=== PATIENT | female | born 1940 | race Caucasian/White ===

== ENCOUNTER → 2017-10-17 | Outpatient (REF) | payer MEDICARE ==
[2017-10-17 12:24] LABS: TROPONIN I < 0.02 NG/ML (< 0.10)
== END ==
LOC: M LAB REF 11:54
DX: R06.02 Shortness of breath (principal); I49.8 Other specified cardiac arrhythmias
CPT/HCPCS: 84484

== ENCOUNTER 2018-02-18 11:32 | Emergency (ER) | payer MEDICARE ==
[2018-02-18] MEDS: NORCO, ANEXSIA 5/325MG TABLET (HYDROcodone/ACETAMINOPHEN) PO (12:44)
[2018-02-18] MEDS: valACYclovir HCL 500 MG TAB PO (12:45)
== END 2018-02-18 13:01 | disposition home or self-care (01) ==
LOC: M ED 11:32
DX: B02.9 Zoster without complications (principal); E78.9 Disorder of lipoprotein metabolism, unspecified; N28.89 Other specified disorders of kidney and ureter; K58.9 Irritable bowel syndrome, unspecified; R25.1 Tremor, unspecified; Z88.0 Allergy status to penicillin; Z88.1 Allergy status to other antibiotic agents; Z79.899 Other long term (current) drug therapy; Z79.82 Long term (current) use of aspirin
CPT/HCPCS: 99282

== ENCOUNTER 2018-10-20 12:13 | Emergency (ER) | payer MEDICARE ==
[~2018-10-20] VITALS: Ht 152.4 cm; Wt 85.9 kg
[~2018-10-20 12:13] MED LIST: ASPI325T PO; CALCTAB89 PO; GLUC1CAP9 PO; META28PO PO; MULTTAB4 PO; NORCOTAB PO; PRAV20TA2; PRIM50TA6; PROP20TA5 PO; SERT-141 PO; TYLE325T5 PO; VALT1TAB PO; VITAMIN D PO
--- NOTE | 2018-10-20 13:23 | REP ---
Left knee series: Six views. History: Pain. Findings: There is patellofemoral spurring consistent with osteoarthritis. There is diffuse osteopenia. Mild tibiofemoral spurring is noted. Impression: Moderate patellofemoral osteoarthritic spurring. Mild tibial femoral spurring. Diffuse osteopenia. No acute bony abnormality. Electronically Signed by Rafal Blackmon MD 10/20/2018 01:13 P
[2018-10-20 13:28] VITALS: BP 153/68
[2018-10-20] MEDS ORDERED: ACET1TAB16 PO (13:28)
[2018-10-20] MEDS ORDERED: ACETAMINOPH W/CODEINE #3 TAB UD PO ONE (13:30)
== END 2018-10-20 13:46 | disposition home or self-care (01) ==
LOC: M ED 12:13
DX: S89.92XA Unspecified injury of left lower leg, initial encounter (principal); M25.761 Osteophyte, right knee; X58.XXXA Exposure to other specified factors, initial encounter; Y92.099 Unspecified place in other non-institutional residence as the place of occurrence of the external cause; Y93.9 Activity, unspecified; Y99.9 Unspecified external cause status; E78.00 Pure hypercholesterolemia, unspecified; K58.9 Irritable bowel syndrome, unspecified; M85.862 Other specified disorders of bone density and structure, left lower leg; Z87.442 Personal history of urinary calculi; Z79.82 Long term (current) use of aspirin; Z79.899 Other long term (current) drug therapy; Z88.0 Allergy status to penicillin; Z88.8 Allergy status to other drugs, medicaments and biological substances

== ENCOUNTER → 2019-05-04 | Outpatient (CLI) | payer MEDICARE ==
[~2019-05-04] MED LIST changes: +ACET1TAB16 PO; +ARTIDRO2 OU; +ASPI-261 PO; +AZOP0.2S OU; +GLUCTAB6 PO; +HYDR-3715 PO; +LATA0.0015 OU; -NORCOTAB PO; +OYST500T25 PO; -PRAV20TA2; +PRAV20TA2 PO; +SENO8.6T5 PO; +SERT50TA29 PO; +TYLE650T35 PO; +VITMTA PO
--- NOTE | 2019-05-04 18:35 | REPMRS ---
Patient History The patient states she has not had a clinical breast exam in over a year. Family history of breast cancer at age 50 or over in paternal grandmother. Took hormonal contraceptives for 10 years. Took estrogen for 15 years. 3D TOMOSYNTHESIS WAS PERFORMED. [facility] lifetime risk for breast cancer is 2.2%. Digital Mammo Screening Bilat: May 04, 2019 - Exam #: [id number] Bilateral CC and MLO view(s) were taken. Technologist: Margaret Morrison, Technologist Prior study comparison: April 23, 2016, bilateral digital mammo screening bilat performed at [facility]. April 03, 2015, bilateral digital mammo screening bilat performed at [facility]. FINDINGS: There are scattered fibroglandular densities. There has been no change in the appearance of the mammogram from the prior studies. There is a mild amount of residual fibroglandular tissue which is fairly symmetric. There is no interval development of dominant mass, architectural distortion, or clustered microcalcification suggestive of malignancy. Assessment: BI-RADS/ACR category 1 mammogram. Negative Mammogram. Recommendation Routine screening mammogram in 1 year (for women over age 40). This mammogram was interpreted with the aid of an FDA-approved computer-aided dectection system. Electronically Signed By: Miquel Gold MD 05/04/19 [id number]
== END ==
LOC: M RAD 17:28
PROVIDERS: ATTEND Internal Medicine
DX: Z12.31 Encounter for screening mammogram for malignant neoplasm of breast (principal)

== ENCOUNTER 2019-10-14 10:49 | Inpatient (IN) | payer MEDICARE ==
[~2019-10-14] VITALS: Ht 152.4 cm; Wt 96.3 kg
[~2019-10-14 10:49] MED LIST changes: -ARTIDRO2 OU; +POLYOPD OU
[2019-10-14] MEDS ORDERED: STOO2CAP PO (11:04)
[2019-10-14] MEDS ORDERED: MIRA3350 PO (11:04)
[2019-10-14 12:11] LABS: HEMATOCRIT 38.6 % (36.0-47.0); HEMOGLOBIN 12.8 g/dl (12.0-15.5); MEAN CORPUSCULAR HEMOGLOBIN 31.8 pg (27.0-33.0); MEAN CORPUSCULAR HGB CONC 33.2 g/dl (32.0-36.5); PLATELET COUNT, AUTOMATED 286 10^3/uL (150-450); RED BLOOD COUNT 4.02 10^6/uL (4.00-5.40); WHITE BLOOD COUNT 7.9 10^3/uL (4.0-10.0)
[2019-10-14 12:42] LABS: ACETAMINOPHEN LEVEL < 2.0 UG/ML (10.0-30.0); ALBUMIN 3.6 GM/DL (3.2-5.2); ALT/SGPT 25 U/L (12-78); AMPHETAMINES LEVEL URINE NEGATIVE (NEGATIVE); BARBITURATES URINE POSITIVE (NEGATIVE); BENZODIAZEPINES URINE NEGATIVE (NEGATIVE); BILIRUBIN,DIRECT 0.1 MG/DL (0.0-0.2); BILIRUBIN,TOTAL 0.3 MG/DL (0.2-1.0); BLOOD UREA NITROGEN 17 MG/DL (7-18); CALCIUM LEVEL 9.1 MG/DL (8.8-10.2); CANNABINOIDS URINE NEGATIVE (NEGATIVE); CARBON DIOXIDE LEVEL 28 MEQ/L (21-32); CHLORIDE LEVEL 102 MEQ/L (98-107); COCAINE METABOLITE URINE NEGATIVE (NEGATIVE); ETHYL ALCOHOL (ETHANOL) < 0.003 % (0.000-0.010); GLOMERULAR FILTRATION RATE > 60.0 (>39); GLUCOSE, FASTING 135 MG/DL (70-100); METHADONE URINE NEGATIVE (NEGATIVE); OPIATES URINE NEGATIVE (NEGATIVE); PHENCYCLIDINE URINE NEGATIVE (NEGATIVE); POTASSIUM SERUM 4.2 MEQ/L (3.5-5.1); SALICYLATE LEVEL < 1.7 MG/DL (5.0-30.0); SODIUM LEVEL 135 MEQ/L (136-145); TOTAL PROTEIN 6.4 GM/DL (6.4-8.2)
[2019-10-14] MEDS ORDERED: ARIP1TAB6 (13:02)
[2019-10-14] MEDS ORDERED: CLON0.5T2 PO (13:02)
[2019-10-14] MEDS ORDERED: CYMB60CA3 PO (13:02)
[2019-10-14] MEDS ORDERED: DULO1CAP6 (13:02)
[2019-10-14] MEDS ORDERED: MYSO50TA5 (13:02)
[2019-10-14] MEDS ORDERED: ARIP1TAB4 (13:02)
[2019-10-14] MEDS ORDERED: clonazePAM 0.5 MG TAB PO ONE (22:15)
--- NOTE | 2019-10-14 23:18 | ECGEPIP ---
[facility] - ED Test Date: 2019-10-14 Pat Name: RENETTA NAIK Department: Room: - Gender: Female Director Of Women'S Services: victor hugo : 1940 Requested By: Robe Vora Order Number: [id number] Reading MD: Mani Martin Measurements Intervals [place] Rate: 86 P: 47 MI: 137 QRS: 21 QRSD: 109 T: 52 QT: 351 QTc: 422 Interpretive Statements SINUS RHYTHM Nonspecific T wave abnormality Similar to tracing done 08-29-19 Electronically Signed on 10-14-2019 23:18:04 EST by Mani Martin
[2019-10-15] MEDS ORDERED: ASPIRIN 325 MG TAB PO ONE (12:45)
[2019-10-15] MEDS ORDERED: DOCUSATE SODIUM 100 MG CAP PO ONE (12:45)
[2019-10-15] MEDS ORDERED: CALCIUM/VITAMIN D 500 MG TAB PO ONE (12:45)
[2019-10-15] MEDS ORDERED: MULTIVITAMINS/MINERALS THERAP 1 TAB PO ONE (12:45)
[2019-10-15] MEDS ORDERED: MAALOX 30 ML SUSP *UDC PO PRN (13:15)
[2019-10-15] MEDS ORDERED: IBUPROFEN 400 MG TAB PO PRN (13:15)
[2019-10-15 14:32] VITALS: BP 148/80
[2019-10-15] MEDS: ACETAMINOPHEN TAB 650MG DOSE (2X325MG) PO PRN (20:13)
[2019-10-15] MEDS: SENNA 8.6 MG TAB (SENOKOT) PO PRN (20:14)
[2019-10-15] MEDS ORDERED: POLYVINYL ALCOHOL OPHTH SOLN 15 ML(LIQUITEARS) OU PRN (21:15)
[2019-10-15] MEDS: LATANOPROST 0.005% OPHTH SOLN 2.5 ML OU SCH (21:50)
[2019-10-15] MEDS: PRIMIDONE 50 MG TAB PO SCH (21:50)
[2019-10-15] MEDS: PRAVASTATIN 20 MG TAB PO SCH (21:50)
[2019-10-15] MEDS: BRINZOLAMIDE 1 % OPHTH SUSP (AZOPT) 10ML OU SCH (21:50)
[2019-10-15] MEDS: CALCIUM/VITAMIN D 500 MG TAB PO SCH (21:50)
[2019-10-15] MEDS: LORazepam 0.5 MG TAB PO PRN (22:32)
[2019-10-16 06:34] VITALS: BP 162/81
[2019-10-16] MEDS ORDERED: clonazePAM 0.5 MG TAB PO ONE ×2 (09:00→21:00)
[2019-10-16] MEDS: BRINZOLAMIDE 1 % OPHTH SUSP (AZOPT) 10ML OU SCH ×2 (10:02→20:13)
[2019-10-16] MEDS: CALCIUM/VITAMIN D 500 MG TAB PO SCH ×2 (10:02→20:14)
[2019-10-16] MEDS: ACETAMINOPHEN TAB 650MG DOSE (2X325MG) PO PRN (10:09)
--- NOTE | 2019-10-16 12:39 | HPE ---
DATE OF ADMISSION: 10/15/2019 DATE OF SERVICE: 10/16/2019 This is a hospitalist-generated history and physical on Anna Best who is an [facility] patient. The patient has a history of hyperlipidemia, tremor, depression, history of psychosis, and some orthopedic problems. She has a history of nonsustained ventricular tachycardia (v-tach). She underwent cardiac catheterization 09/29 in [place]. No significant coronary artery disease was seen. Ejection fraction was 65%. Has a history of obstructive sleep apnea (SHEEBA) and osteoporosis. She got a colonoscopy on 05/31 for screening purposes; it was negative. She had a sleep study 07/27 that showed SHEEBA. HOME MEDICATIONS: - Tylenol as needed - aspirin 325 mg daily - various eye drops - Klonopin 0.25 mg daily - duloxetine 60 mg daily - glucosamine - multivitamin - pravastatin 20 mg nightly - primidone 100 mg nightly - Senokot as needed ALLERGIES: CEPHALOSPORIN, PENICILLIN, MEPERIDINE. SOCIAL HISTORY: Nonsmoker. PHYSICAL EXAM: Vital signs per flow sheet. She is alert, conversant, anxious. Has a tremor. Lungs: Clear. Heart: Regular rhythm. Abdomen: Soft, nontender. No peripheral edema. Good distal pulses. Neurologic Exam: Nonfocal. IMPRESSION: 1. Depression. Per psychiatry. 2. Hyperlipidemia. Continue pravastatin 20 mg daily. 3. Essential tremor. Continue primidone 100 mg nightly. Hospitalists are available if you need further medical care during her hospitalization.
[2019-10-16] MEDS: MOM 30ML SUSPENSION UDC PO PRN (13:15)
[2019-10-16 16:09] VITALS: BP 148/85
[2019-10-16] MEDS: LORazepam 0.5 MG TAB PO PRN (18:25)
[2019-10-16] MEDS: MIRTAZAPINE 7.5MG PER 1/2 TABLET PO SCH (20:13)
[2019-10-16] MEDS: LATANOPROST 0.005% OPHTH SOLN 2.5 ML OU SCH (20:13)
[2019-10-16] MEDS: PRAVASTATIN 20 MG TAB PO SCH (20:14)
[2019-10-16] MEDS: PRIMIDONE 50 MG TAB PO SCH (20:14)
--- NOTE | 2019-10-16 21:11 | MHHPE ---
DATE OF ADMISSION: 10/15/2019 VITAL SIGNS: Blood pressure 162/81, pulse 74, temperature 98.2. CHIEF COMPLAINT: Feels anxious. SUBJECTIVE: She is 79 years old, lives on her own, and has had a recent hospitalization, psychiatry, at [facility], was there for about 2 weeks, was anxious at the time, but I am not aware of the details. She is quite anxious, and depressed, and has a hard time narrating a coherent history, though she attempts to do so. She apparently had called her primary care provider, Dr. Arroyo, and she indicated that she was quite depressed, had not slept well. She says that she has been feeling anxious and stressed, and that things have not been going well for her, though is somewhat vague about this, suggests [id number] does not like her, unclear if she has been staying with them temporarily, but says generally lives on her own. Says has lost quite a few friends lately, vague on this as well, but suggests that it is because another friend had posted matters regarding her on [employer], including the patient being taken of financially by people that she had met apparently online. She also talks of helping others with their medications, particularly one person who apparently lives near her, says that the lady was due to take a medication at 5:00 o'clock in the evening, had done so, asked the patient for help. The patient was not aware that in fact she had taken the 5:00 o'clock dose and she gave her another dose at 10:00 p.m. She says that she called the lady's daughter and informed her of it and the ambulance was called. Says the lady was brought to the hospital and then apparently discharged with no ill effects. The patient has tended to ruminate on this, and on other matters, which she is quite vague about, including Bill and Fern losing their jobs. Says that there are times when she has thought of killing herself, often thinks of lately, no plans, but she mentioned that women tend to take pills and men shoot themselves. She also suggests that she had lost a brother to suicide, and again the details are unknown. Says finds it hard to cope generally, particularly when she is having difficulties in the hospital, does not think that she can manage at her own place. Says also notices that she has been more forgetful, says that this has been more recent. She says that she felt that she was doing relatively well around [place] but has not done well since then. No history consistent with hypomania nor mariusz nor psychosis as such. PAST PSYCHIATRIC HISTORY: She was hospitalized recently at [facility], was there for a couple of weeks, apparently treated for depression, but I am not aware of the details. MEDICAL HISTORY: She is treated for essential tremors and is on primidone, has a history of gastrointestinal difficulties and apparently has been diagnosed with irritable bowel syndrome. She has a history of kidney stones, difficulties with pain as well, including back pain. SUBSTANCE ABUSE HISTORY: I am not aware of any of significance. MEDICATIONS: Just prior to coming to the hospital she has been on: - pravastatin - primidone - eye drops - aspirin - multivitamin - Cymbalta 60 mg daily - clonazepam 0.25 mg daily SURGICAL HISTORY: She has had an appendectomy, cholecystectomy, surgery on her right knee. She has had a hysterectomy, apparently. ALLERGIES: PENICILLIN, CEPHALOSPORIN, MEPERIDINE. SOCIAL HISTORY: Lives on her own, has a son who is in the area, some suggestion that she lost a son a few years ago, per the emergency room record. Says a brother of hers killed himself as well, unclear when. MENTAL STATUS EXAMINATION: She is neat. She is cooperative. She is fidgety. No psychomotor retardation. Appears anxious. Speech is spontaneous and coherent for a significant portion, but tends to not complete sentences and then will start talking about other matters, which appear somewhat related but which contain a different cast of characters, which is difficult to follow. Affect is congruent with her anxiety. She became quite tearful when mentioning her brother who had killed himself but then she was able to reconstitute relatively quickly. Denies active thoughts of harming herself. No evidence of any thoughts of harming anyone else. No overt delusional elicited. Does not appear to be internally preoccupied. No fluctuation of consciousness. She is alert, oriented to time, place and person. Can spell the word house forwards and backwards. Can recall two out of three objects after 5 minutes with prompting. Intellect is average. Judgment and insight are fair, possibly questionable. ASSESSMENT: 1. Other specified depressive disorder. 2. Other specified anxiety disorder. 3. Rule out major depressive disorder. The differential diagnosis may need to include the possibility of neurocognitive disorder, possibly early dementia, which then presents with anxiety. This has to be taken into consideration, but further history, particularly longitudinal history, may help clarify that. PLAN: The various options are discussed. She is admitted to the inpatient psychiatry unit and placed on relevant precautions, we will look at obtaining collateral information. She will receive a medicine consultation if indicated. She will be encouraged to participate in activities in the unit as tolerated. I would suggest continuing with duloxetine for now, we will switch over the clonazepam to nighttime dosage of 0.25 mg, we will prescribe Ativan at a low dose of 0.25 mg twice a day as needed, which is generally quicker acting than the clonazepam. The use of the lorazepam ought to be limited. We will start her on mirtazapine at 15 mg at night to see if that helps with her anxieties and sleep. She will be discharged with followup once she is stable. I would anticipate a 5 to 7 day stay. The assessment took 45 minutes.
[2019-10-16] MEDS ORDERED: ACETAMINOPHEN 650MG ER TAB (TYLENOL ARTHRITIS) PO PRN (21:15)
[2019-10-17 06:30] VITALS: BP 152/63
[2019-10-17] MEDS: LORazepam 0.5 MG TAB PO PRN ×2 (07:21→15:50)
[2019-10-17] MEDS: BRINZOLAMIDE 1 % OPHTH SUSP (AZOPT) 10ML OU SCH ×2 (08:20→20:51)
[2019-10-17] MEDS: CALCIUM/VITAMIN D 500 MG TAB PO SCH ×2 (08:20→20:52)
[2019-10-17] MEDS: DOCUSATE SODIUM 100 MG CAP PO SCH ×2 (11:32→20:52)
[2019-10-17] MEDS: ASPIRIN 325 MG TAB PO SCH (11:32)
[2019-10-17] MEDS: SENNA 8.6 MG TAB (SENOKOT) PO PRN (15:50)
[2019-10-17 16:04] VITALS: BP 161/70
[2019-10-17] MEDS: MOM 30ML SUSPENSION UDC PO PRN (18:19)
[2019-10-17] MEDS: LATANOPROST 0.005% OPHTH SOLN 2.5 ML OU SCH (20:51)
[2019-10-17] MEDS: MIRTAZAPINE 7.5MG PER 1/2 TABLET PO SCH (20:52)
[2019-10-17] MEDS: PRAVASTATIN 20 MG TAB PO SCH (20:52)
[2019-10-17] MEDS: PILL CUTTER 1 EACH XX PRN (20:52)
[2019-10-17] MEDS: PRIMIDONE 50 MG TAB PO SCH (20:52)
[2019-10-17] MEDS: clonazePAM 0.5 MG TAB PO SCH (20:53)
[2019-10-18 06:28] VITALS: BP 112/66
[2019-10-18] MEDS: ASPIRIN 325 MG TAB PO SCH (08:52)
[2019-10-18] MEDS: DOCUSATE SODIUM 100 MG CAP PO SCH ×2 (08:52→21:01)
[2019-10-18] MEDS: BRINZOLAMIDE 1 % OPHTH SUSP (AZOPT) 10ML OU SCH ×2 (08:52→21:01)
[2019-10-18] MEDS: CALCIUM/VITAMIN D 500 MG TAB PO SCH ×2 (08:52→21:01)
--- NOTE | 2019-10-18 10:26 | MHIPNPDOC ---
[facility] Progress Note Progress Note Inpatient Progress Note Anna Best MRN: N/A Date of : N/A Date of Service: 10/18/2019 History of Present Illness The patient, a 79-year-old woman, presented to [facility] with increasing depression and significant memory problems. Interval History Narrative: The patient is met with today in her room. She reports having significant depression. Affective: The patient reports significant low mood, loss of interest and difficulties with concentration. Psychotic: Denies any symptoms. Anxiety: Worries about her current situation. Eating and sleeping behaviors: Generally normal. Group Attendance: Frequent. Medication Side effects: See ROS below Behavioral problems/significant events overnight: None reported. Staff Report: The patient is generally friendly, but has significant anxiety symptoms and difficulties remembering. Review Of Systems General: Denies fever or appetite changes Cardiovascular: Denies Chest pain or palpations GI: Denies Nausea, vomiting, or bowel changes Respiratory: Denies shortness of breath or cough Neuro: Denies dizziness, tremors Derm: Denies any rashes or pruritus : Denies any dysuria or urinary problems MSK: Denies any muscle tightness or stiffness HEENT: Denies any vision changes or headaches Psychotherapy None on this visit. Vital Signs Reviewed. Mental Status Examination General: Well dressed with good hygiene Speech: Spontaneous and fluid Thought processes: Linear and logical MSK: Smooth and coordinated gait, no signs of tremors or involuntary orofacial movements Thought content: Hopeless Abstract reasoning, and computation: Intact Description of associations: Intact Description of abnormal or psychotic thoughts: Denies any suicidal or homicidal ideation. Denies any auditory or visual hallucinations. Does not appear to be responding to internal stimuli. Does not appear to be endorsing any bizarre or paranoid ideation. Judgment: Limited Insight: Limited Orientation: Alert and orientated 3 Cognition: Slowed Recent and remote memory: Impaired Attention span and concentration: Impaired Fund of knowledge: Adequate Mood: "Fine" Affect: Dysthymic with a constricted range. Diagnoses Unspecified depressive disorder. Unspecified neurocognitive disorder. Assessment and Plan Unspecified depressive disorder: We'll cross titrate on to Effexor. Unspecified neurocognitive disorder: Recommend outpatient neuropsych testing. Disposition The patient will be continued on inpatient for titration of her medications and better understanding of her disability. Time Spent 15 minutes Friday Vital Signs Vital Signs Date Time Temp Pulse Resp B/P (MAP) Pulse Ox O2 Delivery O2 Flow Rate FiO2 10/18/19 06:28 98.7 87 16 112/66 (81) Room Air 10/15/19 14:32 98 Current Medications Current Medications Medications (Trade) Dose Ordered Sig/Joceline Route PRN Reason Start Time Stop Time Status Last Admin Dose Admin Acetaminophen (Tylenol Arthritis Er) 1,300 mg QHS PRN PO PAIN 10/16/19 21:15 Acetaminophen (Tylenol Tab) 650 mg Q6HP PRN PO HEADACHE or DISCOMFORT 10/15/19 13:15 10/16/19 10:09 Al Hydrox/Mg Hydrox/Simethicone (Mylanta) 30 ml Q4HP PRN PO HEARTBURN/INDIGESTION 10/15/19 13:15 Artificial Tears (Akwa Tears) 2 drop QIDP PRN OU DRY EYES 10/15/19 21:15 Aspirin (Aspirin) 325 mg DAILY PO 10/17/19 10:45 10/18/19 08:52 Brinzolamide (Azopt) 1 drop BID OU 10/15/19 21:00 10/18/19 08:52 Calcium/Vitamin D (Oscal D) 500 mg BID PO 10/15/19 21:00 10/18/19 08:52 Clonazepam (KlonoPIN) 0.25 mg QHS PO 10/17/19 21:00 10/17/19 20:53 Diphenhydramine HCl (Benadryl) 25 mg Q6HP PRN PO ANXIETY/AGITATION 10/15/19 13:15 Docusate Sodium (Colace) 100 mg BID PO 10/17/19 10:45 10/18/19 08:52 Home Med (Med Rec Complete!) ASDIRECTED XX 10/15/19 13:45 10/15/19 13:57 DC Ibuprofen (Advil) 400 mg Q6HP PRN PO PAIN 10/15/19 13:15 Latanoprost (Xalatan 0.005% Op Soln) 1 drop QHS OU 10/15/19 21:00 10/17/19 20:51 Lorazepam (Ativan) 0.25 mg BIDP PRN PO ANXIETY 10/15/19 21:15 10/17/19 21:15 DC 10/17/19 15:50 Magnesium Hydroxide (Milk Of Magnesia) 30 ml DAILYPRN PRN PO CONSTIPATION 10/15/19 13:15 10/17/19 18:19 Mirtazapine (Remeron) 7.5 mg QHS PO 10/16/19 21:00 10/17/19 20:52 Pravastatin Sodium (Pravachol) 20 mg QHS PO 10/15/19 21:00 10/17/19 20:52 Primidone (Mysoline) 100 mg QHS PO 10/15/19 21:00 10/17/19 20:52 Senna (Senokot) 1 tab NOW PRN PO constipation 10/14/19 21:45 10/17/19 15:50 Allergies Coded Allergies: Cephalosporins (Verified Allergy, Unknown, 08/29/19) Penicillins (Verified Allergy, Unknown, UNKNOWN REACTION, 08/30/19) ceftriaxone (Verified Adverse Reaction, Unknown, INCREASED HR, 08/30/19) meperidine (Verified Adverse Reaction, Unknown, AMS, 08/30/19) NANCY MARROQUIN DO Oct 18, 2019 10:26
--- NOTE | 2019-10-18 13:28 | MHIPN ---
DATE: 10/17/2019 VITAL SIGNS: Blood pressure 152/63, pulse 73, temperature 99.3. CHIEF COMPLAINT: Feels anxious. SUBJECTIVE: She is seen for followup in the presence of staff. Says feels anxious, but suggests that she got a few hours of sleep at night. Appetite has been a bit diminished. Says spoke with her son, she feels she disappointed him in some way. She is spending time in her room on most occasions. MENTAL STATUS EXAMINATION She is neat. She is cooperative, she is a bit more rested and less anxious with an affect which is a bit more relaxed than yesterday. She is coherent. Denies any thoughts of harming herself or anyone else. Currently there is no evidence of any psychosis and she is more ruminative than yesterday regarding negative thoughts. No overt psychosis. She is alert and oriented. Judgment and insight fair. ASSESSMENT: 1. Other specified depressive disorder. 2. Other specified anxiety disorder. 3. Rule out major depressive disorder. The possibility of neurocognitive disorder also remains. She appears less anxious than yesterday. PLAN: The clonazepam has been discontinued and may need to consider resuming it as a night time dose at 0.25 mg, this is in addition to Ativan at a lower dose of 0.25 mg twice a day as needed. She has been started on mirtazapine at a lower dose than previously planned at 7.5 mg at night, and this may need to be titrated upward as tolerated. She is to be encouraged to participate in activities in the unit. She will be seeing the treatment team, as well as the assigned psychiatrist tomorrow when further recommendations will be made.
[2019-10-18] MEDS ORDERED: VENLAFAXINE **XR** 37.5 MG CAPSULE PO ONE (13:45)
[2019-10-18 16:16] VITALS: BP 142/87
[2019-10-18] MEDS: MIRTAZAPINE 7.5MG PER 1/2 TABLET PO SCH (21:00)
[2019-10-18] MEDS: LATANOPROST 0.005% OPHTH SOLN 2.5 ML OU SCH (21:01)
[2019-10-18] MEDS: PRAVASTATIN 20 MG TAB PO SCH (21:01)
[2019-10-18] MEDS: PRIMIDONE 50 MG TAB PO SCH (21:01)
[2019-10-18] MEDS: clonazePAM 0.5 MG TAB PO SCH (21:02)
[2019-10-19 06:25] VITALS: BP 133/70
[2019-10-19] MEDS: BRINZOLAMIDE 1 % OPHTH SUSP (AZOPT) 10ML OU SCH ×2 (08:28→21:02)
[2019-10-19] MEDS: CALCIUM/VITAMIN D 500 MG TAB PO SCH ×2 (08:28→21:05)
[2019-10-19] MEDS: VENLAFAXINE **XR** 37.5 MG CAPSULE PO SCH (08:28)
[2019-10-19] MEDS: DOCUSATE SODIUM 100 MG CAP PO SCH ×2 (08:28→21:06)
[2019-10-19] MEDS: ASPIRIN 325 MG TAB PO SCH (08:28)
--- NOTE | 2019-10-19 12:26 | MHIPNPDOC ---
[facility] Progress Note Progress Note DATE OF SERVICE: 10/19/19 HISTORY: As per previous notes: " She is 79 years old, lives on her own, and has had a recent hospitalization, psychiatry, at [facility], was there for about 2 weeks, was anxious at the time, but I am not aware of the details. She is quite anxious, and depressed, and has a hard time narrating a coherent history, though she attempts to do so." VITAL SIGNS: See below. NEW TEST RESULTS: See below CURRENT MEDICATIONS: See below. MENTAL STATUS EXAMINATION: Patient is a 79-year old female, who is alert, cooperative, dressed in hospital clothes, pleasant and cooperative Speech: Is normal in tone, rate, rhythm and volume. Language skills are intact. Thought processes including: a little disorganized, not tangential, not circumstantial, some delayed responses. Thought content: Depressive/anxious thoughts Description of associations: not loose. Description of abnormal or psychotic thoughts: she denies TAV hallucinations, denies paranoid delusions, denies other bizarre/grandiose delusions.. Judgment: limited at this time. Insight: limited. Orientation: to place and person but not to date and time. Recent and remote memory: Remote memory is good according to her, immediate memory is not that good Attention span and concentration: fair but tends to get distracted. Mood: "confused". Affect: sad, anxious DIAGNOSES: 1. Other specified depressive disorder. 2. Other specified anxiety disorder. 3. Rule out major depressive disorder. ASSESSMENT: The patient says she has memory problems, her remote memory is better than recent memory. She is sad, depressed, she says she feels confused. She is also grieving, she says she has a brother who lives in [place] who has Alzheimer's and cancer and she doubts she will see him again. MANAGEMENT PLAN: Continue with current treatment plan TIME SPENT: 15 minutes. Vital Signs Vital Signs Date Time Temp Pulse Resp B/P (MAP) Pulse Ox O2 Delivery O2 Flow Rate FiO2 10/19/19 06:25 97.4 76 16 133/70 (91) Room Air 10/15/19 14:32 98 Current Medications Current Medications Medications (Trade) Dose Ordered Sig/Joceline Route PRN Reason Start Time Stop Time Status Last Admin Dose Admin Acetaminophen (Tylenol Arthritis Er) 1,300 mg QHS PRN PO PAIN 10/16/19 21:15 Acetaminophen (Tylenol Tab) 650 mg Q6HP PRN PO HEADACHE or DISCOMFORT 10/15/19 13:15 10/16/19 10:09 Al Hydrox/Mg Hydrox/Simethicone (Mylanta) 30 ml Q4HP PRN PO HEARTBURN/INDIGESTION 10/15/19 13:15 Artificial Tears (Akwa Tears) 2 drop QIDP PRN OU DRY EYES 10/15/19 21:15 Aspirin (Aspirin) 325 mg DAILY PO 10/17/19 10:45 10/19/19 08:28 Brinzolamide (Azopt) 1 drop BID OU 10/15/19 21:00 10/19/19 08:28 Calcium/Vitamin D (Oscal D) 500 mg BID PO 10/15/19 21:00 10/19/19 08:28 Clonazepam (KlonoPIN) 0.25 mg QHS PO 10/17/19 21:00 10/18/19 21:02 Diphenhydramine HCl (Benadryl) 25 mg Q6HP PRN PO ANXIETY/AGITATION 10/15/19 13:15 Docusate Sodium (Colace) 100 mg BID PO 10/17/19 10:45 10/19/19 08:28 Home Med (Med Rec Complete!) ASDIRECTED XX 10/15/19 13:45 10/15/19 13:57 DC Ibuprofen (Advil) 400 mg Q6HP PRN PO PAIN 10/15/19 13:15 Latanoprost (Xalatan 0.005% Op Soln) 1 drop QHS OU 10/15/19 21:00 10/18/19 21:01 Lorazepam (Ativan) 0.25 mg BIDP PRN PO ANXIETY 10/15/19 21:15 10/17/19 21:15 DC 10/17/19 15:50 Magnesium Hydroxide (Milk Of Magnesia) 30 ml DAILYPRN PRN PO CONSTIPATION 10/15/19 13:15 10/17/19 18:19 Mirtazapine (Remeron) 7.5 mg QHS PO 10/16/19 21:00 10/17/19 20:52 Pravastatin Sodium (Pravachol) 20 mg QHS PO 10/15/19 21:00 10/18/19 21:01 Primidone (Mysoline) 100 mg QHS PO 10/15/19 21:00 10/18/19 21:01 Senna (Senokot) 1 tab NOW PRN PO constipation 10/14/19 21:45 10/17/19 15:50 Venlafaxine HCl (Effexor Xr) 37.5 mg DAILY PO 10/19/19 09:00 10/19/19 08:28 Allergies Coded Allergies: Cephalosporins (Verified Allergy, Unknown, 08/29/19) Penicillins (Verified Allergy, Unknown, UNKNOWN REACTION, 08/30/19) ceftriaxone (Verified Adverse Reaction, Unknown, INCREASED HR, 08/30/19) meperidine (Verified Adverse Reaction, Unknown, AMS, 08/30/19) CAROLINA GARCIA MD Oct 19, 2019 12:20
[2019-10-19] MEDS: diphenhydrAMINE 25 MG CAP PO PRN (15:42)
[2019-10-19 16:01] VITALS: BP 136/80
[2019-10-19] MEDS: MIRTAZAPINE 7.5MG PER 1/2 TABLET PO SCH (21:05)
[2019-10-19] MEDS: PRAVASTATIN 20 MG TAB PO SCH (21:05)
[2019-10-19] MEDS: PRIMIDONE 50 MG TAB PO SCH (21:06)
[2019-10-19] MEDS: clonazePAM 0.5 MG TAB PO SCH (21:10)
[2019-10-19] MEDS: LATANOPROST 0.005% OPHTH SOLN 2.5 ML OU SCH (21:12)
[2019-10-20 06:26] VITALS: BP 141/99
[2019-10-20] MEDS: BRINZOLAMIDE 1 % OPHTH SUSP (AZOPT) 10ML OU SCH ×2 (08:28→20:39)
[2019-10-20] MEDS: ASPIRIN 325 MG TAB PO SCH (08:28)
[2019-10-20] MEDS: VENLAFAXINE **XR** 37.5 MG CAPSULE PO SCH (08:28)
[2019-10-20] MEDS: DOCUSATE SODIUM 100 MG CAP PO SCH ×2 (08:28→20:47)
[2019-10-20] MEDS: CALCIUM/VITAMIN D 500 MG TAB PO SCH ×2 (08:28→20:48)
[2019-10-20 16:21] VITALS: BP 132/80
[2019-10-20] MEDS: MOM 30ML SUSPENSION UDC PO PRN (18:09)
--- NOTE | 2019-10-20 19:15 | MHIPN ---
DATE: 10/20/2019 VITAL SIGNS: Blood pressure 141/99, pulse 86, temperature 98.6. CHIEF COMPLAINT: She feels anxious. SUBJECTIVE: She is seen for followup, in the company of staff. She says she feels anxious, suggests is not afraid of dying, but is afraid of living, says was also concerned that if she dies in her sleep, the nurses will be blamed, and she would not want that to happen. She also indicates she does not wish to . She says it is as if she is learning how to live again. She remains worried about the immediate future, her ability to live at her own apartment, without assistance. She says she has been in touch with her son. MENTAL STATUS EXAMINATION: She is neat. She is cooperative. No agitation. No psychomotor retardation. Affect restricted but reactive. She appears somewhat anxious at times. Denies any thoughts of harming herself or anyone else and currently there is no firm evidence of any psychosis. Cognition is grossly intact. Judgment and insight are compromised. ASSESSMENT: 1. Other specified depressive disorder. 2. Other specified anxiety disorder. The possibility of a neurocognitive disorder remains. PLAN: She has recently been started on the Effexor, at 37.5 mg daily. I suggest continuing with that for now, that may need titrating up. Meanwhile, we will increase the mirtazapine to 15 mg at night. Would encourage participation in activities on the unit as best as is tolerated. She will be seeing the assigned psychiatrist tomorrow.
[2019-10-20] MEDS: PILL CUTTER 1 EACH XX PRN (20:46)
[2019-10-20] MEDS: clonazePAM 0.5 MG TAB PO SCH (20:46)
[2019-10-20] MEDS: PRIMIDONE 50 MG TAB PO SCH (20:48)
[2019-10-20] MEDS: MIRTAZAPINE 15 MG TAB PO SCH (20:48)
[2019-10-20] MEDS: PRAVASTATIN 20 MG TAB PO SCH (20:48)
[2019-10-20] MEDS: LATANOPROST 0.005% OPHTH SOLN 2.5 ML OU SCH (20:48)
[2019-10-21 07:10] VITALS: BP 180/78
--- NOTE | 2019-10-21 08:42 | MHIPNPDOC ---
[facility] Progress Note Progress Note DATE OF SERVICE: 10/21/19 HISTORY: Pt is a 79y/o CF admitted for depression and SI. Per Dr. Varela: Says that there are times when she has thought of killing herself, often thinks of lately, no plans, but she mentioned that women tend to take pills and men shoot themselves. She also suggests that she had lost a brother to suicide, and again the details are unknown. Says finds it hard to cope generally, particularly when she is having difficulties in the hospital, does not think that she can manage at her own place. Says also notices that she has been more forgetful, says that this has been more recent. She says that she felt that she was doing relatively well around [place] but has not done well since then. No history consistent with hypomania nor mariusz nor psychosis as such. VITAL SIGNS: See below. NEW TEST RESULTS:See below. CURRENT MEDICATIONS: See below. MENTAL STATUS EXAMINATION: She is neat. She is cooperative. She is anxious. No psychomotor retardation. Speech is spontaneous and coherent for a significant portion, but tends to not complete sentences and then will start talking about other matters, which appear somewhat related to her symptom of anxiety. Affect is co ngruent with her anxiety. Denies active thoughts of harming herself. No evidence of any thoughts of harming anyone else. DIAGNOSES: 1. Other specified depressive disorder. 2. Other specified anxiety disorder. 3. Rule out major depressive disorder. ASSESSMENT:Pt seen and states she feels "nervous" b/c she doesn't know what's going to happen. Pt is hard to understand regarding how she feels. States she knows she want to live. States she slept well last night with increase in remeron. Continues to endorse confusion and states she feels she becoming demented. Feels she is tolerating her medications and they're beneficial. She is attending groups and finding them helpful. She denies SI/HI, hallucinations, delusions. Will increase pt's effexor xr for depression and anxious. Pt feels safe here. MANAGEMENT PLAN:Continue plan. increase effexor xr medications: effexor xr 75mg daily remeron 15mg qhs klonopin 0.25mg qhs TIME SPENT: 30 minutes. Vital Signs Vital Signs Date Time Temp Pulse Resp B/P (MAP) Pulse Ox O2 Delivery O2 Flow Rate FiO2 10/21/19 07:10 97.6 97 16 180/78 (112) 10/20/19 09:01 Room Air 10/15/19 14:32 98 Current Medications Current Medications Medications (Trade) Dose Ordered Sig/Joceline Route PRN Reason Start Time Stop Time Status Last Admin Dose Admin Acetaminophen (Tylenol Arthritis Er) 1,300 mg QHS PRN PO PAIN 10/16/19 21:15 Acetaminophen (Tylenol Tab) 650 mg Q6HP PRN PO HEADACHE or DISCOMFORT 10/15/19 13:15 10/16/19 10:09 Al Hydrox/Mg Hydrox/Simethicone (Mylanta) 30 ml Q4HP PRN PO HEARTBURN/INDIGESTION 10/15/19 13:15 10/19/19 16:48 Artificial Tears (Akwa Tears) 2 drop QIDP PRN OU DRY EYES 10/15/19 21:15 Aspirin (Aspirin) 325 mg DAILY PO 10/17/19 10:45 10/20/19 08:28 Brinzolamide (Azopt) 1 drop BID OU 10/15/19 21:00 10/20/19 20:39 Calcium/Vitamin D (Oscal D) 500 mg BID PO 10/15/19 21:00 10/20/19 20:48 Clonazepam (KlonoPIN) 0.25 mg QHS PO 10/17/19 21:00 10/20/19 20:46 Diphenhydramine HCl (Benadryl) 25 mg Q6HP PRN PO ANXIETY/AGITATION 10/15/19 13:15 10/19/19 15:42 Docusate Sodium (Colace) 100 mg BID PO 10/17/19 10:45 10/20/19 20:47 Home Med (Med Rec Complete!) ASDIRECTED XX 10/15/19 13:45 10/15/19 13:57 DC Ibuprofen (Advil) 400 mg Q6HP PRN PO PAIN 10/15/19 13:15 Latanoprost (Xalatan 0.005% Op Soln) 1 drop QHS OU 10/15/19 21:00 10/20/19 20:48 Lorazepam (Ativan) 0.25 mg BIDP PRN PO ANXIETY 10/15/19 21:15 10/17/19 21:15 DC 10/17/19 15:50 Magnesium Hydroxide (Milk Of Magnesia) 30 ml DAILYPRN PRN PO CONSTIPATION 10/15/19 13:15 10/20/19 18:09 Mirtazapine (Remeron) 7.5 mg QHS PO 10/16/19 21:00 10/20/19 11:48 DC 10/19/19 21:05 Mirtazapine (Remeron) 15 mg QHS PO 10/20/19 21:00 10/20/19 20:48 Pravastatin Sodium (Pravachol) 20 mg QHS PO 10/15/19 21:00 10/20/19 20:48 Primidone (Mysoline) 100 mg QHS PO 10/15/19 21:00 10/20/19 20:48 Senna (Senokot) 1 tab NOW PRN PO constipation 10/14/19 21:45 10/17/19 15:50 Venlafaxine HCl (Effexor Xr) 37.5 mg DAILY PO 10/19/19 09:00 10/20/19 08:28 Allergies Coded Allergies: Cephalosporins (Verified Allergy, Unknown, 08/29/19) Penicillins (Verified Allergy, Unknown, UNKNOWN REACTION, 08/30/19) ceftriaxone (Verified Adverse Reaction, Unknown, INCREASED HR, 08/30/19) meperidine (Verified Adverse Reaction, Unknown, AMS, 08/30/19) TANISHA WEN DO Oct 21, 2019 8:42 am
[2019-10-21] MEDS ORDERED: VENLAFAXINE **XR** 37.5 MG CAPSULE PO ONE (08:45)
[2019-10-21] MEDS: BRINZOLAMIDE 1 % OPHTH SUSP (AZOPT) 10ML OU SCH ×2 (08:49→21:06)
[2019-10-21] MEDS: DOCUSATE SODIUM 100 MG CAP PO SCH ×2 (08:49→21:06)
[2019-10-21] MEDS: CALCIUM/VITAMIN D 500 MG TAB PO SCH ×2 (08:49→21:06)
[2019-10-21] MEDS: ASPIRIN 325 MG TAB PO SCH (08:49)
[2019-10-21] MEDS: MULTIVITAMINS/MINERALS THERAP 1 TAB PO SCH (10:31)
[2019-10-21] MEDS: VENLAFAXINE **XR** 75MG CAPSULE PO SCH (10:31)
[2019-10-21 16:18] VITALS: BP 140/80
[2019-10-21] MEDS: clonazePAM 0.5 MG TAB PO SCH (21:00)
[2019-10-21] MEDS: LATANOPROST 0.005% OPHTH SOLN 2.5 ML OU SCH (21:06)
[2019-10-21] MEDS: PRIMIDONE 50 MG TAB PO SCH (21:06)
[2019-10-21] MEDS: PRAVASTATIN 20 MG TAB PO SCH (21:06)
[2019-10-21] MEDS: MIRTAZAPINE 15 MG TAB PO SCH (21:06)
[2019-10-22] MEDS: diphenhydrAMINE 25 MG CAP PO PRN ×2 (06:34→15:12)
[2019-10-22 06:37] VITALS: BP 142/94
--- NOTE | 2019-10-22 08:57 | MHIPNPDOC ---
[facility] Progress Note Progress Note DATE OF SERVICE: 10/22/19 HISTORY: Pt is a 79y/o CF admitted for depression and SI. Per Dr. Varela: Says that there are times when she has thought of killing herself, often thinks of lately, no plans, but she mentioned that women tend to take pills and men shoot themselves. She also suggests that she had lost a brother to suicide, and again the details are unknown. Says finds it hard to cope generally, particularly when she is having difficulties in the hospital, does not think that she can manage at her own place. Says also notices that she has been more forgetful, says that this has been more recent. She says that she felt that she was doing relatively well around [place] but has not done well since then. No history consistent with hypomania nor mariusz nor psychosis as such. VITAL SIGNS: See below. NEW TEST RESULTS:See below. CURRENT MEDICATIONS: See below. MENTAL STATUS EXAMINATION: She is neat. She is cooperative. She is anxious. No psychomotor retardation. Speech is spontaneous and coherent for a significant portion, but tends to not complete sentences and then will start talking about other matters, which appear somewhat related to her symptom of anxiety. Affect is co ngruent with her anxiety. Denies active thoughts of harming herself. No evidence of any thoughts of harming anyone else. DIAGNOSES: 1. Other specified depressive disorder. 2. Other specified anxiety disorder. 3. Rule out major depressive disorder. ASSESSMENT:Pt seen and states she continues to feel "anxious" over a multitude of things. States she doesn't believe she has a home at [facility] any longer b/c she doesn't have friends there anymore. She appears less anxious overall with increase in effexor xr yesterday that she's tolerating well. Pt is hard to understand still regarding how she feels as she starts talking about something then stops abruptly and starts talking about something else. States she knows she want to live. States she slept well last night with remeron. Continues to endorse confusion and states she feels she becoming demented. Feels she is tolerating her medications and they're beneficial. She is attending groups and finding them helpful. She denies SI/HI, hallucinations, delusions. Pt feels safe here. MANAGEMENT PLAN:Continue plan. increase effexor xr medications: effexor xr 75mg daily remeron 15mg qhs klonopin 0.25mg qhs TIME SPENT: 30 minutes. Vital Signs Vital Signs Date Time Temp Pulse Resp B/P (MAP) Pulse Ox O2 Delivery O2 Flow Rate FiO2 10/22/19 06:37 98.2 77 16 142/94 (110) Room Air Current Medications Current Medications Medications (Trade) Dose Ordered Sig/Joceline Route PRN Reason Start Time Stop Time Status Last Admin Dose Admin Acetaminophen (Tylenol Arthritis Er) 1,300 mg QHS PRN PO PAIN 10/16/19 21:15 Acetaminophen (Tylenol Tab) 650 mg Q6HP PRN PO HEADACHE or DISCOMFORT 10/15/19 13:15 10/16/19 10:09 Al Hydrox/Mg Hydrox/Simethicone (Mylanta) 30 ml Q4HP PRN PO HEARTBURN/INDIGESTION 10/15/19 13:15 10/19/19 16:48 Artificial Tears (Akwa Tears) 2 drop QIDP PRN OU DRY EYES 10/15/19 21:15 Aspirin (Aspirin) 325 mg DAILY PO 10/17/19 10:45 10/21/19 08:49 Brinzolamide (Azopt) 1 drop BID OU 10/15/19 21:00 10/21/19 21:06 Calcium/Vitamin D (Oscal D) 500 mg BID PO 10/15/19 21:00 10/21/19 21:06 Clonazepam (KlonoPIN) 0.25 mg QHS PO 10/17/19 21:00 10/20/19 20:46 Diphenhydramine HCl (Benadryl) 25 mg Q6HP PRN PO ANXIETY/AGITATION 10/15/19 13:15 10/22/19 06:34 Docusate Sodium (Colace) 100 mg BID PO 10/17/19 10:45 10/21/19 21:06 Home Med (Med Rec Complete!) ASDIRECTED XX 10/15/19 13:45 10/15/19 13:57 DC Ibuprofen (Advil) 400 mg Q6HP PRN PO PAIN 10/15/19 13:15 Latanoprost (Xalatan 0.005% Op Soln) 1 drop QHS OU 10/15/19 21:00 10/21/19 21:06 Lorazepam (Ativan) 0.25 mg BIDP PRN PO ANXIETY 10/15/19 21:15 10/17/19 21:15 DC 10/17/19 15:50 Magnesium Hydroxide (Milk Of Magnesia) 30 ml DAILYPRN PRN PO CONSTIPATION 10/15/19 13:15 10/20/19 18:09 Mirtazapine (Remeron) 7.5 mg QHS PO 10/16/19 21:00 10/20/19 11:48 DC 10/19/19 21:05 Mirtazapine (Remeron) 15 mg QHS PO 10/20/19 21:00 10/21/19 21:06 Multivitamins (Theragram-M) 1 tab DAILY PO 10/21/19 09:00 10/21/19 10:31 Pravastatin Sodium (Pravachol) 20 mg QHS PO 10/15/19 21:00 10/21/19 21:06 Primidone (Mysoline) 100 mg QHS PO 10/15/19 21:00 10/21/19 21:06 Senna (Senokot) 1 tab DAILY PRN PO constipation 10/21/19 10:30 Senna (Senokot) 1 tab NOW PRN PO constipation 10/14/19 21:45 10/21/19 10:25 DC 10/17/19 15:50 Venlafaxine HCl (Effexor Xr) 37.5 mg DAILY PO 10/19/19 09:00 10/21/19 08:43 DC 10/20/19 08:28 Venlafaxine HCl (Effexor Xr) 75 mg DAILY PO 10/21/19 09:00 10/21/19 10:31 Allergies Coded Allergies: Cephalosporins (Verified Allergy, Unknown, 08/29/19) Penicillins (Verified Allergy, Unknown, UNKNOWN REACTION, 08/30/19) ceftriaxone (Verified Adverse Reaction, Unknown, INCREASED HR, 08/30/19) meperidine (Verified Adverse Reaction, Unknown, AMS, 08/30/19) TANISHA WEN DO Oct 22, 2019 8:57 am
[2019-10-22] MEDS: ASPIRIN 325 MG TAB PO SCH (09:23)
[2019-10-22] MEDS: MULTIVITAMINS/MINERALS THERAP 1 TAB PO SCH (09:23)
[2019-10-22] MEDS: VENLAFAXINE **XR** 75MG CAPSULE PO SCH (09:23)
[2019-10-22] MEDS: DOCUSATE SODIUM 100 MG CAP PO SCH ×2 (09:23→21:09)
[2019-10-22] MEDS: CALCIUM/VITAMIN D 500 MG TAB PO SCH ×2 (09:23→21:09)
[2019-10-22] MEDS: BRINZOLAMIDE 1 % OPHTH SUSP (AZOPT) 10ML OU SCH ×2 (09:23→21:10)
[2019-10-22 16:07] VITALS: BP 140/78
[2019-10-22] MEDS: MIRTAZAPINE 15 MG TAB PO SCH (21:00)
[2019-10-22] MEDS: PRAVASTATIN 20 MG TAB PO SCH (21:09)
[2019-10-22] MEDS: clonazePAM 0.5 MG TAB PO SCH (21:09)
[2019-10-22] MEDS: PRIMIDONE 50 MG TAB PO SCH (21:10)
[2019-10-22] MEDS: LATANOPROST 0.005% OPHTH SOLN 2.5 ML OU SCH (21:10)
[2019-10-23] MEDS: diphenhydrAMINE 25 MG CAP PO PRN ×2 (03:22→16:10)
[2019-10-23 05:46] VITALS: BP 144/74
[2019-10-23] MEDS: DOCUSATE SODIUM 100 MG CAP PO SCH ×2 (08:57→20:37)
[2019-10-23] MEDS: MULTIVITAMINS/MINERALS THERAP 1 TAB PO SCH (08:57)
[2019-10-23] MEDS: BRINZOLAMIDE 1 % OPHTH SUSP (AZOPT) 10ML OU SCH ×2 (08:57→20:36)
[2019-10-23] MEDS: VENLAFAXINE **XR** 75MG CAPSULE PO SCH (08:57)
[2019-10-23] MEDS: ASPIRIN 325 MG TAB PO SCH (08:57)
[2019-10-23] MEDS: CALCIUM/VITAMIN D 500 MG TAB PO SCH ×2 (09:00→20:37)
[2019-10-23 16:04] VITALS: BP 142/80
[2019-10-23] MEDS: LATANOPROST 0.005% OPHTH SOLN 2.5 ML OU SCH (20:36)
[2019-10-23] MEDS: MIRTAZAPINE 15 MG TAB PO SCH (20:37)
[2019-10-23] MEDS: PRAVASTATIN 20 MG TAB PO SCH (20:37)
[2019-10-23] MEDS: PRIMIDONE 50 MG TAB PO SCH (20:37)
[2019-10-23] MEDS: clonazePAM 0.5 MG TAB PO SCH (20:37)
[2019-10-24] MEDS: diphenhydrAMINE 25 MG CAP PO PRN ×3 (03:35→20:31)
[2019-10-24 06:18] VITALS: BP 144/70
[2019-10-24] MEDS: ASPIRIN 325 MG TAB PO SCH (08:17)
[2019-10-24] MEDS: MULTIVITAMINS/MINERALS THERAP 1 TAB PO SCH (08:17)
[2019-10-24] MEDS: VENLAFAXINE **XR** 75MG CAPSULE PO SCH (08:17)
[2019-10-24] MEDS: BRINZOLAMIDE 1 % OPHTH SUSP (AZOPT) 10ML OU SCH ×2 (08:17→20:31)
[2019-10-24] MEDS: CALCIUM/VITAMIN D 500 MG TAB PO SCH ×2 (08:17→20:31)
[2019-10-24] MEDS: DOCUSATE SODIUM 100 MG CAP PO SCH ×2 (08:17→20:31)
[2019-10-24] MEDS: ACETAMINOPHEN TAB 650MG DOSE (2X325MG) PO PRN ×2 (08:55→15:39)
[2019-10-24 16:14] VITALS: BP 148/73
[2019-10-24] MEDS: LATANOPROST 0.005% OPHTH SOLN 2.5 ML OU SCH (20:31)
[2019-10-24] MEDS: PRAVASTATIN 20 MG TAB PO SCH (20:31)
[2019-10-24] MEDS: PRIMIDONE 50 MG TAB PO SCH (20:32)
[2019-10-24] MEDS: MIRTAZAPINE 15 MG TAB PO SCH (20:33)
[2019-10-24] MEDS: clonazePAM 0.5 MG TAB PO SCH (20:33)
[2019-10-25 06:10] VITALS: BP 130/58
[2019-10-25] MEDS: VENLAFAXINE **XR** 75MG CAPSULE PO SCH (09:16)
[2019-10-25] MEDS: CALCIUM/VITAMIN D 500 MG TAB PO SCH ×2 (09:16→20:14)
[2019-10-25] MEDS: ASPIRIN 325 MG TAB PO SCH (09:16)
[2019-10-25] MEDS: DOCUSATE SODIUM 100 MG CAP PO SCH ×2 (09:16→20:14)
[2019-10-25] MEDS: BRINZOLAMIDE 1 % OPHTH SUSP (AZOPT) 10ML OU SCH ×2 (09:16→20:14)
[2019-10-25] MEDS: MULTIVITAMINS/MINERALS THERAP 1 TAB PO SCH (09:26)
--- NOTE | 2019-10-25 09:40 | MHIPNPDOC ---
[facility] Progress Note Progress Note DATE OF SERVICE: 10/25/19 HISTORY: Pt is a 79y/o CF admitted for depression and SI. Per Dr. Varela: Says that there are times when she has thought of killing herself, often thinks of lately, no plans, but she mentioned that women tend to take pills and men shoot themselves. She also suggests that she had lost a brother to suicide, and again the details are unknown. Says finds it hard to cope generally, particularly when she is having difficulties in the hospital, does not think that she can manage at her own place. Says also notices that she has been more forgetful, says that this has been more recent. She says that she felt that she was doing relatively well around [place] but has not done well since then. No history consistent with hypomania nor mariusz nor psychosis as such. VITAL SIGNS: See below. NEW TEST RESULTS:See below. CURRENT MEDICATIONS: See below. MENTAL STATUS EXAMINATION: She is neat. She is cooperative. She is anxious. No psychomotor retardation. Speech is spontaneous and coherent for a significant portion, but tends to not complete sentences and then will start talking about other matters, which appear somewhat related to her symptom of anxiety. Affect is co ngruent with her anxiety. Denies active thoughts of harming herself. No evidence of any thoughts of harming anyone else. DIAGNOSES: 1. Other specified depressive disorder. 2. Other specified anxiety disorder. 3. Rule out major depressive disorder. ASSESSMENT:Pt seen and states she continues to feel "anxious" over a multitude of things. Pt seen in the day room watching the [employer] and states she used to like to watch the [employer] and [employer] but not anymore b/c they remind her of being old and cause her to feel depressed and anxious. She appears less anxious overall when she is not being spoken to by myself but as soon as I start talking to her to becomes anxious with her hand trembling and has difficulty completing sentences regarding how she feels. She appears mildly improved with increase in effexor xr last week that she's tolerating well. Pt is hard to understand still regarding how she feels as she starts talking about something then stops abruptly and starts talking about something else. States she knows she want to live. States she slept well last night with remeron. Continues to endorse confusion and states she feels she becoming demented. Feels she is tolerating her medications and they're beneficial. She is attending groups and finding them helpful. She denies SI/HI, hallucinations, delusions. Pt feels safe here. MANAGEMENT PLAN:Continue plan. increase effexor xr tomorrow depending on pt's symptoms medications: effexor xr 75mg daily remeron 15mg qhs klonopin 0.25mg qhs TIME SPENT: 30 minutes. Vital Signs Vital Signs Date Time Temp Pulse Resp B/P (MAP) Pulse Ox O2 Delivery O2 Flow Rate FiO2 10/25/19 06:10 98.2 84 18 130/58 (82) 10/22/19 06:37 Room Air Current Medications Current Medications Medications (Trade) Dose Ordered Sig/Joceline Route PRN Reason Start Time Stop Time Status Last Admin Dose Admin Acetaminophen (Tylenol Arthritis Er) 1,300 mg QHS PRN PO PAIN 10/16/19 21:15 Acetaminophen (Tylenol Tab) 650 mg Q6HP PRN PO HEADACHE or DISCOMFORT 10/15/19 13:15 10/24/19 15:39 Al Hydrox/Mg Hydrox/Simethicone (Mylanta) 30 ml Q4HP PRN PO HEARTBURN/INDIGESTION 10/15/19 13:15 10/19/19 16:48 Artificial Tears (Akwa Tears) 2 drop QIDP PRN OU DRY EYES 10/15/19 21:15 Aspirin (Aspirin) 325 mg DAILY PO 10/17/19 10:45 10/25/19 09:16 Brinzolamide (Azopt) 1 drop BID OU 10/15/19 21:00 10/25/19 09:16 Calcium/Vitamin D (Oscal D) 500 mg BID PO 10/15/19 21:00 10/25/19 09:16 Clonazepam (KlonoPIN) 0.25 mg QHS PO 10/17/19 21:00 10/23/19 20:37 Diphenhydramine HCl (Benadryl) 25 mg Q6HP PRN PO ANXIETY/AGITATION 10/15/19 13:15 10/24/19 20:31 Docusate Sodium (Colace) 100 mg BID PO 10/17/19 10:45 10/25/19 09:16 Home Med (Med Rec Complete!) ASDIRECTED XX 10/15/19 13:45 10/15/19 13:57 DC Ibuprofen (Advil) 400 mg Q6HP PRN PO PAIN 10/15/19 13:15 Latanoprost (Xalatan 0.005% Op Soln) 1 drop QHS OU 10/15/19 21:00 10/24/19 20:31 Lorazepam (Ativan) 0.25 mg BIDP PRN PO ANXIETY 10/15/19 21:15 10/17/19 21:15 DC 10/17/19 15:50 Magnesium Hydroxide (Milk Of Magnesia) 30 ml DAILYPRN PRN PO CONSTIPATION 10/15/19 13:15 10/20/19 18:09 Mirtazapine (Remeron) 7.5 mg QHS PO 10/16/19 21:00 10/20/19 11:48 DC 10/19/19 21:05 Mirtazapine (Remeron) 15 mg QHS PO 10/20/19 21:00 10/21/19 21:06 Miscellaneous (Unresolved Clarification Entry) SEE LABEL COMMENTS DAILY XX 10/24/19 09:00 10/24/19 16:15 DC Multivitamins (Theragram-M) 1 tab DAILY PO 10/21/19 09:00 10/25/19 09:26 Pravastatin Sodium (Pravachol) 20 mg QHS PO 10/15/19 21:00 10/24/19 20:31 Primidone (Mysoline) 100 mg QHS PO 10/15/19 21:00 10/24/19 20:32 Senna (Senokot) 1 tab DAILY PRN PO constipation 10/21/19 10:30 Senna (Senokot) 1 tab NOW PRN PO constipation 10/14/19 21:45 10/21/19 10:25 DC 10/17/19 15:50 Venlafaxine HCl (Effexor Xr) 37.5 mg DAILY PO 10/19/19 09:00 10/21/19 08:43 DC 10/20/19 08:28 Venlafaxine HCl (Effexor Xr) 75 mg DAILY PO 10/21/19 09:00 10/25/19 09:16 Allergies Coded Allergies: Cephalosporins (Verified Allergy, Unknown, 08/29/19) Penicillins (Verified Allergy, Unknown, UNKNOWN REACTION, 08/30/19) ceftriaxone (Verified Adverse Reaction, Unknown, INCREASED HR, 08/30/19) meperidine (Verified Adverse Reaction, Unknown, AMS, 08/30/19) TANISHA WEN DO Oct 25, 2019 9:40 am
[2019-10-25 15:36] VITALS: BP 160/75
[2019-10-25] MEDS: PRAVASTATIN 20 MG TAB PO SCH (20:14)
[2019-10-25] MEDS: PRIMIDONE 50 MG TAB PO SCH (20:14)
[2019-10-25] MEDS: LATANOPROST 0.005% OPHTH SOLN 2.5 ML OU SCH (20:14)
[2019-10-25] MEDS: clonazePAM 0.5 MG TAB PO SCH (20:14)
[2019-10-25] MEDS: MIRTAZAPINE 15 MG TAB PO SCH (20:17)
[2019-10-26] MEDS: diphenhydrAMINE 25 MG CAP PO PRN (05:36)
[2019-10-26] MEDS ORDERED: OLANZapine 2.5MG TABLET PO ONE (09:00)
--- NOTE | 2019-10-26 09:05 | MHIPNPDOC ---
[facility] Progress Note Progress Note DATE OF SERVICE: 10/26/19 HISTORY: Pt is a 79y/o CF admitted for depression and SI. Per Dr. Varela: Says that there are times when she has thought of killing herself, often thinks of lately, no plans, but she mentioned that women tend to take pills and men shoot themselves. She also suggests that she had lost a brother to suicide, and again the details are unknown. Says finds it hard to cope generally, particularly when she is having difficulties in the hospital, does not think that she can manage at her own place. Says also notices that she has been more forgetful, says that this has been more recent. She says that she felt that she was doing relatively well around [place] but has not done well since then. No history consistent with hypomania nor mariusz nor psychosis as such. VITAL SIGNS: See below. NEW TEST RESULTS:See below. CURRENT MEDICATIONS: See below. MENTAL STATUS EXAMINATION: Roughly no change She is neat. She is cooperative. She is anxious. No psychomotor retardation. Speech is spontaneous and coherent for a significant portion, but tends to not complete sentences and then will start talking about other matters, which appear somewhat related to her symptom of anxiety. Affect is congruent with her anxiety. Denies active thoughts of harming herself. No evidence of any thoughts of harming anyone else. DIAGNOSES: 1. Other specified depressive disorder. 2. Other specified anxiety disorder. 3. Rule out major depressive disorder. ASSESSMENT:Pt seen and and continues to be extremely anxious when I see her and start talking to her with her hand trembling. States she feel "anxious" and that she "has no friends." She's asking for something to help her with her anx iety. Will start her on zyprexa 2.5mg tid for anxiety and her level of anxiety borders on psychotic due to various thoughts that are not true but more illogical fears she has. She is tolerating her effexor xr but continues to struggle with tremedous anxiety that isn't improving and effexor xr will probably need to be increased in the future depending on how well she does with start of zyprexa tid. Pt is hard to understand still regarding how she feels as she starts talking about something then stops abruptly and starts talking about something else. States she knows she want to live. States she slept well last night with remeron. Continues to endorse confusion and states she feels she becoming demented. Feels she is tolerating her medications and they're beneficial. She is attending groups and finding them helpful. She denies SI/HI, hallucinations, delusions. Pt feels safe here. MANAGEMENT PLAN:Continue plan. start zyprexa 2.5mg tid for anxiety medications: effexor xr 75mg daily remeron 15mg qhs klonopin 0.25mg qhs zyprexa 2.5mg tid TIME SPENT: 30 minutes. Vital Signs Vital Signs Date Time Temp Pulse Resp B/P (MAP) Pulse Ox O2 Delivery O2 Flow Rate FiO2 10/25/19 15:36 97.5 82 16 160/75 (103) 10/22/19 06:37 Room Air Current Medications Current Medications Medications (Trade) Dose Ordered Sig/Joceline Route PRN Reason Start Time Stop Time Status Last Admin Dose Admin Acetaminophen (Tylenol Arthritis Er) 1,300 mg QHS PRN PO PAIN 10/16/19 21:15 Acetaminophen (Tylenol Tab) 650 mg Q6HP PRN PO HEADACHE or DISCOMFORT 10/15/19 13:15 10/24/19 15:39 Al Hydrox/Mg Hydrox/Simethicone (Mylanta) 30 ml Q4HP PRN PO HEARTBURN/INDIGESTION 10/15/19 13:15 10/19/19 16:48 Artificial Tears (Akwa Tears) 2 drop QIDP PRN OU DRY EYES 10/15/19 21:15 Aspirin (Aspirin) 325 mg DAILY PO 10/17/19 10:45 10/25/19 09:16 Brinzolamide (Azopt) 1 drop BID OU 10/15/19 21:00 10/25/19 20:14 Calcium/Vitamin D (Oscal D) 500 mg BID PO 10/15/19 21:00 10/25/19 20:14 Clonazepam (KlonoPIN) 0.25 mg QHS PO 10/17/19 21:00 10/25/19 20:14 Diphenhydramine HCl (Benadryl) 25 mg Q6HP PRN PO ANXIETY/AGITATION 10/15/19 13:15 10/26/19 05:36 Docusate Sodium (Colace) 100 mg BID PO 10/17/19 10:45 10/25/19 20:14 Home Med (Med Rec Complete!) ASDIRECTED XX 10/15/19 13:45 10/15/19 13:57 DC Ibuprofen (Advil) 400 mg Q6HP PRN PO PAIN 10/15/19 13:15 Latanoprost (Xalatan 0.005% Op Soln) 1 drop QHS OU 10/15/19 21:00 10/25/19 20:14 Lorazepam (Ativan) 0.25 mg BIDP PRN PO ANXIETY 10/15/19 21:15 10/17/19 21:15 DC 10/17/19 15:50 Magnesium Hydroxide (Milk Of Magnesia) 30 ml DAILYPRN PRN PO CONSTIPATION 10/15/19 13:15 10/20/19 18:09 Mirtazapine (Remeron) 7.5 mg QHS PO 10/16/19 21:00 10/20/19 11:48 DC 10/19/19 21:05 Mirtazapine (Remeron) 15 mg QHS PO 10/20/19 21:00 10/21/19 21:06 Miscellaneous (Unresolved Clarification Entry) SEE LABEL COMMENTS DAILY XX 10/24/19 09:00 10/24/19 16:15 DC Multivitamins (Theragram-M) 1 tab DAILY PO 10/21/19 09:00 10/25/19 09:26 Pravastatin Sodium (Pravachol) 20 mg QHS PO 10/15/19 21:00 10/25/19 20:14 Primidone (Mysoline) 100 mg QHS PO 10/15/19 21:00 10/25/19 20:14 Senna (Senokot) 1 tab DAILY PRN PO constipation 10/21/19 10:30 Senna (Senokot) 1 tab NOW PRN PO constipation 10/14/19 21:45 10/21/19 10:25 DC 10/17/19 15:50 Venlafaxine HCl (Effexor Xr) 37.5 mg DAILY PO 10/19/19 09:00 10/21/19 08:43 DC 10/20/19 08:28 Venlafaxine HCl (Effexor Xr) 75 mg DAILY PO 10/21/19 09:00 10/25/19 09:16 Allergies Coded Allergies: Cephalosporins (Verified Allergy, Unknown, 08/29/19) Penicillins (Verified Allergy, Unknown, UNKNOWN REACTION, 08/30/19) ceftriaxone (Verified Adverse Reaction, Unknown, INCREASED HR, 08/30/19) meperidine (Verified Adverse Reaction, Unknown, AMS, 08/30/19) TANISHA WEN DO Oct 26, 2019 9:05 am
[2019-10-26] MEDS: MULTIVITAMINS/MINERALS THERAP 1 TAB PO SCH (09:16)
[2019-10-26] MEDS: DOCUSATE SODIUM 100 MG CAP PO SCH ×2 (09:16→21:10)
[2019-10-26] MEDS: VENLAFAXINE **XR** 75MG CAPSULE PO SCH (09:16)
[2019-10-26] MEDS: CALCIUM/VITAMIN D 500 MG TAB PO SCH ×2 (09:17→21:10)
[2019-10-26] MEDS: BRINZOLAMIDE 1 % OPHTH SUSP (AZOPT) 10ML OU SCH ×2 (09:17→21:11)
[2019-10-26] MEDS: ASPIRIN 325 MG TAB PO SCH (09:17)
[2019-10-26] MEDS: ACETAMINOPHEN TAB 650MG DOSE (2X325MG) PO PRN (10:44)
[2019-10-26] MEDS: OLANZapine 2.5MG TABLET PO SCH ×2 (15:47→21:10)
[2019-10-26 17:49] VITALS: BP 131/72
[2019-10-26] MEDS: MIRTAZAPINE 15 MG TAB PO SCH (21:10)
[2019-10-26] MEDS: PRIMIDONE 50 MG TAB PO SCH (21:11)
[2019-10-26] MEDS: PRAVASTATIN 20 MG TAB PO SCH (21:11)
[2019-10-26] MEDS: PILL CUTTER 1 EACH XX PRN (21:13)
[2019-10-26] MEDS: LATANOPROST 0.005% OPHTH SOLN 2.5 ML OU SCH (21:18)
[2019-10-26] MEDS: clonazePAM 0.5 MG TAB PO SCH (21:18)
[2019-10-27 07:11] VITALS: BP 121/58
[2019-10-27] MEDS: BRINZOLAMIDE 1 % OPHTH SUSP (AZOPT) 10ML OU SCH ×2 (08:26→20:21)
[2019-10-27] MEDS: diphenhydrAMINE 25 MG CAP PO PRN ×2 (08:27→14:25)
[2019-10-27] MEDS: MOM 30ML SUSPENSION UDC PO PRN (08:27)
[2019-10-27] MEDS: OLANZapine 2.5MG TABLET PO SCH ×3 (08:27→20:23)
[2019-10-27] MEDS: ASPIRIN 325 MG TAB PO SCH (08:27)
[2019-10-27] MEDS: CALCIUM/VITAMIN D 500 MG TAB PO SCH ×2 (08:27→20:21)
[2019-10-27] MEDS: MULTIVITAMINS/MINERALS THERAP 1 TAB PO SCH (08:27)
[2019-10-27] MEDS: DOCUSATE SODIUM 100 MG CAP PO SCH ×2 (08:27→20:24)
[2019-10-27] MEDS: VENLAFAXINE **XR** 75MG CAPSULE PO SCH (08:27)
[2019-10-27] MEDS ORDERED: **PENDING PPD ENTRY XX SCH (09:00)
--- NOTE | 2019-10-27 09:11 | MHIPNPDOC ---
[facility] Progress Note Progress Note DATE OF SERVICE: 10/27/19 HISTORY: Pt is a 79y/o CF admitted for depression and SI. Per Dr. Varela: Says that there are times when she has thought of killing herself, often thinks of lately, no plans, but she mentioned that women tend to take pills and men shoot themselves. She also suggests that she had lost a brother to suicide, and again the details are unknown. Says finds it hard to cope generally, particularly when she is having difficulties in the hospital, does not think that she can manage at her own place. Says also notices that she has been more forgetful, says that this has been more recent. She says that she felt that she was doing relatively well around [place] but has not done well since then. No history consistent with hypomania nor mariusz nor psychosis as such. VITAL SIGNS: See below. NEW TEST RESULTS:See below. CURRENT MEDICATIONS: See below. MENTAL STATUS EXAMINATION: She is neat. She is cooperative. She is much less anxious. No psychomotor retardation. Speech is spontaneous and coherent for a significant portion, and is more able to stay on topic due to improved anxiety. Affect is congruent with her anxiety. Denies active thoughts of harming herself. No evidence of any thoughts of harming anyone else. DIAGNOSES: 1. Other specified depressive disorder. 2. Other specified anxiety disorder. 3. Rule out major depressive disorder. ASSESSMENT:Pt seen and and much less anxious after starting zyprexa tid yesterday. States she feel "better" and less anxious after taking zyprexa ysterday. Contiunes to state that she "has no friends." She is tolerating her effexor xr that she feels is beneficial in combination with zyprexa. Her thoughts are more linear and logical due to improved anxiety today. States she knows she want to live. States she slept well last night with remeron. Continues to endorse confusion and states she feels she becoming demented. Feels she is tolerating her medications and they're beneficial. She is attending groups and finding them helpful. She denies SI/HI, hallucinations, delusions. Pt feels safe here. MANAGEMENT PLAN:Continue plan. medications: effexor xr 75mg daily remeron 15mg qhs klonopin 0.25mg qhs zyprexa 2.5mg tid TIME SPENT: 30 minutes. Vital Signs Vital Signs Date Time Temp Pulse Resp B/P (MAP) Pulse Ox O2 Delivery O2 Flow Rate FiO2 10/27/19 07:11 99.9 82 14 121/58 (79) 10/22/19 06:37 Room Air Current Medications Current Medications Medications (Trade) Dose Ordered Sig/Joceline Route PRN Reason Start Time Stop Time Status Last Admin Dose Admin Acetaminophen (Tylenol Arthritis Er) 1,300 mg QHS PRN PO PAIN 10/16/19 21:15 Acetaminophen (Tylenol Tab) 650 mg Q6HP PRN PO HEADACHE or DISCOMFORT 10/15/19 13:15 10/26/19 10:44 Al Hydrox/Mg Hydrox/Simethicone (Mylanta) 30 ml Q4HP PRN PO HEARTBURN/INDIGESTION 10/15/19 13:15 10/19/19 16:48 Artificial Tears (Akwa Tears) 2 drop QIDP PRN OU DRY EYES 10/15/19 21:15 Aspirin (Aspirin) 325 mg DAILY PO 10/17/19 10:45 10/27/19 08:27 Brinzolamide (Azopt) 1 drop BID OU 10/15/19 21:00 10/27/19 08:26 Calcium/Vitamin D (Oscal D) 500 mg BID PO 10/15/19 21:00 10/27/19 08:27 Clonazepam (KlonoPIN) 0.25 mg QHS PO 10/17/19 21:00 10/26/19 21:18 Diphenhydramine HCl (Benadryl) 25 mg Q6HP PRN PO ANXIETY/AGITATION 10/15/19 13:15 10/27/19 08:27 Docusate Sodium (Colace) 100 mg BID PO 10/17/19 10:45 10/27/19 08:27 Home Med (Med Rec Complete!) ASDIRECTED XX 10/15/19 13:45 10/15/19 13:57 DC Ibuprofen (Advil) 400 mg Q6HP PRN PO PAIN 10/15/19 13:15 Latanoprost (Xalatan 0.005% Op Soln) 1 drop QHS OU 10/15/19 21:00 10/26/19 21:18 Lorazepam (Ativan) 0.25 mg BIDP PRN PO ANXIETY 10/15/19 21:15 10/17/19 21:15 DC 10/17/19 15:50 Magnesium Hydroxide (Milk Of Magnesia) 30 ml DAILYPRN PRN PO CONSTIPATION 10/15/19 13:15 10/27/19 08:27 Mirtazapine (Remeron) 7.5 mg QHS PO 10/16/19 21:00 10/20/19 11:48 DC 10/19/19 21:05 Mirtazapine (Remeron) 15 mg QHS PO 10/20/19 21:00 10/26/19 21:10 Miscellaneous (Unresolved Clarification Entry) SEE LABEL COMMENTS DAILY XX 10/24/19 09:00 10/24/19 16:15 DC Multivitamins (Theragram-M) 1 tab DAILY PO 10/21/19 09:00 10/27/19 08:27 Olanzapine (ZyPREXA) 2.5 mg TID PO 10/26/19 16:00 10/27/19 08:27 Pravastatin Sodium (Pravachol) 20 mg QHS PO 10/15/19 21:00 10/26/19 21:11 Primidone (Mysoline) 100 mg QHS PO 10/15/19 21:00 10/26/19 21:11 Senna (Senokot) 1 tab DAILY PRN PO constipation 10/21/19 10:30 Senna (Senokot) 1 tab NOW PRN PO constipation 10/14/19 21:45 10/21/19 10:25 DC 10/17/19 15:50 Venlafaxine HCl (Effexor Xr) 37.5 mg DAILY PO 10/19/19 09:00 10/21/19 08:43 DC 10/20/19 08:28 Venlafaxine HCl (Effexor Xr) 75 mg DAILY PO 10/21/19 09:00 10/27/19 08:27 Allergies Coded Allergies: Cephalosporins (Verified Allergy, Unknown, 08/29/19) Penicillins (Verified Allergy, Unknown, UNKNOWN REACTION, 08/30/19) ceftriaxone (Verified Adverse Reaction, Unknown, INCREASED HR, 08/30/19) meperidine (Verified Adverse Reaction, Unknown, AMS, 08/30/19) TANISHA WEN DO Oct 27, 2019 9:11 am
[2019-10-27] MEDS ORDERED: TUBERCULIN PPD 5 UNITS/0.1 ML ID ONE ×2 (10:30→14:00)
[2019-10-27 17:45] VITALS: BP 140/88
[2019-10-27] MEDS: PRAVASTATIN 20 MG TAB PO SCH (20:22)
[2019-10-27] MEDS: MIRTAZAPINE 15 MG TAB PO SCH (20:22)
[2019-10-27] MEDS: PRIMIDONE 50 MG TAB PO SCH (20:22)
[2019-10-27] MEDS: clonazePAM 0.5 MG TAB PO SCH (20:24)
[2019-10-27] MEDS: LATANOPROST 0.005% OPHTH SOLN 2.5 ML OU SCH (20:27)
[2019-10-27] MEDS: PILL CUTTER 1 EACH XX PRN (20:29)
[2019-10-28 06:10] VITALS: BP 133/58
[2019-10-28] MEDS: diphenhydrAMINE 25 MG CAP PO PRN ×2 (06:55→13:32)
[2019-10-28] MEDS: ASPIRIN 325 MG TAB PO SCH (08:40)
[2019-10-28] MEDS: MULTIVITAMINS/MINERALS THERAP 1 TAB PO SCH (08:40)
[2019-10-28] MEDS: OLANZapine 2.5MG TABLET PO SCH ×3 (08:40→20:32)
[2019-10-28] MEDS: DOCUSATE SODIUM 100 MG CAP PO SCH ×2 (08:40→20:32)
[2019-10-28] MEDS: VENLAFAXINE **XR** 75MG CAPSULE PO SCH (08:40)
[2019-10-28] MEDS: CALCIUM/VITAMIN D 500 MG TAB PO SCH ×2 (08:40→20:32)
[2019-10-28] MEDS: BRINZOLAMIDE 1 % OPHTH SUSP (AZOPT) 10ML OU SCH ×2 (08:41→20:30)
--- NOTE | 2019-10-28 09:58 | MHIPNPDOC ---
[facility] Progress Note Progress Note DATE OF SERVICE: 10/28/19 HISTORY: Pt is a 79y/o CF admitted for depression and SI. Per Dr. Varela: Says that there are times when she has thought of killing herself, often thinks of lately, no plans, but she mentioned that women tend to take pills and men shoot themselves. She also suggests that she had lost a brother to suicide, and again the details are unknown. Says finds it hard to cope generally, particularly when she is having difficulties in the hospital, does not think that she can manage at her own place. Says also notices that she has been more forgetful, says that this has been more recent. She says that she felt that she was doing relatively well around [place] but has not done well since then. No history consistent with hypomania nor mariusz nor psychosis as such. VITAL SIGNS: See below. NEW TEST RESULTS:See below. CURRENT MEDICATIONS: See below. MENTAL STATUS EXAMINATION: Pt asleep and left sleeping due to severe anxiety when awake. MSE per yesterday's note She is neat. She is cooperative. She is much less anxious. No psychomotor ret ardation. Speech is spontaneous and coherent for a significant portion, and is more able to stay on topic due to improved anxiety. Affect is congruent with her anxiety. Denies active thoughts of harming herself. No evidence of any thoughts of harming anyone else. DIAGNOSES: 1. Other specified depressive disorder. 2. Other specified anxiety disorder. 3. Rule out major depressive disorder. ASSESSMENT:Pt currently asleep and left sleeping due to severe anxiety when awake. Per yesterday's note "Pt seen and and much less anxious after starting zyprexa tid yesterday. States she feel "better" and less anxious after taking zyprexa yesterday. Continues to state that she "has no friends." She is tolerating her effexor xr that she feels is beneficial in combination with zyprexa. Her thoughts are more linear and logical due to improved anxiety today. States she knows she want to live. States she slept well last night with remeron. Continues to endorse confusion and states she feels she becoming demented. Feels she is tolerating her medications and they're beneficial. She is attending groups and finding them helpful. She denies SI/HI, hallucinations, delusions. Pt feels safe here." MANAGEMENT PLAN:Continue plan. medications: effexor xr 75mg daily remeron 15mg qhs klonopin 0.25mg qhs zyprexa 2.5mg tid TIME SPENT: 30 minutes. Vital Signs Vital Signs Date Time Temp Pulse Resp B/P (MAP) Pulse Ox O2 Delivery O2 Flow Rate FiO2 10/28/19 06:10 99.3 75 20 133/58 (83) 10/22/19 06:37 Room Air Current Medications Current Medications Medications (Trade) Dose Ordered Sig/Joceline Route PRN Reason Start Time Stop Time Status Last Admin Dose Admin Acetaminophen (Tylenol Arthritis Er) 1,300 mg QHS PRN PO PAIN 10/16/19 21:15 Acetaminophen (Tylenol Tab) 650 mg Q6HP PRN PO HEADACHE or DISCOMFORT 10/15/19 13:15 10/26/19 10:44 Al Hydrox/Mg Hydrox/Simethicone (Mylanta) 30 ml Q4HP PRN PO HEARTBURN/INDIGESTION 10/15/19 13:15 10/19/19 16:48 Artificial Tears (Akwa Tears) 2 drop QIDP PRN OU DRY EYES 10/15/19 21:15 Aspirin (Aspirin) 325 mg DAILY PO 10/17/19 10:45 10/28/19 08:40 Brinzolamide (Azopt) 1 drop BID OU 10/15/19 21:00 10/28/19 08:41 Calcium/Vitamin D (Oscal D) 500 mg BID PO 10/15/19 21:00 10/28/19 08:40 Clonazepam (KlonoPIN) 0.25 mg QHS PO 10/17/19 21:00 10/27/19 20:24 Diphenhydramine HCl (Benadryl) 25 mg Q6HP PRN PO ANXIETY/AGITATION 10/15/19 13:15 10/28/19 06:55 Docusate Sodium (Colace) 100 mg BID PO 10/17/19 10:45 10/28/19 08:40 Home Med (Med Rec Complete!) ASDIRECTED XX 10/15/19 13:45 10/15/19 13:57 DC Ibuprofen (Advil) 400 mg Q6HP PRN PO PAIN 10/15/19 13:15 Latanoprost (Xalatan 0.005% Op Soln) 1 drop QHS OU 10/15/19 21:00 10/27/19 20:27 Lorazepam (Ativan) 0.25 mg BIDP PRN PO ANXIETY 10/15/19 21:15 10/17/19 21:15 DC 10/17/19 15:50 Magnesium Hydroxide (Milk Of Magnesia) 30 ml DAILYPRN PRN PO CONSTIPATION 10/15/19 13:15 10/27/19 08:27 Mirtazapine (Remeron) 7.5 mg QHS PO 10/16/19 21:00 10/20/19 11:48 DC 10/19/19 21:05 Mirtazapine (Remeron) 15 mg QHS PO 10/20/19 21:00 10/27/19 20:22 Miscellaneous (Unresolved Clarification Entry) SEE LABEL COMMENTS DAILY XX 10/24/19 09:00 10/24/19 16:15 DC Multivitamins (Theragram-M) 1 tab DAILY PO 10/21/19 09:00 10/28/19 08:40 Non-Formulary Medication ( See Comment Field Below ) SEE COMMENTS SECTION 1T@10 ID 10/29/19 10:00 10/27/19 10:35 DC Non-Formulary Medication ( See Comment Field Below ) SEE LABEL COMMENTS DAILY XX 10/27/19 09:00 10/27/19 13:22 DC Olanzapine (ZyPREXA) 2.5 mg TID PO 10/26/19 16:00 10/28/19 08:40 Pravastatin Sodium (Pravachol) 20 mg QHS PO 10/15/19 21:00 10/27/19 20:22 Primidone (Mysoline) 100 mg QHS PO 10/15/19 21:00 10/27/19 20:22 Senna (Senokot) 1 tab DAILY PRN PO constipation 10/21/19 10:30 Senna (Senokot) 1 tab NOW PRN PO constipation 10/14/19 21:45 10/21/19 10:25 DC 10/17/19 15:50 Venlafaxine HCl (Effexor Xr) 37.5 mg DAILY PO 10/19/19 09:00 10/21/19 08:43 DC 10/20/19 08:28 Venlafaxine HCl (Effexor Xr) 75 mg DAILY PO 10/21/19 09:00 10/28/19 08:40 Allergies Coded Allergies: Cephalosporins (Verified Allergy, Unknown, 08/29/19) Penicillins (Verified Allergy, Unknown, UNKNOWN REACTION, 08/30/19) ceftriaxone (Verified Adverse Reaction, Unknown, INCREASED HR, 08/30/19) meperidine (Verified Adverse Reaction, Unknown, AMS, 08/30/19) TANISHA WEN DO Oct 28, 2019 9:58 am
[2019-10-28 15:50] VITALS: BP 166/79
[2019-10-28] MEDS: PRAVASTATIN 20 MG TAB PO SCH (20:32)
[2019-10-28] MEDS: PRIMIDONE 50 MG TAB PO SCH (20:32)
[2019-10-28] MEDS: clonazePAM 0.5 MG TAB PO SCH (20:32)
[2019-10-28] MEDS: MIRTAZAPINE 15 MG TAB PO SCH (20:32)
[2019-10-28] MEDS: PILL CUTTER 1 EACH XX PRN (20:32)
[2019-10-28] MEDS: LATANOPROST 0.005% OPHTH SOLN 2.5 ML OU SCH (20:35)
[2019-10-29 06:23] VITALS: BP 143/63
[2019-10-29] MEDS: DOCUSATE SODIUM 100 MG CAP PO SCH ×2 (08:32→20:19)
[2019-10-29] MEDS: MULTIVITAMINS/MINERALS THERAP 1 TAB PO SCH (08:32)
[2019-10-29] MEDS: CALCIUM/VITAMIN D 500 MG TAB PO SCH ×2 (08:32→20:19)
[2019-10-29] MEDS: VENLAFAXINE **XR** 75MG CAPSULE PO SCH (08:32)
[2019-10-29] MEDS: BRINZOLAMIDE 1 % OPHTH SUSP (AZOPT) 10ML OU SCH ×2 (08:32→20:20)
[2019-10-29] MEDS: ASPIRIN 325 MG TAB PO SCH (08:33)
[2019-10-29] MEDS: OLANZapine 2.5MG TABLET PO SCH ×3 (08:33→20:20)
--- NOTE | 2019-10-29 09:05 | MHIPNPDOC ---
[facility] Progress Note Progress Note DATE OF SERVICE: 10/29/19 HISTORY: Pt is a 79y/o CF admitted for depression and SI. Per Dr. Varela: Says that there are times when she has thought of killing herself, often thinks of lately, no plans, but she mentioned that women tend to take pills and men shoot themselves. She also suggests that she had lost a brother to suicide, and again the details are unknown. Says finds it hard to cope generally, particularly when she is having difficulties in the hospital, does not think that she can manage at her own place. Says also notices that she has been more forgetful, says that this has been more recent. She says that she felt that she was doing relatively well around [place] but has not done well since then. No history consistent with hypomania nor mariusz nor psychosis as such. VITAL SIGNS: See below. NEW TEST RESULTS:See below. CURRENT MEDICATIONS: See below. MENTAL STATUS EXAMINATION: She is neat. She is cooperative. She is much less anxious. No psychomotor retardation. Speech is spontaneous and coherent for a significant portion, but says things that are off topic to interview questions. Seems to be focused on the past (see assessment). Affect is congruent with her anxiety. Denies active thoughts of harming herself. No evidence of any thoughts of harming anyone else. DIAGNOSES: 1. Other specified depressive disorder. 2. Other specified anxiety disorder. 3. Rule out major depressive disorder. ASSESSMENT:Pt seen in her room stating "it runs in the family... hearing things and seeing things" when I asked her how she was doing. Denies though that she is experiencing AH or VH. She then proceeded to state out of no where that her [id number] did not want her to divorce her as they are Confucianism in reference to endorsing several thoughts about her past that make her feel anxious and depressed. Pt encouraged to focus on the present rather than the past as thinking of the past will make her feel anxious and depressed and it is not something she can change now in the present. Did not seem to really understand what I was saying to her so therefore recommended to continue to go to groups and focus on what is being done in group. States she's tolerating zyprexa zydis and it helps her anxiety but makes her tired occasionally. She is tolerating her effexor xr that she feels is beneficial in combination with zyprexa. Her thoughts are more linear and logical due to improved anxiety today. States she knows she wants to live. States she slept well last night with remeron. Continues to endorse confusion and states she feels she becoming demented. Feels she is tolerating her medications and they're beneficial. She is attending groups and finding them helpful. She denies SI/HI, hallucinations, delusions. Pt feels safe here." MANAGEMENT PLAN:Continue plan. medications: effexor xr 75mg daily remeron 15mg qhs klonopin 0.25mg qhs zyprexa 2.5mg tid TIME SPENT: 30 minutes. Vital Signs Vital Signs Date Time Temp Pulse Resp B/P (MAP) Pulse Ox O2 Delivery O2 Flow Rate FiO2 10/29/19 06:23 98.2 71 14 143/63 (89) Room Air Current Medications Current Medications Medications (Trade) Dose Ordered Sig/Joceline Route PRN Reason Start Time Stop Time Status Last Admin Dose Admin Acetaminophen (Tylenol Arthritis Er) 1,300 mg QHS PRN PO PAIN 10/16/19 21:15 Acetaminophen (Tylenol Tab) 650 mg Q6HP PRN PO HEADACHE or DISCOMFORT 10/15/19 13:15 10/26/19 10:44 Al Hydrox/Mg Hydrox/Simethicone (Mylanta) 30 ml Q4HP PRN PO HEARTBURN/INDIGESTION 10/15/19 13:15 10/19/19 16:48 Artificial Tears (Akwa Tears) 2 drop QIDP PRN OU DRY EYES 10/15/19 21:15 Aspirin (Aspirin) 325 mg DAILY PO 10/17/19 10:45 10/29/19 08:33 Brinzolamide (Azopt) 1 drop BID OU 10/15/19 21:00 10/29/19 08:32 Calcium/Vitamin D (Oscal D) 500 mg BID PO 10/15/19 21:00 10/29/19 08:32 Clonazepam (KlonoPIN) 0.25 mg QHS PO 10/17/19 21:00 10/28/19 20:32 Diphenhydramine HCl (Benadryl) 25 mg Q6HP PRN PO ANXIETY/AGITATION 10/15/19 13:15 10/28/19 13:32 Docusate Sodium (Colace) 100 mg BID PO 10/17/19 10:45 10/29/19 08:32 Home Med (Med Rec Complete!) ASDIRECTED XX 10/15/19 13:45 10/15/19 13:57 DC Ibuprofen (Advil) 400 mg Q6HP PRN PO PAIN 10/15/19 13:15 Latanoprost (Xalatan 0.005% Op Soln) 1 drop QHS OU 10/15/19 21:00 10/28/19 20:35 Lorazepam (Ativan) 0.25 mg BIDP PRN PO ANXIETY 10/15/19 21:15 10/17/19 21:15 DC 10/17/19 15:50 Magnesium Hydroxide (Milk Of Magnesia) 30 ml DAILYPRN PRN PO CONSTIPATION 10/15/19 13:15 10/27/19 08:27 Mirtazapine (Remeron) 7.5 mg QHS PO 10/16/19 21:00 10/20/19 11:48 DC 10/19/19 21:05 Mirtazapine (Remeron) 15 mg QHS PO 10/20/19 21:00 10/28/19 20:32 Miscellaneous (Unresolved Clarification Entry) SEE LABEL COMMENTS DAILY XX 10/24/19 09:00 10/24/19 16:15 DC Multivitamins (Theragram-M) 1 tab DAILY PO 10/21/19 09:00 10/29/19 08:32 Non-Formulary Medication ( See Comment Field Below ) SEE COMMENTS SECTION 1T@10 ID 10/29/19 10:00 10/27/19 10:35 DC Non-Formulary Medication ( See Comment Field Below ) SEE LABEL COMMENTS DAILY XX 10/27/19 09:00 10/27/19 13:22 DC Olanzapine (ZyPREXA) 2.5 mg TID PO 10/26/19 16:00 10/29/19 08:33 Pravastatin Sodium (Pravachol) 20 mg QHS PO 10/15/19 21:00 10/28/19 20:32 Primidone (Mysoline) 100 mg QHS PO 10/15/19 21:00 10/28/19 20:32 Senna (Senokot) 1 tab DAILY PRN PO constipation 10/21/19 10:30 Senna (Senokot) 1 tab NOW PRN PO constipation 10/14/19 21:45 10/21/19 10:25 DC 10/17/19 15:50 Venlafaxine HCl (Effexor Xr) 37.5 mg DAILY PO 10/19/19 09:00 10/21/19 08:43 DC 10/20/19 08:28 Venlafaxine HCl (Effexor Xr) 75 mg DAILY PO 10/21/19 09:00 10/29/19 08:32 Allergies Coded Allergies: Cephalosporins (Verified Allergy, Unknown, 08/29/19) Penicillins (Verified Allergy, Unknown, UNKNOWN REACTION, 08/30/19) ceftriaxone (Verified Adverse Reaction, Unknown, INCREASED HR, 08/30/19) meperidine (Verified Adverse Reaction, Unknown, AMS, 08/30/19) TANISHA WEN DO Oct 29, 2019 9:04 am
[2019-10-29] MEDS ORDERED: PPD DOCUMENTATION ENTRY MISC ID SCH (10:00)
[2019-10-29] MEDS ORDERED: PPD DOCUMENTATION ENTRY MISC XX ONE (14:00)
[2019-10-29 16:00] VITALS: BP 150/75
[2019-10-29] MEDS: PRIMIDONE 50 MG TAB PO SCH (20:19)
[2019-10-29] MEDS: MIRTAZAPINE 15 MG TAB PO SCH (20:19)
[2019-10-29] MEDS: clonazePAM 0.5 MG TAB PO SCH (20:20)
[2019-10-29] MEDS: LATANOPROST 0.005% OPHTH SOLN 2.5 ML OU SCH (20:20)
[2019-10-29] MEDS: PRAVASTATIN 20 MG TAB PO SCH (20:20)
[2019-10-29] MEDS: MOM 30ML SUSPENSION UDC PO PRN (20:40)
[2019-10-30 06:36] VITALS: BP 147/65
[2019-10-30] MEDS: CALCIUM/VITAMIN D 500 MG TAB PO SCH ×2 (08:51→20:12)
[2019-10-30] MEDS: DOCUSATE SODIUM 100 MG CAP PO SCH ×2 (08:51→20:12)
[2019-10-30] MEDS: VENLAFAXINE **XR** 75MG CAPSULE PO SCH (08:51)
[2019-10-30] MEDS: MULTIVITAMINS/MINERALS THERAP 1 TAB PO SCH (08:51)
[2019-10-30] MEDS: OLANZapine 2.5MG TABLET PO SCH ×3 (08:51→20:12)
[2019-10-30] MEDS: BRINZOLAMIDE 1 % OPHTH SUSP (AZOPT) 10ML OU SCH ×2 (08:52→20:12)
[2019-10-30] MEDS: ASPIRIN 325 MG TAB PO SCH (08:52)
[2019-10-30 17:20] VITALS: BP 129/73
[2019-10-30] MEDS: LATANOPROST 0.005% OPHTH SOLN 2.5 ML OU SCH (20:12)
[2019-10-30] MEDS: PRIMIDONE 50 MG TAB PO SCH (20:12)
[2019-10-30] MEDS: PRAVASTATIN 20 MG TAB PO SCH (20:12)
[2019-10-30] MEDS: MIRTAZAPINE 15 MG TAB PO SCH (20:13)
[2019-10-30] MEDS: clonazePAM 0.5 MG TAB PO SCH (20:13)
[2019-10-31 06:22] VITALS: BP 120/62
[2019-10-31] MEDS: ASPIRIN 325 MG TAB PO SCH (08:56)
[2019-10-31] MEDS: MULTIVITAMINS/MINERALS THERAP 1 TAB PO SCH (08:56)
[2019-10-31] MEDS: CALCIUM/VITAMIN D 500 MG TAB PO SCH ×2 (08:56→20:22)
[2019-10-31] MEDS: DOCUSATE SODIUM 100 MG CAP PO SCH ×2 (08:56→20:21)
[2019-10-31] MEDS: OLANZapine 2.5MG TABLET PO SCH ×3 (08:56→20:22)
[2019-10-31] MEDS: BRINZOLAMIDE 1 % OPHTH SUSP (AZOPT) 10ML OU SCH ×2 (08:56→20:22)
[2019-10-31] MEDS: VENLAFAXINE **XR** 75MG CAPSULE PO SCH (08:56)
[2019-10-31] MEDS: MOM 30ML SUSPENSION UDC PO PRN (11:05)
[2019-10-31 15:00] VITALS: BP 144/88
[2019-10-31] MEDS: PRAVASTATIN 20 MG TAB PO SCH (20:22)
[2019-10-31] MEDS: clonazePAM 0.5 MG TAB PO SCH (20:22)
[2019-10-31] MEDS: LATANOPROST 0.005% OPHTH SOLN 2.5 ML OU SCH (20:22)
[2019-10-31] MEDS: PRIMIDONE 50 MG TAB PO SCH (20:22)
[2019-10-31] MEDS: MIRTAZAPINE 15 MG TAB PO SCH (20:23)
[2019-11-01 06:05] VITALS: BP 136/62
[2019-11-01] MEDS: CALCIUM/VITAMIN D 500 MG TAB PO SCH ×2 (09:25→20:25)
[2019-11-01] MEDS: BRINZOLAMIDE 1 % OPHTH SUSP (AZOPT) 10ML OU SCH ×2 (09:25→20:23)
[2019-11-01] MEDS: ASPIRIN 325 MG TAB PO SCH (09:26)
[2019-11-01] MEDS: DOCUSATE SODIUM 100 MG CAP PO SCH ×2 (09:26→20:23)
[2019-11-01] MEDS: VENLAFAXINE **XR** 75MG CAPSULE PO SCH (09:26)
[2019-11-01] MEDS: OLANZapine 2.5MG TABLET PO SCH ×3 (09:26→20:23)
[2019-11-01] MEDS: MULTIVITAMINS/MINERALS THERAP 1 TAB PO SCH (09:26)
[2019-11-01] MEDS: SENNA 8.6 MG TAB (SENOKOT) PO PRN (09:28)
--- NOTE | 2019-11-01 11:13 | MHIPNPDOC ---
[facility] Progress Note Progress Note DATE OF SERVICE: 11/01/19 HISTORY: Pt is a 79y/o CF admitted for depression and SI. Per Dr. Varela: Says that there are times when she has thought of killing herself, often thinks of lately, no plans, but she mentioned that women tend to take pills and men shoot themselves. She also suggests that she had lost a brother to suicide, and again the details are unknown. Says finds it hard to cope generally, particularly when she is having difficulties in the hospital, does not think that she can manage at her own place. Says also notices that she has been more forgetful, says that this has been more recent. She says that she felt that she was doing relatively well around [place] but has not done well since then. No history consistent with hypomania nor mariusz nor psychosis as such. VITAL SIGNS: See below. NEW TEST RESULTS:See below. CURRENT MEDICATIONS: See below. MENTAL STATUS EXAMINATION: She is neat. She is cooperative. She is much less anxious. No psychomotor retardation. Speech is spontaneous and coherent for a significant portion, but says things that are off topic to interview questions, speaks in run-on sentences in a tangential fashion. Seems to be focused on the past (see assessment). Affect is congruent with her anxiety. Denies active thoughts of harming herself but does state "It's harder to live than it is to ." No evidence of any thoughts of harming anyone else. DIAGNOSES: 1. Other specified depressive disorder. 2. Other specified anxiety disorder. 3. Rule out major depressive disorder. ASSESSMENT:Pt seen in office today. Per staff pt went to [employer] last night and when asked about it and if she sang pt stated "I'm more a follower than a leader... I keep forgetting things, I forget names... I keep having flashbacks... I knew this Laura Best... I keep thinking about the past... I feel so guilty... my son, I don't know if he wants me or alive b/c he's lied to me... It's harder to live than it is to ... I want to speak with my security systems engineer to help me with flashes I see. Pt very preoccupied and tangential about past and current stressors and memories mixing the 2 together. Hard to follow what she's actually trying to tell me. Keeps talking of "flashes I see" and it seems to be to is referring to her memories of the past. States "I want to live but I don't understand what's going on in my brain... I keep having these flashes." Denies though that she is experiencing AH or VH. Pt again encouraged to focus on the present rather than the past as thinking of the past will make her feel anxious and depressed and it is not something she can change now in the present. States she's tolerating zyprexa zydis and it helps her anxiety but makes her tired occasionally. She is tolerating her effexor xr that she feels is beneficial in combination with zyprexa. States she knows she wants to live. States she slept well last night with remeron. Continues to endorse confusion and states she feels she becoming demented. Feels she is tolerating her medications and they're beneficial. She is attending some groups and finding them helpful, encouraged to go to all groups to aid her with coping with her thoughts of the past and limited her perseveration on the past. She denies SI/HI, hallucinations, delusions. Pt feels safe here." MANAGEMENT PLAN:Continue plan. medications: effexor xr 75mg daily remeron 15mg qhs klonopin 0.25mg qhs zyprexa 2.5mg tid TIME SPENT: 30 minutes. Vital Signs Vital Signs Date Time Temp Pulse Resp B/P (MAP) Pulse Ox O2 Delivery O2 Flow Rate FiO2 11/01/19 06:05 98.8 71 16 136/62 (86) 10/31/19 15:00 100 Room Air Current Medications Current Medications Medications (Trade) Dose Ordered Sig/Joceline Route PRN Reason Start Time Stop Time Status Last Admin Dose Admin Acetaminophen (Tylenol Arthritis Er) 1,300 mg QHS PRN PO PAIN 10/16/19 21:15 Acetaminophen (Tylenol Tab) 650 mg Q6HP PRN PO HEADACHE or DISCOMFORT 10/15/19 13:15 10/26/19 10:44 Al Hydrox/Mg Hydrox/Simethicone (Mylanta) 30 ml Q4HP PRN PO HEARTBURN/INDIGESTION 10/15/19 13:15 10/19/19 16:48 Artificial Tears (Akwa Tears) 2 drop QIDP PRN OU DRY EYES 10/15/19 21:15 Aspirin (Aspirin) 325 mg DAILY PO 10/17/19 10:45 11/01/19 09:26 Brinzolamide (Azopt) 1 drop BID OU 10/15/19 21:00 11/01/19 09:25 Calcium/Vitamin D (Oscal D) 500 mg BID PO 10/15/19 21:00 11/01/19 09:25 Clonazepam (KlonoPIN) 0.25 mg QHS PO 10/17/19 21:00 10/31/19 20:22 Diphenhydramine HCl (Benadryl) 25 mg Q6HP PRN PO ANXIETY/AGITATION 10/15/19 13:15 10/28/19 13:32 Docusate Sodium (Colace) 100 mg BID PO 10/17/19 10:45 11/01/19 09:26 Home Med (Med Rec Complete!) ASDIRECTED XX 10/15/19 13:45 10/15/19 13:57 DC Ibuprofen (Advil) 400 mg Q6HP PRN PO PAIN 10/15/19 13:15 Latanoprost (Xalatan 0.005% Op Soln) 1 drop QHS OU 10/15/19 21:00 10/31/19 20:22 Lorazepam (Ativan) 0.25 mg BIDP PRN PO ANXIETY 10/15/19 21:15 10/17/19 21:15 DC 10/17/19 15:50 Magnesium Hydroxide (Milk Of Magnesia) 30 ml DAILYPRN PRN PO CONSTIPATION 10/15/19 13:15 10/31/19 11:05 Mirtazapine (Remeron) 7.5 mg QHS PO 10/16/19 21:00 10/20/19 11:48 DC 10/19/19 21:05 Mirtazapine (Remeron) 15 mg QHS PO 10/20/19 21:00 10/29/19 20:19 Miscellaneous (Unresolved Clarification Entry) SEE LABEL COMMENTS DAILY XX 10/30/19 09:00 10/31/19 09:52 DC Miscellaneous (Unresolved Clarification Entry) SEE LABEL COMMENTS DAILY XX 10/24/19 09:00 10/24/19 16:15 DC Multivitamins (Theragram-M) 1 tab DAILY PO 10/21/19 09:00 11/01/19 09:26 Non-Formulary Medication ( See Comment Field Below ) SEE COMMENTS SECTION 1T@10 ID 10/29/19 10:00 10/27/19 10:35 DC Non-Formulary Medication ( See Comment Field Below ) SEE LABEL COMMENTS DAILY XX 10/27/19 09:00 10/27/19 13:22 DC Olanzapine (ZyPREXA) 2.5 mg TID PO 10/26/19 16:00 11/01/19 09:26 Pravastatin Sodium (Pravachol) 20 mg QHS PO 10/15/19 21:00 10/31/19 20:22 Primidone (Mysoline) 100 mg QHS PO 10/15/19 21:00 10/31/19 20:22 Senna (Senokot) 1 tab DAILY PRN PO constipation 10/21/19 10:30 11/01/19 09:28 Senna (Senokot) 1 tab NOW PRN PO constipation 10/14/19 21:45 10/21/19 10:25 DC 10/17/19 15:50 Venlafaxine HCl (Effexor Xr) 37.5 mg DAILY PO 10/19/19 09:00 10/21/19 08:43 DC 10/20/19 08:28 Venlafaxine HCl (Effexor Xr) 75 mg DAILY PO 10/21/19 09:00 11/01/19 09:26 Allergies Coded Allergies: Cephalosporins (Verified Allergy, Unknown, 08/29/19) Penicillins (Verified Allergy, Unknown, UNKNOWN REACTION, 08/30/19) ceftriaxone (Verified Adverse Reaction, Unknown, INCREASED HR, 08/30/19) meperidine (Verified Adverse Reaction, Unknown, AMS, 08/30/19) TANISHA WEN DO Nov 01, 2019 11:13 am
[2019-11-01] MEDS: diphenhydrAMINE 25 MG CAP PO PRN (15:36)
[2019-11-01 16:00] VITALS: BP 145/67
[2019-11-01] MEDS: MIRTAZAPINE 15 MG TAB PO SCH (20:23)
[2019-11-01] MEDS: PRAVASTATIN 20 MG TAB PO SCH (20:24)
[2019-11-01] MEDS: PRIMIDONE 50 MG TAB PO SCH (20:24)
[2019-11-01] MEDS: clonazePAM 0.5 MG TAB PO SCH (20:26)
[2019-11-01] MEDS: PILL CUTTER 1 EACH XX PRN (20:26)
[2019-11-01] MEDS: LATANOPROST 0.005% OPHTH SOLN 2.5 ML OU SCH (20:28)
[2019-11-02 06:42] VITALS: BP 142/98
[2019-11-02] MEDS: CALCIUM/VITAMIN D 500 MG TAB PO SCH ×2 (08:28→20:01)
[2019-11-02] MEDS: DOCUSATE SODIUM 100 MG CAP PO SCH ×2 (08:29→20:02)
[2019-11-02] MEDS: VENLAFAXINE **XR** 75MG CAPSULE PO SCH (08:29)
[2019-11-02] MEDS: BRINZOLAMIDE 1 % OPHTH SUSP (AZOPT) 10ML OU SCH ×2 (08:29→20:00)
[2019-11-02] MEDS: ASPIRIN 325 MG TAB PO SCH (08:29)
[2019-11-02] MEDS: OLANZapine 2.5MG TABLET PO SCH ×3 (08:29→20:02)
[2019-11-02] MEDS: MULTIVITAMINS/MINERALS THERAP 1 TAB PO SCH (08:29)
--- NOTE | 2019-11-02 09:32 | MHIPNPDOC ---
[facility] Progress Note Progress Note DATE OF SERVICE: 11/02/19 HISTORY: Pt is a 79y/o CF admitted for depression and SI. Per Dr. Varela: Says that there are times when she has thought of killing herself, often thinks of lately, no plans, but she mentioned that women tend to take pills and men shoot themselves. She also suggests that she had lost a brother to suicide, and again the details are unknown. Says finds it hard to cope generally, particularly when she is having difficulties in the hospital, does not think that she can manage at her own place. Says also notices that she has been more forgetful, says that this has been more recent. She says that she felt that she was doing relatively well around [place] but has not done well since then. No history consistent with hypomania nor mariusz nor psychosis as such. VITAL SIGNS: See below. NEW TEST RESULTS:See below. CURRENT MEDICATIONS: See below. MENTAL STATUS EXAMINATION: She is neat. She is cooperative. She is less anxious. No psychomotor retardation. Speech is spontaneous and coherent for a significant portion, but says things that are off topic to interview questions, speaks in run-on sentences in a tangential fashion occasionally, less today. Seems to be focused on the past (see assessment). Affect is congruent with her anxiety. Denies active thoughts of harming herself states she's hopeful to be alive in the future. No evidence of any thoughts of harming anyone else. DIAGNOSES: 1. Other specified depressive disorder. 2. Other specified anxiety disorder. 3. Rule out major depressive disorder. ASSESSMENT:Pt seen in day room today stating she feels anxious due to watching TV but didn't state what exactly on TV is making her anxious, possible it is C OV19 out break. She states though that due to watching TV she is hopeful to be alive in the future. Continues to endorse confusion but would not specify on what. She appears less anxious today. States she's tolerating zyprexa zydis and it helps her anxiety but makes her tired occasionally. She is tolerating her effexor xr that she feels is beneficial in combination with zyprexa. States she knows she wants to live. States she slept well last night with remeron. Continues to endorse confusion and states she feels she becoming demented. Feels she is tolerating her medications and they're beneficial. She is attending some groups and finding them helpful, encouraged to go to all groups to aid her with coping with her thoughts of the past and limited her perseveration on the past yesterday. She denies SI/HI, hallucinations, delusions. Pt feels safe here." MANAGEMENT PLAN:Continue plan. medications: effexor xr 75mg daily remeron 15mg qhs klonopin 0.25mg qhs zyprexa 2.5mg tid TIME SPENT: 30 minutes. Vital Signs Vital Signs Date Time Temp Pulse Resp B/P (MAP) Pulse Ox O2 Delivery O2 Flow Rate FiO2 11/02/19 06:42 98.2 111 16 142/98 (113) 10/31/19 15:00 100 Room Air Current Medications Current Medications Medications (Trade) Dose Ordered Sig/Joceline Route PRN Reason Start Time Stop Time Status Last Admin Dose Admin Acetaminophen (Tylenol Arthritis Er) 1,300 mg QHS PRN PO PAIN 10/16/19 21:15 Acetaminophen (Tylenol Tab) 650 mg Q6HP PRN PO HEADACHE or DISCOMFORT 10/15/19 13:15 10/26/19 10:44 Al Hydrox/Mg Hydrox/Simethicone (Mylanta) 30 ml Q4HP PRN PO HEARTBURN/INDIGESTION 10/15/19 13:15 10/19/19 16:48 Artificial Tears (Akwa Tears) 2 drop QIDP PRN OU DRY EYES 10/15/19 21:15 Aspirin (Aspirin) 325 mg DAILY PO 10/17/19 10:45 11/02/19 08:29 Brinzolamide (Azopt) 1 drop BID OU 10/15/19 21:00 11/02/19 08:29 Calcium/Vitamin D (Oscal D) 500 mg BID PO 10/15/19 21:00 11/02/19 08:28 Clonazepam (KlonoPIN) 0.25 mg QHS PO 10/17/19 21:00 11/01/19 20:26 Diphenhydramine HCl (Benadryl) 25 mg Q6HP PRN PO ANXIETY/AGITATION 10/15/19 13:15 11/01/19 15:36 Docusate Sodium (Colace) 100 mg BID PO 10/17/19 10:45 11/02/19 08:29 Home Med (Med Rec Complete!) ASDIRECTED XX 10/15/19 13:45 10/15/19 13:57 DC Ibuprofen (Advil) 400 mg Q6HP PRN PO PAIN 10/15/19 13:15 Latanoprost (Xalatan 0.005% Op Soln) 1 drop QHS OU 10/15/19 21:00 11/01/19 20:28 Lorazepam (Ativan) 0.25 mg BIDP PRN PO ANXIETY 10/15/19 21:15 10/17/19 21:15 DC 10/17/19 15:50 Magnesium Hydroxide (Milk Of Magnesia) 30 ml DAILYPRN PRN PO CONSTIPATION 10/15/19 13:15 10/31/19 11:05 Mirtazapine (Remeron) 7.5 mg QHS PO 10/16/19 21:00 10/20/19 11:48 DC 10/19/19 21:05 Mirtazapine (Remeron) 15 mg QHS PO 10/20/19 21:00 11/01/19 20:23 Miscellaneous (Unresolved Clarification Entry) SEE LABEL COMMENTS DAILY XX 10/30/19 09:00 10/31/19 09:52 DC Miscellaneous (Unresolved Clarification Entry) SEE LABEL COMMENTS DAILY XX 10/24/19 09:00 10/24/19 16:15 DC Multivitamins (Theragram-M) 1 tab DAILY PO 10/21/19 09:00 11/02/19 08:29 Non-Formulary Medication ( See Comment Field Below ) SEE COMMENTS SECTION 1T@10 ID 10/29/19 10:00 10/27/19 10:35 DC Non-Formulary Medication ( See Comment Field Below ) SEE LABEL COMMENTS DAILY XX 10/27/19 09:00 10/27/19 13:22 DC Olanzapine (ZyPREXA) 2.5 mg TID PO 10/26/19 16:00 11/02/19 08:29 Pravastatin Sodium (Pravachol) 20 mg QHS PO 10/15/19 21:00 11/01/19 20:24 Primidone (Mysoline) 100 mg QHS PO 10/15/19 21:00 11/01/19 20:24 Senna (Senokot) 1 tab DAILY PRN PO constipation 10/21/19 10:30 11/01/19 09:28 Senna (Senokot) 1 tab NOW PRN PO constipation 10/14/19 21:45 10/21/19 10:25 DC 10/17/19 15:50 Venlafaxine HCl (Effexor Xr) 37.5 mg DAILY PO 10/19/19 09:00 10/21/19 08:43 DC 10/20/19 08:28 Venlafaxine HCl (Effexor Xr) 75 mg DAILY PO 10/21/19 09:00 11/02/19 08:29 Allergies Coded Allergies: Cephalosporins (Verified Allergy, Unknown, 08/29/19) Penicillins (Verified Allergy, Unknown, UNKNOWN REACTION, 08/30/19) ceftriaxone (Verified Adverse Reaction, Unknown, INCREASED HR, 08/30/19) meperidine (Verified Adverse Reaction, Unknown, AMS, 08/30/19) TANISHA WEN DO Nov 02, 2019 9:32 am
[2019-11-02] MEDS: SENNA 8.6 MG TAB (SENOKOT) PO PRN (09:56)
[2019-11-02] MEDS: diphenhydrAMINE 25 MG CAP PO PRN (11:45)
[2019-11-02 16:01] VITALS: BP 137/76
[2019-11-02] MEDS: PRAVASTATIN 20 MG TAB PO SCH (20:01)
[2019-11-02] MEDS: LATANOPROST 0.005% OPHTH SOLN 2.5 ML OU SCH (20:01)
[2019-11-02] MEDS: PRIMIDONE 50 MG TAB PO SCH (20:01)
[2019-11-02] MEDS: MIRTAZAPINE 15 MG TAB PO SCH (20:02)
[2019-11-02] MEDS: PILL CUTTER 1 EACH XX PRN (20:02)
[2019-11-02] MEDS: clonazePAM 0.5 MG TAB PO SCH (20:03)
[2019-11-03 06:22] VITALS: BP 112/80
[2019-11-03] MEDS: CALCIUM/VITAMIN D 500 MG TAB PO SCH ×2 (08:36→20:47)
[2019-11-03] MEDS: VENLAFAXINE **XR** 75MG CAPSULE PO SCH (08:36)
[2019-11-03] MEDS: DOCUSATE SODIUM 100 MG CAP PO SCH ×2 (08:36→20:47)
[2019-11-03] MEDS: ASPIRIN 325 MG TAB PO SCH (08:36)
[2019-11-03] MEDS: BRINZOLAMIDE 1 % OPHTH SUSP (AZOPT) 10ML OU SCH ×2 (08:36→20:47)
[2019-11-03] MEDS: OLANZapine 2.5MG TABLET PO SCH ×3 (08:36→20:47)
[2019-11-03] MEDS: MULTIVITAMINS/MINERALS THERAP 1 TAB PO SCH (08:36)
--- NOTE | 2019-11-03 08:43 | MHIPNPDOC ---
[facility] Progress Note Progress Note DATE OF SERVICE: 11/03/19 HISTORY: Pt is a 79y/o CF admitted for depression and SI. Per Dr. Varela: Says that there are times when she has thought of killing herself, often thinks of lately, no plans, but she mentioned that women tend to take pills and men shoot themselves. She also suggests that she had lost a brother to suicide, and again the details are unknown. Says finds it hard to cope generally, particularly when she is having difficulties in the hospital, does not think that she can manage at her own place. Says also notices that she has been more forgetful, says that this has been more recent. She says that she felt that she was doing relatively well around [place] but has not done well since then. No history consistent with hypomania nor mariusz nor psychosis as such. VITAL SIGNS: See below. NEW TEST RESULTS:See below. CURRENT MEDICATIONS: See below. MENTAL STATUS EXAMINATION: She is neat. She is cooperative. She is anxious. States "I'm still having anxiety." No psychomotor retardation. Speech is spontaneous and coherent for a significant portion, but says things that are off topic to interview questions, speaks in run-on sentences in a tangential fashion occasionally, less today. Seems to be focused on the past (see assessment). Affect is congruent with her anxiety. Denies active thoughts of harming herself states she's hopeful to be alive in the future. No evidence of any thoughts of harming anyone else. DIAGNOSES: 1. Other specified depressive disorder. 2. Other specified anxiety disorder. 3. Rule out major depressive disorder. ASSESSMENT:Pt seen and states "I'm still having anxiety". Pt unable to state much else due to her anxiety. Advised will increase her effexor xr that she appears to be tolerating well and benefitting from to 150mg daily today to help her further. Per yesterday's note "States she's tolerating zyprexa zydis and it helps her anxiety but makes her tired occasionally. She is tolerating her effexor xr that she feels is beneficial in combination with zyprexa. States she knows she wants to live. States she slept well last night with remeron. Continues to endorse confusion and states she feels she becoming demented. Feels she is tolerating her medications and they're beneficial. She is attending some groups and finding them helpful, encouraged to go to all groups to aid her with coping with her thoughts of the past and limited her perseveration on the past yesterday. She denies SI/HI, hallucinations, delusions. 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 MANAGEMENT PLAN:Continue plan. increase effexor xr to 150mg daily for mood and anxiety. [facility] referral made. medications: effexor xr 150mg daily remeron 15mg qhs klonopin 0.25mg qhs zyprexa 2.5mg tid TIME SPENT: 30 minutes. Vital Signs Vital Signs Date Time Temp Pulse Resp B/P (MAP) Pulse Ox O2 Delivery O2 Flow Rate FiO2 11/03/19 06:22 99.2 76 18 112/80 (91) 10/31/19 15:00 100 Room Air Current Medications Current Medications Medications (Trade) Dose Ordered Sig/Joceline Route PRN Reason Start Time Stop Time Status Last Admin Dose Admin Acetaminophen (Tylenol Arthritis Er) 1,300 mg QHS PRN PO PAIN 10/16/19 21:15 Acetaminophen (Tylenol Tab) 650 mg Q6HP PRN PO HEADACHE or DISCOMFORT 10/15/19 13:15 10/26/19 10:44 Al Hydrox/Mg Hydrox/Simethicone (Mylanta) 30 ml Q4HP PRN PO HEARTBURN/INDIGESTION 10/15/19 13:15 10/19/19 16:48 Artificial Tears (Akwa Tears) 2 drop QIDP PRN OU DRY EYES 10/15/19 21:15 Aspirin (Aspirin) 325 mg DAILY PO 10/17/19 10:45 11/02/19 08:29 Brinzolamide (Azopt) 1 drop BID OU 10/15/19 21:00 11/02/19 20:00 Calcium/Vitamin D (Oscal D) 500 mg BID PO 10/15/19 21:00 11/02/19 20:01 Clonazepam (KlonoPIN) 0.25 mg QHS PO 10/17/19 21:00 11/02/19 20:03 Diphenhydramine HCl (Benadryl) 25 mg Q6HP PRN PO ANXIETY/AGITATION 10/15/19 13:15 11/02/19 11:45 Docusate Sodium (Colace) 100 mg BID PO 10/17/19 10:45 11/02/19 20:02 Home Med (Med Rec Complete!) ASDIRECTED XX 10/15/19 13:45 10/15/19 13:57 DC Ibuprofen (Advil) 400 mg Q6HP PRN PO PAIN 10/15/19 13:15 Latanoprost (Xalatan 0.005% Op Soln) 1 drop QHS OU 10/15/19 21:00 11/02/19 20:01 Lorazepam (Ativan) 0.25 mg BIDP PRN PO ANXIETY 10/15/19 21:15 10/17/19 21:15 DC 10/17/19 15:50 Magnesium Hydroxide (Milk Of Magnesia) 30 ml DAILYPRN PRN PO CONSTIPATION 10/15/19 13:15 10/31/19 11:05 Mirtazapine (Remeron) 7.5 mg QHS PO 10/16/19 21:00 10/20/19 11:48 DC 10/19/19 21:05 Mirtazapine (Remeron) 15 mg QHS PO 10/20/19 21:00 11/02/19 20:02 Miscellaneous (Unresolved Clarification Entry) SEE LABEL COMMENTS DAILY XX 10/30/19 09:00 10/31/19 09:52 DC Miscellaneous (Unresolved Clarification Entry) SEE LABEL COMMENTS DAILY XX 10/24/19 09:00 10/24/19 16:15 DC Multivitamins (Theragram-M) 1 tab DAILY PO 10/21/19 09:00 11/02/19 08:29 Non-Formulary Medication ( See Comment Field Below ) SEE COMMENTS SECTION 1T@10 ID 10/29/19 10:00 10/27/19 10:35 DC Non-Formulary Medication ( See Comment Field Below ) SEE LABEL COMMENTS DAILY XX 10/27/19 09:00 10/27/19 13:22 DC Olanzapine (ZyPREXA) 2.5 mg TID PO 10/26/19 16:00 11/02/19 20:02 Pravastatin Sodium (Pravachol) 20 mg QHS PO 10/15/19 21:00 11/02/19 20:01 Primidone (Mysoline) 100 mg QHS PO 10/15/19 21:00 11/02/19 20:01 Senna (Senokot) 1 tab DAILY PRN PO constipation 10/21/19 10:30 11/02/19 09:56 Senna (Senokot) 1 tab NOW PRN PO constipation 10/14/19 21:45 10/21/19 10:25 DC 10/17/19 15:50 Venlafaxine HCl (Effexor Xr) 37.5 mg DAILY PO 10/19/19 09:00 10/21/19 08:43 DC 10/20/19 08:28 Venlafaxine HCl (Effexor Xr) 75 mg DAILY PO 10/21/19 09:00 11/02/19 08:29 Allergies Coded Allergies: Cephalosporins (Verified Allergy, Unknown, 08/29/19) Penicillins (Verified Allergy, Unknown, UNKNOWN REACTION, 08/30/19) ceftriaxone (Verified Adverse Reaction, Unknown, INCREASED HR, 08/30/19) meperidine (Verified Adverse Reaction, Unknown, AMS, 08/30/19) TANISHA WEN DO Nov 03, 2019 8:43 am
[2019-11-03] MEDS ORDERED: VENLAFAXINE **XR** 75MG CAPSULE PO ONE (08:45)
[2019-11-03 16:01] VITALS: BP 121/76
[2019-11-03] MEDS: MOM 30ML SUSPENSION UDC PO PRN (17:22)
[2019-11-03] MEDS: clonazePAM 0.5 MG TAB PO SCH (20:47)
[2019-11-03] MEDS: PRAVASTATIN 20 MG TAB PO SCH (20:47)
[2019-11-03] MEDS: LATANOPROST 0.005% OPHTH SOLN 2.5 ML OU SCH (20:47)
[2019-11-03] MEDS: PRIMIDONE 50 MG TAB PO SCH (20:47)
[2019-11-03] MEDS: SENNA 8.6 MG TAB (SENOKOT) PO PRN (20:48)
[2019-11-03] MEDS: MIRTAZAPINE 15 MG TAB PO SCH (20:50)
[2019-11-04 06:25] VITALS: BP 124/73
[2019-11-04] MEDS: ASPIRIN 325 MG TAB PO SCH (08:28)
[2019-11-04] MEDS: OLANZapine 2.5MG TABLET PO SCH ×3 (08:28→20:46)
[2019-11-04] MEDS: MULTIVITAMINS/MINERALS THERAP 1 TAB PO SCH (08:28)
[2019-11-04] MEDS: DOCUSATE SODIUM 100 MG CAP PO SCH ×2 (08:28→20:47)
[2019-11-04] MEDS: CALCIUM/VITAMIN D 500 MG TAB PO SCH ×2 (08:28→20:47)
[2019-11-04] MEDS: BRINZOLAMIDE 1 % OPHTH SUSP (AZOPT) 10ML OU SCH ×2 (08:29→20:46)
[2019-11-04] MEDS: VENLAFAXINE **XR** 75MG CAPSULE PO SCH (08:44)
--- NOTE | 2019-11-04 08:53 | MHIPNPDOC ---
[facility] Progress Note Progress Note DATE OF SERVICE: 11/04/19 HISTORY: Pt is a 79y/o CF admitted for depression and SI. Per Dr. Varela: Says that there are times when she has thought of killing herself, often thinks of lately, no plans, but she mentioned that women tend to take pills and men shoot themselves. She also suggests that she had lost a brother to suicide, and again the details are unknown. Says finds it hard to cope generally, particularly when she is having difficulties in the hospital, does not think that she can manage at her own place. Says also notices that she has been more forgetful, says that this has been more recent. She says that she felt that she was doing relatively well around [place] but has not done well since then. No history consistent with hypomania nor mariusz nor psychosis as such. VITAL SIGNS: See below. NEW TEST RESULTS:See below. CURRENT MEDICATIONS: See below. MENTAL STATUS EXAMINATION: She is neat. She is cooperative. She is anxious. States "anxious." No psychomotor retardation. Speech is spontaneous and coherent for a significant portion, but says things that are off topic to interview questions, speaks in run-on sentences in a tangential fashion occasionally, less today. Seems to be focused on the past (see assessment). Affect is congruent with her anxiety. Denies active thoughts of harming herself states she's hopeful to be alive in the future. No evidence of any thoughts of harming anyone else. DIAGNOSES: 1. Other specified depressive disorder. 2. Other specified anxiety disorder. 3. Rule out major depressive disorder. ASSESSMENT:Pt seen this morning stating she slept all day yesterday and thought it may be due to the increase in her effexor xr. Pt advised that effexor xr is not sedating but more invigorating and that most likely her fatigue was due to her zyprexa during the day that she wants to remain on as it helps her feel less anxious. She continues to endorse anxiety thru out the day but was more able to ask help with her needs in a logical and linear manor today. Pt is endorsing constipation (hasn't had a BM in a few days) and is agreeable to doculax to aid it today. She is already on colace. States she's tolerating zyprexa zydis She is tolerating her effexor xr that she feels is beneficial in combination with zyprexa. States she knows she wants to live. States she slept well last night with remeron. Continues to endorse confusion at times when she's very anxious mostly and fears she's becoming demented. Feels she is tolerating her medications and they're beneficial. She is attending some groups and finding them helpful, encouraged to go to all groups to aid her with coping with her thoughts of the past and limited her perseveration on the past yesterday. She denies SI/HI, hallucinations, delusions. 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 MANAGEMENT PLAN:Continue plan. increase effexor xr to 150mg daily for mood and anxiety. [facility] referral made. doculax x1 today for constipation medications: effexor xr 150mg daily remeron 15mg qhs klonopin 0.25mg qhs zyprexa 2.5mg tid TIME SPENT: 30 minutes. Vital Signs Vital Signs Date Time Temp Pulse Resp B/P (MAP) Pulse Ox O2 Delivery O2 Flow Rate FiO2 11/04/19 06:25 98.0 71 16 124/73 (90) 10/31/19 15:00 100 Room Air Current Medications Current Medications Medications (Trade) Dose Ordered Sig/Joceline Route PRN Reason Start Time Stop Time Status Last Admin Dose Admin Acetaminophen (Tylenol Arthritis Er) 1,300 mg QHS PRN PO PAIN 10/16/19 21:15 Acetaminophen (Tylenol Tab) 650 mg Q6HP PRN PO HEADACHE or DISCOMFORT 10/15/19 13:15 10/26/19 10:44 Al Hydrox/Mg Hydrox/Simethicone (Mylanta) 30 ml Q4HP PRN PO HEARTBURN/INDIGESTION 10/15/19 13:15 10/19/19 16:48 Artificial Tears (Akwa Tears) 2 drop QIDP PRN OU DRY EYES 10/15/19 21:15 Aspirin (Aspirin) 325 mg DAILY PO 10/17/19 10:45 11/04/19 08:28 Brinzolamide (Azopt) 1 drop BID OU 10/15/19 21:00 11/04/19 08:29 Calcium/Vitamin D (Oscal D) 500 mg BID PO 10/15/19 21:00 11/04/19 08:28 Clonazepam (KlonoPIN) 0.25 mg QHS PO 10/17/19 21:00 11/03/19 20:47 Diphenhydramine HCl (Benadryl) 25 mg Q6HP PRN PO ANXIETY/AGITATION 10/15/19 13:15 11/02/19 11:45 Docusate Sodium (Colace) 100 mg BID PO 10/17/19 10:45 11/04/19 08:28 Home Med (Med Rec Complete!) ASDIRECTED XX 10/15/19 13:45 10/15/19 13:57 DC Ibuprofen (Advil) 400 mg Q6HP PRN PO PAIN 10/15/19 13:15 Latanoprost (Xalatan 0.005% Op Soln) 1 drop QHS OU 10/15/19 21:00 11/03/19 20:47 Lorazepam (Ativan) 0.25 mg BIDP PRN PO ANXIETY 10/15/19 21:15 10/17/19 21:15 DC 10/17/19 15:50 Magnesium Hydroxide (Milk Of Magnesia) 30 ml DAILYPRN PRN PO CONSTIPATION 10/15/19 13:15 11/03/19 17:22 Mirtazapine (Remeron) 7.5 mg QHS PO 10/16/19 21:00 10/20/19 11:48 DC 10/19/19 21:05 Mirtazapine (Remeron) 15 mg QHS PO 10/20/19 21:00 11/02/19 20:02 Miscellaneous (Unresolved Clarification Entry) SEE LABEL COMMENTS DAILY XX 10/30/19 09:00 10/31/19 09:52 DC Miscellaneous (Unresolved Clarification Entry) SEE LABEL COMMENTS DAILY XX 10/24/19 09:00 10/24/19 16:15 DC Multivitamins (Theragram-M) 1 tab DAILY PO 10/21/19 09:00 11/04/19 08:28 Non-Formulary Medication ( See Comment Field Below ) SEE COMMENTS SECTION 1T@10 ID 10/29/19 10:00 10/27/19 10:35 DC Non-Formulary Medication ( See Comment Field Below ) SEE LABEL COMMENTS DAILY XX 10/27/19 09:00 10/27/19 13:22 DC Olanzapine (ZyPREXA) 2.5 mg TID PO 10/26/19 16:00 11/04/19 08:28 Pravastatin Sodium (Pravachol) 20 mg QHS PO 10/15/19 21:00 11/03/19 20:47 Primidone (Mysoline) 100 mg QHS PO 10/15/19 21:00 11/03/19 20:47 Senna (Senokot) 1 tab DAILY PRN PO constipation 10/21/19 10:30 11/03/19 20:48 Senna (Senokot) 1 tab NOW PRN PO constipation 10/14/19 21:45 10/21/19 10:25 DC 10/17/19 15:50 Venlafaxine HCl (Effexor Xr) 37.5 mg DAILY PO 10/19/19 09:00 10/21/19 08:43 DC 10/20/19 08:28 Venlafaxine HCl (Effexor Xr) 75 mg DAILY PO 10/21/19 09:00 11/03/19 08:43 DC 11/03/19 08:36 Venlafaxine HCl (Effexor Xr) 150 mg DAILY PO 11/04/19 09:00 Allergies Coded Allergies: Cephalosporins (Verified Allergy, Unknown, 08/29/19) Penicillins (Verified Allergy, Unknown, UNKNOWN REACTION, 08/30/19) ceftriaxone (Verified Adverse Reaction, Unknown, INCREASED HR, 08/30/19) meperidine (Verified Adverse Reaction, Unknown, AMS, 08/30/19) TANISHA WEN DO Nov 04, 2019 8:53 am
[2019-11-04] MEDS ORDERED: BISACODYL 5 MG TAB PO ONE (09:00)
[2019-11-04] MEDS: METAMUCIL (PSYLLIUM) PACKET PO SCH (09:16)
[2019-11-04 16:00] VITALS: BP 135/72
[2019-11-04] MEDS: PRIMIDONE 50 MG TAB PO SCH (20:47)
[2019-11-04] MEDS: clonazePAM 0.5 MG TAB PO SCH (20:47)
[2019-11-04] MEDS: PRAVASTATIN 20 MG TAB PO SCH (20:47)
[2019-11-04] MEDS: LATANOPROST 0.005% OPHTH SOLN 2.5 ML OU SCH (20:47)
[2019-11-04] MEDS: PILL CUTTER 1 EACH XX PRN (20:48)
[2019-11-04] MEDS: MIRTAZAPINE 15 MG TAB PO SCH (20:48)
[2019-11-05 06:27] VITALS: BP 142/77
--- NOTE | 2019-11-05 08:50 | MHIPNPDOC ---
[facility] Progress Note Progress Note DATE OF SERVICE: 11/05/19 HISTORY: Pt is a 79y/o CF admitted for depression and SI. Per Dr. Varela: Says that there are times when she has thought of killing herself, often thinks of lately, no plans, but she mentioned that women tend to take pills and men shoot themselves. She also suggests that she had lost a brother to suicide, and again the details are unknown. Says finds it hard to cope generally, particularly when she is having difficulties in the hospital, does not think that she can manage at her own place. Says also notices that she has been more forgetful, says that this has been more recent. She says that she felt that she was doing relatively well around [place] but has not done well since then. No history consistent with hypomania nor mariusz nor psychosis as such. VITAL SIGNS: See below. NEW TEST RESULTS:See below. CURRENT MEDICATIONS: See below. MENTAL STATUS EXAMINATION: She is neat. She is cooperative. She is anxious. States she feels a "bit better" today. No psychomotor retardation. Speech is spontaneous and coherent for a significant portion, says things less often that are off topic to interview questions, speaks in run- on sentences when very anxious, when calm she is linear and logical mostly. Seems to be focused on the past memories but it is improving. Affect is congruent with her anxiety. Denies active thoughts of harming herself states she's hopeful to be alive in the future. No evidence of any thoughts of harming anyone else. DIAGNOSES: 1. Other specified depressive disorder. 2. Other specified anxiety disorder. 3. Rule out major depressive disorder. ASSESSMENT:Pt seen in room this morning and states she feels a bit "better" today and that she wants to go home to her apt. Continues to fear that effexor xr will cause fatigue and again advised that effexor xr is not sedating but more invigorating. She endorses less anxiety today day but was more able to ask help with her needs in a logical and linear manor today. States she's tolerating zyprexa zydis. She is tolerating her effexor xr that she feels is beneficial in combination with zyprexa. States she knows she wants to live. States she slept well last night with remeron. Continues to endorse confusion at times when she's very anxious mostly and fears she's becoming demented occasionally when her anxiety is high. Feels she is tolerating her medications and they're beneficial. She is attending some groups and finding them helpful, encouraged to go to all groups to aid her with coping with her thoughts of the past and limited her perseveration on the past yesterday. She denies SI/HI, hallucinations, delusions. Pt feels safe here. Pt concerned about elevated BP this am which she was given her HTN medication for and asked if effexor xr could increase it and advised yes so will monitor it thru out today and the weekend with her on effexor xr recently increased to 150mg daily. Pt referred to [facility] for nursing home treatment due to severe anxiety and poor coping skills causing her problems with attention and cognition. MANAGEMENT PLAN:Continue plan. [facility] referral made. doculax x1 today for constipation medications: effexor xr 150mg daily remeron 15mg qhs klonopin 0.25mg qhs zyprexa 2.5mg tid TIME SPENT: 30 minutes. Vital Signs Vital Signs Date Time Temp Pulse Resp B/P (MAP) Pulse Ox O2 Delivery O2 Flow Rate FiO2 11/05/19 06:27 99.1 74 18 142/77 (98) 10/31/19 15:00 100 Room Air Current Medications Current Medications Medications (Trade) Dose Ordered Sig/Joceline Route PRN Reason Start Time Stop Time Status Last Admin Dose Admin Acetaminophen (Tylenol Arthritis Er) 1,300 mg QHS PRN PO PAIN 10/16/19 21:15 Acetaminophen (Tylenol Tab) 650 mg Q6HP PRN PO HEADACHE or DISCOMFORT 10/15/19 13:15 10/26/19 10:44 Al Hydrox/Mg Hydrox/Simethicone (Mylanta) 30 ml Q4HP PRN PO HEARTBURN/INDIGESTION 10/15/19 13:15 10/19/19 16:48 Artificial Tears (Akwa Tears) 2 drop QIDP PRN OU DRY EYES 10/15/19 21:15 Aspirin (Aspirin) 325 mg DAILY PO 10/17/19 10:45 11/04/19 08:28 Brinzolamide (Azopt) 1 drop BID OU 10/15/19 21:00 11/04/19 20:46 Calcium/Vitamin D (Oscal D) 500 mg BID PO 10/15/19 21:00 11/04/19 20:47 Clonazepam (KlonoPIN) 0.25 mg QHS PO 10/17/19 21:00 11/04/19 20:47 Diphenhydramine HCl (Benadryl) 25 mg Q6HP PRN PO ANXIETY/AGITATION 10/15/19 13:15 11/02/19 11:45 Docusate Sodium (Colace) 100 mg BID PO 10/17/19 10:45 11/04/19 20:47 Home Med (Med Rec Complete!) ASDIRECTED XX 10/15/19 13:45 10/15/19 13:57 DC Ibuprofen (Advil) 400 mg Q6HP PRN PO PAIN 10/15/19 13:15 Latanoprost (Xalatan 0.005% Op Soln) 1 drop QHS OU 10/15/19 21:00 11/04/19 20:47 Lorazepam (Ativan) 0.25 mg BIDP PRN PO ANXIETY 10/15/19 21:15 10/17/19 21:15 DC 10/17/19 15:50 Magnesium Hydroxide (Milk Of Magnesia) 30 ml DAILYPRN PRN PO CONSTIPATION 10/15/19 13:15 11/03/19 17:22 Mirtazapine (Remeron) 7.5 mg QHS PO 10/16/19 21:00 10/20/19 11:48 DC 10/19/19 21:05 Mirtazapine (Remeron) 15 mg QHS PO 10/20/19 21:00 11/02/19 20:02 Miscellaneous (Unresolved Clarification Entry) SEE LABEL COMMENTS DAILY XX 10/30/19 09:00 10/31/19 09:52 DC Miscellaneous (Unresolved Clarification Entry) SEE LABEL COMMENTS DAILY XX 10/24/19 09:00 10/24/19 16:15 DC Multivitamins (Theragram-M) 1 tab DAILY PO 10/21/19 09:00 11/04/19 08:28 Non-Formulary Medication ( See Comment Field Below ) SEE COMMENTS SECTION 1T@10 ID 10/29/19 10:00 10/27/19 10:35 DC Non-Formulary Medication ( See Comment Field Below ) SEE LABEL COMMENTS DAILY XX 10/27/19 09:00 10/27/19 13:22 DC Olanzapine (ZyPREXA) 2.5 mg TID PO 10/26/19 16:00 11/04/19 20:46 Pravastatin Sodium (Pravachol) 20 mg QHS PO 10/15/19 21:00 11/04/19 20:47 Primidone (Mysoline) 100 mg QHS PO 10/15/19 21:00 11/04/19 20:47 Psyllium Hydrophilic Mucilloid (Metamucil) 1 pkt DAILY PO 11/04/19 09:00 11/04/19 09:16 Senna (Senokot) 1 tab DAILY PRN PO constipation 10/21/19 10:30 11/03/19 20:48 Senna (Senokot) 1 tab NOW PRN PO constipation 10/14/19 21:45 10/21/19 10:25 DC 10/17/19 15:50 Venlafaxine HCl (Effexor Xr) 37.5 mg DAILY PO 10/19/19 09:00 10/21/19 08:43 DC 10/20/19 08:28 Venlafaxine HCl (Effexor Xr) 75 mg DAILY PO 10/21/19 09:00 11/03/19 08:43 DC 11/03/19 08:36 Venlafaxine HCl (Effexor Xr) 150 mg DAILY PO 11/04/19 09:00 11/04/19 08:44 Allergies Coded Allergies: Cephalosporins (Verified Allergy, Unknown, 08/29/19) Penicillins (Verified Allergy, Unknown, UNKNOWN REACTION, 08/30/19) ceftriaxone (Verified Adverse Reaction, Unknown, INCREASED HR, 08/30/19) meperidine (Verified Adverse Reaction, Unknown, AMS, 08/30/19) TANSIHA WNE DO Nov 05, 2019 8:50 am
[2019-11-05] MEDS: DOCUSATE SODIUM 100 MG CAP PO SCH ×2 (08:55→20:44)
[2019-11-05] MEDS: VENLAFAXINE **XR** 75MG CAPSULE PO SCH (08:55)
[2019-11-05] MEDS: BRINZOLAMIDE 1 % OPHTH SUSP (AZOPT) 10ML OU SCH ×2 (08:55→20:41)
[2019-11-05] MEDS: MULTIVITAMINS/MINERALS THERAP 1 TAB PO SCH (08:55)
[2019-11-05] MEDS: OLANZapine 2.5MG TABLET PO SCH ×3 (08:55→20:44)
[2019-11-05] MEDS: ASPIRIN 325 MG TAB PO SCH (08:55)
[2019-11-05] MEDS: CALCIUM/VITAMIN D 500 MG TAB PO SCH ×2 (08:55→20:43)
[2019-11-05] MEDS: METAMUCIL (PSYLLIUM) PACKET PO SCH (09:40)
[2019-11-05 16:23] VITALS: BP 138/68
[2019-11-05] MEDS: PRAVASTATIN 20 MG TAB PO SCH (20:43)
[2019-11-05] MEDS: MIRTAZAPINE 15 MG TAB PO SCH (20:44)
[2019-11-05] MEDS: PRIMIDONE 50 MG TAB PO SCH (20:44)
[2019-11-05] MEDS: PILL CUTTER 1 EACH XX PRN (20:45)
[2019-11-05] MEDS: clonazePAM 0.5 MG TAB PO SCH (20:46)
[2019-11-05] MEDS: LATANOPROST 0.005% OPHTH SOLN 2.5 ML OU SCH (20:47)
[2019-11-05] MEDS: SENNA 8.6 MG TAB (SENOKOT) PO PRN (20:49)
[2019-11-06 06:13] VITALS: BP 136/81
[2019-11-06] MEDS: DOCUSATE SODIUM 100 MG CAP PO SCH ×2 (08:07→20:37)
[2019-11-06] MEDS: OLANZapine 2.5MG TABLET PO SCH ×3 (08:07→20:37)
[2019-11-06] MEDS: CALCIUM/VITAMIN D 500 MG TAB PO SCH ×2 (08:07→20:37)
[2019-11-06] MEDS: ASPIRIN 325 MG TAB PO SCH (08:07)
[2019-11-06] MEDS: BRINZOLAMIDE 1 % OPHTH SUSP (AZOPT) 10ML OU SCH ×2 (08:07→20:37)
[2019-11-06] MEDS: MULTIVITAMINS/MINERALS THERAP 1 TAB PO SCH (08:07)
[2019-11-06] MEDS: METAMUCIL (PSYLLIUM) PACKET PO SCH (08:07)
[2019-11-06] MEDS: VENLAFAXINE **XR** 75MG CAPSULE PO SCH (08:08)
[2019-11-06 16:00] VITALS: BP 140/80
[2019-11-06] MEDS: MIRTAZAPINE 15 MG TAB PO SCH (20:37)
[2019-11-06] MEDS: PRIMIDONE 50 MG TAB PO SCH (20:37)
[2019-11-06] MEDS: PRAVASTATIN 20 MG TAB PO SCH (20:37)
[2019-11-06] MEDS: clonazePAM 0.5 MG TAB PO SCH (20:41)
[2019-11-06] MEDS: PILL CUTTER 1 EACH XX PRN (20:42)
[2019-11-06] MEDS: SENNA 8.6 MG TAB (SENOKOT) PO PRN (20:43)
[2019-11-06] MEDS: LATANOPROST 0.005% OPHTH SOLN 2.5 ML OU SCH (20:43)
[2019-11-07 06:11] VITALS: BP 150/75
[2019-11-07] MEDS: ASPIRIN 325 MG TAB PO SCH (08:19)
[2019-11-07] MEDS: DOCUSATE SODIUM 100 MG CAP PO SCH ×2 (08:20→20:32)
[2019-11-07] MEDS: CALCIUM/VITAMIN D 500 MG TAB PO SCH ×2 (08:20→20:32)
[2019-11-07] MEDS: METAMUCIL (PSYLLIUM) PACKET PO SCH (08:20)
[2019-11-07] MEDS: BRINZOLAMIDE 1 % OPHTH SUSP (AZOPT) 10ML OU SCH ×2 (08:20→20:22)
[2019-11-07] MEDS: OLANZapine 2.5MG TABLET PO SCH ×3 (08:20→20:32)
[2019-11-07] MEDS: MULTIVITAMINS/MINERALS THERAP 1 TAB PO SCH (08:20)
[2019-11-07] MEDS: VENLAFAXINE **XR** 75MG CAPSULE PO SCH (08:20)
[2019-11-07 16:03] VITALS: BP 140/92
[2019-11-07] MEDS: PRIMIDONE 50 MG TAB PO SCH (20:32)
[2019-11-07] MEDS: PRAVASTATIN 20 MG TAB PO SCH (20:32)
[2019-11-07] MEDS: LATANOPROST 0.005% OPHTH SOLN 2.5 ML OU SCH (20:32)
[2019-11-07] MEDS: MIRTAZAPINE 15 MG TAB PO SCH (20:32)
[2019-11-07] MEDS: clonazePAM 0.5 MG TAB PO SCH (20:34)
[2019-11-07] MEDS: PILL CUTTER 1 EACH XX PRN (20:34)
[2019-11-08] MEDS: diphenhydrAMINE 25 MG CAP PO PRN (01:58)
[2019-11-08 06:00] VITALS: BP 136/62
[2019-11-08] MEDS: ASPIRIN 325 MG TAB PO SCH (08:36)
[2019-11-08] MEDS: VENLAFAXINE **XR** 75MG CAPSULE PO SCH (08:36)
[2019-11-08] MEDS: DOCUSATE SODIUM 100 MG CAP PO SCH ×2 (08:36→20:53)
[2019-11-08] MEDS: OLANZapine 2.5MG TABLET PO SCH ×3 (08:36→20:53)
[2019-11-08] MEDS: CALCIUM/VITAMIN D 500 MG TAB PO SCH ×2 (08:36→20:51)
[2019-11-08] MEDS: MULTIVITAMINS/MINERALS THERAP 1 TAB PO SCH (08:36)
[2019-11-08] MEDS: BRINZOLAMIDE 1 % OPHTH SUSP (AZOPT) 10ML OU SCH ×2 (08:37→20:46)
[2019-11-08] MEDS: METAMUCIL (PSYLLIUM) PACKET PO SCH ×2 (08:37→09:57)
--- NOTE | 2019-11-08 09:10 | MHIPNPDOC ---
[facility] Progress Note Progress Note DATE OF SERVICE: 11/08/19 HISTORY: Pt is a 79y/o CF admitted for depression and SI. Per Dr. Varela: Says that there are times when she has thought of killing herself, often thinks of lately, no plans, but she mentioned that women tend to take pills and men shoot themselves. She also suggests that she had lost a brother to suicide, and again the details are unknown. Says finds it hard to cope generally, particularly when she is having difficulties in the hospital, does not think that she can manage at her own place. Says also notices that she has been more forgetful, says that this has been more recent. She says that she felt that she was doing relatively well around [place] but has not done well since then. No history consistent with hypomania nor mariusz nor psychosis as such. VITAL SIGNS: See below. NEW TEST RESULTS:See below. CURRENT MEDICATIONS: See below. MENTAL STATUS EXAMINATION: She is neat. She is cooperative. She is anxious. States she feels a "ok" today. No psychomotor retardation. Speech is more spontaneous and coherent for a significant portion, and only occasionally says things less often that are off topic to interview questions, speaks in run- on sentences when very anxious, when calm she is linear and logical mostly. Seems to be focused on the past memories but it is improving. Affect is congruent with her anxiety. Denies active thoughts of harming herself states she's hopeful to be alive in the future. No evidence of any thoughts of harming anyone else. DIAGNOSES: 1. Other specified depressive disorder. 2. Other specified anxiety disorder. 3. Rule out major depressive disorder. ASSESSMENT:Pt seen in room this morning and states she feels "ok" today and that she wants to go home to her apt. States that her effexor xr is beneficial for her mood and that she's tolerating it well. She endorses less anxiety today day has improving ability to ask help with her needs in a logical and linear manor today. States she's tolerating zyprexa zydis. She is tolerating her effexor xr that she feels is beneficial in combination with zyprexa. States she knows she wants to live. States she slept well last night with remeron. Endorses less confusion during the day. Feels she is tolerating her medications and they're beneficial. She is attending some groups and finding them helpful, encouraged to go to all groups to aid her with coping with her thoughts of the past and limited her perseveration on the past yesterday. She denies SI/HI, hallucinations, delusions. Pt feels safe here. Pt referred to [facility] for [facility] treatment due to severe anxiety and poor coping skills causing her problems with attention and cognition. MANAGEMENT PLAN:Continue plan. [facility] referral made. doculax x1 today for constipation medications: effexor xr 150mg daily remeron 15mg qhs klonopin 0.25mg qhs zyprexa 2.5mg tid TIME SPENT: 30 minutes. Vital Signs Vital Signs Date Time Temp Pulse Resp B/P (MAP) Pulse Ox O2 Delivery O2 Flow Rate FiO2 11/08/19 06:00 98.4 95 18 136/62 (86) Room Air Current Medications Current Medications Medications (Trade) Dose Ordered Sig/Joceline Route PRN Reason Start Time Stop Time Status Last Admin Dose Admin Acetaminophen (Tylenol Arthritis Er) 1,300 mg QHS PRN PO PAIN 10/16/19 21:15 Acetaminophen (Tylenol Tab) 650 mg Q6HP PRN PO HEADACHE or DISCOMFORT 10/15/19 13:15 10/26/19 10:44 Al Hydrox/Mg Hydrox/Simethicone (Mylanta) 30 ml Q4HP PRN PO HEARTBURN/INDIGESTION 10/15/19 13:15 10/19/19 16:48 Artificial Tears (Akwa Tears) 2 drop QIDP PRN OU DRY EYES 10/15/19 21:15 Aspirin (Aspirin) 325 mg DAILY PO 10/17/19 10:45 11/08/19 08:36 Brinzolamide (Azopt) 1 drop BID OU 10/15/19 21:00 11/08/19 08:37 Calcium/Vitamin D (Oscal D) 500 mg BID PO 10/15/19 21:00 11/08/19 08:36 Clonazepam (KlonoPIN) 0.25 mg QHS PO 10/17/19 21:00 11/07/19 20:34 Diphenhydramine HCl (Benadryl) 25 mg Q6HP PRN PO ANXIETY/AGITATION 10/15/19 13:15 11/08/19 01:58 Docusate Sodium (Colace) 100 mg BID PO 10/17/19 10:45 11/08/19 08:36 Home Med (Med Rec Complete!) ASDIRECTED XX 10/15/19 13:45 10/15/19 13:57 DC Ibuprofen (Advil) 400 mg Q6HP PRN PO PAIN 10/15/19 13:15 Latanoprost (Xalatan 0.005% Op Soln) 1 drop QHS OU 10/15/19 21:00 11/07/19 20:32 Lorazepam (Ativan) 0.25 mg BIDP PRN PO ANXIETY 10/15/19 21:15 10/17/19 21:15 DC 10/17/19 15:50 Magnesium Hydroxide (Milk Of Magnesia) 30 ml DAILYPRN PRN PO CONSTIPATION 10/15/19 13:15 11/03/19 17:22 Mirtazapine (Remeron) 7.5 mg QHS PO 10/16/19 21:00 10/20/19 11:48 DC 10/19/19 21:05 Mirtazapine (Remeron) 15 mg QHS PO 10/20/19 21:00 11/07/19 20:32 Miscellaneous (Unresolved Clarification Entry) SEE LABEL COMMENTS DAILY XX 10/30/19 09:00 10/31/19 09:52 DC Miscellaneous (Unresolved Clarification Entry) SEE LABEL COMMENTS DAILY XX 11/06/19 09:00 11/06/19 10:48 DC Miscellaneous (Unresolved Clarification Entry) SEE LABEL COMMENTS DAILY XX 10/24/19 09:00 10/24/19 16:15 DC Multivitamins (Theragram-M) 1 tab DAILY PO 10/21/19 09:00 11/08/19 08:36 Non-Formulary Medication ( See Comment Field Below ) SEE COMMENTS SECTION 1T@10 ID 10/29/19 10:00 10/27/19 10:35 DC Non-Formulary Medication ( See Comment Field Below ) SEE LABEL COMMENTS DAILY XX 10/27/19 09:00 10/27/19 13:22 DC Olanzapine (ZyPREXA) 2.5 mg TID PO 10/26/19 16:00 11/08/19 08:36 Pravastatin Sodium (Pravachol) 20 mg QHS PO 10/15/19 21:00 11/07/19 20:32 Primidone (Mysoline) 100 mg QHS PO 10/15/19 21:00 11/07/19 20:32 Psyllium Hydrophilic Mucilloid (Metamucil) 1 pkt DAILY PO 11/04/19 09:00 11/08/19 08:37 Senna (Senokot) 1 tab DAILY PRN PO constipation 10/21/19 10:30 11/06/19 20:43 Senna (Senokot) 1 tab NOW PRN PO constipation 10/14/19 21:45 10/21/19 10:25 DC 10/17/19 15:50 Venlafaxine HCl (Effexor Xr) 37.5 mg DAILY PO 10/19/19 09:00 10/21/19 08:43 DC 10/20/19 08:28 Venlafaxine HCl (Effexor Xr) 75 mg DAILY PO 10/21/19 09:00 11/03/19 08:43 DC 11/03/19 08:36 Venlafaxine HCl (Effexor Xr) 150 mg DAILY PO 11/04/19 09:00 11/08/19 08:36 Allergies Coded Allergies: Cephalosporins (Verified Allergy, Unknown, 08/29/19) Penicillins (Verified Allergy, Unknown, UNKNOWN REACTION, 08/30/19) ceftriaxone (Verified Adverse Reaction, Unknown, INCREASED HR, 08/30/19) meperidine (Verified Adverse Reaction, Unknown, AMS, 08/30/19) TANISHA WEN DO Nov 08, 2019 9:09 am
[2019-11-08 17:10] VITALS: BP 150/78
[2019-11-08 17:22] VITALS: BP 184/102
[2019-11-08 17:25] VITALS: BP 150/78
[2019-11-08 17:58] VITALS: BP 160/88
[2019-11-08] MEDS ORDERED: cloNIDine 0.1 MG TAB PO ONE (18:45)
[2019-11-08] MEDS ORDERED: amLODIPine 10 MG TAB PO ONE (18:45)
[2019-11-08] MEDS: PILL CUTTER 1 EACH XX PRN (20:47)
[2019-11-08] MEDS: clonazePAM 0.5 MG TAB PO SCH (20:48)
[2019-11-08] MEDS: PRIMIDONE 50 MG TAB PO SCH (20:50)
[2019-11-08] MEDS: MIRTAZAPINE 15 MG TAB PO SCH (20:50)
[2019-11-08] MEDS: LATANOPROST 0.005% OPHTH SOLN 2.5 ML OU SCH (20:50)
[2019-11-08] MEDS: PRAVASTATIN 20 MG TAB PO SCH (20:53)
[2019-11-09 06:14] VITALS: BP 147/67
--- NOTE | 2019-11-09 08:31 | MHIPNPDOC ---
[facility] Progress Note Progress Note DATE OF SERVICE: 11/09/19 HISTORY: Pt is a 79y/o CF admitted for depression and SI. Per Dr. Varela: Says that there are times when she has thought of killing herself, often thinks of lately, no plans, but she mentioned that women tend to take pills and men shoot themselves. She also suggests that she had lost a brother to suicide, and again the details are unknown. Says finds it hard to cope generally, particularly when she is having difficulties in the hospital, does not think that she can manage at her own place. Says also notices that she has been more forgetful, says that this has been more recent. She says that she felt that she was doing relatively well around [place] but has not done well since then. No history consistent with hypomania nor mariusz nor psychosis as such. VITAL SIGNS: See below. NEW TEST RESULTS:See below. CURRENT MEDICATIONS: See below. MENTAL STATUS EXAMINATION: She is neat. She is cooperative. She is anxious. States she feels a "ok" today. No psychomotor retardation. Speech is more spontaneous and coherent for a significant portion, and only occasionally says things less often that are off topic to interview questions, speaks in run- on sentences when very anxious, when calm she is linear and logical mostly. Seems to be focused on the past memories but it is improving. Affect is congruent with her anxiety. Denies active thoughts of harming herself states she's hopeful to be alive in the future. No evidence of any thoughts of harming anyone else. DIAGNOSES: 1. Other specified depressive disorder. 2. Other specified anxiety disorder. 3. Rule out major depressive disorder. ASSESSMENT:Pt seen in room this morning and states she feels "ok" and wants to go home soon but is "paranoid" that some of her friends at her apt bldg won't want to be her friend anymore due to "the things I said. States she feels safe to go home though and knows no one there will hurt her. Her thoughts are linear and logical and she appears much less anxious since her effexor xr was increased last week. States that her effexor xr is beneficial for her mood and that she's tolerating it well. She endorses less anxiety today day has improving ability to ask help with her needs in a logical and linear manor today. States she's tolerating zyprexa zydis. States she knows she wants to live. States she slept well last night with remeron. Endorses less confusion during the day. Feels she is tolerating her medications and they're beneficial. She is attending some groups and finding them helpful, encouraged to go to all groups to aid her with coping with her thoughts of the past and limited her perseveration on the past yesterday. She denies SI/HI, hallucinations, delusions. Pt feels safe here. Pt referred to [facility] for long term care social worker treatment due to severe anxiety and poor coping skills causing her problems with attention and cognition. MANAGEMENT PLAN:Continue plan. [facility] referral made. Possible d/c home if status continues to improve. medications: effexor xr 150mg daily remeron 15mg qhs klonopin 0.25mg qhs zyprexa 2.5mg tid TIME SPENT: 30 minutes. Vital Signs Vital Signs Date Time Temp Pulse Resp B/P (MAP) Pulse Ox O2 Delivery O2 Flow Rate FiO2 11/09/19 06:14 98.5 71 14 147/67 (93) 11/08/19 17:22 99 Room Air Current Medications Current Medications Medications (Trade) Dose Ordered Sig/Joceline Route PRN Reason Start Time Stop Time Status Last Admin Dose Admin Acetaminophen (Tylenol Arthritis Er) 1,300 mg QHS PRN PO PAIN 10/16/19 21:15 Acetaminophen (Tylenol Tab) 650 mg Q6HP PRN PO HEADACHE or DISCOMFORT 10/15/19 13:15 10/26/19 10:44 Al Hydrox/Mg Hydrox/Simethicone (Mylanta) 30 ml Q4HP PRN PO HEARTBURN/INDIGESTION 10/15/19 13:15 10/19/19 16:48 Amlodipine Besylate (Norvasc) 10 mg DAILY PO 11/09/19 09:00 Artificial Tears (Akwa Tears) 2 drop QIDP PRN OU DRY EYES 10/15/19 21:15 Aspirin (Aspirin) 325 mg DAILY PO 10/17/19 10:45 11/08/19 08:36 Brinzolamide (Azopt) 1 drop BID OU 10/15/19 21:00 11/08/19 20:46 Calcium/Vitamin D (Oscal D) 500 mg BID PO 10/15/19 21:00 11/08/19 20:51 Clonazepam (KlonoPIN) 0.25 mg QHS PO 10/17/19 21:00 11/08/19 20:48 Diphenhydramine HCl (Benadryl) 25 mg Q6HP PRN PO ANXIETY/AGITATION 10/15/19 13:15 11/08/19 01:58 Docusate Sodium (Colace) 100 mg BID PO 10/17/19 10:45 11/08/19 20:53 Home Med (Med Rec Complete!) ASDIRECTED XX 10/15/19 13:45 10/15/19 13:57 DC Ibuprofen (Advil) 400 mg Q6HP PRN PO PAIN 10/15/19 13:15 Latanoprost (Xalatan 0.005% Op Soln) 1 drop QHS OU 10/15/19 21:00 11/08/19 20:50 Lorazepam (Ativan) 0.25 mg BIDP PRN PO ANXIETY 10/15/19 21:15 10/17/19 21:15 DC 10/17/19 15:50 Magnesium Hydroxide (Milk Of Magnesia) 30 ml DAILYPRN PRN PO CONSTIPATION 10/15/19 13:15 11/03/19 17:22 Mirtazapine (Remeron) 7.5 mg QHS PO 10/16/19 21:00 10/20/19 11:48 DC 10/19/19 21:05 Mirtazapine (Remeron) 15 mg QHS PO 10/20/19 21:00 11/08/19 20:50 Miscellaneous (Unresolved Clarification Entry) SEE LABEL COMMENTS DAILY XX 10/30/19 09:00 10/31/19 09:52 DC Miscellaneous (Unresolved Clarification Entry) SEE LABEL COMMENTS DAILY XX 11/06/19 09:00 11/06/19 10:48 DC Miscellaneous (Unresolved Clarification Entry) SEE LABEL COMMENTS DAILY XX 10/24/19 09:00 10/24/19 16:15 DC Multivitamins (Theragram-M) 1 tab DAILY PO 10/21/19 09:00 11/08/19 08:36 Non-Formulary Medication ( See Comment Field Below ) SEE COMMENTS SECTION 1T@10 ID 10/29/19 10:00 10/27/19 10:35 DC Non-Formulary Medication ( See Comment Field Below ) SEE LABEL COMMENTS DAILY XX 10/27/19 09:00 10/27/19 13:22 DC Olanzapine (ZyPREXA) 2.5 mg TID PO 10/26/19 16:00 11/08/19 20:53 Pravastatin Sodium (Pravachol) 20 mg QHS PO 10/15/19 21:00 11/08/19 20:53 Primidone (Mysoline) 100 mg QHS PO 10/15/19 21:00 11/08/19 20:50 Psyllium Hydrophilic Mucilloid (Metamucil) 1 pkt DAILY PO 11/04/19 09:00 11/08/19 09:57 Senna (Senokot) 1 tab DAILY PRN PO constipation 10/21/19 10:30 11/06/19 20:43 Senna (Senokot) 1 tab NOW PRN PO constipation 10/14/19 21:45 10/21/19 10:25 DC 10/17/19 15:50 Venlafaxine HCl (Effexor Xr) 37.5 mg DAILY PO 10/19/19 09:00 10/21/19 08:43 DC 10/20/19 08:28 Venlafaxine HCl (Effexor Xr) 75 mg DAILY PO 10/21/19 09:00 11/03/19 08:43 DC 11/03/19 08:36 Venlafaxine HCl (Effexor Xr) 150 mg DAILY PO 11/04/19 09:00 11/08/19 08:36 Allergies Coded Allergies: Cephalosporins (Verified Allergy, Unknown, 08/29/19) Penicillins (Verified Allergy, Unknown, UNKNOWN REACTION, 08/30/19) ceftriaxone (Verified Adverse Reaction, Unknown, INCREASED HR, 08/30/19) meperidine (Verified Adverse Reaction, Unknown, AMS, 08/30/19) TANISHA WEN DO Nov 09, 2019 8:31 am
[2019-11-09] MEDS: MULTIVITAMINS/MINERALS THERAP 1 TAB PO SCH (08:32)
[2019-11-09] MEDS: VENLAFAXINE **XR** 75MG CAPSULE PO SCH (08:32)
[2019-11-09] MEDS: CALCIUM/VITAMIN D 500 MG TAB PO SCH ×2 (08:32→20:00)
[2019-11-09] MEDS: OLANZapine 2.5MG TABLET PO SCH ×3 (08:32→20:00)
[2019-11-09] MEDS: DOCUSATE SODIUM 100 MG CAP PO SCH ×2 (08:32→20:00)
[2019-11-09] MEDS: ASPIRIN 325 MG TAB PO SCH (08:32)
[2019-11-09] MEDS: BRINZOLAMIDE 1 % OPHTH SUSP (AZOPT) 10ML OU SCH ×2 (08:33→20:00)
[2019-11-09] MEDS: amLODIPine 10 MG TAB PO SCH (08:39)
[2019-11-09] MEDS: METAMUCIL (PSYLLIUM) PACKET PO SCH (11:23)
[2019-11-09 15:48] VITALS: BP 150/80
[2019-11-09] MEDS: PRIMIDONE 50 MG TAB PO SCH (20:00)
[2019-11-09] MEDS: LATANOPROST 0.005% OPHTH SOLN 2.5 ML OU SCH (20:00)
[2019-11-09] MEDS: MIRTAZAPINE 15 MG TAB PO SCH (20:00)
[2019-11-09] MEDS: PRAVASTATIN 20 MG TAB PO SCH (20:00)
[2019-11-09] MEDS: clonazePAM 0.5 MG TAB PO SCH (20:01)
[2019-11-10 06:23] VITALS: BP 142/88
[2019-11-10] MEDS: ASPIRIN 325 MG TAB PO SCH (08:48)
[2019-11-10] MEDS: amLODIPine 10 MG TAB PO SCH (08:48)
[2019-11-10] MEDS: OLANZapine 2.5MG TABLET PO SCH ×3 (08:48→20:00)
[2019-11-10] MEDS: VENLAFAXINE **XR** 75MG CAPSULE PO SCH (08:48)
[2019-11-10] MEDS: CALCIUM/VITAMIN D 500 MG TAB PO SCH ×2 (08:48→20:00)
[2019-11-10] MEDS: MULTIVITAMINS/MINERALS THERAP 1 TAB PO SCH (08:48)
[2019-11-10] MEDS: DOCUSATE SODIUM 100 MG CAP PO SCH ×2 (08:48→20:00)
[2019-11-10] MEDS: BRINZOLAMIDE 1 % OPHTH SUSP (AZOPT) 10ML OU SCH ×2 (08:49→19:58)
--- NOTE | 2019-11-10 09:02 | MHIPNPDOC ---
[facility] Progress Note Progress Note DATE OF SERVICE: 11/10/19 HISTORY: Pt is a 79y/o CF admitted for depression and SI. Per Dr. Varela: Says that there are times when she has thought of killing herself, often thinks of lately, no plans, but she mentioned that women tend to take pills and men shoot themselves. She also suggests that she had lost a brother to suicide, and again the details are unknown. Says finds it hard to cope generally, particularly when she is having difficulties in the hospital, does not think that she can manage at her own place. Says also notices that she has been more forgetful, says that this has been more recent. She says that she felt that she was doing relatively well around [place] but has not done well since then. No history consistent with hypomania nor mariusz nor psychosis as such. VITAL SIGNS: See below. NEW TEST RESULTS:See below. CURRENT MEDICATIONS: See below. MENTAL STATUS EXAMINATION: She is neat. She is cooperative. She is anxious. States she feels a "alright" today. No psychomotor retardation. Speech is more spontaneous and coherent for a significant portion, and only occasionally says things less often that are off topic to interview questions, speaks in run- on sentences when very anxious, when calm she is linear and logical mostly. Seems to be focused on the past memories but it is improving. Affect is congruent with her anxiety. Denies active thoughts of harming herself states she's hopeful to be alive in the future. No evidence of any thoughts of harming anyone else. DIAGNOSES: 1. Other specified depressive disorder. 2. Other specified anxiety disorder. 3. Rule out major depressive disorder. ASSESSMENT:Pt seen in her room this morning and states she feels "alright" but appears anxious with trembling hands. States she just took her medicine this am which she finds beneficial for her mood anxiety. States she has things she needs to do at home regarding why she feels anxious currently and in unsure if she'll be ready to go home tomorrow as she wants to see how she feels first tomorrow. Pt received news that her brother yesterday and asked her how she was doing regarding his and stated "I suppose it was nature," he was 87. Stated yesterday she feels safe to go home though and knows no one there will hurt her. Her thoughts are linear and logical. States that her effe xor xr is beneficial for her mood and that she's tolerating it well. States she's tolerating zyprexa zydis. States she knows she wants to live. States she slept well last night with remeron. Endorses less confusion during the day. Feels she is tolerating her medications and they're beneficial. She is attending some groups and finding them helpful, encouraged to go to all groups to aid her with coping with her thoughts of the past and limited her perseveration on the past yesterday. She denies SI/HI, hallucinations, delusions. Pt feels safe here. 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 MANAGEMENT PLAN:Continue plan. [facility] referral made. Possible d/c home if status continues to improve. medications: effexor xr 150mg daily remeron 15mg qhs klonopin 0.25mg qhs zyprexa 2.5mg tid TIME SPENT: 30 minutes. Vital Signs Vital Signs Date Time Temp Pulse Resp B/P (MAP) Pulse Ox O2 Delivery O2 Flow Rate FiO2 11/10/19 08:48 100 137/75 11/10/19 06:23 98.5 16 11/08/19 17:22 99 Room Air Current Medications Current Medications Medications (Trade) Dose Ordered Sig/Joceline Route PRN Reason Start Time Stop Time Status Last Admin Dose Admin Acetaminophen (Tylenol Arthritis Er) 1,300 mg QHS PRN PO PAIN 10/16/19 21:15 Acetaminophen (Tylenol Tab) 650 mg Q6HP PRN PO HEADACHE or DISCOMFORT 10/15/19 13:15 10/26/19 10:44 Al Hydrox/Mg Hydrox/Simethicone (Mylanta) 30 ml Q4HP PRN PO HEARTBURN/INDIGESTION 10/15/19 13:15 10/19/19 16:48 Amlodipine Besylate (Norvasc) 10 mg DAILY PO 11/09/19 09:00 11/10/19 08:48 Artificial Tears (Akwa Tears) 2 drop QIDP PRN OU DRY EYES 10/15/19 21:15 Aspirin (Aspirin) 325 mg DAILY PO 10/17/19 10:45 3/25/20 08:48 Brinzolamide (Azopt) 1 drop BID OU 10/15/19 21:00 11/10/19 08:49 Calcium/Vitamin D (Oscal D) 500 mg BID PO 10/15/19 21:00 11/10/19 08:48 Clonazepam (KlonoPIN) 0.25 mg QHS PO 10/17/19 21:00 11/09/19 20:01 Diphenhydramine HCl (Benadryl) 25 mg Q6HP PRN PO ANXIETY/AGITATION 10/15/19 13:15 11/08/19 01:58 Docusate Sodium (Colace) 100 mg BID PO 10/17/19 10:45 11/10/19 08:48 Home Med (Med Rec Complete!) ASDIRECTED XX 10/15/19 13:45 10/15/19 13:57 DC Ibuprofen (Advil) 400 mg Q6HP PRN PO PAIN 10/15/19 13:15 Latanoprost (Xalatan 0.005% Op Soln) 1 drop QHS OU 10/15/19 21:00 11/09/19 20:00 Lorazepam (Ativan) 0.25 mg BIDP PRN PO ANXIETY 10/15/19 21:15 10/17/19 21:15 DC 10/17/19 15:50 Magnesium Hydroxide (Milk Of Magnesia) 30 ml DAILYPRN PRN PO CONSTIPATION 10/15/19 13:15 11/03/19 17:22 Mirtazapine (Remeron) 7.5 mg QHS PO 10/16/19 21:00 10/20/19 11:48 DC 10/19/19 21:05 Mirtazapine (Remeron) 15 mg QHS PO 10/20/19 21:00 11/09/19 20:00 Miscellaneous (Unresolved Clarification Entry) SEE LABEL COMMENTS DAILY XX 10/30/19 09:00 10/31/19 09:52 DC Miscellaneous (Unresolved Clarification Entry) SEE LABEL COMMENTS DAILY XX 11/06/19 09:00 11/06/19 10:48 DC Miscellaneous (Unresolved Clarification Entry) SEE LABEL COMMENTS DAILY XX 10/24/19 09:00 10/24/19 16:15 DC Multivitamins (Theragram-M) 1 tab DAILY PO 10/21/19 09:00 11/10/19 08:48 Non-Formulary Medication ( See Comment Field Below ) SEE COMMENTS SECTION 1T@10 ID 10/29/19 10:00 10/27/19 10:35 DC Non-Formulary Medication ( See Comment Field Below ) SEE LABEL COMMENTS DAILY XX 10/27/19 09:00 10/27/19 13:22 DC Olanzapine (ZyPREXA) 2.5 mg TID PO 10/26/19 16:00 11/10/19 08:48 Pravastatin Sodium (Pravachol) 20 mg QHS PO 10/15/19 21:00 11/09/19 20:00 Primidone (Mysoline) 100 mg QHS PO 10/15/19 21:00 11/09/19 20:00 Psyllium Hydrophilic Mucilloid (Metamucil) 1 pkt DAILY PO 11/04/19 09:00 11/09/19 11:23 Senna (Senokot) 1 tab DAILY PRN PO constipation 10/21/19 10:30 11/06/19 20:43 Senna (Senokot) 1 tab NOW PRN PO constipation 10/14/19 21:45 10/21/19 10:25 DC 10/17/19 15:50 Venlafaxine HCl (Effexor Xr) 37.5 mg DAILY PO 10/19/19 09:00 10/21/19 08:43 DC 10/20/19 08:28 Venlafaxine HCl (Effexor Xr) 75 mg DAILY PO 10/21/19 09:00 11/03/19 08:43 DC 11/03/19 08:36 Venlafaxine HCl (Effexor Xr) 150 mg DAILY PO 11/04/19 09:00 11/10/19 08:48 Allergies Coded Allergies: Cephalosporins (Verified Allergy, Unknown, 08/29/19) Penicillins (Verified Allergy, Unknown, UNKNOWN REACTION, 08/30/19) ceftriaxone (Verified Adverse Reaction, Unknown, INCREASED HR, 08/30/19) meperidine (Verified Adverse Reaction, Unknown, AMS, 08/30/19) TANISHA WEN DO Nov 10, 2019 9:02 am
[2019-11-10] MEDS: METAMUCIL (PSYLLIUM) PACKET PO SCH (10:27)
[2019-11-10 16:00] VITALS: BP 114/67
[2019-11-10] MEDS: PRAVASTATIN 20 MG TAB PO SCH (20:00)
[2019-11-10] MEDS: PRIMIDONE 50 MG TAB PO SCH (20:00)
[2019-11-10] MEDS: MIRTAZAPINE 15 MG TAB PO SCH (20:01)
[2019-11-10] MEDS: LATANOPROST 0.005% OPHTH SOLN 2.5 ML OU SCH (20:01)
[2019-11-10] MEDS: clonazePAM 0.5 MG TAB PO SCH (20:04)
[2019-11-11 06:14] VITALS: BP 133/57
[2019-11-11] MEDS ORDERED: VENL75CA47 PO (08:33)
[2019-11-11] MEDS ORDERED: OLAN2.5T25 PO (08:33)
[2019-11-11] MEDS ORDERED: REME15TA PO (08:33)
--- NOTE | 2019-11-11 08:33 | MHDSPDOC ---
[facility] Discharge Summary Discharge Summary DATE OF ADMISSION: Oct 15, 2019 at 1:05 pm DATE OF DISCHARGE: Nov 11, 2019 DISCHARGE DIAGNOSES: 1. Other specified depressive disorder. 2. Other specified anxiety disorder. 3. Rule out major depressive disorder. REASON FOR ADMISSION: Pt is a 79y/o CF admitted for depression and SI. Per Dr. Varela: Says that there are times when she has thought of killing herself, often thinks of lately, no plans, but she mentioned that women tend to take pills and men shoot themselves. She also suggests that she had lost a brother to suicide, and again the details are unknown. Says finds it hard to cope generally, particularly when she is having difficulties in the hospital, does not think that she can manage at her own place. Says also notices that she has been more forgetful, says that this has been more recent. She says that she felt that she was doing relatively well around [place] but has not done well since then. No history consistent with hypomania nor mariusz nor psychosis as such. CONSULTANTS INVOLVED: none TREATMENT AND PROGRESS ON THE UNIT : Pt was admitted to [facility], seen for psychiatric assessment and started on effexor xr increased to 150mg daily for mood and anxiety, zyprexa 2.5mg tid for anxiety, remeron 15mg qhs for insomnia, and klonopin 0.25mg qhs for anxiety. She was provided Pt found her medications beneficial and tolerated them well. She attended groups daily during her stay. Her symptoms or depression, anxiety, and confusion improved with treatment to be more euthymic, less anxious with linear and logical thoughts. On day of discharge she denied depression, insomnia, SI/HI, hallucinations, delusions. She was discharged home with follow-up at [facility]. She felt safe for discharge. DISCHARGE ASSESSMENT: Pt seen in her room this morning and states she feels "ok" and that she feels ready to go home even though she is a bit anxious about it but believes it will improve once she takes her meds. Stated she feels safe to go home though and knows no one there will hurt her. Her thoughts are linear and logical. States that her effexor xr is beneficial for her mood and that she's tolerating it well. States she's tolerating zyprexa zydis and it's beneficial for her anxiety. States she knows she wants to live. States she slept well last night with remeron. Feels she is tolerating her medications and they're beneficial. She is attending some groups and finding them helpful. She denies depression, insomnia, SI/HI, hallucinations, delusions. Pt feels safe to go home today with her son. MENTAL STATUS EXAMINATION ON DISCHARGE: She is neat. She is cooperative. She appears calmer. States she feels a "ok" today. No psychomotor retardation. Speech is more spontaneous and coherent. She is linear and logical mostly. Seems to be focused on the past memories but it is improving. Affect is congruent with her mood and calmer. Denies active thoughts of harming herself states she's hopeful to be alive in the future. No evidence of any thoughts of harming anyone else. MEDICATIONS ON DISCHARGE: effexor xr 150mg daily remeron 15mg qhs klonopin 0.25mg qhs zyprexa 2.5mg tid PLAN/FOLLOWUP ARRANGEMENTS: D/c home with follow-up [facility]. The amount of time spent in the coordination of care for this patient was approximately 30 minutes. Vital Signs/I&Os Vital Signs Date Time Temp Pulse Resp B/P (MAP) Pulse Ox O2 Delivery O2 Flow Rate FiO2 11/11/19 06:14 99.2 68 16 133/57 (82) 11/08/19 17:22 99 Room Air Medications Scheduled Aspirin (Aspirin) 325 Mg Tablet, 325 MG PO DAILY, (Reported) Brinzolamide (Azopt) 1% 10ML Drops.susp, 1 DROP OU BID, (Reported) Calcium Carbonate/Vitamin D3 (Calcium 500-Vit D3 400 Tablet) 1 Each Tablet, 1 TAB PO BID, (Reported) Clonazepam (Clonazepam) 0.5 Mg Tablet, 0.25 MG PO DAILY, (Reported) Docusate Sodium (Stool Softener) 100 Mg Capsule, 100 NG PO BID, (Reported) Duloxetine Hcl (Cymbalta) 60 Mg Capsule.dr, 60 MG PO DAILY, (Reported) Gluc Mcfarlane/Chondro Mcfarlane A/Vit C/Mn (Glucosamine Chondroitin Tab) 1 Each Tablet, 1 TAB PO BID, (Reported) Latanoprost/Pf (Latanoprost 0.005% Eye Drop) 7.5 Ml Drops, 1 DROP OU QHS, (Reported) Multivitamins (Thera M Plus Tablet) 1 Each Tablet, 1 TAB PO DAILY, (Reported) Pravastatin Sodium (Pravastatin Sodium) 20 Mg Tab, 20 MG PO QHS, (Reported) Primidone (Primidone) 50 Mg Tab, 100 MG QHS, (Reported) Scheduled PRN Acetaminophen (Tylenol Arthritis) 650 Mg Tablet.er, 1,300 MG PO QHS PRN for PAIN, (Reported) Polyvinyl Alcohol (Artificial Tears) 15 Ml Drops, 1 DROP OU QID PRN for REDNESS/IRRITATION, (Reported) Sennosides (Senokot) 8.6 Mg Tablet, 1 TAB PO DAILY PRN for CONSTIPATION, (Reported) Allergies Coded Allergies: Cephalosporins (Verified Allergy, Unknown, 08/29/19) Penicillins (Verified Allergy, Unknown, UNKNOWN REACTION, 08/30/19) ceftriaxone (Verified Adverse Reaction, Unknown, INCREASED HR, 08/30/19) meperidine (Verified Adverse Reaction, Unknown, AMS, 08/30/19) TANISHA WEN DO Nov 11, 2019 8:33 am
[2019-11-11] MEDS: BRINZOLAMIDE 1 % OPHTH SUSP (AZOPT) 10ML OU SCH (08:57)
[2019-11-11] MEDS: CALCIUM/VITAMIN D 500 MG TAB PO SCH (08:58)
[2019-11-11] MEDS: ASPIRIN 325 MG TAB PO SCH (08:58)
[2019-11-11 08:59] VITALS: BP 145/74
[2019-11-11] MEDS: amLODIPine 10 MG TAB PO SCH (08:59)
[2019-11-11] MEDS: VENLAFAXINE **XR** 75MG CAPSULE PO SCH (08:59)
[2019-11-11] MEDS: MULTIVITAMINS/MINERALS THERAP 1 TAB PO SCH (08:59)
[2019-11-11] MEDS: DOCUSATE SODIUM 100 MG CAP PO SCH (08:59)
[2019-11-11] MEDS: OLANZapine 2.5MG TABLET PO SCH (09:00)
[2019-11-11] MEDS: METAMUCIL (PSYLLIUM) PACKET PO SCH (09:00)
== END 2019-11-11 10:30 | disposition home or self-care (01) | DRG 881 ==
LOC: M ED 10:49 → M ED INP 10-15 13:05 → M PSY 10-15 15:41
PROVIDERS: ADMIT Psychiatry & Neurology Psychiatry; ATTEND Psychiatry & Neurology Psychiatry
DX: F32.9 Major depressive disorder, single episode, unspecified (principal); R45.851 Suicidal ideations; F41.9 Anxiety disorder, unspecified; Z79.82 Long term (current) use of aspirin; Z79.899 Other long term (current) drug therapy; Z88.8 Allergy status to other drugs, medicaments and biological substances; E78.5 Hyperlipidemia, unspecified; Z95.2 Presence of prosthetic heart valve; G47.33 Obstructive sleep apnea (adult) (pediatric); M81.0 Age-related osteoporosis without current pathological fracture; Z88.0 Allergy status to penicillin

== ENCOUNTER 2019-11-12 11:58 | Emergency (ER) | payer MEDICARE ==
[~2019-11-12] VITALS: Ht 152.4 cm; Wt 76.6 kg
[~2019-11-12 11:58] MED LIST changes: +ARIP1TAB4; +ARIP1TAB6; +CLON0.5T2 PO; +CYMB60CA3 PO; +DULO1CAP6; +MIRA3350 PO; +MYSO50TA5; +OLAN2.5T25 PO; +REME15TA PO; +STOO2CAP PO; +VENL75CA47 PO
[2019-11-12 14:51] VITALS: BP 173/80
== END 2019-11-12 14:58 | disposition home or self-care (01) ==
LOC: M ED 11:58
DX: F33.9 Major depressive disorder, recurrent, unspecified (principal); Z87.891 Personal history of nicotine dependence; Z88.0 Allergy status to penicillin; Z88.1 Allergy status to other antibiotic agents; Z88.8 Allergy status to other drugs, medicaments and biological substances; Z79.82 Long term (current) use of aspirin; Z79.899 Other long term (current) drug therapy

== ENCOUNTER 2019-11-15 13:01 | Observation (INO) | payer MEDICARE ==
[~2019-11-15] VITALS: Ht 157.5 cm; Wt 75.8 kg
[2019-11-15 14:35] LABS: BASO # 0.1 10^3/uL (0.0-0.2); BASO % 1.2 % (0.0-1.0); EOS # 0.2 10^3/uL (0.0-0.5); HEMATOCRIT 40.8 % (36.0-47.0); HEMOGLOBIN 13.7 g/dl (12.0-15.5); LYMPH # 1.9 10^3/uL (1.5-5.0); MEAN CORPUSCULAR HEMOGLOBIN 32.3 pg (27.0-33.0); MEAN CORPUSCULAR HGB CONC 33.6 g/dl (32.0-36.5); MEAN CORPUSCULAR VOLUME 96.2 fl (80.0-96.0); MONO # 0.5 10^3/uL (0.0-0.8); MONO % 6.4 % (0.0-5.0); NEUTROPHILS # 4.8 10^3/uL (1.5-8.5); NEUTROPHILS % 65.3 % (36.0-66.0); PLATELET COUNT, AUTOMATED 257 10^3/uL (150-450); RED BLOOD COUNT 4.24 10^6/uL (4.00-5.40); WHITE BLOOD COUNT 7.4 10^3/uL (4.0-10.0)
[2019-11-15 14:43] LABS: AMPHETAMINES LEVEL URINE NEGATIVE (NEGATIVE); BARBITURATES URINE POSITIVE (NEGATIVE); BENZODIAZEPINES URINE NEGATIVE (NEGATIVE); CANNABINOIDS URINE NEGATIVE (NEGATIVE); COCAINE METABOLITE URINE NEGATIVE (NEGATIVE); METHADONE URINE NEGATIVE (NEGATIVE); OPIATES URINE NEGATIVE (NEGATIVE); PHENCYCLIDINE URINE NEGATIVE (NEGATIVE)
[2019-11-15] MEDS ORDERED: REME15TA PO (14:44)
[2019-11-15] MEDS ORDERED: VENL75CA47 PO (14:45)
[2019-11-15] MEDS ORDERED: ALPRAZolam 0.25 MG TAB PO ONE (14:45)
[2019-11-15] MEDS ORDERED: OLAN2.5T25 PO (14:45)
[2019-11-15] MEDS ORDERED: med rec comment (14:59)
[2019-11-15 15:05] LABS: ALT/SGPT 30 U/L (12-78); BLOOD UREA NITROGEN 18 MG/DL (7-18); CARBON DIOXIDE LEVEL 27 MEQ/L (21-32); CHLORIDE LEVEL 105 MEQ/L (98-107); CREATININE FOR GFR 0.78 MG/DL (0.55-1.30); GLOMERULAR FILTRATION RATE > 60.0 (>39); GLUCOSE, FASTING 90 MG/DL (70-100); POTASSIUM SERUM 3.9 MEQ/L (3.5-5.1); SODIUM LEVEL 139 MEQ/L (136-145)
[2019-11-15 15:06] LABS: ACETAMINOPHEN LEVEL < 2.0 UG/ML (10.0-30.0); ALBUMIN 3.7 GM/DL (3.2-5.2); BILIRUBIN,DIRECT 0.1 MG/DL (0.0-0.2); BILIRUBIN,TOTAL 0.3 MG/DL (0.2-1.0); CK-MB VALUE MASS 3.8 NG/ML (<3.6); CPK CREATINE PHOSPHOKINASE 116 U/L (26-192); ETHYL ALCOHOL (ETHANOL) < 0.003 % (0.000-0.010); MB/CK RELATIVE INDEX 3.28 (< OR =4); SALICYLATE LEVEL 1.9 MG/DL (5.0-30.0); THYROID STIMULATING HORMONE 0.736 uIU/ML (0.358-3.740); TOTAL PROTEIN 6.6 GM/DL (6.4-8.2); TROPONIN I < 0.02 NG/ML (< 0.10)
--- NOTE | 2019-11-15 16:23 | REP ---
Portable chest x-ray: Single view. History: Overdose. Comparison study: October 10, 2010. Findings: The patient is status post lower cervical discectomy and fusion plating. Monitoring electrodes are seen overlying the chest. A moderate levoconvex lower thoracic scoliotic curve is seen. Thoracic aortic tortuosity and calcification are noted. The heart is not enlarged. Lung silva are clear. Pleural angles are sharp. Pulmonary vasculature is not increased. Impression: No active cardiopulmonary disease. Scoliosis. Electronically Signed by Rafal Blackmon MD 11/15/2019 05:00 P
--- NOTE | 2019-11-15 16:44 | ECGEPIP ---
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
--- NOTE | 2019-11-15 17:27 | HPEPDOC ---
[facility] Medical History & Physical Date of Admission Nov 15, 2019 Date of Service: Nov 15, 2019 Attending Physician: JOSE LUIS BAUTISTA MD History and Physical CHIEF COMPLAINT: Medication overdose HISTORY OF PRESENT ILLNESS: 79 y.o female w/ PMH of Depression, tremor, HLD & Psychosis presents from Psychiatrist's office for medication overdose. Patient was recently admitted at [facility] for an entire month for depression & suicidal ideation, discharged 4 days ago. She reports persistent depressive symptoms and thought of suicide. She reports possibly taking an additional dose of her medications overnight because she wasn't sure if she had taken them earlier. So, she MAY have taken an addition dose of her night time medication; she was not attempting to kill herself, reports it was accidental. She does report that she if she goes how now, she will attempt to overdose that she does not wish to live . Medically, she is asymptomatic, without complaints but does reports significant depressive symptoms and though of suicide. She denies any SOB, CP, N/V/D or abdominal pain. 10 point review of system is negative except for above. PAST MEDICAL HISTORY: 1. Depression 2. HLD 3. Tremor 4. Psychosis PAST SURGICAL HISTORY: 1. Appendectomy 2. Cholecystectomy SOCIAL HISTORY: Ex-smoker denies alcohol use denies drug use FAMILY HISTORY: negative for heart disease/malignancy ALLERGIES: Please see below. HOME MEDICATIONS: Please see below. PHYSICAL EXAMINATION: VITAL SIGNS: See below GENERAL APPEARANCE: No distress HEENT: Moist mucus membranes CARDIOVASCULAR: S1, S2, no murmurs LUNGS: Clear to auscultation ABDOMEN: Soft, non-tender, non-distended, +BS EXTREMITIES: ROM intact NEUROLOGICAL: No focal deficits PSYCHIATRIC: Flat affect, withdrawn LABORATORY DATA: See below. IMAGING: CXR without acute pathology MICROBIOLOGY: Please see below. ASSESSMENT: 79 y.o female with multiple medical comorbidities who was recently admitted to [facility] for depression/suicidal ideation is being admitted for possible medication overdose and suicidal ideation. PLAN: 1. medication overdose/suicidal ideation - Possible medication overdose, accidental, may have take 1 additional dose of her night time medications (she doesn't recall which), clinically & hemodynamically stable, admit for observation, Tele monitoring, Sitter, seizure precautions, will monitor overnight and consult Psychiatry in the morning if remains stable/asymptomatic. 2. HLD - hold statin until tomorrow 3. Tremors - hold primonidone until tomorrow DVT Prophylaxis - SCDs GI Prophylaxis - not needed Vital Signs Vital Signs Date Time Temp Pulse Resp B/P (MAP) Pulse Ox O2 Delivery O2 Flow Rate FiO2 11/15/19 16:30 71 98 Room Air 11/15/19 16:15 127/66 (86) 11/15/19 13:51 99.6 17 Laboratory Data Labs 24H Laboratory Tests 2 11/15/19 13:19: Immature Granulocyte % (Auto) 0.1, Neutrophils (%) (Auto) 65.3, Lymphocytes (%) (Auto) 25.0, Monocytes (%) (Auto) 6.4H, Eosinophils (%) (Auto) 2.0, Basophils (%) (Auto) 1.2H, Neutrophils # (Auto) 4.8, Lymphocytes # (Auto) 1.9, Monocytes # (Auto) 0.5, Eosinophils # (Auto) 0.2, Basophils # (Auto) 0.1, Nucleated Red Blood Cells % (auto) 0.0, Anion Gap 7L, Glomerular Filtration Rate > 60.0, Calcium Level 9.0, Total Bilirubin 0.3, Direct Bilirubin 0.1, Aspartate Amino Transf (AST/SGOT) 22, Alanine Aminotransferase (ALT/SGPT) 30, Alkaline Phosphatase 75, Total Creatine Kinase 116, Creatine Kinase MB 3.8H, Creatine Kinase MB Relative Index 3.28, Troponin I < 0.02, Total Protein 6.6, Albumin 3.7, Albumin/Globulin Ratio 1.28, Thyroid Stimulating Hormone (TSH) 0.736, Salicylates Level 1.9L, Acetaminophen Level < 2.0L, Ethyl Alcohol Level < 0.003 11/15/19 14:03: Urine Opiates Screen NEGATIVE, Urine Methadone Screen NEGATIVE, Urine Ba rbiturates Screen POSITIVEH, Urine Phencyclidine Screen NEGATIVE, Urine Amphetamines Screen NEGATIVE, Urine Benzodiazepines Screen NEGATIVE, Urine Cocaine Metabolite Screen NEGATIVE, Urine Cannabinoids Screen NEGATIVE CBC/BMP Laboratory Tests 11/15/19 13:19 Home Medications Scheduled Aspirin (Aspirin) 325 Mg Tablet, 325 MG PO DAILY Brinzolamide (Azopt) 1% 10ML Drops.susp, 1 DROP OU BID Calcium Carbonate/Vitamin D3 (Calcium 500-Vit D3 400 Tablet) 1 Each Tablet, 1 TAB PO BID Clonazepam (Clonazepam) 0.5 Mg Tablet, 0.25 MG PO DAILY Docusate Sodium (Stool Softener) 100 Mg Capsule, 100 MG PO BID Gluc Mcfarlane/Chondro Mcfarlane A/Vit C/Mn (Glucosamine Chondroitin Tab) 1 Each Tablet, 1 TAB PO BID Latanoprost/Pf (Latanoprost 0.005% Eye Drop) 7.5 Ml Drops, 1 DROP OU QHS Mirtazapine (Remeron) 15 Mg Tablet, 15 MG PO QHS Multivitamins (Thera M Plus Tablet) 1 Each Tablet, 1 TAB PO DAILY Olanzapine (Olanzapine) 2.5 Mg Tablet, 2.5 MG PO TID Pravastatin Sodium (Pravastatin Sodium) 20 Mg Tab, 20 MG PO QHS Primidone (Primidone) 50 Mg Tab, 100 MG QHS Venlafaxine HCl (Venlafaxine HCl ER) 75 Mg Cap.er.24h, 150 MG PO DAILY Scheduled PRN Acetaminophen (Tylenol Arthritis) 650 Mg Tablet.er, 1,300 MG PO QHS PRN for PAIN Polyvinyl Alcohol (Artificial Tears) 15 Ml Drops, 1 DROP OU QID PRN for REDNESS/IRRITATION Sennosides (Senokot) 8.6 Mg Tablet, 8.6 MG PO DAILY PRN for CONSTIPATION Miscellaneous Medications [med rec comment] verified with ptSherry rosado Allergies Coded Allergies: Cephalosporins (Verified Allergy, Unknown, 08/29/19) Penicillins (Verified Allergy, Unknown, UNKNOWN REACTION, 08/30/19) ceftriaxone (Verified Adverse Reaction, Unknown, INCREASED HR, 08/30/19) meperidine (Verified Adverse Reaction, Unknown, AMS, 08/30/19) A-FIB/CHADSVASC A-FIB History Current/History of A-Fib/PAF?: No JOSE LUIS BAUTISTA MD Nov 15, 2019 17:27
[2019-11-15 18:39] VITALS: BP 145/60
[2019-11-15] MEDS: DOCUSATE SODIUM 100 MG CAP PO SCH (21:51)
[2019-11-15] MEDS: BRINZOLAMIDE 1 % OPHTH SUSP (AZOPT) 10ML OU SCH (21:51)
[2019-11-15] MEDS: CALCIUM/VITAMIN D 500 MG TAB PO SCH (21:51)
[2019-11-15 22:00] VITALS: BP 129/80
[2019-11-15] MEDS ORDERED: PILL CUTTER 1 EACH XX PRN (23:00)
[2019-11-16] MEDS ORDERED: clonazePAM 0.5 MG TAB PO ONE (02:45)
[2019-11-16 06:00] VITALS: BP 145/83
[2019-11-16 06:11] LABS: BLOOD UREA NITROGEN 13 MG/DL (7-18); CALCIUM LEVEL 9.4 MG/DL (8.8-10.2); CARBON DIOXIDE LEVEL 27 MEQ/L (21-32); CHLORIDE LEVEL 107 MEQ/L (98-107); CREATININE FOR GFR 0.64 MG/DL (0.55-1.30); GLOMERULAR FILTRATION RATE > 60.0 (>39); GLUCOSE, FASTING 82 MG/DL (70-100); POTASSIUM SERUM 3.9 MEQ/L (3.5-5.1); SODIUM LEVEL 139 MEQ/L (136-145)
[2019-11-16] MEDS: CALCIUM/VITAMIN D 500 MG TAB PO SCH (08:13)
[2019-11-16] MEDS: DOCUSATE SODIUM 100 MG CAP PO SCH (08:13)
[2019-11-16] MEDS: BRINZOLAMIDE 1 % OPHTH SUSP (AZOPT) 10ML OU SCH (08:13)
[2019-11-16] MEDS ORDERED: POLYVINYL ALCOHOL OPHTH SOLN 15 ML(LIQUITEARS) OU PRN (08:15)
[2019-11-16] MEDS ORDERED: SENOKOT S TAB PO PRN (08:15)
[2019-11-16] MEDS ORDERED: ACETAMINOPHEN 650MG ER TAB (TYLENOL ARTHRITIS) PO PRN (08:15)
--- NOTE | 2019-11-16 08:51 | IPNPDOC ---
Text Note Date of Service The patient was seen on 11/16/19. NOTE SUBJECTIVE: Pt was interviewed and examined in her room on 4Pav. Sitter was present throughout entirety of examination. Pt denies any pain or discomfort. No chest pain/pressure. No SOB or cough. No n/v/d/c or other abdominal pain. No difficulty urinating. In regards to the events surrounding her hospitalization, patient states that she is still unable to recall why she took an extra dose of her medication. When asked specifically, she says that she was not trying to harm herself, though "she would now if she could". She continues to endorse suicidal thoughts and expresses fear and anxiety about returning to the [facility]. Telemetry was reviewed without any significant findings. OBJECTIVE: VITALS: Please see below. PHYSICAL EXAM: GENERAL: AOAx3, No distress, slowed response to questions, though answers remain appropriate. HEENT: Moist mucus membranes CARDIOVASCULAR: S1, S2, no murmurs LUNGS: Clear to auscultation, no wheezes rales or rhonchi, good air movement. symmetric chest rise. ABDOMEN: Soft, nontender and nondistended without appreciable organomegaly. Lashaun l sounds throughout. EXTREMITIES: ROM intact NEUROLOGICAL: No focal deficits PSYCHIATRIC: Flat affect, withdrawn, continues to endorse SI ASSESSMENT: Pt is a 79 yo female patient, PMHx of depression with recent [facility] admission, tremor, HLD and psychosis, who was admitted on 11/15/19 who was admitted to the hospital for possible medication overdose and suicidal ideation. Medically stable this am without problems overnight. Psychiatry consult placed. Pending their recommendations for discharge. PLAN: #Medication Overdose with SI * Patient remains ambivalent regarding her overdose, though she does state it was not originally intended to harm herself. She continues to be unable to recall which of her medications she took. Telemetry was reviewed without any significant findings. D/C tele. * Home medications held last evening, we will restart medications this am. * Continue with sitter and seizure precautions. * Patient is medically stable for discharge. * Dr. Alvarado of psychiatry was consulted and will see the patient later today. We appreciated her assistance in the management of this patient. * D/C home or to [facility] pending psychiatric consultation. #HLD * c/w patient's home statin #Tremors * c/w primidone DVT: Teds/Seq CODE: FULL CODE Attending Addendum: I discussed the care and management of this patient with resident in detail and agree with the plan above. VS,Sally, I+O VS, Sally, I+O Laboratory Tests 11/15/19 13:19 11/16/19 05:27 Vital Signs Date Time Temp Pulse Resp B/P (MAP) Pulse Ox O2 Delivery O2 Flow Rate FiO2 11/16/19 06:00 98.3 75 18 145/83 (103) 99 Room Air I&O- Last 24 Hours up to 6 AM 11/16/19 06:00 Intake Total 500 ml Output Total 0 ml Balance 500 ml IZAIAH ARNOLD DO Nov 16, 2019 08:51 JOSE LUIS BAUTISTA MD Nov 20, 2019 20:24
[2019-11-16] MEDS ORDERED: MULTIVITAMINS/MINERALS THERAP 1 TAB PO SCH (09:00)
[2019-11-16] MEDS ORDERED: ASPIRIN 325 MG TAB PO SCH (09:00)
[2019-11-16] MEDS ORDERED: clonazePAM 0.5 MG TAB PO SCH (09:00)
[2019-11-16] MEDS ORDERED: VENLAFAXINE **XR** 75MG CAPSULE PO SCH (09:00)
[2019-11-16] MEDS: OLANZapine 2.5MG TABLET PO SCH ×2 (09:39→16:22)
[2019-11-16 14:00] VITALS: BP 146/48
--- NOTE | 2019-11-16 16:46 | DS.PDOC ---
Discharge Summary General Date of Admission Nov 15, 2019 at 13:02 Date of Discharge November 16, 2019 Primary Care Physician: BERNICE PEARL DO Attending Physician: JOSE LUIS BAUTISTA MD Specialist/Consultants Involve: Reema Frankel Discharge Summary PROCEDURES PERFORMED DURING STAY: [None]. ADMITTING DIAGNOSES: 1. Medication overdose DISCHARGE DIAGNOSES: 1. Medication overdose COMPLICATIONS/CHIEF COMPLAINT: Overdose. HISTORY OF PRESENT ILLNESS: 79 y.o female w/ PMH of Depression, tremor, HLD & Psychosis presents from Psychiatrist's office for medication overdose. Patient was recently admitted at [facility] for an entire month for depression & suicidal ideation, discharged 4 days ago. She reports persistent depressive symptoms and thought of suicide. She reports possibly taking an additional dose of her medications overnight because she wasn't sure if she had taken them earlier. So, she MAY have taken an addition dose of her night time medication; she was not attempting to kill herself, reports it was accidental. She does report that she if she goes how now, she will attempt to overdose that she does not wish to live. Medically, she is asymptomatic, without complaints but does reports significant depressive symptoms and though of suicide. She denies any SOB, CP, N/V/D or abdominal pain. HOSPITAL COURSE: The patient was admitted with possible medication overdose. She admitted to taking too many of her night time pills and thoughts of suicide. Was in control was called by ED staff and recommended monitoring QTc interval with serial EKGs. She was and remained clinically and hemodynamically stable throughout hospitalization. She was placed on telemetry monitoring, which was normal, had a sitter and seizure precautions. She did not suffer any seizures or untoward events. On hospital day 2, psychiatry was consulted and the patient was discharged to the inpatient mental health unit in stable state. DISCHARGE MEDICATIONS: Please see below. ALLERGIES: Please see below. PHYSICAL EXAMINATION ON DISCHARGE: VITALS: Please see below. PHYSICAL EXAM: GENERAL: AOAx3, No distress, slowed response to questions, though answers remain appropriate. HEENT: Moist mucus membranes CARDIOVASCULAR: S1, S2, no murmurs LUNGS: Clear to auscultation, no wheezes rales or rhonchi, good air movement. symmetric chest rise. ABDOMEN: Soft, nontender and nondistended without appreciable organomegaly. Bowel sounds throughout. EXTREMITIES: ROM intact NEUROLOGICAL: No focal deficits PSYCHIATRIC: Flat affect, withdrawn, continues to endorse SI LABORATORY DATA: Please see below. IMAGING: Portable chest x-ray: Single view. History: Overdose. Comparison study: October 10, 2010. Findings: The patient is status post lower cervical discectomy and fusion plating. Monitoring electrodes are seen overlying the chest. A moderate levoconvex lower thoracic scoliotic curve is seen. Thoracic aortic tortuosity and calcification are noted. The heart is not enlarged. Lung silva are clear. Pleural angles are sharp. Pulmonary vasculature is not increased. Impression: No active cardiopulmonary disease. Scoliosis. PROGNOSIS: fair ACTIVITY: [As tolerated]. DIET: as tolerated DISCHARGE PLAN: To [facility] DISPOSITION: . DISCHARGE INSTRUCTIONS: 1. Follow up per Psychiatry recommendations ITEMS TO FOLLOWUP ON ON OUTPATIENT: 1. none DISCHARGE CONDITION: [Stable]. TIME SPENT ON DISCHARGE: Greater than 35 minutes. Attending Addendum: I discussed the care/management of this patient with Resident in detail and agree with the plan above. Vital Signs/I&Os Vital Signs Date Time Temp Pulse Resp B/P (MAP) Pulse Ox O2 Delivery O2 Flow Rate FiO2 11/16/19 06:00 98.3 75 18 145/83 (103) 99 Room Air I&O- Last 24 Hours up to 6 AM 11/16/19 06:00 Intake Total 500 ml Output Total 0 ml Balance 500 ml Laboratory Data Labs 24H Laboratory Tests 2 11/16/19 05:27: Anion Gap 5L, Glomerular Filtration Rate > 60.0, Calcium Level 9.4 CBC/BMP Laboratory Tests 11/16/19 05:27 Discharge Medications Scheduled Aspirin (Aspirin) 325 Mg Tablet, 325 MG PO DAILY, (Reported) Brinzolamide (Azopt) 1% 10ML Drops.susp, 1 DROP OU BID, (Reported) Calcium Carbonate/Vitamin D3 (Calcium 500-Vit D3 400 Tablet) 1 Each Tablet, 1 TAB PO BID, (Reported) Clonazepam (Clonazepam) 0.5 Mg Tablet, 0.25 MG PO DAILY, (Reported) Docusate Sodium (Stool Softener) 100 Mg Capsule, 100 MG PO BID, (Reported) Gluc Mcfarlane/Chondro Mcfarlane A/Vit C/Mn (Glucosamine Chondroitin Tab) 1 Each Tablet, 1 TAB PO BID, (Reported) Latanoprost/Pf (Latanoprost 0.005% Eye Drop) 7.5 Ml Drops, 1 DROP OU QHS, (Reported) Mirtazapine (Remeron) 15 Mg Tablet, 15 MG PO QHS, (Reported) Multivitamins (Thera M Plus Tablet) 1 Each Tablet, 1 TAB PO DAILY, (Reported) Olanzapine (Olanzapine) 2.5 Mg Tablet, 2.5 MG PO TID, (Reported) Pravastatin Sodium (Pravastatin Sodium) 20 Mg Tab, 20 MG PO QHS, (Reported) Primidone (Primidone) 50 Mg Tab, 100 MG QHS, (Reported) Venlafaxine HCl (Venlafaxine HCl ER) 75 Mg Cap.er.24h, 150 MG PO DAILY, (Reported) Scheduled PRN Acetaminophen (Tylenol Arthritis) 650 Mg Tablet.er, 1,300 MG PO QHS PRN for PAIN, (Reported) Polyvinyl Alcohol (Artificial Tears) 15 Ml Drops, 1 DROP OU QID PRN for REDNESS/IRRITATION, (Reported) Sennosides (Senokot) 8.6 Mg Tablet, 8.6 MG PO DAILY PRN for CONSTIPATION, (Reported) Miscellaneous Medications [med rec comment] , (Reported) verified with pt. son. rosaod Allergies Coded Allergies: Cephalosporins (Verified Allergy, Unknown, 08/29/19) Penicillins (Verified Allergy, Unknown, UNKNOWN REACTION, 08/30/19) ceftriaxone (Verified Adverse Reaction, Unknown, INCREASED HR, 08/30/19) meperidine (Verified Adverse Reaction, Unknown, AMS, 08/30/19) GME ATTESTATION GME ATTESTATION My faculty preceptor for this patient encounter was physically present during the encounter and was fully available. All aspects of the patient interview, examination, medical decision making process, and medical care plan development were reviewed and approved by the faculty preceptor. The faculty preceptor is aware and concurs with the plan as stated in the body of this note and will attest to such by his/her cosignature. GERRI GRANT MD Nov 16, 2019 14:53 JOSE LUIS BAUTISTA MD Nov 17, 2019 20:24
[2019-11-16] MEDS ORDERED: PRAVASTATIN 20 MG TAB PO SCH (21:00)
[2019-11-16] MEDS ORDERED: PRIMIDONE 50 MG TAB PO SCH (21:00)
[2019-11-16] MEDS ORDERED: MIRTAZAPINE 15 MG TAB PO SCH (21:00)
== END 2019-11-16 17:46 ==
LOC: M ED 13:01 → M ED INP 13:02 → M MSPAV 15:28 → ENRESERV 17:50 → M MSPAV 18:39
PROVIDERS: ADMIT Internal Medicine; ATTEND Internal Medicine
DX: T50.901A Poisoning by unspecified drugs, medicaments and biological substances, accidental (unintentional), initial encounter (principal); R45.851 Suicidal ideations; F32.9 Major depressive disorder, single episode, unspecified; F41.9 Anxiety disorder, unspecified; E78.49 Other hyperlipidemia; G25.0 Essential tremor; Z79.82 Long term (current) use of aspirin; Z79.899 Other long term (current) drug therapy; Z88.0 Allergy status to penicillin; Z88.1 Allergy status to other antibiotic agents; Z88.8 Allergy status to other drugs, medicaments and biological substances

== ENCOUNTER 2019-11-16 16:21 | Inpatient (IN) | payer MEDICARE ==
[~2019-11-16 16:21] MED LIST changes: +med rec comment
[2019-11-16] MEDS ORDERED: clonazePAM 0.5 MG TAB PO PRN (16:30)
[2019-11-16] MEDS ORDERED: MAALOX 30 ML SUSP *UDC PO PRN (16:30)
[2019-11-16 19:21] VITALS: BP 142/86
[2019-11-16] MEDS: MOM 30ML SUSPENSION UDC PO PRN (20:42)
[2019-11-16] MEDS: OLANZapine 2.5MG TABLET PO SCH (20:42)
[2019-11-16] MEDS: BRINZOLAMIDE 1 % OPHTH SUSP (AZOPT) 10ML OU SCH (20:42)
[2019-11-16] MEDS: clonazePAM 0.5 MG TAB PO SCH (20:43)
[2019-11-16] MEDS ORDERED: MIRTAZAPINE 15 MG TAB PO SCH (21:00)
--- NOTE | 2019-11-16 21:01 | MHCR ---
DATE OF CONSULTATION: 11/16/2019 HISTORY OF PRESENT ILLNESS: I was asked to see this 79-year-old woman who was admitted to the medical service after she took an overdose of some of her medications. The patient was seen via ZOOM. The inpatient mental health unit, Cinda Orellana, took a laptop to the patient and so we were able to ZOOM that way. Apparently this patient has a history of depression and anxiety. She had just been discharged from the inpatient mental health unit 4 days ago. She had been in the inpatient unit for a month, from 10/15/2019 to 11/11/2019. She was discharged with a diagnosis of other specified depressive disorder, other specified anxiety disorder, rule out major depressive disorder. She was discharged on Effexor XR 150 mg daily, Remeron 15 mg at night, Klonopin 0.25 mg at night, and Zyprexa 2.5 mg three times a day. The patient presented to the emergency room the next day, initially complaining that she was having thoughts of hurting herself. The patient was seen by the perinatal social worker, apparently her primary provider, Dr. Arroyo, had referred the patient to the emergency room as the patient was saying that she was hearing voices. When seen by the perinatal social worker she denied suicidal ideation. Apparently, they contacted Dr. Hernandez who indicated that the patient had as needed medications to take and they felt that she could go home. Apparently, she was admitted yesterday to the medical service after she took an overdose of some of her prescription medications. It seems that the patient at some point said that she did not have suicidal intent and then subsequent to that she has told staff that at this point she was having suicide thoughts and if she went home that she would then go ahead and try to kill herself. When I saw the patient today, the patient was tearful practically throughout most of the evaluation. At times, she was hiding her face with her hands. She admitted that she does feel depressed, hopeless and helpless. She repeated many times, "I don't have any friends." She says that she sleeps a lot, including on days. She says that she has frequent tearful episodes at home. She seems to be having a lot of guilt feelings about the past, again she is mentioning apparently many years ago when she worked at [employer], she feels that she did something wrong with one of the patients at [facility], which entails something about the patient's medication and that somehow the patient was given an additional dose of medication. She admits that it is very hard for her to function on her own. She says that her son has been looking for some assisted living place for her to go to, but he is the one that is handling all of that. She says that he lives in [place]. PAST PSYCHIATRIC HISTORY: She has had hospitalization at [facility] recently, and then she was hospitalized at [facility] inpatient mental health unit for a month and discharged 4 days ago. MEDICAL HISTORY: She is treated for essential tremors. She has a history of gastrointestinal difficulties and irritable bowel syndrome and back pain. SUBSTANCE ABUSE: The patient has no history of any problems with alcohol or drugs. FAMILY HISTORY: She says that one of her brothers committed suicide, but the details are unclear. MENTAL STATUS EXAMINATION: This patient is alert. She is oriented times three. She was exhibiting increased psychomotor activity. She was very anxious, almost agitated at times. Her eye contact was fair. At times she was covering her face with her hands. She contradicted herself saying that sometimes she does not want to live and then other times saying that she does not want to . She is not exhibiting any formal thought disorder. She was spontaneous. At times she would start talking about a different matter that was unrelated to what we are talking about, such as when she suddenly started to talk about her guilt over a patient at [facility] many years ago when she worked there. Her mood is anxious and depressed. Affect is full range and appropriate. She is not psychotic. At this point, she is voicing suicidal ideations on and off. She is not homicidal. Concentration is fair. Memory was grossly intact. Insight and judgment poor. DIAGNOSIS: 1. Recurrent, severe and other specified anxiety disorder. TREATMENT RECOMMENDATIONS: At this point, the patient is very anxious and depressed. She continues to voice suicidal ideations on and off. It seems as though she has overdosed on medication, it is not clear if it was an attempt or not, but at this point, I do not consider this patient very reliable for the following reasons: She appears to be very depressed and anxious. She is tearful throughout. She admits that she does not feel like she is able to function at home and that she is feeling very lonely at home. This will be her third consecutive hospitalization in a very short period of time. In addition, she does have a significant history of a brother that committed suicide. Therefore, this patient should be transferred to the psychiatric unit once she is medically stable for further evaluation and treatment. KANWAL
[2019-11-16 21:05] VITALS: BP 142/86
[2019-11-17 06:00] VITALS: BP 139/79
[2019-11-17] MEDS: ACETAMINOPHEN TAB 650MG DOSE (2X325MG) PO PRN (06:21)
[2019-11-17] MEDS: OLANZapine 2.5MG TABLET PO SCH (08:34)
[2019-11-17] MEDS: BRINZOLAMIDE 1 % OPHTH SUSP (AZOPT) 10ML OU SCH ×2 (08:34→20:22)
[2019-11-17] MEDS: VENLAFAXINE **XR** 75MG CAPSULE PO SCH (08:34)
[2019-11-17 10:37] VITALS: BP 146/87
--- NOTE | 2019-11-17 12:03 | MHDSPDOC ---
[facility] Discharge Summary Discharge Summary DATE OF ADMISSION: Nov 16, 2019 at 17:50 DATE OF DISCHARGE: DISCHARGE DIAGNOSES: 1. . 2. . REASON FOR ADMISSION: CONSULTANTS INVOLVED: TREATMENT AND PROGRESS ON THE UNIT : . HOSPITAL COURSE: DISCHARGE ASSESSMENT: MENTAL STATUS EXAMINATION ON DISCHARGE: Patient is a -year old female, who is . Speech is . Language skills are . Thought processes including: . Thought content: . Abstract reasoning, and computation: . Description of associations: . Description of abnormal or psychotic thoughts: . Judgment: . Insight: . Orientation to . Recent and remote memory: . Attention span and concentration: . Language: . Fund of knowledge: . Mood: . Affect: . MEDICATIONS ON DISCHARGE: - for . - for . - for . PLAN/FOLLOWUP ARRANGEMENTS: . The amount of time spent in the coordination of care for this patient was approximately minutes. Vital Signs/I&Os Vital Signs Date Time Temp Pulse Resp B/P (MAP) Pulse Ox O2 Delivery O2 Flow Rate FiO2 11/17/19 10:37 96.3 93 14 146/87 (106) 94 Room Air Medications Scheduled Aspirin (Aspirin) 325 Mg Tablet, 325 MG PO DAILY, (Reported) Brinzolamide (Azopt) 1% 10ML Drops.susp, 1 DROP OU BID, (Reported) Calcium Carbonate/Vitamin D3 (Calcium 500-Vit D3 400 Tablet) 1 Each Tablet, 1 TAB PO BID, (Reported) Clonazepam (Clonazepam) 0.5 Mg Tablet, 0.25 MG PO DAILY, (Reported) Docusate Sodium (Stool Softener) 100 Mg Capsule, 100 MG PO BID, (Reported) Gluc Mcfarlane/Chondro Mcfarlane A/Vit C/Mn (Glucosamine Chondroitin Tab) 1 Each Tablet, 1 TAB PO BID, (Reported) Latanoprost/Pf (Latanoprost 0.005% Eye Drop) 7.5 Ml Drops, 1 DROP OU QHS, (Reported) Mirtazapine (Remeron) 15 Mg Tablet, 15 MG PO QHS, (Reported) Multivitamins (Thera M Plus Tablet) 1 Each Tablet, 1 TAB PO DAILY, (Reported) Olanzapine (Olanzapine) 2.5 Mg Tablet, 2.5 MG PO TID, (Reported) Pravastatin Sodium (Pravastatin Sodium) 20 Mg Tab, 20 MG PO QHS, (Reported) Primidone (Primidone) 50 Mg Tab, 100 MG QHS, (Reported) Venlafaxine HCl (Venlafaxine HCl ER) 75 Mg Cap.er.24h, 150 MG PO DAILY, (Reported) Scheduled PRN Acetaminophen (Tylenol Arthritis) 650 Mg Tablet.er, 1,300 MG PO QHS PRN for PAIN, (Reported) Polyvinyl Alcohol (Artificial Tears) 15 Ml Drops, 1 DROP OU QID PRN for REDNESS/IRRITATION, (Reported) Sennosides (Senokot) 8.6 Mg Tablet, 8.6 MG PO DAILY PRN for CONSTIPATION, (Reported) Miscellaneous Medications [med rec comment] , (Reported) verified with pt. son. rosado Allergies Coded Allergies: Cephalosporins (Verified Allergy, Unknown, 08/29/19) Penicillins (Verified Allergy, Unknown, UNKNOWN REACTION, 08/30/19) ceftriaxone (Verified Adverse Reaction, Unknown, INCREASED HR, 08/30/19) meperidine (Verified Adverse Reaction, Unknown, AMS, 08/30/19) NANCY MARROQUIN DO Nov 17, 2019 12:03
--- NOTE | 2019-11-17 12:03 | MHHPEPDOC ---
[facility] History & Physical History and Physical DATE OF ADMISSION: Nov 16, 2019 at 17:50 Anna Best New Patient Anna Best [facility] Gender MRN: N/A Date of : MM/DD/YYYY Date of Service: 11/17/2019 Chief Complaint "I am lonely." History of Present Illness The patient, a 79-year-old woman with a history of reported depression and dependent personality traits presents after reportedly accidentally taking a second dose of her medications, she reported that she was frightened about this, had no intention to do so and came to the ER. She went to the medical floor for a short observation and was admitted out of an abundance of caution. However, the patient denies that she want to hurt herself and in fact did not want to at all. The patient reports having difficulty with her depression and anxiety since she returned from the hospitalization that ended 4 days ago. She generally is dependent requiring much attention from her son, who is not interested in providing this. She reports that she has had "no change" in her depression. She reports no other changes in her psychiatric symptoms or social history. Reporting that she finds it difficult to live alone as she is without any "friends." Review Of Systems Depression: No changes from previous. Anxiety: No changes. Katja: No changes. Psychotic: No changes. Trauma: No changes. Borderline: Screen is positive for dependent personality. Past Psychiatric History Had been admitted for nearly a month in October 2019, has a history of report depression currently on Zyprexa, Effexor and mirtazapine. Allergies Please see below. Family Psychiatric History No changes from previous admission. Social History No changes from previous admission. Substance Abuse History The patient denies any excessive alcohol use, tobacco or illicit drug use, denies history of substance use treatment. Medical History No new medical problems. Mental Status Examination General: Well dressed with good hygiene Speech: Spontaneous and fluid Thought processes: Linear and logical MSK: Smooth and coordinated gait, no signs of tremors or involuntary orofacial movements Thought content: Anxious and perceptive. Abstract reasoning, and computation: Intact Description of associations: Intact Description of abnormal or psychotic thoughts: Denies any suicidal or homicidal ideation. Denies any auditory or visual hallucinations. Does not appear to be responding to internal stimuli. Does not appear to be endorsing any bizarre or paranoid ideation. Judgment: Chronic, limited Insight: Chronic, limited. Orientation: Alert and orientated 3 Cognition: Grossly normal Recent and remote memory: Intact Attention span and concentration: Intact Fund of knowledge: Adequate Mood: "okay" Affect: Mildly dysthymic and anxious at times Diagnoses Unspecified depressive disorder. Malingering versus adjustment. Dependent personality disorder. Assessment and Plan Unspecified depression: Decrease medications that are sedating as patient reports being excessively sedated. Continue Effexor 150 mg, added modafinil 50 mg daily. Discussed risks, benefits, potential side effects with patient. Discontinue the Zyprexa at this time. We will consider removing clonazepam as likely unhelpful. Dependent personality: Convert to voluntary, discussed with patient at length the risks of staying on the unit due to the coronavirus epidemic and emphasizing importance of leaving early and focusing on minimizing her time on our unit. Disposition We'll continue on a voluntary admission discussed with patient about limiting admission to several days due to risk. Problem List 1. Ineffective coping. Initial Treatment Plan 1. Patient was admitted on a 9.39 legal status. 2. Complete history was obtained. 3. With patients permission, family will be contacted and database will be expanded. 4. Patients medication regimen will be reviewed and changed accordingly. 5. Patient will be provided with protected environment. 6. Patient will be treated with individual, group, and milieu therapies. 7. Patient will receive supportive psych-education. 8. Discharge planning will commence immediately. 9. Outpatient follow-up treatment will be strongly recommended. 10. The initial treatment plan will focus initially on: Estimated Length Of Stay 3 days. Time Spent 70 minutes with greater than 50% of time spent on counseling/coordination of care. Vital Signs Vital Signs Date Time Temp Pulse Resp B/P (MAP) Pulse Ox O2 Delivery O2 Flow Rate FiO2 11/17/19 10:37 96.3 93 14 146/87 (106) 94 Room Air Medications Scheduled Aspirin (Aspirin) 325 Mg Tablet, 325 MG PO DAILY, (Reported) Brinzolamide (Azopt) 1% 10ML Drops.susp, 1 DROP OU BID, (Reported) Calcium Carbonate/Vitamin D3 (Calcium 500-Vit D3 400 Tablet) 1 Each Tablet, 1 TAB PO BID, (Reported) Clonazepam (Clonazepam) 0.5 Mg Tablet, 0.25 MG PO DAILY, (Reported) Docusate Sodium (Stool Softener) 100 Mg Capsule, 100 MG PO BID, (Reported) Gluc Mcfarlane/Chondro Mcfarlane A/Vit C/Mn (Glucosamine Chondroitin Tab) 1 Each Tablet, 1 TAB PO BID, (Reported) Latanoprost/Pf (Latanoprost 0.005% Eye Drop) 7.5 Ml Drops, 1 DROP OU QHS, (Reported) Mirtazapine (Remeron) 15 Mg Tablet, 15 MG PO QHS, (Reported) Multivitamins (Thera M Plus Tablet) 1 Each Tablet, 1 TAB PO DAILY, (Reported) Olanzapine (Olanzapine) 2.5 Mg Tablet, 2.5 MG PO TID, (Reported) Pravastatin Sodium (Pravastatin Sodium) 20 Mg Tab, 20 MG PO QHS, (Reported) Primidone (Primidone) 50 Mg Tab, 100 MG QHS, (Reported) Venlafaxine HCl (Venlafaxine HCl ER) 75 Mg Cap.er.24h, 150 MG PO DAILY, (Reported) Scheduled PRN Acetaminophen (Tylenol Arthritis) 650 Mg Tablet.er, 1,300 MG PO QHS PRN for PAIN, (Reported) Polyvinyl Alcohol (Artificial Tears) 15 Ml Drops, 1 DROP OU QID PRN for REDNESS/IRRITATION, (Reported) Sennosides (Senokot) 8.6 Mg Tablet, 8.6 MG PO DAILY PRN for CONSTIPATION, (Reported) Miscellaneous Medications [med rec comment] , (Reported) verified with pt. son. rosado Allergies Coded Allergies: Cephalosporins (Verified Allergy, Unknown, 08/29/19) Penicillins (Verified Allergy, Unknown, UNKNOWN REACTION, 08/30/19) ceftriaxone (Verified Adverse Reaction, Unknown, INCREASED HR, 08/30/19) meperidine (Verified Adverse Reaction, Unknown, AMS, 08/30/19) NANCY MARROQUIN DO Nov 17, 2019 12:02
[2019-11-17] MEDS ORDERED: MODAFINIL 100 MG TABLET PO ONE (12:45)
[2019-11-17] MEDS ORDERED: METAMUCIL (PSYLLIUM) PACKET PO ONE (13:00)
[2019-11-17] MEDS ORDERED: PILL CUTTER 1 EACH XX PRN (13:00)
[2019-11-17 17:23] VITALS: BP 120/73
--- NOTE | 2019-11-17 20:19 | HPEPDOC ---
[facility] Medical History & Physical Date of Admission Nov 16, 2019 Date of Service: Nov 17, 2019 History and Physical CHIEF COMPLAINT: Admitted to [facility] for suicidal ideation HISTORY OF PRESENT ILLNESS: 79 y.o female w/ PMH of Depression, tremor, HLD & Psychosis was admitted to hospitalist service for accidental medication overdose & suicidal ideation. She was monitored and remained asymptomatic/clinically stable without developing any toxicity from medication overdose. Psychiatry was consulted and she was transferred to [facility] for severe depression & suicidal id eation. She is seen in the morning, reports improvement in depressive symptoms, seems slightly cheerful and energetic today. She has no medical complaints at this time. She denies any SOB, CP, N/V/D or abdominal pain. 10 point review of system is negative except for above. PAST MEDICAL HISTORY: 1. Depression 2. HLD 3. Tremor 4. Psychosis PAST SURGICAL HISTORY: 1. Appendectomy 2. Cholecystectomy SOCIAL HISTORY: Ex-smoker denies alcohol use denies drug use FAMILY HISTORY: negative for heart disease/malignancy ALLERGIES: Please see below. HOME MEDICATIONS: Please see below. PHYSICAL EXAMINATION: VITAL SIGNS: See below GENERAL APPEARANCE: No distress HEENT: Moist mucus membranes CARDIOVASCULAR: S1, S2, no murmurs LUNGS: Clear to auscultation ABDOMEN: Soft, non-tender, non-distended, +BS EXTREMITIES: ROM intact NEUROLOGICAL: No focal deficits PSYCHIATRIC: Flat affect, withdrawn ASSESSMENT: 79 y.o female with multiple medical comorbidities who was recently admitted to [facility] for depression/suicidal ideation now readmitted to [facility] for medication overdose and suicidal ideation. PLAN: 1. medication overdose/suicidal ideation - clinically stable, medically cleared and transferred to [facility], further management as per primary team. Patient has no active medical issues at this time, please re-consult as needed. Vital Signs Vital Signs Date Time Temp Pulse Resp B/P (MAP) Pulse Ox O2 Delivery O2 Flow Rate FiO2 11/17/19 17:23 98.1 75 14 120/73 (89) 98 Room Air Home Medications Scheduled Aspirin (Aspirin) 325 Mg Tablet, 325 MG PO DAILY Brinzolamide (Azopt) 1% 10ML Drops.susp, 1 DROP OU BID Calcium Carbonate/Vitamin D3 (Calcium 500-Vit D3 400 Tablet) 1 Each Tablet, 1 TAB PO BID Clonazepam (Clonazepam) 0.5 Mg Tablet, 0.25 MG PO DAILY Docusate Sodium (Stool Softener) 100 Mg Capsule, 100 MG PO BID Gluc Mcfarlane/Chondro Mcfarlane A/Vit C/Mn (Glucosamine Chondroitin Tab) 1 Each Tablet, 1 TAB PO BID Latanoprost/Pf (Latanoprost 0.005% Eye Drop) 7.5 Ml Drops, 1 DROP OU QHS Mirtazapine (Remeron) 15 Mg Tablet, 15 MG PO QHS Multivitamins (Thera M Plus Tablet) 1 Each Tablet, 1 TAB PO DAILY Olanzapine (Olanzapine) 2.5 Mg Tablet, 2.5 MG PO TID Pravastatin Sodium (Pravastatin Sodium) 20 Mg Tab, 20 MG PO QHS Primidone (Primidone) 50 Mg Tab, 100 MG QHS Venlafaxine HCl (Venlafaxine HCl ER) 75 Mg Cap.er.24h, 150 MG PO DAILY Scheduled PRN Acetaminophen (Tylenol Arthritis) 650 Mg Tablet.er, 1,300 MG PO QHS PRN for PAIN Polyvinyl Alcohol (Artificial Tears) 15 Ml Drops, 1 DROP OU QID PRN for REDNESS/IRRITATION Sennosides (Senokot) 8.6 Mg Tablet, 8.6 MG PO DAILY PRN for CONSTIPATION Miscellaneous Medications [med rec comment] verified with ptSherry rosado Allergies Coded Allergies: Cephalosporins (Verified Allergy, Unknown, 08/29/19) Penicillins (Verified Allergy, Unknown, UNKNOWN REACTION, 08/30/19) ceftriaxone (Verified Adverse Reaction, Unknown, INCREASED HR, 08/30/19) meperidine (Verified Adverse Reaction, Unknown, AMS, 08/30/19) A-FIB/CHADSVASC A-FIB History Current/History of A-Fib/PAF?: No JOSE LUIS BAUTISTA MD Nov 17, 2019 20:19
[2019-11-17] MEDS: clonazePAM 0.5 MG TAB PO SCH (20:22)
[2019-11-17] MEDS: SENOKOT S TAB PO PRN (20:59)
[2019-11-17] MEDS ORDERED: OLANZapine 2.5MG TABLET PO SCH (21:00)
[2019-11-18 07:38] VITALS: BP 165/96
[2019-11-18] MEDS: MOM 30ML SUSPENSION UDC PO PRN (08:19)
[2019-11-18] MEDS: BRINZOLAMIDE 1 % OPHTH SUSP (AZOPT) 10ML OU SCH ×2 (08:19→20:44)
[2019-11-18] MEDS: VENLAFAXINE **XR** 75MG CAPSULE PO SCH (08:20)
[2019-11-18] MEDS: METAMUCIL (PSYLLIUM) PACKET PO SCH (08:20)
[2019-11-18] MEDS: MODAFINIL 100 MG TABLET PO SCH (08:21)
--- NOTE | 2019-11-18 10:06 | MHIPNPDOC ---
[facility] Progress Note Progress Note Inpatient Progress Note Anna Best MRN: N/A Date of : N/A Date of Service: 11/18/2019 History of Present Illness The patient, a 79-year-old woman with a history of reported depression and dependent personality traits, presents after reportedly accidentally taking a second dose of her medications, she reported that she was frightened about this, had no intention to do so and came to the ER. She went to the medical floor for a short observation and was admitted out of an abundance of caution. However, the patient denies that she want to hurt herself and in fact did not want to at all. The patient reports having difficulty with her depression and anxiety since she returned from the hospitalization that ended 4 days ago. She generally is dependent requiring much attention from her son, who is not interested in providing this. She reports that she has had "no change" in her depression. She reports no other changes in her psychiatric symptoms or social history. Reporting that she finds it difficult to live alone as she is without any "friends." Interval History The patient is met with today. She initially says she has a "problem", however when pressed she is unable to describe it. She has been denying suicidality and when observed on the unit she is reportedly quite euthymic and attends groups. She reports that she worries about going home, but can only describe physical complaints. The patient generally somaticizes whenever meeting with any medical provider, when around nurses it appears that she is euthymic and otherwise interactive. Her son had been contacted and he had been quite insistent and cantankerous that we place her in a assisted living facility, however, she does not meet criteria to be in such a facility due to her ability to attend ADLs observed on our unit. She has had no behavioral problems overnight. Review Of Systems Doesn't allude to any direct physical complaints at this time. Psychotherapy None on this visit. Vital Signs Reviewed. Mental Status Examination General: Well dressed with good hygiene Speech: Spontaneous and fluid Thought processes: Linear and logical MSK: Smooth and coordinated gait, no signs of tremors or involuntary orofacial movements Thought content: Perseverative on anxiety at times. Abstract reasoning, and computation: Intact Description of associations: Intact Description of abnormal or psychotic thoughts: Denies any suicidal or homicidal ideation. Denies any auditory or visual hallucinations. Does not appear to be responding to internal stimuli. Does not appear to be endorsing any bizarre or paranoid ideation. Judgment: Chronic, limited. Insight: Chronic, limited. Orientation: Alert and orientated 3 Cognition: Grossly normal Recent and remote memory: Intact Attention span and concentration: Intact Fund of knowledge: Adequate Mood: "okay" Affect: Euthymic at times and anxious when questioned. Diagnoses Unspecified depressive disorder. Malingering versus adjustment. Dependent personality disorder. Assessment and Plan Unspecified depression: Continue Effexor, modafinil. Discontinue clonazepam as sedating and likely not useful for patient's health. Dependent personality/malingering: We'll discharge tomorrow. Observation indicates no signs of acute danger to self or others. Poor risk benefit at this time due to coronavirus and high-risk group Disposition Discharge tomorrow. Time Spent 15 minutes Vital Signs Vital Signs Date Time Temp Pulse Resp B/P (MAP) Pulse Ox O2 Delivery O2 Flow Rate FiO2 11/18/19 07:40 Room Air 11/18/19 07:38 97.4 85 18 165/96 (119) 11/17/19 17:23 98 Current Medications Current Medications Medications (Trade) Dose Ordered Sig/Joceline Route PRN Reason Start Time Stop Time Status Last Admin Dose Admin Acetaminophen (Tylenol Tab) 650 mg Q6HP PRN PO HEADACHE or DISCOMFORT 11/16/19 16:30 11/17/19 06:21 Al Hydrox/Mg Hydrox/Simethicone (Mylanta) 30 ml Q4HP PRN PO HEARTBURN/INDIGESTION 11/16/19 16:30 Brinzolamide (Azopt) 1 drop BID OU 11/16/19 21:00 11/18/19 08:19 Clonazepam (KlonoPIN) 0.25 mg DAILYPRN PRN PO anxiety 11/16/19 16:30 Clonazepam (KlonoPIN) 0.25 mg QHS PO 11/16/19 21:00 11/17/19 20:22 Magnesium Hydroxide (Milk Of Magnesia) 30 ml DAILYPRN PRN PO CONSTIPATION 11/16/19 16:30 11/18/19 08:19 Mirtazapine (Remeron) 15 mg QHS PO 11/16/19 21:00 11/17/19 12:31 DC Modafinil (Provigil) 50 mg QAM PO 11/18/19 09:00 11/18/19 08:21 Olanzapine (ZyPREXA) 2.5 mg QHS PO 11/17/19 21:00 11/17/19 12:35 DC Olanzapine (ZyPREXA) 2.5 mg TID PO 11/16/19 21:00 11/17/19 12:31 DC 11/17/19 08:34 Psyllium Hydrophilic Mucilloid (Metamucil) 1 pkt DAILY PO 11/18/19 09:00 Senna/Docusate Sodium (Senokot S) 1 tab DAILYPRN PRN PO CONSTIPATION 11/17/19 12:45 11/17/19 20:59 Venlafaxine HCl (Effexor Xr) 150 mg DAILY PO 11/17/19 09:00 11/18/19 08:20 Allergies Coded Allergies: Cephalosporins (Verified Allergy, Unknown, 08/29/19) Penicillins (Verified Allergy, Unknown, UNKNOWN REACTION, 08/30/19) ceftriaxone (Verified Adverse Reaction, Unknown, INCREASED HR, 08/30/19) meperidine (Verified Adverse Reaction, Unknown, AMS, 08/30/19) NANCY MARROQUIN DO Nov 18, 2019 10:06
[2019-11-18] MEDS ORDERED: CEPACOL LOZENGE PO PRN (10:45)
[2019-11-18 15:42] VITALS: BP 123/75
[2019-11-18] MEDS: SENOKOT S TAB PO PRN (20:47)
[2019-11-18] MEDS: ACETAMINOPHEN TAB 650MG DOSE (2X325MG) PO PRN (21:10)
[2019-11-19 06:06] VITALS: BP 128/74
[2019-11-19] MEDS: METAMUCIL (PSYLLIUM) PACKET PO SCH (08:24)
[2019-11-19] MEDS: BRINZOLAMIDE 1 % OPHTH SUSP (AZOPT) 10ML OU SCH (08:25)
[2019-11-19] MEDS: SENOKOT S TAB PO PRN (08:25)
[2019-11-19] MEDS: MODAFINIL 100 MG TABLET PO SCH (08:25)
[2019-11-19] MEDS: VENLAFAXINE **XR** 75MG CAPSULE PO SCH (08:26)
--- NOTE | 2019-11-19 10:30 | MHDSPDOC ---
[facility] Discharge Summary Discharge Summary DATE OF ADMISSION: Nov 16, 2019 at 17:50 DATE OF DISCHARGE: 11/19/19 Anna Best Discharge Anna Best Select Gender MRN: N/A Date of : MM/DD/YYYY Date of Service: 11/19/2019 Diagnoses Unspecified depressive disorder. Malingering versus adjustment. Dependent personality disorder. History of Present Illness The patient, a 79-year-old woman with a history of reported depression and dependent personality traits, presents after reportedly accidentally taking a second dose of her medications, she reported that she was frightened about this, had no intention to do so and came to the ER. She went to the medical floor for a short observation and was admitted out of an abundance of caution. However, the patient denies that she want to hurt herself and in fact did not want to at all. The patient reports having difficulty with her depression and anxiety since she returned from the hospitalization that ended 4 days ago. She generally is dependent requiring much attention from her son, who is not interested in providing this. She reports that she has had "no change" in her depression. She reports no other changes in her psychiatric symptoms or social history. Reporting that she finds it difficult to live alone as she is without any "friends." Consultants Involved Hospitalist/PCP screening Treatment and Progress On The Unit Patient was admitted to the inpatient mental health unit where she was titrated off of her Zyprexa and Klonopin, tried on a low-dose of modafinil for fatigue, however, she did not tolerate modafinil noticing it made her more irritable. She was continued primarily on her venlafaxine 150 mg where she did relatively well attended groups. She was notable for demonstrating anxiety only around this provider and upon observation with nursing staff had been quite euthymic without any overt signs of anxiety. The patient continued to state that she want to stay here, but had no particular problem. She reported that she did not take the overdose to injure herself and had done it accidentally. She generally focused on trying to gain attention during the majority of her admission and was converted voluntary shortly after she arrived. The patient's son was very insistent about the patient being sent to assisted care, however, he was holding unamenable to our recommendation that she would not meet criteria given her ability to attend to her ADLs on the unit. The patient eventually requested discharge after discussion of the risks and benefits related to her staying on the unit given the current Coronavirus pandemic. She had no behavioral problems. Discharge Assessment 79-year-old woman with likely dependent personality disorder presents after what appears to be a report of an overdose that does not appear to have happened, with the lack of any medical side effects. She is primarily attention seeking and seeks to stay on the unit due to feeling "lonely". The patient at this time does not meet involuntary criteria. She has been denying suicidal and homicidal ideation through the entirety of her admission. She has had no behavioral problems and other than some anxiety that is only shown to this provider. She is otherwise euthymic on observation. She declines further voluntary admission and is discharged in good devonte. Mental Status Examination General: Well dressed with good hygiene Speech: Spontaneous and fluid Thought processes: Linear and logical MSK: Smooth and coordinated gait, no signs of tremors or involuntary orofacial movements Thought content: More future orientated Abstract reasoning, and computation: Intact Description of associations: Intact Description of abnormal or psychotic thoughts: Denies any suicidal or homicidal ideation. Denies any auditory or visual hallucinations. Does not appear to be responding to internal stimuli. Does not appear to be endorsing any bizarre or paranoid ideation. Judgment: Chronically limited. Insight: Chronically limited. Orientation: Alert and orientated 3 Cognition: Grossly normal Recent and remote memory: Intact Attention span and concentration: Intact Fund of knowledge: Adequate Mood: "fine." Affect: Initially anxious, but improves after discussion. Follow Up The social work team worked during the predischarge meeting in order to evaluate for further issues of lethality address them fully before discharge. They worked on safety planning with the patient's family members in order to ensure that the patient will have a safe and effective discharge. Time Spent The amount of time spent in the coordination of care for this patient was approximately 45 minutes. Vital Signs/I&Os Vital Signs Date Time Temp Pulse Resp B/P (MAP) Pulse Ox O2 Delivery O2 Flow Rate FiO2 11/19/19 06:06 97.8 67 16 128/74 (92) 98 Room Air Medications Scheduled Aspirin (Aspirin) 325 Mg Tablet, 325 MG PO DAILY, (Reported) Brinzolamide (Azopt) 1% 10ML Drops.susp, 1 DROP OU BID, (Reported) Calcium Carbonate/Vitamin D3 (Calcium 500-Vit D3 400 Tablet) 1 Each Tablet, 1 TAB PO BID, (Reported) Docusate Sodium (Stool Softener) 100 Mg Capsule, 100 MG PO BID, (Reported) Gluc Mcfarlane/Chondro Mcfarlane A/Vit C/Mn (Glucosamine Chondroitin Tab) 1 Each Tablet, 1 TAB PO BID, (Reported) Latanoprost/Pf (Latanoprost 0.005% Eye Drop) 7.5 Ml Drops, 1 DROP OU QHS, (Reported) Multivitamins (Thera M Plus Tablet) 1 Each Tablet, 1 TAB PO DAILY, (Reported) Pravastatin Sodium (Pravastatin Sodium) 20 Mg Tab, 20 MG PO QHS, (Reported) Primidone (Primidone) 50 Mg Tab, 100 MG QHS, (Reported) Venlafaxine HCl (Venlafaxine HCl ER) 75 Mg Cap.er.24h, 150 MG PO DAILY for mood for 7 Days, #14 Scheduled PRN Acetaminophen (Tylenol Arthritis) 650 Mg Tablet.er, 1,300 MG PO QHS PRN for PAIN, (Reported) Polyvinyl Alcohol (Artificial Tears) 15 Ml Drops, 1 DROP OU QID PRN for REDNESS/IRRITATION, (Reported) Sennosides (Senokot) 8.6 Mg Tablet, 8.6 MG PO DAILY PRN for CONSTIPATION, (Reported) Allergies Coded Allergies: Cephalosporins (Verified Allergy, Unknown, 08/29/19) Penicillins (Verified Allergy, Unknown, UNKNOWN REACTION, 08/30/19) ceftriaxone (Verified Adverse Reaction, Unknown, INCREASED HR, 08/30/19) meperidine (Verified Adverse Reaction, Unknown, AMS, 08/30/19) NANCY MARROQUIN DO Nov 19, 2019 10:30
[2019-11-19] MEDS ORDERED: VENL75CA47 PO (10:59)
[2019-11-19] MEDS: ACETAMINOPHEN TAB 650MG DOSE (2X325MG) PO PRN (12:25)
== END 2019-11-19 13:00 | disposition home or self-care (01) | DRG 881 ==
LOC: M PSY 17:50
PROVIDERS: ADMIT Psychiatry & Neurology Psychiatry; ATTEND Psychiatry & Neurology Psychiatry
DX: F32.9 Major depressive disorder, single episode, unspecified (principal); R45.851 Suicidal ideations; T50.901A Poisoning by unspecified drugs, medicaments and biological substances, accidental (unintentional), initial encounter; G25.0 Essential tremor; Z79.82 Long term (current) use of aspirin; Z79.899 Other long term (current) drug therapy; Z88.0 Allergy status to penicillin; Z88.1 Allergy status to other antibiotic agents; Z88.8 Allergy status to other drugs, medicaments and biological substances; F60.7 Dependent personality disorder; Z76.5 Malingerer [conscious simulation]; Z87.891 Personal history of nicotine dependence

== ENCOUNTER 2019-12-07 16:00 | Inpatient (IN) | payer MEDICARE ==
[~2019-12-07] VITALS: Ht 165.1 cm; Wt 72.4 kg
[2019-12-07] MEDS ORDERED: ACETYLCYSTEINE 0 MG in D5W 250 ML IV ONE (16:15)
[2019-12-07] MEDS ORDERED: ACETYLCYSTEINE 0 MG in D5W 500 ML IV ONE (16:15)
[2019-12-07 16:40] LABS: BASO % 0.6 % (0.0-1.0); EOS # 0.2 10^3/uL (0.0-0.5); EOS % 2.7 % (0.0-3.0); HEMOGLOBIN 13.1 g/dl (12.0-15.5); LYMPH # 1.6 10^3/uL (1.5-5.0); MEAN CORPUSCULAR HEMOGLOBIN 32.2 pg (27.0-33.0); MEAN CORPUSCULAR HGB CONC 34.5 g/dl (32.0-36.5); MEAN CORPUSCULAR VOLUME 93.4 fl (80.0-96.0); MONO # 0.7 10^3/uL (0.0-0.8); MONO % 9.3 % (0.0-5.0); NEUTROPHILS # 4.5 10^3/uL (1.5-8.5); NEUTROPHILS % 64.1 % (36.0-66.0); PLATELET COUNT, AUTOMATED 260 10^3/uL (150-450); RED BLOOD COUNT 4.07 10^6/uL (4.00-5.40)
[2019-12-07 17:00] LABS: INR 1.03; PROTHROMBIN TIME 13.2 SECONDS (11.8-14.0)
[2019-12-07] MEDS ORDERED: ACETYLCYSTEINE IV ONE ×2 (17:00)
[2019-12-07] MEDS ORDERED: D5W IV ONE ×2 (17:00)
[2019-12-07] MEDS ORDERED: ACETYLCYSTEINE 7,300 MG in D5W 1,000 ML IV ONE ×2 (17:00→23:15)
[2019-12-07 17:25] LABS: ACETAMINOPHEN LEVEL 32.1 UG/ML (10.0-30.0); ALBUMIN 3.3 GM/DL (3.2-5.2); ALT/SGPT 48 U/L (12-78); BILIRUBIN,DIRECT < 0.1 MG/DL (0.0-0.2); BILIRUBIN,TOTAL 0.3 MG/DL (0.2-1.0); BLOOD UREA NITROGEN 16 MG/DL (7-18); CALCIUM LEVEL 8.9 MG/DL (8.8-10.2); CARBON DIOXIDE LEVEL 24 MEQ/L (21-32); CHLORIDE LEVEL 101 MEQ/L (98-107); CPK CREATINE PHOSPHOKINASE 117 U/L (26-192); CREATININE FOR GFR 0.73 MG/DL (0.55-1.30); ETHYL ALCOHOL (ETHANOL) < 0.003 % (0.000-0.010); GLOMERULAR FILTRATION RATE > 60.0 (>39); GLUCOSE, FASTING 87 MG/DL (70-100); POTASSIUM SERUM 4.3 MEQ/L (3.5-5.1); SALICYLATE LEVEL < 1.7 MG/DL (5.0-30.0); SODIUM LEVEL 133 MEQ/L (136-145)
[2019-12-07] MEDS ORDERED: VENL75CA2 PO (17:36)
--- NOTE | 2019-12-07 18:37 | HPEPDOC ---
General Date of Admission Date of Service: Dec 07, 2019 Chief Complaint The patient is a 79-year-old female admitted with a reason for visit of Overdose. Source: Patient Exam Limitations: Other (very depressed, unable to give good history due to her condition) Timing/Duration: 24 hours Associated Symptoms: Denies Symptoms History of Present Illness 79-year-old female with known history of depression, hyperlipidemia, recent discharge from [facility] for depression and suicidal attempt and ideation presents with medication overdose with Tylenol. Patient is unable to tell how much Tylenol she ingested and over what time due to her current clinical condition. She believes she took a few handfuls of Tylenol over the course of the past 16- 24 hours. She currently denies any chest pain, headaches, fevers, chills, short of breath, abdominal pain, nausea, vomiting. Patient endorses feeling depressed and wanting to kill herself currently. When asked why, patient believes she should have long time ago and will not give additional details. Patient currently lives at home with her son who takes care of her. Patient's son called the police who then called the ambulance to bring her into the hospital after he noted that patient was very depressed and that multiple Tylenol pills were missing from the bottle. Upon ER evaluation, patient has mildly elevated LFTs and NAC protocol was initiated as per guidelines. Patient to be admitted to hospitalist service for further evaluation and management. Home Medications Scheduled Aspirin (Aspirin) 325 Mg Tablet, 325 MG PO DAILY, (Reported) Brinzolamide (Azopt) 1% 10ML Drops.susp, 1 DROP OU BID, (Reported) Calcium Carbonate/Vitamin D3 (Calcium 500-Vit D3 400 Tablet) 1 Each Tablet, 1 TAB PO BID, (Reported) Gluc Mcfarlane/Chondro Mcfarlane A/Vit C/Mn (Glucosamine Chondroitin Tab) 1 Each Tablet, 1 TAB PO BID, (Reported) Latanoprost/Pf (Latanoprost 0.005% Eye Drop) 7.5 Ml Drops, 1 DROP OU QHS, (Reported) Multivitamins (Thera M Plus Tablet) 1 Each Tablet, 1 TAB PO DAILY, (Reported) Pravastatin Sodium (Pravastatin Sodium) 20 Mg Tab, 20 MG PO QHS, (Reported) Primidone (Primidone) 50 Mg Tab, 100 MG QHS, (Reported) Venlafaxine HCl (Venlafaxine HCl ER) 75 Mg Cap.er.24h, 150 MG PO DAILY, (Reported) Scheduled PRN Acetaminophen (Tylenol Arthritis) 650 Mg Tablet.er, 1,300 MG PO QHS PRN for PAIN, (Reported) Docusate Sodium (Stool Softener) 100 Mg Capsule, 100 MG PO BID PRN for CONSTIPATION, (Reported) Sennosides (Senokot) 8.6 Mg Tablet, 8.6 MG PO DAILY PRN for CONSTIPATION, (Reported) Allergies Coded Allergies: Cephalosporins (Verified Allergy, Unknown, 08/29/19) Penicillins (Verified Allergy, Unknown, UNKNOWN REACTION, 08/30/19) ceftriaxone (Verified Adverse Reaction, Unknown, INCREASED HR, 08/30/19) meperidine (Verified Adverse Reaction, Unknown, AMS, 08/30/19) Past Medical History Medical History 1. Depression 2. HLD 3. Tremor 4. Psychosis Surgical History PAST SURGICAL HISTORY: 1. Appendectomy 2. Cholecystectomy Family History SOCIAL HISTORY: negative for any pertinent hx Social History * Smoker: Denies Alcohol: Denies Drugs: denies Recent Travel/Sick Contacts: Denies: Recent travel, Recent sick contacts Psychosocial History: Decreased mood, Depression, Prior suicide attempt, Suicidal thoughts A-FIB/CHADSVASC A-FIB History Current/History of A-Fib/PAF?: No Review of Systems Constitutional: Denies: Chills, Fever, Malaise, Weakness, Fatigue Eyes: Denies: Pain, Vision change ENT: Denies: Head Aches, Dysphagia Skin: Denies: Rash, Lesions Pulmonary: Denies: Dyspnea, Cough, Pleuritic Chest Pain Cardiovascular: Denies: Chest Pain, Palpitations, Orthopnea, Edema, Lt Headedness Gastrointestinal: Denies: Nausea, Vomiting, Abdominal Pain, Diarrhea, Constipation Genitourinary: Denies: Dysuria Musculoskeletal: Denies: Neck Pain, Back Pain Neurological: Denies: Weakness, Numbness, Change in speech, Confusion Psych: Reports: Depression, Thoughts of Self Harm Physical Examination General Exam: Positive: Alert, No Acute Distress, Other (patient appears tearful and somewhat distressed at the current situation. She does not appear to be acutely ill at this time.) Eye Exam: Positive: PERRLA, Conjunctiva & lids normal, EOMI; Negative: Sclera icteric ENT Exam: Positive: Atraumatic, Mucous membr. moist/pink, Pharynx Normal Neck Exam: Positive: Supple, JVD, thyromegaly, +2 carotid pulse wo bruit Chest Exam: Positive: Clear to auscultation, Normal air movement; Negative: Rales, Rhonchi, Wheezing Heart Exam: Positive: Rate Normal, Regular Rhythm, Normal S1, Normal S2; Negative: Murmurs Abdomen Exam: Positive: Normal bowel sounds, Soft; Negative: Tenderness, Hepatospenomegaly Extremity Exam: Negative: Clubbing, Cyanosis, Edema Skin Exam: Positive: Nl turgor and temperature; Negative: Rash, Breakdown Neuro Exam: Positive: Strength at 5/5 X4 ext, Normal Tone, Sensation Intact, Cranial Nerves 3-12 NL Psych Exam: Positive: Oriented x 3 (patient appears distracted with thoughts of hurting herself and dying. She is unable to answer questions directly. She does not maintain good eye contact. Appears to be severely depressed.), Other Vital Signs Vital Signs Date Time Temp Pulse Resp B/P (MAP) Pulse Ox O2 Delivery O2 Flow Rate FiO2 12/07/19 16:05 98.4 73 18 174/83 99 Room Air Laboratory Data Labs 24H Laboratory Tests 2 12/07/19 16:26: Immature Granulocyte % (Auto) 0.3, Neutrophils (%) (Auto) 64.1, Lymphocytes (%) (Auto) 23.0L, Monocytes (%) (Auto) 9.3H, Eosinophils (%) (Auto) 2.7, Basophils (%) (Auto) 0.6, Neutrophils # (Auto) 4.5, Lymphocytes # (Auto) 1.6, Monocytes # (Auto) 0.7, Eosinophils # (Auto) 0.2, Basophils # (Auto) 0.0, Nucleated Red Blood Cells % (auto) 0.0, Prothrombin Time 13.2, Prothromb Time International Ratio 1.03, Anion Gap 8, Glomerular Filtration Rate > 60.0, Calcium Level 8.9, Total Bilirubin 0.3, Direct Bilirubin < 0.1, Aspartate Amino Transf (AST/SGOT) 42H, Alanine Aminotransferase (ALT/SGPT) 48, Alkaline Phosphatase 73, Total Creatine Kinase 117, Total Protein 6.0L, Albumin 3.3, Albumin/Globulin Ratio 1.22, Thyroid Stimulating Hormone (TSH) 0.750, Salicylates Level < 1.7L, Acetaminophen Level 32.1H, Ethyl Alcohol Level < 0.003 12/07/19 16:39: Bedside Glucose (Misc Panel) 84 CBC/BMP Laboratory Tests 12/07/19 16:26 Assessment/Plan 79-year-old female with severe depression and recent admission and discharge from [facility] for suicidal attempt and depression, presents with intentional overdose with Tylenol. Patient is unable to articulate the mail of Tylenol that she took she does have an elevated Tylenol level as well as slightly elevating LFTs. Given unknown time of ingestion and unknown quantity, Tylenol overdose protocol initiated by the ER. After discussion with poison control, we'll need to reassess LFTs, INR, Tylenol level approximately 20 hours from her ER admission. Rest of the labs look within normal limits. Will be admitted to PCU for further observation. Plan / VTE VTE Prophylaxis Ordered?: Yes Plan Plan Tylenol overdose, intentional Suicide attempt with Tylenol. She does have an elevated Tylenol level but INR is within normal limits AST is barely above normal. - Continue with overdose protocol until completion - Follow up repeat INR, Tylenol level, LFTs within 20 hours (approximately noon tomorrow) - If labs stable within normal limits, patient will be medically cleared for psych evaluation given this is her second suicide attempt within the past month - Follow up with was in control as needed - Zofran when necessary for nausea, vomiting - Avoid hepatotoxic agents Depression It is severe in this patient. Patient will likely need to undergo further psychiatric treatment - Psych consult once patient is medically cleared - Continue with venlafaxine as per home dose - One-to-one observation while inpatient Hyperlipidemia - Hold pravastatin given acute liver injury CAD - Continue with aspirin as per home dose Glaucoma - Continue with latanoprost and brimonidine eyedrops Diet: Continue Current Activity: Bedrest Medications: Other Med: (NAC protocol) Anticipated Discharge: Psych SONNY ANG MD Dec 07, 2019 18:37
[2019-12-07] MEDS ORDERED: ONDANSETRON 4MG/2ML VIAL IV PRN (18:45)
[2019-12-07 20:17] LABS: AMPHETAMINES LEVEL URINE NEGATIVE (NEGATIVE); BARBITURATES URINE POSITIVE (NEGATIVE); BENZODIAZEPINES URINE NEGATIVE (NEGATIVE); CANNABINOIDS URINE NEGATIVE (NEGATIVE); COCAINE METABOLITE URINE NEGATIVE (NEGATIVE); METHADONE URINE NEGATIVE (NEGATIVE); OPIATES URINE NEGATIVE (NEGATIVE); PHENCYCLIDINE URINE NEGATIVE (NEGATIVE)
[2019-12-07] MEDS ORDERED: hydrALAZINE 20MG/ML 1ML VIAL (J0360 PER 20MG) IV ONE (21:30)
[2019-12-07 21:35] VITALS: BP 194/93
[2019-12-07 22:21] VITALS: BP 194/93
[2019-12-08] VITALS (7 sets, daily range): BP systolic 141–189; BP diastolic 65–90
[2019-12-08] MEDS: BRINZOLAMIDE 1 % OPHTH SUSP (AZOPT) 10ML OU SCH ×3 (00:20→21:05)
[2019-12-08] MEDS: LATANOPROST 0.005% OPHTH SOLN 2.5 ML OU SCH ×2 (00:20→21:05)
[2019-12-08] MEDS: PRIMIDONE 50 MG TAB PO SCH ×2 (00:21→21:05)
--- NOTE | 2019-12-08 03:44 | ECGEPIP ---
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
[2019-12-08 06:03] LABS: INR 1.2; PROTHROMBIN TIME 14.9 SECONDS (11.8-14.0)
[2019-12-08 06:30] LABS: ALBUMIN 2.9 GM/DL (3.2-5.2); ALT/SGPT 45 U/L (12-78); BILIRUBIN,TOTAL 0.3 MG/DL (0.2-1.0); BLOOD UREA NITROGEN 9 MG/DL (7-18); CALCIUM LEVEL 8.9 MG/DL (8.8-10.2); CARBON DIOXIDE LEVEL 26 MEQ/L (21-32); CHLORIDE LEVEL 100 MEQ/L (98-107); CREATININE FOR GFR 0.61 MG/DL (0.55-1.30); GLOMERULAR FILTRATION RATE > 60.0 (>39); GLUCOSE, FASTING 106 MG/DL (70-100); POTASSIUM SERUM 2.7 MEQ/L (3.5-5.1); SODIUM LEVEL 136 MEQ/L (136-145); TOTAL PROTEIN 5.7 GM/DL (6.4-8.2)
[2019-12-08] MEDS: POTASSIUM CHLORIDE 10 MEQ SR TABLET PO SCH ×4 (06:45→14:05)
[2019-12-08] MEDS: VENLAFAXINE **XR** 75MG CAPSULE PO SCH (08:36)
[2019-12-08] MEDS: ASPIRIN 325 MG TAB PO SCH (08:36)
--- NOTE | 2019-12-08 11:19 | IPNPDOC ---
Subjective Date Seen The patient was seen on 12/08/19. Subjective Chief Complaint/HPI Patient seen and examined at bedside this morning. Patient is still tearful and crying during the interview. Patient states that she is responsible for her brother's . She refuses to answer other questions regarding her current status. As per nursing staff, patient has been not sleeping and continuing in outbreaks of motion similar to this. Telemetry monitoring did not reveal any new arrhythmias. Otherwise unable to obtain review of systems at this time. Other systems Unable to obtain full review of systems due to patient's clinical condition and refusal to comply. Objective Physical Examination General Exam: Positive: Alert, No Acute Distress, Other (patient is still very tearful and now states that she is responsible for her brother's . She appears to be distracted and does not follow commands.) Eye Exam: Positive: PERRLA, Conjunctiva & lids normal, EOMI; Negative: Sclera icteric ENT Exam: Positive: Atraumatic, Mucous membr. moist/pink, Pharynx Normal Neck Exam: Positive: Supple, JVD, thyromegaly, +2 carotid pulse wo bruit Chest Exam: Positive: Clear to auscultation, Normal air movement; Negative: Rales, Rhonchi, Wheezing Heart Exam: Positive: Rate Normal, Regular Rhythm, Normal S1, Normal S2; Negative: Murmurs Abdomen Exam: Positive: Normal bowel sounds, Soft; Negative: Tenderness, Hepatospenomegaly Extremity Exam: Negative: Clubbing, Cyanosis, Edema Skin Exam: Positive: Nl turgor and temperature; Negative: Rash, Breakdown Neuro Exam: Positive: Strength at 5/5 X4 ext, Normal Tone, Sensation Intact, Cranial Nerves 3-12 NL Psych Exam: Positive: Oriented x 3 (patient appears distracted with thoughts of hurting herself and dying. She is unable to answer questions directly. She does not maintain good eye contact. Appears to be severely depressed.), Other (severely depressed) Assessment /Plan Assessment 79-year-old female with severe depression and recent admission and discharge from [facility] for suicidal attempt and depression, presents with intentional overdose with Tylenol. A.m. labs did not reveal worsening LFTs. Patient scheduled for lab draw at noon as instructed by poison control. She completed the Tylenol protocol without issue. Patient found to be hypokalemic this morning but is now refusing by mouth supplementation. Patient appears to be very depressed. Once lab normalizes, will call psychology for evaluation and likely patient admission. Plan/VTE VTE Prophylaxis Ordered?: Yes Plan Pt and Family Services: Other PFS Diagnostics: Check Labs Anticipated Discharge: Psych Tylenol overdose, intentional Suicide attempt with Tylenol. She does have an elevated Tylenol level but INR is within normal limits AST is barely above normal. Repeat lab draw pending at noon. If labs are within normal limits, patient we medically cleared for discharge. We'll obtain psychiatric evaluation at that time. - Continue with overdose protocol until completion - Follow up repeat INR, Tylenol level, LFTs at noon - If labs stable within normal limits, patient will be medically cleared for psych evaluation given this is her second suicide attempt within the past month - Follow up with was in control as needed - Zofran when necessary for nausea, vomiting - Avoid hepatotoxic agents Depression It is severe in this patient. Patient will likely need to undergo further psychiatric treatment - Psych consult once patient is medically cleared - Continue with venlafaxine as per home dose - One-to-one observation while inpatient Hyperlipidemia - Hold pravastatin given acute liver injury CAD - Continue with aspirin as per home dose Glaucoma - Continue with latanoprost and brimonidine eyedrops Hypokalemia Telemetry monitoring does not reveal any new arrhythmias consistent with hypokalemia. Currently refusing by mouth supplementation. - We'll encourage take her by mouth supplementation. VS, I&O, 24H, Sally Vital Signs/I&O Vital Signs Date Time Temp Pulse Resp B/P (MAP) Pulse Ox O2 Delivery O2 Flow Rate FiO2 12/08/19 08:00 98.3 75 20 158/78 (104) 95 Room Air I&O- Last 24 Hours up to 6 AM 12/08/19 06:00 Intake Total 691 ml Output Total 400 ml Balance 291 ml Laboratory Data 24H LABS Laboratory Tests 2 12/07/19 16:26: Immature Granulocyte % (Auto) 0.3, Neutrophils (%) (Auto) 64.1, Lymphocytes (%) (Auto) 23.0L, Monocytes (%) (Auto) 9.3H, Eosinophils (%) (Auto) 2.7, Basophils (%) (Auto) 0.6, Neutrophils # (Auto) 4.5, Lymphocytes # (Auto) 1.6, Monocytes # (Auto) 0.7, Eosinophils # (Auto) 0.2, Basophils # (Auto) 0.0, Nucleated Red Blood Cells % (auto) 0.0, Prothrombin Time 13.2, Prothromb Time International Ratio 1.03, Anion Gap 8, Glomerular Filtration Rate > 60.0, Calcium Level 8.9, Total Bilirubin 0.3, Direct Bilirubin < 0.1, Aspartate Amino Transf (AST/SGOT) 42H, Alanine Aminotransferase (ALT/SGPT) 48, Alkaline Phosphatase 73, Total Creatine Kinase 117, Total Protein 6.0L, Albumin 3.3, Albumin/Globulin Ratio 1.22, Thyroid Stimulating Hormone (TSH) 0.750, Salicylates Level < 1.7L, Acetaminophen Level 32.1H, Ethyl Alcohol Level < 0.003 12/07/19 16:39: Bedside Glucose (Misc Panel) 84 12/07/19 19:44: Urine Opiates Screen NEGATIVE, Urine Methadone Screen NEGATIVE, Urine Barbiturates Screen POSITIVEH, Urine Phencyclidine Screen NEGATIVE, Urine Amphetamines Screen NEGATIVE, Urine Benzodiazepines Screen NEGATIVE, Urine Ricardo marcial Metabolite Screen NEGATIVE, Urine Cannabinoids Screen NEGATIVE 12/08/19 04:39: Prothrombin Time 14.9H, Prothromb Time International Ratio 1.20, Anion Gap 10, Glomerular Filtration Rate > 60.0, Calcium Level 8.9, Total Bilirubin 0.3, Aspartate Amino Transf (AST/SGOT) 17, Alanine Aminotransferase (ALT/SGPT) 45, Alkaline Phosphatase 59, Total Protein 5.7L, Albumin 2.9L, Albumin/Globulin Ratio 1.04, Magnesium Level 1.9 CBC/BMP Laboratory Tests 12/07/19 16:26 12/08/19 04:39 SONNY ANG MD Dec 08, 2019 11:19
[2019-12-08 12:25] LABS: INR 1.13; PROTHROMBIN TIME 14.3 SECONDS (11.8-14.0)
[2019-12-08 12:43] LABS: ALBUMIN 2.8 GM/DL (3.2-5.2); ALT/SGPT 40 U/L (12-78); BILIRUBIN,TOTAL 0.3 MG/DL (0.2-1.0); BLOOD UREA NITROGEN 9 MG/DL (7-18); CALCIUM LEVEL 8.7 MG/DL (8.8-10.2); CARBON DIOXIDE LEVEL 28 MEQ/L (21-32); CHLORIDE LEVEL 100 MEQ/L (98-107); CREATININE FOR GFR 0.61 MG/DL (0.55-1.30); GLOMERULAR FILTRATION RATE > 60.0 (>39); GLUCOSE, FASTING 116 MG/DL (70-100); POTASSIUM SERUM 3.2 MEQ/L (3.5-5.1); SODIUM LEVEL 136 MEQ/L (136-145); TOTAL PROTEIN 5.1 GM/DL (6.4-8.2)
--- NOTE | 2019-12-08 17:52 | MHCRPDOC ---
[facility] Consultation Consultation Consult Anna Best MRN: N/A Date of : N/A Date of Service: 12/08/2019 Chief Complaint Consultation for safety after overdose of Tylenol. History of Present Illness The patient is a 79-year-old woman with a history of reported depression presents after reportedly overdosing on Tylenol. When I attempt to meet with the patient she is fairly unengaged and barely responds to me when I speak. She is alert and orientated. She generally refuses to talk whenever she feels anxious. Review of the chart indicates that she had overdosed on Tylenol. It is unclear whether is intentional or not. However, collateral resources report that she has difficulty caring for herself and generally has become quite dependent. The information below is extracted from my previous psychosocial and updated as appropriate. Review Of Systems Unable to obtain due to patient refusal. Past Psychiatric History Had been admitted for nearly a month in October 2019 agian later that month for a week, has a history of report depression currently on Zyprexa, Effexor and mirtazapine. Other than OD no notes of other intentional ODs Family Psychiatric History No changes from admission Social History No changes from previous admission, reviewed lives alone. Medical History No new medical problems from previous admissions from chart Allergies See below Mental Status Examination General: Well dressed with good hygiene Speech: Slow Thought processes: Linear and logical MSK: Smooth and coordinated gait, no signs of tremors or involuntary orofacial movements Thought content: Unknown Abstract reasoning, and computation: Intact Description of associations: Intact Description of abnormal or psychotic thoughts: Denies any suicidal or homicidal ideation. Denies any auditory or visual hallucinations. Does not appear to be responding to internal stimuli. Does not appear to be endorsing any bizarre or paranoid ideation. Judgment: Limited Insight: Limited Orientation: Alert and orientated 3 Cognition: Grossly normal Recent and remote memory: Intact Attention span and concentration: Intact Fund of knowledge: Adequate Mood: "okay" Affect: Flat Diagnoses Unspecified depressive disorder. Adjustment versus MDD. Dependent personality disorder. Assessment and Plan We'll recommend admission to [facility] once patient is medically stable under 9.39 status. Disposition Admit on 9.39 status after legals completed and patient ready. Time Spent 30 minutes with greater than 50% time spent on counseling/coordination of care. Friday Vital Signs Vital Signs Date Time Temp Pulse Resp B/P (MAP) Pulse Ox O2 Delivery O2 Flow Rate FiO2 12/08/19 16:00 97.9 74 18 150/70 (96) 98 Room Air Laboratory Data 24H Labs Laboratory Tests 2 12/07/19 19:44: Urine Opiates Screen NEGATIVE, Urine Methadone Screen NEGATIVE, Urine Barbiturates Screen POSITIVEH, Urine Phencyclidine Screen NEGATIVE, Urine Amphetamines Screen NEGATIVE, Urine Benzodiazepines Screen NEGATIVE, Urine Cocaine Metabolite Screen NEGATIVE, Urine Cannabinoids Screen NEGATIVE 12/08/19 04:39: Prothrombin Time 14.9H, Prothromb Time International Ratio 1.20, Anion Gap 10, Glomerular Filtration Rate > 60.0, Calcium Level 8.9, Magnesium Level 1.9, Total Bilirubin 0.3, Aspartate Amino Transf (AST/SGOT) 17, Alanine Aminotransferase (ALT/SGPT) 45, Alkaline Phosphatase 59, Total Protein 5.7L, Albumin 2.9L, Albumin/Globulin Ratio 1.04 12/08/19 11:41: Prothrombin Time 14.3H, Prothromb Time International Ratio 1.13, Anion Gap 8, Glomerular Filtration Rate > 60.0, Calcium Level 8.7L, Total Bilirubin 0.3, Aspartate Amino Transf (AST/SGOT) 16, Alanine Aminotransferase (ALT/SGPT) 40, Al kaline Phosphatase 58, Total Protein 5.1L, Albumin 2.8L, Albumin/Globulin Ratio 1.22, Acetaminophen Level 5.4L Home Medications Current Medications Current Medications Medications (Trade) Dose Ordered Sig/Joceline Route PRN Reason Start Time Stop Time Status Last Admin Dose Admin Aspirin (Aspirin) 325 mg DAILY PO 12/08/19 09:00 Brinzolamide (Azopt) 1 drop BID OU 12/07/19 21:00 12/08/19 00:20 Home Med (Med Rec Complete!) ASDIRECTED XX 12/07/19 17:45 12/07/19 17:46 DC Latanoprost (Xalatan 0.005% Op Soln) 1 drop QHS OU 12/07/19 21:00 12/08/19 00:20 Ondansetron HCl (ZOFRAN INJection) 4 mg Q6HP PRN IV NAUSEA 12/07/19 18:45 Potassium Chloride (Micro-K Extencaps) 40 meq 0645,0745 PO 12/08/19 06:45 12/08/19 10:00 DC Potassium Chloride (Micro-K Extencaps) 40 meq Q2H PO 12/08/19 12:00 12/08/19 14:01 DC 12/08/19 14:05 Primidone (Mysoline) 100 mg QHS PO 12/07/19 21:00 12/08/19 00:21 Venlafaxine HCl (Effexor Xr) 150 mg DAILY PO 12/08/19 09:00 Scheduled Aspirin (Aspirin) 325 Mg Tablet, 325 MG PO DAILY, (Reported) Brinzolamide (Azopt) 1% 10ML Drops.susp, 1 DROP OU BID, (Reported) Calcium Carbonate/Vitamin D3 (Calcium 500-Vit D3 400 Tablet) 1 Each Tablet, 1 TAB PO BID, (Reported) Gluc Mcfarlane/Chondro Mcfarlane A/Vit C/Mn (Glucosamine Chondroitin Tab) 1 Each Tablet, 1 TAB PO BID, (Reported) Latanoprost/Pf (Latanoprost 0.005% Eye Drop) 7.5 Ml Drops, 1 DROP OU QHS, (Reported) Multivitamins (Thera M Plus Tablet) 1 Each Tablet, 1 TAB PO DAILY, (Reported) Pravastatin Sodium (Pravastatin Sodium) 20 Mg Tab, 20 MG PO QHS, (Reported) Primidone (Primidone) 50 Mg Tab, 100 MG QHS, (Reported) Venlafaxine HCl (Venlafaxine HCl ER) 75 Mg Cap.er.24h, 150 MG PO DAILY, (Reported) Scheduled PRN Acetaminophen (Tylenol Arthritis) 650 Mg Tablet.er, 1,300 MG PO QHS PRN for PAIN, (Reported) Docusate Sodium (Stool Softener) 100 Mg Capsule, 100 MG PO BID PRN for CONSTIPATION, (Reported) Sennosides (Senokot) 8.6 Mg Tablet, 8.6 MG PO DAILY PRN for CONSTIPATION, (Reported) Allergies Coded Allergies: Cephalosporins (Verified Allergy, Unknown, 08/29/19) Penicillins (Verified Allergy, Unknown, UNKNOWN REACTION, 08/30/19) ceftriaxone (Verified Adverse Reaction, Unknown, INCREASED HR, 08/30/19) meperidine (Verified Adverse Reaction, Unknown, AMS, 08/30/19) NANCY MARROQUIN DO Dec 08, 2019 17:52
[2019-12-09] VITALS: BP 138/78
[2019-12-09 04:00] VITALS: BP 146/72
[2019-12-09 08:00] VITALS: BP 145/82
--- NOTE | 2019-12-09 09:42 | DS.PDOC ---
Discharge Summary General Date of Admission Dec 07, 2019 at 18:14 Date of Discharge 12/09/19 Specialist/Consultants Involve: NANCY MARROQUIN DO Discharge Summary PROCEDURES PERFORMED DURING STAY: None. ADMITTING DIAGNOSES: 1. Suicide attempt with Tylenol overdose. DISCHARGE DIAGNOSES: 1. Suicide attempt with Tylenol overdose 2. Severe depression. COMPLICATIONS/CHIEF COMPLAINT: Intentional Acetaminophen Overdose. HISTORY OF PRESENT ILLNESS: 79-year-old female with known history of depression, hyperlipidemia, recent discharge from [facility] for depression and suicidal attempt and ideation presents with medication overdose with Tylenol. Patient is unable to tell how much Tylenol she ingested and over what time due to her current clinical condition. She believes she took a few handfuls of Tylenol over the course of the past 16-24 hours. She currently denies any chest pain, headaches, fevers, chills, short of breath, abdominal pain, nausea, vomiting. Patient endorses feeling depressed and wanting to kill herself currently. When asked why, patient believes she should have long time ago and will not give additional details. Patient currently lives at home with her son who takes care of her. Patient's son called the police who then called the ambulance to bring her into the hospital after he noted that patient was very depressed and that multiple Tylenol pills were missing from the bottle. Upon ER evaluation, patient has mildly elevated LFTs and NAC protocol was i nitiated as per guidelines. Patient to be admitted to hospitalist service for further evaluation and management.. HOSPITAL COURSE: Patient was admitted to the medical floor for further management. N-acetylcysteine protocol was initiated by the ER and continue on the floor. LFTs and coagulation factors were reassessed at the 20 hour interval as per poison control. At that time, labs were completely within normal with no evidence of liver damage. As per discussion with poison control, patient no longer needed to be monitored and was medically cleared. Psychiatry was called for evaluation of patient given her severe depression and multiple suicide attempts within the past 4 weeks. Upon consultation, it was agreed that patient would benefit from inpatient psychiatric treatment. Patient is now medically stable for discharge to [facility].. DISCHARGE MEDICATIONS: Please see below. ALLERGIES: Please see below. PHYSICAL EXAMINATION ON DISCHARGE: General Exam: Positive: Alert, No Acute Distress, Other (patient is still very tearful and now states that she is responsible for her brother's . She appears to be distracted and does not follow commands.) Eye Exam: Positive: PERRLA, Conjunctiva & lids normal, EOMI; Negative: Sclera icteric ENT Exam: Positive: Atraumatic, Mucous membr. moist/pink, Pharynx Normal Neck Exam: Positive: Supple, JVD, thyromegaly, +2 carotid pulse wo bruit Chest Exam: Positive: Clear to auscultation, Normal air movement; Negative: Rales, Rhonchi, Wheezing Heart Exam: Positive: Rate Normal, Regular Rhythm, Normal S1, Normal S2; Negative: Murmurs Abdomen Exam: Positive: Normal bowel sounds, Soft; Negative: Tenderness, Hepatospenomegaly Extremity Exam: Negative: Clubbing, Cyanosis, Edema Skin Exam: Positive: Nl turgor and temperature; Negative: Rash, Breakdown Neuro Exam: Positive: Strength at 5/5 X4 ext, Normal Tone, Sensation Intact, Cranial Nerves 3-12 NL Psych Exam: Positive: Oriented x 3 (patient appears distracted with thoughts of hurting herself and dying. She is unable to answer questions directly. She does not maintain good eye contact. Appears to be severely depressed.), Other (severely depressed) LABORATORY DATA: Please see below. IMAGING: None PROGNOSIS: Guarded due to her severe depression ACTIVITY: As tolerated. DIET: No restrictions DISCHARGE PLAN: Discharged to inpatient psych unit DISCHARGE INSTRUCTIONS: 1. Please take all your home medications as prescribed. 2. Please follow the treatment guidelines that you receive in the inpatient psych unit. ITEMS TO FOLLOWUP ON ON OUTPATIENT: 1. Depression. DISCHARGE CONDITION: Medically stable for discharge to psychiatry. TIME SPENT ON DISCHARGE: 20 minutes Vital Signs/I&Os Vital Signs Date Time Temp Pulse Resp B/P (MAP) Pulse Ox O2 Delivery O2 Flow Rate FiO2 12/09/19 08:00 98.2 61 20 145/82 (103) 96 Room Air I&O- Last 24 Hours up to 6 AM 12/09/19 06:00 Intake Total 840 ml Output Total 1000 ml Balance -160 ml Laboratory Data Labs 24H Laboratory Tests 2 12/08/19 11:41: Prothrombin Time 14.3H, Prothromb Time International Ratio 1.13, Anion Gap 8, Glomerular Filtration Rate > 60.0, Calcium Level 8.7L, Total Bilirubin 0.3, Aspartate Amino Transf (AST/SGOT) 16, Alanine Aminotransferase (ALT/SGPT) 40, Alkaline Phosphatase 58, Total Protein 5.1L, Albumin 2.8L, Albumin/Globulin Ratio 1.22, Acetaminophen Level 5.4L CBC/BMP Laboratory Tests 12/08/19 11:41 Discharge Medications Scheduled Aspirin (Aspirin) 325 Mg Tablet, 325 MG PO DAILY, (Reported) Brinzolamide (Azopt) 1% 10ML Drops.susp, 1 DROP OU BID, (Reported) Calcium Carbonate/Vitamin D3 (Calcium 500-Vit D3 400 Tablet) 1 Each Tablet, 1 TAB PO BID, (Reported) Gluc Mcfarlane/Chondro Mcfarlane A/Vit C/Mn (Glucosamine Chondroitin Tab) 1 Each Tablet, 1 TAB PO BID, (Reported) Latanoprost/Pf (Latanoprost 0.005% Eye Drop) 7.5 Ml Drops, 1 DROP OU QHS, (Reported) Multivitamins (Thera M Plus Tablet) 1 Each Tablet, 1 TAB PO DAILY, (Reported) Pravastatin Sodium (Pravastatin Sodium) 20 Mg Tab, 20 MG PO QHS, (Reported) Primidone (Primidone) 50 Mg Tab, 100 MG QHS, (Reported) Venlafaxine HCl (Venlafaxine HCl ER) 75 Mg Cap.er.24h, 150 MG PO DAILY, (Reported) Scheduled PRN Acetaminophen (Tylenol Arthritis) 650 Mg Tablet.er, 1,300 MG PO QHS PRN for PAIN, (Reported) Docusate Sodium (Stool Softener) 100 Mg Capsule, 100 MG PO BID PRN for CONSTIPATION, (Reported) Sennosides (Senokot) 8.6 Mg Tablet, 8.6 MG PO DAILY PRN for CONSTIPATION, (Reported) Allergies Coded Allergies: Cephalosporins (Verified Allergy, Unknown, 08/29/19) Penicillins (Verified Allergy, Unknown, UNKNOWN REACTION, 08/30/19) ceftriaxone (Verified Adverse Reaction, Unknown, INCREASED HR, 08/30/19) meperidine (Verified Adverse Reaction, Unknown, AMS, 08/30/19) SONNY ANG MD Dec 09, 2019 09:42
[2019-12-09] MEDS: VENLAFAXINE **XR** 75MG CAPSULE PO SCH (09:44)
[2019-12-09] MEDS: BRINZOLAMIDE 1 % OPHTH SUSP (AZOPT) 10ML OU SCH (09:44)
[2019-12-09] MEDS: ASPIRIN 325 MG TAB PO SCH (09:44)
[2019-12-09 12:00] VITALS: BP 148/72
== END 2019-12-09 14:53 | DRG 918 ==
LOC: M ED 16:00 → M ED INP 18:14 → ENRESERVDT 19:45 → ENRESERVTM 19:45 → M PCU 21:36
PROVIDERS: ADMIT Internal Medicine; ATTEND Internal Medicine
DX: T39.1X2A Poisoning by 4-Aminophenol derivatives, intentional self-harm, initial encounter (principal); F32.2 Major depressive disorder, single episode, severe without psychotic features; E87.6 Hypokalemia; E78.5 Hyperlipidemia, unspecified; Z79.82 Long term (current) use of aspirin; Z79.899 Other long term (current) drug therapy; Z88.0 Allergy status to penicillin; Z88.8 Allergy status to other drugs, medicaments and biological substances; H40.9 Unspecified glaucoma; I25.10 Atherosclerotic heart disease of native coronary artery without angina pectoris

== ENCOUNTER 2019-12-08 19:06 | Inpatient (IN) | payer MEDICARE ==
[~2019-12-08] VITALS: Ht 149.9 cm; Wt 69.1 kg
[~2019-12-08 19:06] MED LIST changes: +VENL75CA2 PO
[2019-12-08] MEDS ORDERED: MOM 30ML SUSPENSION UDC PO PRN (20:00)
[2019-12-08] MEDS ORDERED: traZODone 50 MG TAB PO PRN (20:00)
[2019-12-08] MEDS ORDERED: MAALOX 30 ML SUSP *UDC PO PRN (20:00)
[2019-12-08] MEDS ORDERED: ACETAMINOPHEN TAB 650MG DOSE (2X325MG) PO PRN (20:00)
[2019-12-09] MEDS ORDERED: MAALOX 30 ML SUSP *UDC PO PRN (13:00)
[2019-12-09] MEDS ORDERED: MOM 30ML SUSPENSION UDC PO PRN (13:00)
[2019-12-09 15:13] VITALS: BP 135/71
[2019-12-09] MEDS: PRIMIDONE 50 MG TAB PO SCH (22:03)
[2019-12-09] MEDS: LATANOPROST 0.005% OPHTH SOLN 2.5 ML OU SCH (22:03)
[2019-12-09] MEDS: BRINZOLAMIDE 1 % OPHTH SUSP (AZOPT) 10ML OU SCH (22:03)
[2019-12-10 06:36] VITALS: BP 160/74
[2019-12-10] MEDS: MODAFINIL 100 MG TABLET PO SCH (09:00)
[2019-12-10] MEDS: BRINZOLAMIDE 1 % OPHTH SUSP (AZOPT) 10ML OU SCH ×2 (09:08→20:42)
[2019-12-10] MEDS: VENLAFAXINE **XR** 75MG CAPSULE PO SCH (09:08)
[2019-12-10] MEDS: ASPIRIN 325 MG TAB PO SCH (09:08)
--- NOTE | 2019-12-10 09:28 | MHHPEPDOC ---
[facility] History & Physical History and Physical DATE OF ADMISSION: Dec 09, 2019 at 14:56 New Patient Anna Best MRN: N/A Date of : N/A Date of Service: 12/10/2019 Chief Complaint "Why, I want to go to a chcf." History of Present Illness The patient, a 79-year-old woman with multiple inpatient admission presents to the floor after being assessed by this provider after she had overdosed on Tylenol and a suicide attempt. The patient generally did not engage in intervene on the floor and generally returned to a state of staring off into the distance. The patient was met with today where she generally did not engage in any meaningful interview, simply focusing on trying to get to a chcf, it appears her family is entirely focused on having us hold her until she is placed in chcf or assisted living. She had reportedly tried to engage in having a true assess on the medical floor; however, when she arrived here she was completely ambulatory with no problems. The patient does not describe any changes in her depression, is unable to describe anything more than meaningful i n the conversation today. Review Of Systems Depression: No changes from previous vague symptoms reported. Anxiety: Vague symptoms reported. Katja: No changes from previous. Psychotic: No changes from previous. Trauma: No changes from previous. Borderline: Positive for dependent personality. Past Psychiatric History The patient reports no history of psychiatric admissions, medication trials or current follow up. Had been admitted for nearly a month in October 2019 agian later that month for a week, has a history of report depression currently on Zyprexa, Effexor and mirtazapine. Other than OD no notes of other intentional ODs Allergies Please see below. Family Psychiatric History No changes from previous admission Social History No changes from previous admission, reviewed lives alone. Substance Abuse History The patient denies any excessive alcohol use, tobacco or illicit drug use, de nies history of substance use treatment. Medical History Patient has no significant past medical history. No new medical problems from previous admissions from chart Mental Status Examination General: Well dressed with good hygiene Speech: Slow Thought processes: Linear and logical MSK: Smooth and coordinated gait, no signs of tremors or involuntary orofacial movements Thought content: Unknown Abstract reasoning, and computation: Intact Description of associations: Intact Description of abnormal or psychotic thoughts: Denies any suicidal or homicidal ideation. Denies any auditory or visual hallucinations. Does not appear to be responding to internal stimuli. Does not appear to be endorsing any bizarre or paranoid ideation. Judgment: Limited Insight: Limited Orientation: Alert and orientated 3 Cognition: Grossly normal Recent and remote memory: Intact Attention span and concentration: Intact Fund of knowledge: Adequate Mood: "okay" Affect: Flat Diagnoses Unspecified depressive disorder. Adjustment versus MDD. Dependent personality disorder. Assessment and Plan Unspecified depressive disorder: Continue Effexor 150 mg daily. 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 Disposition Patient will be extended on involuntary, she is unable to keep herself safe with multiple overdoses, referral to [facility] will be undertaken as she is likely both ineligible and inappropriate for a chcf or assisted living as her primary problems are with her mental health. Additional attempts will be made to see about placing her in [facility], but she does not have Medicaid, which will be required. Problem List 1.suicide. 2. Ineffective coping. 3. Depression. Initial Treatment Plan 1. Patient was admitted on a 9.39 legal status. 2. Complete history was obtained. 3. With patients permission, family will be contacted and database will be expanded. 4. Patients medication regimen will be reviewed and changed accordingly. 5. Patient will be provided with protected environment. 6. Patient will be treated with individual, group, and milieu therapies. 7. Patient will receive supportive psych-education. 8. Discharge planning will commence immediately. 9. Outpatient follow-up treatment will be strongly recommended. 10. The initial treatment plan will focus initially on: Estimated Length Of Stay 7 days. Time Spent 70 minutes with greater than 50% time spent on counseling/coordination of care. Friday Vital Signs Vital Signs Date Time Temp Pulse Resp B/P (MAP) Pulse Ox O2 Delivery O2 Flow Rate FiO2 12/10/19 06:36 98.2 74 14 160/74 (102) 100 Room Air Medications Scheduled Aspirin (Aspirin) 325 Mg Tablet, 325 MG PO DAILY, (Reported) Brinzolamide (Azopt) 1% 10ML Drops.susp, 1 DROP OU BID, (Reported) Calcium Carbonate/Vitamin D3 (Calcium 500-Vit D3 400 Tablet) 1 Each Tablet, 1 TAB PO BID, (Reported) Gluc Mcfarlane/Chondro Mcfarlane A/Vit C/Mn (Glucosamine Chondroitin Tab) 1 Each Tablet, 1 TAB PO BID, (Reported) Latanoprost/Pf (Latanoprost 0.005% Eye Drop) 7.5 Ml Drops, 1 DROP OU QHS, (Reported) Multivitamins (Thera M Plus Tablet) 1 Each Tablet, 1 TAB PO DAILY, (Reported) Pravastatin Sodium (Pravastatin Sodium) 20 Mg Tab, 20 MG PO QHS, (Reported) Primidone (Primidone) 50 Mg Tab, 100 MG QHS, (Reported) Venlafaxine HCl (Venlafaxine HCl ER) 75 Mg Cap.er.24h, 150 MG PO DAILY, (Reported) Scheduled PRN Acetaminophen (Tylenol Arthritis) 650 Mg Tablet.er, 1,300 MG PO QHS PRN for PAIN, (Reported) Docusate Sodium (Stool Softener) 100 Mg Capsule, 100 MG PO BID PRN for CONSTIPATION, (Reported) Sennosides (Senokot) 8.6 Mg Tablet, 8.6 MG PO DAILY PRN for CONSTIPATION, (Reported) Allergies Coded Allergies: Cephalosporins (Verified Allergy, Unknown, 08/29/19) Penicillins (Verified Allergy, Unknown, UNKNOWN REACTION, 08/30/19) ceftriaxone (Verified Adverse Reaction, Unknown, INCREASED HR, 08/30/19) meperidine (Verified Adverse Reaction, Unknown, AMS, 08/30/19) NANCY MARROQUIN DO Dec 10, 2019 09:28
[2019-12-10 16:00] VITALS: BP 148/78
[2019-12-10] MEDS: traZODone 50 MG TAB PO PRN (20:42)
[2019-12-10] MEDS: PRIMIDONE 50 MG TAB PO SCH (20:42)
[2019-12-10] MEDS: LATANOPROST 0.005% OPHTH SOLN 2.5 ML OU SCH (20:42)
[2019-12-11] MEDS: IBUPROFEN 600 MG TAB PO PRN (05:48)
[2019-12-11 06:46] VITALS: BP 168/79
[2019-12-11] MEDS: MODAFINIL 100 MG TABLET PO SCH (09:45)
[2019-12-11] MEDS: ASPIRIN 325 MG TAB PO SCH (09:45)
[2019-12-11] MEDS: VENLAFAXINE **XR** 75MG CAPSULE PO SCH (09:45)
[2019-12-11] MEDS: BRINZOLAMIDE 1 % OPHTH SUSP (AZOPT) 10ML OU SCH ×2 (09:48→20:31)
[2019-12-11] MEDS ORDERED: ACETAMINOPHEN 650MG ER TAB (TYLENOL ARTHRITIS) PO PRN (12:45)
[2019-12-11] MEDS: MULTIVITAMINS/MINERALS THERAP 1 TAB PO SCH (13:13)
--- NOTE | 2019-12-11 13:37 | HPEPDOC ---
General Date of Admission Dec 09, 2019 at 14:56 Date of Service: Dec 11, 2019 Attending Physician: JUANITA SCOTT MD Chief Complaint The patient is a 79-year-old female admitted with a reason for visit of Unspecified Depressive Disorder. Source: Patient, RN/, Old records Exam Limitations: No limitations History of Present Illness 79-year-old W with severe depression with prior suicide attempts, who was recently admitted for intentional overdose with acetaminophen who is now admitted to the [facility] for severe depression and suicidality after discharge from medicine. Home Medications Scheduled Aspirin (Aspirin) 325 Mg Tablet, 325 MG PO DAILY, (Reported) Brinzolamide (Azopt) 1% 10ML Drops.susp, 1 DROP OU BID, (Reported) Calcium Carbonate/Vitamin D3 (Calcium 500-Vit D3 400 Tablet) 1 Each Tablet, 1 TAB PO BID, (Reported) Gluc Mcfarlane/Chondro Mcfarlane A/Vit C/Mn (Glucosamine Chondroitin Tab) 1 Each Tablet, 1 TAB PO BID, (Reported) Latanoprost/Pf (Latanoprost 0.005% Eye Drop) 7.5 Ml Drops, 1 DROP OU QHS, (Reported) Multivitamins (Thera M Plus Tablet) 1 Each Tablet, 1 TAB PO DAILY, (Reported) Pravastatin Sodium (Pravastatin Sodium) 20 Mg Tab, 20 MG PO QHS, (Reported) Primidone (Primidone) 50 Mg Tab, 100 MG QHS, (Reported) Venlafaxine HCl (Venlafaxine HCl ER) 75 Mg Cap.er.24h, 150 MG PO DAILY, (Report ed) Scheduled PRN Acetaminophen (Tylenol Arthritis) 650 Mg Tablet.er, 1,300 MG PO QHS PRN for P AIN, (Reported) Docusate Sodium (Stool Softener) 100 Mg Capsule, 100 MG PO BID PRN for CONSTIPAT ION, (Reported) Sennosides (Senokot) 8.6 Mg Tablet, 8.6 MG PO DAILY PRN for CONSTIPATION, (Reported) Allergies Coded Allergies: Cephalosporins (Verified Allergy, Unknown, 08/29/19) Penicillins (Verified Allergy, Unknown, UNKNOWN REACTION, 08/30/19) ceftriaxone (Verified Adverse Reaction, Unknown, INCREASED HR, 08/30/19) meperidine (Verified Adverse Reaction, Unknown, AMS, 08/30/19) Past Medical History Medical History 1. Depression with recent suicide attempt by overdose 2. HLD 3. Tremor 4. Psychosis Surgical History 1. Appendectomy 2. Cholecystectomy Family History Significant Family History: No pertinent family hx Social History Psychosocial History: Decreased mood, Depression, Prior suicide attempt, Suicidal thoughts A-FIB/CHADSVASC A-FIB History Current/History of A-Fib/PAF?: No Current PO Anticoag Therapy: No Age/Risk Factor Scoring CHADSVASC: CHADSVASC Response (Comments) Value Age Risk Factor Age >/= 75 years old 2 Gender Risk Factor Female 1 Hx of CHF No 0 Hx of HTN No 0 Hx of Stroke/TIA/or VTE No 0 Hx of Diabetes No 0 Hx of Vascular Disease No 0 Total 3 Treatment Treatment ordered: NONE Reason Anticoagulant not given: Not indicated/[id number] Review of Systems Constitutional: Denies: Chills, Fever, Night Sweats Eyes: Denies: Pain, Vision change ENT: Denies: Head Aches, Ear Pain, Dysphagia Skin: Denies: Rash, Lesions, Breakdown Pulmonary: Denies: Dyspnea, Cough Cardiovascular: Denies: Chest Pain, Palpitations, Orthopnea, Paroxysmal Noc. Dyspnea, Lt Headedness Gastrointestinal: Denies: Nausea, Vomiting, Abdominal Pain, Diarrhea Genitourinary: Denies: Dysuria, Frequency, Incontinence, Retention Hematologic: Denies: Bruising, Bleeding Excessively Endocrine: Denies: Polydipsia, Polyphagia, Polyuria, Heat Intolerance, Cold Intolerance, Other Endocrine Sx Musculoskeletal: Denies: Neck Pain, Back Pain, Joint Pain, Muscle Pain, Spasms Neurological: Denies: Weakness, Numbness, Change in speech, Confusion Psych: Reports: Depression Physical Examination General Exam: Positive: Alert, No Acute Distress Eye Exam: Positive: PERRLA, Conjunctiva & lids normal, EOMI; Negative: Sclera icteric ENT Exam: Positive: Atraumatic, Mucous membr. moist/pink, Pharynx Normal Neck Exam: Positive: Supple; Negative: JVD, thyromegaly Chest Exam: Positive: Clear to auscultation, Normal air movement Heart Exam: Positive: Rate Normal, Regular Rhythm, Normal S1, Normal S2; Negative: Murmurs, Rubs Abdomen Exam: Positive: Normal bowel sounds, Soft; Negative: Tenderness, Hepatospenomegaly Extremity Exam: Positive: Normal pulses; Negative: Clubbing, Cyanosis, Edema Skin Exam: Positive: Nl turgor and temperature; Negative: Breakdown, Lesion Neuro Exam: Positive: Normal Gait, Normal Speech, Strength at 5/5 X4 ext, Cranial Nerves 3-12 NL Psych Exam: Positive: Oriented x 3 Vital Signs Vital Signs Date Time Temp Pulse Resp B/P (MAP) Pulse Ox O2 Delivery O2 Flow Rate FiO2 12/11/19 06:46 98.0 69 14 168/79 (108) 100 Room Air Assessment/Plan 79-year-old W with severe depression with prior suicide attempts, who was recently admitted for intentional overdose with acetaminophen who is now admitted to the [facility] for severe depression and suicidality after discharge from medicine. On my evaluation, she is doing physically well without complaints at this time. I am ordering a CMP and will make recommendation later this afternoon upon lab result. I am otherwise restarting her pravastatin, oscal and multivitam in. Severe depression with recent suicide attempt with acetaminophen: -Was admitted to medicine and medically cleared for discharge to psychiatry -Psychiatric treatment per primary team for depression -check CMP, will place orders if indicated per lab result this afternoon Hyperlipidemia - Will restart her pravastatin now given normal liver function during her medicine admission CAD - Continue with aspirin as per home dose Glaucoma - Continue with latanoprost and brimonidine eyedrops Plan / VTE VTE Prophylaxis Ordered?: No VTE Exclusion Mechanical Proph: Low Risk for VTE VTE Exclusion Pharmacological: At Low Risk for VTE JUANITA SCOTT MD Dec 11, 2019 13:03
[2019-12-11 13:39] LABS: ALT/SGPT 45 U/L (12-78); BILIRUBIN,TOTAL 0.3 MG/DL (0.2-1.0); BLOOD UREA NITROGEN 16 MG/DL (7-18); CALCIUM LEVEL 8.5 MG/DL (8.8-10.2); CARBON DIOXIDE LEVEL 28 MEQ/L (21-32); CHLORIDE LEVEL 103 MEQ/L (98-107); CREATININE FOR GFR 0.64 MG/DL (0.55-1.30); GLOMERULAR FILTRATION RATE > 60.0 (>39); GLUCOSE, FASTING 97 MG/DL (70-100); POTASSIUM SERUM 3.4 MEQ/L (3.5-5.1); SODIUM LEVEL 138 MEQ/L (136-145); TOTAL PROTEIN 5.4 GM/DL (6.4-8.2)
[2019-12-11] MEDS ORDERED: POTASSIUM CHLORIDE 10 MEQ SR TABLET PO ONE (16:00)
[2019-12-11 16:24] VITALS: BP 139/65
--- NOTE | 2019-12-11 20:18 | MHIPNPDOC ---
[facility] Progress Note Progress Note ianDATE OF SERVICE: 12/11/19 HISTORY: As per : "The patient, a 79-year-old woman with multiple inpatient admission presents to the floor after being assessed by this provider after she had overdosed on Tylenol and a suicide attempt. The patient generally did not engage in intervene on the floor and generally returned to a state of staring off into the distance. The patient was met with today where she generally did not engage in any meaningful interview, simply focusing on trying to get to a fci, it appears her family is entirely focused on having us hold her until she is placed in fci or assisted living. She had reportedly tried to engage in having a true assess on the medical floor; [facility], when she arrived here she was completely ambulatory with no problems. The patient does not describe any changes in her depression, is unable to describe anything more than meaningful in the conversation today." VITAL SIGNS: See below. NEW TEST RESULTS: See below CURRENT MEDICATIONS: See below. MENTAL STATUS EXAMINATION: Patient is a 79 year old female, who is dressed in hospital clothes, wrapped in her blanket, disheveled, withdrawn Speech: Is impoverished, needs prompting, delayed responses, normal tone, low volume. She didn't engage in a conversation, her answers were monosyllabic Language skills are limited at this time. Thought processes including: slow, depressed, delayed. Thought content: positive for cognitive distortions, hopeless, helpless thoughts. She endorses SI ( passive), denies HI, denies thought delusions. Abstract reasoning, and computation: Unable to assess, she is uncooperative at this time and she is easily distracted Description of associations: she didn't engage in a conversation, was not able to asses Description of abnormal or psychotic thoughts: Unable to assess, she is not answering mosto f my questions but she seems very anxious, almost paranoid Judgment: Poor Insight: Poor. Orientation: Unable to assess, she was uncooperative, she repeated, "I'm tired, I'm going to go to my room" Recent and remote memory: Unable to assess Attention span and concentration: poor Language: limited, poor at this time. Fund of knowledge: unable to assess. Mood: depressed, sad. Affect: congruent with mood, not reactive. DIAGNOSES: Unspecified depressive disorder. Adjustment versus MDD. Dependent personality disorder. Assessment and Plan Unspecified depressive disorder Dependent personality disorder ASSESSMENT: patient is very depressed, will re assess tomorrow and will consider increasing her antidepressant dose MANAGEMENT PLAN: Bharath Tavarez TIME SPENT: 15 minutes. Vital Signs Vital Signs Date Time Temp Pulse Resp B/P (MAP) Pulse Ox O2 Delivery O2 Flow Rate FiO2 12/11/19 16:24 98.8 77 16 139/65 (89) 12/11/19 06:46 100 Room Air Laboratory Data 24H Labs Laboratory Tests 2 12/11/19 12:55: Anion Gap 7L, Glomerular Filtration Rate > 60.0, Calcium Level 8.5L, Total Bilirubin 0.3, Aspartate Amino Transf (AST/SGOT) 20, Alanine Aminotransferase (ALT/SGPT) 45, Alkaline Phosphatase 62, Total Protein 5.4L, Albumin 3.0L, Albumin/Globulin Ratio 1.25 CBC/BMP Laboratory Tests 12/11/19 12:55 Current Medications Current Medications Medications (Trade) Dose Ordered Sig/Joceline Route PRN Reason Start Time Stop Time Status Last Admin Dose Admin Acetaminophen (Tylenol Arthritis Er) 1,300 mg QHS PRN PO PAIN 12/11/19 12:45 12/11/19 12:43 DC Acetaminophen (Tylenol Tab) 650 mg Q6HP PRN PO HEADACHE or DISCOMFORT 12/08/19 20:00 UNV Al Hydrox/Mg Hydrox/Simethicone (Mylanta) 30 ml Q4HP PRN PO HEARTBURN/INDIGESTION 12/08/19 20:00 UNV Al Hydrox/Mg Hydrox/Simethicone (Mylanta) 30 ml Q4HP PRN PO HEARTBURN/INDIGESTION 12/09/19 13:00 Aspirin (Aspirin) 325 mg DAILY PO 12/10/19 09:00 12/11/19 09:45 Brinzolamide (Azopt) 1 drop BID OU 12/09/19 21:00 12/11/19 09:48 Calcium/Vitamin D (Oscal D) 500 mg BID PO 12/11/19 21:00 Home Med (Med Rec Complete!) ASDIRECTED XX 12/08/19 21:00 UNV Ibuprofen (Advil) 600 mg Q6HP PRN PO MODERATE PAIN (PS 5-7) 12/11/19 05:12 12/11/19 05:48 Latanoprost (Xalatan 0.005% Op Soln) 1 drop QHS OU 12/09/19 21:00 12/10/19 20:42 Magnesium Hydroxide (Milk Of Magnesia) 30 ml DAILYPRN PRN PO CONSTIPATION 12/08/19 20:00 UNV Magnesium Hydroxide (Milk Of Magnesia) 30 ml DAILYPRN PRN PO CONSTIPATION 12/09/19 13:00 Modafinil (Provigil) 50 mg QAM PO 12/10/19 09:00 12/11/19 09:45 Multivitamins (Theragram-M) 1 tab DAILY PO 12/11/19 09:00 12/11/19 13:13 Pravastatin Sodium (Pravachol) 20 mg DAILY PO 12/12/19 09:00 Pravastatin Sodium (Pravachol) 20 mg QHS PO 12/11/19 21:00 12/11/19 12:43 DC Primidone (Mysoline) 100 mg QHS PO 12/09/19 21:00 12/10/19 20:42 Trazodone HCl (Desyrel) 50 mg QHSP PRN PO INSOMNIA 12/08/19 20:00 UNV Trazodone HCl (Desyrel) 50 mg QHSP PRN PO INSOMNIA 12/09/19 13:00 12/10/19 20:42 Venlafaxine HCl (Effexor Xr) 150 mg DAILY PO 12/10/19 09:00 12/11/19 09:45 Allergies Coded Allergies: Cephalosporins (Verified Allergy, Unknown, 08/29/19) Penicillins (Verified Allergy, Unknown, UNKNOWN REACTION, 08/30/19) ceftriaxone (Verified Adverse Reaction, Unknown, INCREASED HR, 08/30/19) meperidine (Verified Adverse Reaction, Unknown, AMS, 08/30/19) CAROLINA GARCIA MD Dec 11, 2019 17:42
[2019-12-11] MEDS: traZODone 50 MG TAB PO PRN (20:30)
[2019-12-11] MEDS: CALCIUM/VITAMIN D 500 MG TAB PO SCH (20:30)
[2019-12-11] MEDS: PRIMIDONE 50 MG TAB PO SCH (20:31)
[2019-12-11] MEDS: LATANOPROST 0.005% OPHTH SOLN 2.5 ML OU SCH (21:00)
[2019-12-11] MEDS ORDERED: PRAVASTATIN 20 MG TAB PO SCH (21:00)
[2019-12-12 06:41] VITALS: BP 161/74
[2019-12-12] MEDS: MODAFINIL 100 MG TABLET PO SCH (08:15)
[2019-12-12] MEDS: PRAVASTATIN 20 MG TAB PO SCH (08:15)
[2019-12-12] MEDS: MULTIVITAMINS/MINERALS THERAP 1 TAB PO SCH (08:15)
[2019-12-12] MEDS: CALCIUM/VITAMIN D 500 MG TAB PO SCH ×2 (08:15→20:12)
[2019-12-12] MEDS: ASPIRIN 325 MG TAB PO SCH (08:15)
[2019-12-12] MEDS: VENLAFAXINE **XR** 75MG CAPSULE PO SCH (08:15)
[2019-12-12] MEDS: BRINZOLAMIDE 1 % OPHTH SUSP (AZOPT) 10ML OU SCH ×2 (08:15→20:10)
[2019-12-12] MEDS: IBUPROFEN 600 MG TAB PO PRN (08:30)
[2019-12-12 16:26] VITALS: BP 133/76
[2019-12-12] MEDS: traZODone 50 MG TAB PO PRN (20:12)
[2019-12-12] MEDS: PRIMIDONE 50 MG TAB PO SCH (20:12)
[2019-12-12] MEDS: LATANOPROST 0.005% OPHTH SOLN 2.5 ML OU SCH (20:42)
--- NOTE | 2019-12-12 23:01 | MHIPNPDOC ---
[facility] Progress Note Progress Note DATE OF SERVICE: 12/12/19 HISTORY: As per : "The patient, a 79-year-old woman with multiple inpatient admission presents to the floor after being assessed by this provider after she had overdosed on Tylenol and a suicide attempt. The patient generally did not engage in intervene on the floor and generally returned to a state of staring off into the distance. The patient was met with today where she generally did not engage in any meaningful interview, simply focusing on trying to get to a half-way, it appears her family is entirely focused on having us hold her until she is placed in half-way or assisted living. She had reportedly tried to engage in having a true assess on the medical floor; however, when she arrived here she was completely ambulatory with no problems. The patient does not describe any changes in her depression, is unable to describe anything more than meaningful in the conversation today." VITAL SIGNS: See below. NEW TEST RESULTS: See below CURRENT MEDICATIONS: See below. MENTAL STATUS EXAMINATION: Patient is a 79 year old female, who is dressed in hospital clothes, disheveled, withdrawn, looking depressed, anguished Speech: Not engaging, sparse, monotone, needs prompting Language skills unable to assess, she is not talking Thought processes including: slow, depressed, delayed. Thought content: positive for cognitive distortions, hopeless, helpless thoughts and guilt. She is still reporting passive SI Abstract reasoning, and computation: Unable to assess, she is easily distracted Description of associations: loose Description of abnormal or psychotic thoughts: She seems to be paranoid, she endorses ideas of reference, guilty thoughts, suicidal ideation Judgment: Poor Insight: Poor. Orientation: Unable to assess, she was uncooperative, she repeated, "I brought this on myself" Recent and remote memory: Unable to assess Attention span and concentration: poor Language: limited, poor at this time. Fund of knowledge: unable to assess. Mood: depressed, sad. Affect: congruent with mood, not reactive. DIAGNOSES: Unspecified depressive disorder. Adjustment versus MDD. Dependent personality disorder. Assessment and Plan Unspecified depressive disorder Dependent personality disorder ASSESSMENT: She seems to be paranoid, she is very guarded, she seems to be agitated at times but out of fear/anxiety. MANAGEMENT PLAN: Will increase Venlafaxine to 225 mgs PO daily TIME SPENT: 15 minutes. Vital Signs Vital Signs Date Time Temp Pulse Resp B/P (MAP) Pulse Ox O2 Delivery O2 Flow Rate FiO2 12/12/19 16:26 99.1 92 18 133/76 (95) 12/12/19 06:41 96 Room Air Current Medications Current Medications Medications (Trade) Dose Ordered Sig/Joceline Route PRN Reason Start Time Stop Time Status Last Admin Dose Admin Acetaminophen (Tylenol Arthritis Er) 1,300 mg QHS PRN PO PAIN 12/11/19 12:45 12/11/19 12:43 DC Acetaminophen (Tylenol Tab) 650 mg Q6HP PRN PO HEADACHE or DISCOMFORT 12/08/19 20:00 UNV Al Hydrox/Mg Hydrox/Simethicone (Mylanta) 30 ml Q4HP PRN PO HEARTBURN/INDIGESTION 12/08/19 20:00 UNV Al Hydrox/Mg Hydrox/Simethicone (Mylanta) 30 ml Q4HP PRN PO HEARTBURN/INDIGESTION 12/09/19 13:00 Aspirin (Aspirin) 325 mg DAILY PO 12/10/19 09:00 12/12/19 08:15 Brinzolamide (Azopt) 1 drop BID OU 12/09/19 21:00 12/12/19 08:15 Calcium/Vitamin D (Oscal D) 500 mg BID PO 12/11/19 21:00 12/12/19 08:15 Home Med (Med Rec Complete!) ASDIRECTED XX 12/08/19 21:00 UNV Ibuprofen (Advil) 600 mg Q6HP PRN PO MODERATE PAIN (PS 5-7) 12/11/19 05:12 12/12/19 08:30 Latanoprost (Xalatan 0.005% Op Soln) 1 drop QHS OU 12/09/19 21:00 12/10/19 20:42 Magnesium Hydroxide (Milk Of Magnesia) 30 ml DAILYPRN PRN PO CONSTIPATION 12/08/19 20:00 UNV Magnesium Hydroxide (Milk Of Magnesia) 30 ml DAILYPRN PRN PO CONSTIPATION 12/09/19 13:00 Modafinil (Provigil) 50 mg QAM PO 12/10/19 09:00 12/12/19 08:15 Multivitamins (Theragram-M) 1 tab DAILY PO 12/11/19 09:00 12/12/19 08:15 Pravastatin Sodium (Pravachol) 20 mg DAILY PO 12/12/19 09:00 12/12/19 08:15 Pravastatin Sodium (Pravachol) 20 mg QHS PO 12/11/19 21:00 12/11/19 12:43 DC Primidone (Mysoline) 100 mg QHS PO 12/09/19 21:00 12/11/19 20:31 Trazodone HCl (Desyrel) 50 mg QHSP PRN PO INSOMNIA 12/08/19 20:00 UNV Trazodone HCl (Desyrel) 50 mg QHSP PRN PO INSOMNIA 12/09/19 13:00 12/11/19 20:30 Venlafaxine HCl (Effexor Xr) 150 mg DAILY PO 12/10/19 09:00 12/12/19 08:15 Allergies Coded Allergies: Cephalosporins (Verified Allergy, Unknown, 08/29/19) Penicillins (Verified Allergy, Unknown, UNKNOWN REACTION, 08/30/19) ceftriaxone (Verified Adverse Reaction, Unknown, INCREASED HR, 08/30/19) meperidine (Verified Adverse Reaction, Unknown, AMS, 08/30/19) CAROLINA GARCIA MD Dec 12, 2019 17:08
[2019-12-13 06:27] VITALS: BP 145/68
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
[2019-12-13] MEDS: MODAFINIL 100 MG TABLET PO SCH (09:47)
[2019-12-13] MEDS: ASPIRIN 325 MG TAB PO SCH (09:48)
[2019-12-13] MEDS: MULTIVITAMINS/MINERALS THERAP 1 TAB PO SCH (09:48)
[2019-12-13] MEDS: BRINZOLAMIDE 1 % OPHTH SUSP (AZOPT) 10ML OU SCH ×2 (09:48→20:41)
[2019-12-13] MEDS: PRAVASTATIN 20 MG TAB PO SCH (09:48)
[2019-12-13] MEDS: CALCIUM/VITAMIN D 500 MG TAB PO SCH ×2 (09:48→20:41)
[2019-12-13] MEDS: VENLAFAXINE **XR** 75MG CAPSULE PO SCH (09:48)
[2019-12-13 16:09] VITALS: BP 120/78
[2019-12-13] MEDS: PRIMIDONE 50 MG TAB PO SCH (20:41)
[2019-12-13] MEDS: LATANOPROST 0.005% OPHTH SOLN 2.5 ML OU SCH (20:41)
[2019-12-13] MEDS: traZODone 50 MG TAB PO PRN (20:42)
[2019-12-14 06:30] VITALS: BP 155/72
[2019-12-14] MEDS: PILL CUTTER 1 EACH XX PRN (09:16)
[2019-12-14] MEDS: MODAFINIL 100 MG TABLET PO SCH (09:16)
[2019-12-14] MEDS: CALCIUM/VITAMIN D 500 MG TAB PO SCH ×2 (09:16→20:29)
[2019-12-14] MEDS: VENLAFAXINE **XR** 75MG CAPSULE PO SCH (09:16)
[2019-12-14] MEDS: MULTIVITAMINS/MINERALS THERAP 1 TAB PO SCH (09:17)
[2019-12-14] MEDS: BRINZOLAMIDE 1 % OPHTH SUSP (AZOPT) 10ML OU SCH ×2 (09:17→20:28)
[2019-12-14] MEDS: ASPIRIN 325 MG TAB PO SCH (09:17)
[2019-12-14] MEDS: PRAVASTATIN 20 MG TAB PO SCH (09:17)
--- NOTE | 2019-12-14 09:45 | MHIPNPDOC ---
[facility] Progress Note Progress Note Inpatient Progress Note Anna Best MRN: N/A Date of : N/A Date of Service: 12/14/2019 History of Present Illness The patient, a 79-year-old woman with multiple inpatient admission presents to the floor after being assessed by this provider after she had overdosed on Tylenol and a suicide attempt. The patient generally did not engage in intervene on the floor and generally returned to a state of staring off into the distance. The patient was met with today where she generally did not engage in any meaningful interview, simply focusing on trying to get to a residential, it appears her family is entirely focused on having us hold her until she is placed in residential or assisted living. She had reportedly tried to engage in having a true assess on the medical floor; however, when she arrived here she was completely ambulatory with no problems. The patient does not describe any changes in her depression, is unable to describe anything more than meaningful in the conversation today. Interval History The patient is attempted be met with today. However, when any questions were asked about her son, she began to cry and generally refused to engage in any meaningful interactions. She generally has been quite upset about having to be locked out of her room as she has no longer wanted to contact her son because she is upset. The patient generally does not engage in much of an interview and continued to say she wants to go to a residential rather than [facility]. Review Of Systems Unable to determine due to mental status. Psychotherapy None on this visit. Vital Signs Reviewed. Mental Status Examination General: Well dressed with good hygiene Speech: Slow Thought processes: Linear and logical MSK: Smooth and coordinated gait, no signs of tremors or involuntary orofacial movements Thought content: Unknown Abstract reasoning, and computation: Intact Description of associations: Intact Description of abnormal or psychotic thoughts: Denies any suicidal or homicidal ideation. Denies any auditory or visual hallucinations. Does not appear to be responding to internal stimuli. Does not appear to be endorsing any bizarre or paranoid ideation. Judgment: Limited Insight: Limited Orientation: Alert and orientated 3 Cognition: Grossly normal Recent and remote memory: Intact Attention span and concentration: Intact Fund of knowledge: Adequate Mood: "fine" Affect: Flat and then some tearfulness present. Diagnoses Unspecified depressive disorder. Adjustment versus MDD. Dependent personality disorder. Assessment and Plan Unspecified depressive disorder: Continue Effexor 225 mg daily, we will attempt to monitor for side effects. 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 Disposition Referral to [facility], engaged to PC in process. Time Spent 15 minutes. Friday Vital Signs Vital Signs Date Time Temp Pulse Resp B/P (MAP) Pulse Ox O2 Delivery O2 Flow Rate FiO2 12/14/19 06:30 98.0 75 16 155/72 (99) 96 Room Air Current Medications Current Medications Medications (Trade) Dose Ordered Sig/Joceline Route PRN Reason Start Time Stop Time Status Last Admin Dose Admin Acetaminophen (Tylenol Arthritis Er) 1,300 mg QHS PRN PO PAIN 12/11/19 12:45 12/11/19 12:43 DC Acetaminophen (Tylenol Tab) 650 mg Q6HP PRN PO HEADACHE or DISCOMFORT 12/08/19 20:00 UNV Al Hydrox/Mg Hydrox/Simethicone (Mylanta) 30 ml Q4HP PRN PO HEARTBURN/INDIGESTION 12/08/19 20:00 UNV Al Hydrox/Mg Hydrox/Simethicone (Mylanta) 30 ml Q4HP PRN PO HEARTBURN/INDIGESTION 12/09/19 13:00 Aspirin (Aspirin) 325 mg DAILY PO 12/10/19 09:00 12/14/19 09:17 Brinzolamide (Azopt) 1 drop BID OU 12/09/19 21:00 12/14/19 09:17 Calcium/Vitamin D (Oscal D) 500 mg BID PO 12/11/19 21:00 12/14/19 09:16 Home Med (Med Rec Complete!) ASDIRECTED XX 12/08/19 21:00 UNV Ibuprofen (Advil) 600 mg Q6HP PRN PO MODERATE PAIN (PS 5-7) 12/11/19 05:12 12/12/19 08:30 Latanoprost (Xalatan 0.005% Op Soln) 1 drop QHS OU 12/09/19 21:00 12/13/19 20:41 Magnesium Hydroxide (Milk Of Magnesia) 30 ml DAILYPRN PRN PO CONSTIPATION 12/08/19 20:00 UNV Magnesium Hydroxide (Milk Of Magnesia) 30 ml DAILYPRN PRN PO CONSTIPATION 12/09/19 13:00 Modafinil (Provigil) 50 mg QAM PO 12/10/19 09:00 12/14/19 09:16 Multivitamins (Theragram-M) 1 tab DAILY PO 12/11/19 09:00 12/14/19 09:17 Pravastatin Sodium (Pravachol) 20 mg DAILY PO 12/12/19 09:00 12/14/19 09:17 Pravastatin Sodium (Pravachol) 20 mg QHS PO 12/11/19 21:00 12/11/19 12:43 DC Primidone (Mysoline) 100 mg QHS PO 12/09/19 21:00 12/13/19 20:41 Trazodone HCl (Desyrel) 50 mg QHSP PRN PO INSOMNIA 12/08/19 20:00 UNV Trazodone HCl (Desyrel) 50 mg QHSP PRN PO INSOMNIA 12/09/19 13:00 12/13/19 20:42 Venlafaxine HCl (Effexor Xr) 150 mg DAILY PO 12/10/19 09:00 12/12/19 17:12 DC 12/12/19 08:15 Venlafaxine HCl (Effexor Xr) 225 mg DAILY PO 12/13/19 09:00 12/14/19 09:16 Allergies Coded Allergies: Cephalosporins (Verified Allergy, Unknown, 08/29/19) Penicillins (Verified Allergy, Unknown, UNKNOWN REACTION, 08/30/19) ceftriaxone (Verified Adverse Reaction, Unknown, INCREASED HR, 08/30/19) meperidine (Verified Adverse Reaction, Unknown, AMS, 08/30/19) NANCY MARROQUIN DO Dec 14, 2019 09:45
[2019-12-14 17:19] VITALS: BP 134/81
[2019-12-14] MEDS: PRIMIDONE 50 MG TAB PO SCH (20:29)
[2019-12-14] MEDS: traZODone 50 MG TAB PO PRN (20:31)
[2019-12-14] MEDS: LATANOPROST 0.005% OPHTH SOLN 2.5 ML OU SCH (20:32)
[2019-12-15 06:14] VITALS: BP 143/66
[2019-12-15] MEDS: MODAFINIL 100 MG TABLET PO SCH (09:03)
[2019-12-15] MEDS: BRINZOLAMIDE 1 % OPHTH SUSP (AZOPT) 10ML OU SCH ×2 (09:04→20:26)
[2019-12-15] MEDS: VENLAFAXINE **XR** 75MG CAPSULE PO SCH (09:04)
[2019-12-15] MEDS: PILL CUTTER 1 EACH XX PRN (09:04)
[2019-12-15] MEDS: ASPIRIN 325 MG TAB PO SCH (09:04)
[2019-12-15] MEDS: CALCIUM/VITAMIN D 500 MG TAB PO SCH ×2 (09:04→20:26)
[2019-12-15] MEDS: PRAVASTATIN 20 MG TAB PO SCH (09:04)
[2019-12-15] MEDS: MULTIVITAMINS/MINERALS THERAP 1 TAB PO SCH (09:04)
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
[2019-12-15 16:19] VITALS: BP 121/71
[2019-12-15] MEDS: PRIMIDONE 50 MG TAB PO SCH (20:26)
[2019-12-15] MEDS: traZODone 50 MG TAB PO PRN (20:26)
[2019-12-15] MEDS: LATANOPROST 0.005% OPHTH SOLN 2.5 ML OU SCH (20:26)
[2019-12-16 06:22] VITALS: BP 146/68
[2019-12-16] MEDS: MULTIVITAMINS/MINERALS THERAP 1 TAB PO SCH (09:00)
[2019-12-16] MEDS: MODAFINIL 100 MG TABLET PO SCH (09:00)
[2019-12-16] MEDS: PRAVASTATIN 20 MG TAB PO SCH (09:00)
[2019-12-16] MEDS: VENLAFAXINE **XR** 75MG CAPSULE PO SCH (09:00)
[2019-12-16] MEDS: ASPIRIN 325 MG TAB PO SCH (09:00)
[2019-12-16] MEDS: BRINZOLAMIDE 1 % OPHTH SUSP (AZOPT) 10ML OU SCH ×2 (09:00→21:47)
[2019-12-16] MEDS: CALCIUM/VITAMIN D 500 MG TAB PO SCH ×2 (09:00→21:47)
--- NOTE | 2019-12-16 09:48 | MHIPNPDOC ---
[facility] Progress Note Progress Note Inpatient Progress Note Anna Best MRN: N/A Date of : N/A Date of Service: 12/16/2019 History of Present Illness The patient, a 79-year-old woman with multiple inpatient admission presents to the floor after being assessed by this provider after she had overdosed on Tylenol and a suicide attempt. The patient generally did not engage in intervene on the floor and generally returned to a state of staring off into the distance. The patient was met with today where she generally did not engage in any meaningful interview, simply focusing on trying to get to a long-term, it appears her family is entirely focused on having us hold her until she is placed in long-term or assisted living. She had reportedly tried to engage in having a true assess on the medical floor; however, when she arrived here she was completely ambulatory with no problems. The patient does not describe any changes in her depression, is unable to describe anything more than meaningful in the conversation today. Interval History The patient is met with today. She continues to stare at the screen and cry making various odd statements that she is "an evil person." But refuses to elaborate any further. She generally presents to this provider is much more sick than she does to the floor staff. The nursing staff noticed that she generally is much more amenable engaged in groups, but will attempt to show much more symptoms to this provider only when meeting with a spur, but otherwise is generally unengaged treatments. She is needing to be out of room lockout. Review Of Systems Unable to determine due to mental status. Psychotherapy None on this visit. Vital Signs Reviewed. Mental Status Examination General: Well dressed with good hygiene Speech: Slow Thought processes: Linear and logical MSK: Smooth and coordinated gait, no signs of tremors or involuntary orofacial movements Thought content: Unknown Abstract reasoning, and computation: Intact Description of associations: Intact Description of abnormal or psychotic thoughts: Denies any suicidal or homicidal ideation. Denies any auditory or visual hallucinations. Does not appear to be responding to internal stimuli. Does not appear to be endorsing any bizarre or paranoid ideation. Judgment: Limited Insight: Limited Orientation: Alert and orientated 3 Cognition: Grossly normal Recent and remote memory: Intact Attention span and concentration: Intact Fund of knowledge: Adequate Mood: "I am evil." Affect: Flat and then some tearfulness present. Diagnoses Unspecified depressive disorder. Adjustment versus MDD. Dependent personality disorder. Assessment and Plan Unspecified depressive disorder: We will continue Effexor to 25 mg daily, unclear if psychotic depression, however, could do with an adjuncted neuroleptic will need to observe further reports, benefit could be accurately determined Dependent personality disorder: Monitor for behavior problems. Disposition Referral to [facility] in progress for long-term care. Time Spent 15 minutes. Vital Signs Vital Signs Date Time Temp Pulse Resp B/P (MAP) Pulse Ox O2 Delivery O2 Flow Rate FiO2 12/16/19 06:22 99.0 73 16 146/68 (94) 96 Room Air Current Medications Current Medications Medications (Trade) Dose Ordered Sig/Joceline Route PRN Reason Start Time Stop Time Status Last Admin Dose Admin Acetaminophen (Tylenol Arthritis Er) 1,300 mg QHS PRN PO PAIN 12/11/19 12:45 12/11/19 12:43 DC Acetaminophen (Tylenol Tab) 650 mg Q6HP PRN PO HEADACHE or DISCOMFORT 12/08/19 20:00 UNV Al Hydrox/Mg Hydrox/Simethicone (Mylanta) 30 ml Q4HP PRN PO HEARTBURN/INDIGESTION 12/08/19 20:00 UNV Al Hydrox/Mg Hydrox/Simethicone (Mylanta) 30 ml Q4HP PRN PO HEARTBURN/INDIGESTION 12/09/19 13:00 Aspirin (Aspirin) 325 mg DAILY PO 12/10/19 09:00 12/15/19 09:04 Brinzolamide (Azopt) 1 drop BID OU 12/09/19 21:00 12/15/19 20:26 Calcium/Vitamin D (Oscal D) 500 mg BID PO 12/11/19 21:00 12/15/19 20:26 Home Med (Med Rec Complete!) ASDIRECTED XX 12/08/19 21:00 UNV Ibuprofen (Advil) 600 mg Q6HP PRN PO MODERATE PAIN (PS 5-7) 12/11/19 05:12 12/12/19 08:30 Latanoprost (Xalatan 0.005% Op Soln) 1 drop QHS OU 12/09/19 21:00 12/15/19 20:26 Magnesium Hydroxide (Milk Of Magnesia) 30 ml DAILYPRN PRN PO CONSTIPATION 12/08/19 20:00 UNV Magnesium Hydroxide (Milk Of Magnesia) 30 ml DAILYPRN PRN PO CONSTIPATION 12/09/19 13:00 Modafinil (Provigil) 50 mg QAM PO 12/10/19 09:00 12/15/19 09:03 Multivitamins (Theragram-M) 1 tab DAILY PO 12/11/19 09:00 12/15/19 09:04 Pravastatin Sodium (Pravachol) 20 mg DAILY PO 12/12/19 09:00 12/15/19 09:04 Pravastatin Sodium (Pravachol) 20 mg QHS PO 12/11/19 21:00 12/11/19 12:43 DC Primidone (Mysoline) 100 mg QHS PO 12/09/19 21:00 12/15/19 20:26 Trazodone HCl (Desyrel) 50 mg QHSP PRN PO INSOMNIA 12/08/19 20:00 UNV Trazodone HCl (Desyrel) 50 mg QHSP PRN PO INSOMNIA 12/09/19 13:00 12/15/19 20:26 Venlafaxine HCl (Effexor Xr) 150 mg DAILY PO 12/10/19 09:00 12/12/19 17:12 DC 12/12/19 08:15 Venlafaxine HCl (Effexor Xr) 225 mg DAILY PO 12/13/19 09:00 12/15/19 09:04 Allergies Coded Allergies: Cephalosporins (Verified Allergy, Unknown, 08/29/19) Penicillins (Verified Allergy, Unknown, UNKNOWN REACTION, 08/30/19) ceftriaxone (Verified Adverse Reaction, Unknown, INCREASED HR, 08/30/19) meperidine (Verified Adverse Reaction, Unknown, AMS, 08/30/19) NANCY MARROQUIN DO Dec 16, 2019 09:48
[2019-12-16] MEDS: IBUPROFEN 600 MG TAB PO PRN (15:08)
[2019-12-16 18:54] VITALS: BP 135/77
[2019-12-16] MEDS: LATANOPROST 0.005% OPHTH SOLN 2.5 ML OU SCH (21:47)
[2019-12-16] MEDS: PRIMIDONE 50 MG TAB PO SCH (21:47)
[2019-12-17 06:59] VITALS: BP 139/76
[2019-12-17] MEDS: PILL CUTTER 1 EACH XX PRN (09:21)
[2019-12-17] MEDS: MODAFINIL 100 MG TABLET PO SCH (09:21)
[2019-12-17] MEDS: PRAVASTATIN 20 MG TAB PO SCH (09:25)
[2019-12-17] MEDS: CALCIUM/VITAMIN D 500 MG TAB PO SCH ×2 (09:25→20:44)
[2019-12-17] MEDS: MULTIVITAMINS/MINERALS THERAP 1 TAB PO SCH (09:25)
[2019-12-17] MEDS: BRINZOLAMIDE 1 % OPHTH SUSP (AZOPT) 10ML OU SCH ×2 (09:25→20:24)
[2019-12-17] MEDS: ASPIRIN 325 MG TAB PO SCH (09:25)
--- NOTE | 2019-12-17 09:25 | MHIPNPDOC ---
[facility] Progress Note Progress Note Inpatient Progress Note Anna Best MRN: N/A Date of : N/A Date of Service: 12/17/2019 History of Present Illness The patient, a 79-year-old woman with multiple inpatient admission presents to the floor after being assessed by this provider after she had overdosed on Tylenol and a suicide attempt. The patient generally did not engage in intervene on the floor and generally returned to a state of staring off into the distance. The patient was met with today where she generally did not engage in any meaningful interview, simply focusing on trying to get to a halfway, it appears her family is entirely focused on having us hold her until she is placed in halfway or assisted living. She had reportedly tried to engage in having a true assess on the medical floor; however, when she arrived here she was completely ambulatory with no problems. The patient does not describe any changes in her depression, is unable to describe anything more than meaningful in the conversation today. Interval History The patient is attempted to be met with today. She says little and generally stairs at the screen stating that she is "an evil person." She otherwise per staff has been interacting and engaging with others, but refuses generally to cooperate with treatment. She goes to groups and otherwise has nothing else to say. Review Of Systems Unable to determine due to mental status. Psychotherapy None on this visit. Vital Signs Reviewed. Mental Status Examination General: Well dressed with good hygiene Speech: Slow Thought processes: Linear and logical MSK: Smooth and coordinated gait, no signs of tremors or involuntary orofacial movements Thought content: Unknown Abstract reasoning, and computation: Intact Description of associations: Intact Description of abnormal or psychotic thoughts: Denies any suicidal or homicidal ideation. Denies any auditory or visual hallucinations. Does not appear to be responding to internal stimuli. Does not appear to be endorsing any bizarre or paranoid ideation. Judgment: Limited Insight: Limited Orientation: Alert and orientated 3 Cognition: Grossly normal Recent and remote memory: Intact Attention span and concentration: Intact Fund of knowledge: Adequate Mood: "I am evil." Affect: Flat and then some tearfulness present. Diagnoses Unspecified depressive disorder. Adjustment versus MDD. Dependent personality disorder. Assessment and Plan Unspecified depressive disorder: Continue Effexor 225 mg daily, we'll add A bilify 2 mg nightly for augmentation. 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 Disposition Referral to [facility] in progress for long-term care. Time Spent 15 minutes. Friday Vital Signs Vital Signs Date Time Temp Pulse Resp B/P (MAP) Pulse Ox O2 Delivery O2 Flow Rate FiO2 12/17/19 06:59 98.6 65 14 139/76 (97) 96 Room Air Current Medications Current Medications Medications (Trade) Dose Ordered Sig/Joceline Route PRN Reason Start Time Stop Time Status Last Admin Dose Admin Acetaminophen (Tylenol Arthritis Er) 1,300 mg QHS PRN PO PAIN 12/11/19 12:45 12/11/19 12:43 DC Acetaminophen (Tylenol Tab) 650 mg Q6HP PRN PO HEADACHE or DISCOMFORT 12/08/19 20:00 UNV Al Hydrox/Mg Hydrox/Simethicone (Mylanta) 30 ml Q4HP PRN PO HEARTBURN/INDIGESTION 12/08/19 20:00 UNV Al Hydrox/Mg Hydrox/Simethicone (Mylanta) 30 ml Q4HP PRN PO HEARTBURN/INDIGESTION 12/09/19 13:00 Aspirin (Aspirin) 325 mg DAILY PO 12/10/19 09:00 12/15/19 09:04 Brinzolamide (Azopt) 1 drop BID OU 12/09/19 21:00 12/16/19 21:47 Calcium/Vitamin D (Oscal D) 500 mg BID PO 12/11/19 21:00 12/16/19 21:47 Home Med (Med Rec Complete!) ASDIRECTED XX 12/08/19 21:00 UNV Ibuprofen (Advil) 600 mg Q6HP PRN PO MODERATE PAIN (PS 5-7) 12/11/19 05:12 12/16/19 15:08 Latanoprost (Xalatan 0.005% Op Soln) 1 drop QHS OU 12/09/19 21:00 12/16/19 21:47 Magnesium Hydroxide (Milk Of Magnesia) 30 ml DAILYPRN PRN PO CONSTIPATION 12/08/19 20:00 UNV Magnesium Hydroxide (Milk Of Magnesia) 30 ml DAILYPRN PRN PO CONSTIPATION 12/09/19 13:00 Miscellaneous (Unresolved Clarification Entry) SEE LABEL COMMENTS DAILY XX 12/16/19 09:00 12/16/19 14:06 DC Modafinil (Provigil) 50 mg QAM PO 12/10/19 09:00 12/15/19 09:03 Multivitamins (Theragram-M) 1 tab DAILY PO 12/11/19 09:00 12/15/19 09:04 Pravastatin Sodium (Pravachol) 20 mg DAILY PO 12/12/19 09:00 12/15/19 09:04 Pravastatin Sodium (Pravachol) 20 mg QHS PO 12/11/19 21:00 12/11/19 12:43 DC Primidone (Mysoline) 100 mg QHS PO 12/09/19 21:00 12/16/19 21:47 Trazodone HCl (Desyrel) 50 mg QHSP PRN PO INSOMNIA 12/08/19 20:00 UNV Trazodone HCl (Desyrel) 50 mg QHSP PRN PO INSOMNIA 12/09/19 13:00 12/15/19 20:26 Venlafaxine HCl (Effexor Xr) 150 mg DAILY PO 12/10/19 09:00 12/12/19 17:12 DC 12/12/19 08:15 Venlafaxine HCl (Effexor Xr) 225 mg DAILY PO 12/13/19 09:00 12/15/19 09:04 Allergies Coded Allergies: Cephalosporins (Verified Allergy, Unknown, 08/29/19) Penicillins (Verified Allergy, Unknown, UNKNOWN REACTION, 08/30/19) ceftriaxone (Verified Adverse Reaction, Unknown, INCREASED HR, 08/30/19) meperidine (Verified Adverse Reaction, Unknown, AMS, 08/30/19) NANCY MARROQUIN DO December 17, 2019 09:25
[2019-12-17] MEDS: VENLAFAXINE **XR** 75MG CAPSULE PO SCH (09:26)
[2019-12-17 16:49] VITALS: BP 122/60
[2019-12-17] MEDS: LATANOPROST 0.005% OPHTH SOLN 2.5 ML OU SCH (20:44)
[2019-12-17] MEDS: PRIMIDONE 50 MG TAB PO SCH (20:45)
[2019-12-17] MEDS: ARIPiprazole 2 MG TAB PO SCH (20:45)
[2019-12-17] MEDS: traZODone 50 MG TAB PO PRN (20:45)
[2019-12-18 06:20] VITALS: BP 139/64
[2019-12-18] MEDS: PILL CUTTER 1 EACH XX PRN (09:40)
[2019-12-18] MEDS: VENLAFAXINE **XR** 75MG CAPSULE PO SCH (09:42)
[2019-12-18] MEDS: BRINZOLAMIDE 1 % OPHTH SUSP (AZOPT) 10ML OU SCH ×2 (09:42→21:45)
[2019-12-18] MEDS: ASPIRIN 325 MG TAB PO SCH (09:42)
[2019-12-18] MEDS: MODAFINIL 100 MG TABLET PO SCH (09:43)
[2019-12-18] MEDS: CALCIUM/VITAMIN D 500 MG TAB PO SCH ×2 (09:44→21:45)
[2019-12-18] MEDS: MULTIVITAMINS/MINERALS THERAP 1 TAB PO SCH (09:44)
[2019-12-18] MEDS: PRAVASTATIN 20 MG TAB PO SCH (09:44)
[2019-12-18 16:34] VITALS: BP 136/69
[2019-12-18] MEDS: PRIMIDONE 50 MG TAB PO SCH (21:45)
[2019-12-18] MEDS: ARIPiprazole 2 MG TAB PO SCH (21:45)
[2019-12-18] MEDS: LATANOPROST 0.005% OPHTH SOLN 2.5 ML OU SCH (21:48)
[2019-12-18] MEDS: traZODone 50 MG TAB PO PRN (21:48)
[2019-12-19 06:02] VITALS: BP 135/70
[2019-12-19] MEDS: ASPIRIN 325 MG TAB PO SCH (09:15)
[2019-12-19] MEDS: MODAFINIL 100 MG TABLET PO SCH (09:15)
[2019-12-19] MEDS: PILL CUTTER 1 EACH XX PRN (09:16)
[2019-12-19] MEDS: BRINZOLAMIDE 1 % OPHTH SUSP (AZOPT) 10ML OU SCH ×2 (09:16→20:26)
[2019-12-19] MEDS: MULTIVITAMINS/MINERALS THERAP 1 TAB PO SCH (09:17)
[2019-12-19] MEDS: VENLAFAXINE **XR** 75MG CAPSULE PO SCH (09:17)
[2019-12-19] MEDS: PRAVASTATIN 20 MG TAB PO SCH (09:17)
[2019-12-19] MEDS: CALCIUM/VITAMIN D 500 MG TAB PO SCH ×2 (09:17→20:26)
[2019-12-19 16:28] VITALS: BP 130/60
[2019-12-19] MEDS: ARIPiprazole 2 MG TAB PO SCH (20:26)
[2019-12-19] MEDS: PRIMIDONE 50 MG TAB PO SCH (20:26)
[2019-12-19] MEDS: LATANOPROST 0.005% OPHTH SOLN 2.5 ML OU SCH (20:26)
[2019-12-20 06:28] VITALS: BP 112/64
[2019-12-20] MEDS: CALCIUM/VITAMIN D 500 MG TAB PO SCH ×2 (08:53→22:00)
[2019-12-20] MEDS: MODAFINIL 100 MG TABLET PO SCH (08:53)
[2019-12-20] MEDS: MULTIVITAMINS/MINERALS THERAP 1 TAB PO SCH (08:53)
[2019-12-20] MEDS: VENLAFAXINE **XR** 75MG CAPSULE PO SCH (08:53)
[2019-12-20] MEDS: ASPIRIN 325 MG TAB PO SCH (08:53)
[2019-12-20] MEDS: PRAVASTATIN 20 MG TAB PO SCH (08:53)
[2019-12-20] MEDS: BRINZOLAMIDE 1 % OPHTH SUSP (AZOPT) 10ML OU SCH ×2 (08:55→22:01)
--- NOTE | 2019-12-20 09:15 | MHIPNPDOC ---
[facility] Progress Note Progress Note Inpatient Progress Note Anna Best MRN: N/A Date of : N/A Date of Service: 12/20/2019 History of Present Illness The patient, a 79-year-old woman with multiple inpatient admission presents to the floor after being assessed by this provider after she had overdosed on Tylenol and a suicide attempt. The patient generally did not engage in intervene on the floor and generally returned to a state of staring off into the distance. The patient was met with today where she generally did not engage in any meaningful interview, simply focusing on trying to get to a halfway, it appears her family is entirely focused on having us hold her until she is placed in halfway or assisted living. She had reportedly tried to engage in having a true assess on the medical floor; however, when she arrived here she was completely ambulatory with no problems. The patient does not describe any changes in her depression, is unable to describe anything more than meaningful in the conversation today. Interval History The patient is met with today. However, she continues to sit and cry stating "I am bad person." However, this is much the contrast that staff has reported where she generally is amenable in the therapeutic milieu and generally engages in groups. The patient does require a room lockout in order to engage and not sleep the majority of the day. She generally sits and engages very little in the interview, subsequently just staring at a screen. Review Of Systems Unable to determine due to mental status . Psychotherapy None on this visit. Vital Signs Reviewed. Mental Status Examination General: Well dressed with good hygiene Speech: Slow Thought processes: Linear and logical MSK: Smooth and coordinated gait, no signs of tremors or involuntary orofacial movements Thought content: Unknown Abstract reasoning, and computation: Intact Description of associations: Intact Description of abnormal or psychotic thoughts: Denies any suicidal or homicidal ideation. Denies any auditory or visual hallucinations. Does not appear to be responding to internal stimuli. Does not appear to be endorsing any bizarre or paranoid ideation. Judgment: Limited Insight: Limited Orientation: Alert and orientated 3 Cognition: Grossly normal Recent and remote memory: Intact Attention span and concentration: Intact Fund of knowledge: Adequate Mood: "I am evil." Affect: Flat and then some tearfulness present. 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 Assessment and Plan MDD with psychotic features. 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 Disposition We will continue to monitor patient and adjust appropriately. She will be referred for long-term treatment as she is wholly unable to take care of herself. Time Spent 15 minutes. Friday Vital Signs Vital Signs Date Time Temp Pulse Resp B/P (MAP) Pulse Ox O2 Delivery O2 Flow Rate FiO2 12/20/19 06:28 98.1 73 12 112/64 (80) 97 Room Air Current Medications Current Medications Medications (Trade) Dose Ordered Sig/Joceline Route PRN Reason Start Time Stop Time Status Last Admin Dose Admin Acetaminophen (Tylenol Arthritis Er) 1,300 mg QHS PRN PO PAIN 12/11/19 12:45 12/11/19 12:43 DC Acetaminophen (Tylenol Tab) 650 mg Q6HP PRN PO HEADACHE or DISCOMFORT 12/08/19 20:00 UNV Al Hydrox/Mg Hydrox/Simethicone (Mylanta) 30 ml Q4HP PRN PO HEARTBURN/INDIGESTION 12/08/19 20:00 UNV Al Hydrox/Mg Hydrox/Simethicone (Mylanta) 30 ml Q4HP PRN PO HEARTBURN/INDIGESTION 12/09/19 13:00 Aripiprazole (AbiLIFY) 2 mg QHS PO 12/17/19 21:00 12/19/19 20:26 Aspirin (Aspirin) 325 mg DAILY PO 12/10/19 09:00 12/20/19 08:53 Brinzolamide (Azopt) 1 drop BID OU 12/09/19 21:00 12/20/19 08:55 Calcium/Vitamin D (Oscal D) 500 mg BID PO 12/11/19 21:00 12/20/19 08:53 Home Med (Med Rec Complete!) ASDIRECTED XX 12/08/19 21:00 UNV Ibuprofen (Advil) 600 mg Q6HP PRN PO MODERATE PAIN (PS 5-7) 12/11/19 05:12 12/16/19 15:08 Latanoprost (Xalatan 0.005% Op Soln) 1 drop QHS OU 12/09/19 21:00 12/19/19 20:26 Magnesium Hydroxide (Milk Of Magnesia) 30 ml DAILYPRN PRN PO CONSTIPATION 12/08/19 20:00 UNV Magnesium Hydroxide (Milk Of Magnesia) 30 ml DAILYPRN PRN PO CONSTIPATION 12/09/19 13:00 Miscellaneous (Unresolved Clarification Entry) SEE LABEL COMMENTS DAILY XX 12/16/19 09:00 12/16/19 14:06 DC Modafinil (Provigil) 50 mg QAM PO 12/10/19 09:00 12/20/19 08:53 Multivitamins (Theragram-M) 1 tab DAILY PO 12/11/19 09:00 12/20/19 08:53 Pravastatin Sodium (Pravachol) 20 mg DAILY PO 12/12/19 09:00 12/20/19 08:53 Pravastatin Sodium (Pravachol) 20 mg QHS PO 12/11/19 21:00 12/11/19 12:43 DC Primidone (Mysoline) 100 mg QHS PO 12/09/19 21:00 12/19/19 20:26 Trazodone HCl (Desyrel) 50 mg QHSP PRN PO INSOMNIA 12/08/19 20:00 UNV Trazodone HCl (Desyrel) 50 mg QHSP PRN PO INSOMNIA 12/09/19 13:00 12/18/19 21:48 Venlafaxine HCl (Effexor Xr) 150 mg DAILY PO 12/10/19 09:00 12/12/19 17:12 DC 12/12/19 08:15 Venlafaxine HCl (Effexor Xr) 225 mg DAILY PO 12/13/19 09:00 12/20/19 08:53 Allergies Coded Allergies: Cephalosporins (Verified Allergy, Unknown, 08/29/19) Penicillins (Verified Allergy, Unknown, UNKNOWN REACTION, 08/30/19) ceftriaxone (Verified Adverse Reaction, Unknown, INCREASED HR, 08/30/19) meperidine (Verified Adverse Reaction, Unknown, AMS, 08/30/19) NANCY MARROQUIN DO December 20, 2019 09:15
[2019-12-20 15:40] VITALS: BP 176/86
[2019-12-20] MEDS: PRIMIDONE 50 MG TAB PO SCH (22:00)
[2019-12-20] MEDS: LATANOPROST 0.005% OPHTH SOLN 2.5 ML OU SCH (22:01)
[2019-12-20] MEDS: ARIPiprazole 2 MG TAB PO SCH (22:01)
[2019-12-21 06:33] VITALS: BP 162/72
[2019-12-21] MEDS: MODAFINIL 100 MG TABLET PO SCH (09:00)
[2019-12-21] MEDS: ASPIRIN 325 MG TAB PO SCH (09:16)
[2019-12-21] MEDS: VENLAFAXINE **XR** 75MG CAPSULE PO SCH (09:16)
[2019-12-21] MEDS: MULTIVITAMINS/MINERALS THERAP 1 TAB PO SCH (09:17)
[2019-12-21] MEDS: PRAVASTATIN 20 MG TAB PO SCH (09:17)
[2019-12-21] MEDS: CALCIUM/VITAMIN D 500 MG TAB PO SCH ×2 (09:18→21:43)
[2019-12-21] MEDS: BRINZOLAMIDE 1 % OPHTH SUSP (AZOPT) 10ML OU SCH ×2 (09:19→21:32)
[2019-12-21 09:23] VITALS: BP 118/62
--- NOTE | 2019-12-21 09:46 | MHIPNPDOC ---
[facility] Progress Note Progress Note Inpatient Progress Note Anna Best MRN: N/A Date of : N/A Date of Service: 12/21/2019 History of Present Illness The patient, a 79-year-old woman with multiple inpatient admission presents to the floor after being assessed by this provider after she had overdosed on Tylenol and a suicide attempt. The patient generally did not engage in intervene on the floor and generally returned to a state of staring off into the distance. The patient was met with today where she generally did not engage in any meaningful interview, simply focusing on trying to get to a fpc, it appears her family is entirely focused on having us hold her until she is placed in fpc or assisted living. She had reportedly tried to engage in having a true assess on the medical floor; however, when she arrived here she was completely ambulatory with no problems. The patient does not describe any changes in her depression, is unable to describe anything more than meaningful in the conversation today. Interval History The patient is attempt to met with today. However, she refuses to meet with this provider as she is quite upset that she has a room lockout. She continues to generally stay in her room, splitting with staff and generally trying to avoid having to gauge any meaningful treatment. Review Of Systems Unable to obtain, patient refuses. Psychotherapy None on this visit. Vital Signs Reviewed. Mental Status Examination Patient refuses to me with this provider. 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 Assessment and Plan MDD with psychotic features: Continue Effexor to 25 mg as well as Abilify 2 mg for augmentation. 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 Disposition We will continue to monitor patient and adjust appropriately. She will be referr ed for long-term treatment as she is wholly unable to take care of herself. Time Spent 15 minutes. Friday Vital Signs Vital Signs Date Time Temp Pulse Resp B/P (MAP) Pulse Ox O2 Delivery O2 Flow Rate FiO2 12/21/19 09:23 87 118/62 (80) 12/21/19 06:33 98.0 12 99 Room Air Current Medications Current Medications Medications (Trade) Dose Ordered Sig/Joceline Route PRN Reason Start Time Stop Time Status Last Admin Dose Admin Acetaminophen (Tylenol Arthritis Er) 1,300 mg QHS PRN PO PAIN 12/11/19 12:45 12/11/19 12:43 DC Acetaminophen (Tylenol Tab) 650 mg Q6HP PRN PO HEADACHE or DISCOMFORT 12/08/19 20:00 UNV Al Hydrox/Mg Hydrox/Simethicone (Mylanta) 30 ml Q4HP PRN PO HEARTBURN/INDIGESTION 12/08/19 20:00 UNV Al Hydrox/Mg Hydrox/Simethicone (Mylanta) 30 ml Q4HP PRN PO HEARTBURN/INDIGESTION 12/09/19 13:00 Aripiprazole (AbiLIFY) 2 mg QHS PO 12/17/19 21:00 12/20/19 22:01 Aspirin (Aspirin) 325 mg DAILY PO 12/10/19 09:00 12/21/19 09:16 Brinzolamide (Azopt) 1 drop BID OU 12/09/19 21:00 12/21/19 09:19 Calcium/Vitamin D (Oscal D) 500 mg BID PO 12/11/19 21:00 12/21/19 09:18 Home Med (Med Rec Complete!) ASDIRECTED XX 12/08/19 21:00 UNV Ibuprofen (Advil) 600 mg Q6HP PRN PO MODERATE PAIN (PS 5-7) 12/11/19 05:12 12/16/19 15:08 Latanoprost (Xalatan 0.005% Op Soln) 1 drop QHS OU 12/09/19 21:00 12/20/19 22:01 Magnesium Hydroxide (Milk Of Magnesia) 30 ml DAILYPRN PRN PO CONSTIPATION 12/08/19 20:00 UNV Magnesium Hydroxide (Milk Of Magnesia) 30 ml DAILYPRN PRN PO CONSTIPATION 12/09/19 13:00 Miscellaneous (Unresolved Clarification Entry) SEE LABEL COMMENTS DAILY XX 12/16/19 09:00 12/16/19 14:06 DC Modafinil (Provigil) 50 mg QAM PO 12/10/19 09:00 12/20/19 08:53 Multivitamins (Theragram-M) 1 tab DAILY PO 12/11/19 09:00 12/21/19 09:17 Pravastatin Sodium (Pravachol) 20 mg DAILY PO 12/12/19 09:00 12/21/19 09:17 Pravastatin Sodium (Pravachol) 20 mg QHS PO 12/11/19 21:00 12/11/19 12:43 DC Primidone (Mysoline) 100 mg QHS PO 12/09/19 21:00 12/20/19 22:00 Trazodone HCl (Desyrel) 50 mg QHSP PRN PO INSOMNIA 12/08/19 20:00 UNV Trazodone HCl (Desyrel) 50 mg QHSP PRN PO INSOMNIA 12/09/19 13:00 12/18/19 21:48 Venlafaxine HCl (Effexor Xr) 150 mg DAILY PO 12/10/19 09:00 12/12/19 17:12 DC 12/12/19 08:15 Venlafaxine HCl (Effexor Xr) 225 mg DAILY PO 12/13/19 09:00 12/21/19 09:16 Allergies Coded Allergies: Cephalosporins (Verified Allergy, Unknown, 08/29/19) Penicillins (Verified Allergy, Unknown, UNKNOWN REACTION, 08/30/19) ceftriaxone (Verified Adverse Reaction, Unknown, INCREASED HR, 08/30/19) meperidine (Verified Adverse Reaction, Unknown, AMS, 08/30/19) NANCY MARROQUIN DO December 21, 2019 09:46
[2019-12-21] MEDS: IBUPROFEN 600 MG TAB PO PRN (15:06)
[2019-12-21 15:34] VITALS: BP 130/63
[2019-12-21 16:04] VITALS: BP 142/77
[2019-12-21 16:05] VITALS: BP 140/81
[2019-12-21 16:06] VITALS: BP 128/62
--- NOTE | 2019-12-21 16:06 | CR.PDOC ---
General Date of Consultation: December 21, 2019 Consultation REASON FOR CONSULTATION/CHIEF COMPLAINT: Contacted by inpatient mental health unit after patient was noted to be complaining of lightheadedness, dizziness and weakness HISTORY OF PRESENT ILLNESS: Patient is a 79-year-old female with PMHx Severe depression, Hx of suicidal ideation (drug overdose), Psychosis, Tremors, DLP, Glaucoma, who was admitted to [facility] after she attempted to commit suicide by overdosing on acetaminophen. Patient was medically cleared and transition to inpatient mental health unit for her severe depression and suicidal ideation. Hospitalist services consult again on 12/21/2019 because patient has been experiencing lightheadedness, weakness and dizziness. When asked, describe dizziness, patient was unsure, but nurse had reported that she has been describing lightheadedness. Patient denies any chest pain, shortness of breath, palpitations or any change in her baseline cough. She denies any abdominal pain, nausea, vomiting, urinary discomfort. She does report constipation and her last bowel movement was 2 days ago. There have been no document fevers since hospitalization on 10/14. Patient does report a poor appetite. ALLERGIES: Please see below. HOME MEDICATIONS: Please see below. PAST MEDICAL HISTORY: Severe depression, Hx of suicidal ideation (drug overdose), Psychosis, Tremors, DLP, Glaucoma PAST SURGICAL HISTORY: Appendectomy, Cholecystectomy, Tonsillectomy FAMILY HISTORY: - Family history was reviewed and is currently noncontributory to the current hospitalization SOCIAL HISTORY: - Denies the use of illicit drugs; patient does report social alcohol use; patient was that she used to smoke several years ago - Denies recent travel or sick contacts REVIEW OF SYSTEMS: 10 point review of systems complete, all negative otherwise stated in HPI PHYSICAL EXAMINATION: - Vitals: BP 130/63, HR 74, RR 16, Sat 99%RA, Temp 98.7F - General: Lying in bed, Speaking in full sentences, AAOx3 - HEENT: NC, AT, PERRLA - CVS: RRR, +S1S2 - Lungs: Fair air entry bilaterally, No appreciable wheezing / rales / rhonchi - Abdomen: Soft, Non-distended, Non-tender - Extremities: No lower extremity edema, No calf tenderness - Neuro: 5/5 strength at upper / lower extremities bilaterally, no sensory deficits noted - Skin: No visible rashes LABORATORY DATA: Please see below. ASSESSMENT/PLAN: Weakness / Light-headedness / Dizziness - possibly 2/2 medications, possibly 2/2 orthostatic hypotension - Patient appears to be comfortable lying in bed - Initial blood pressure is 130/63, without any evidence of tachycardia, HR 74 - Will check orthostatic vital signs - Will check pulmonary blood work with CBC, CMP, Mg - Patient is on several medications that can induce orthostatic hypotension; Aripiprazole, Trazadone, Venlafaxine - Will evaluate for orthostatic hypotension and adjust medications if posiitve Constipation - c/w Bowel regimen as ordered Severe depression / Hx of suicidal ideation (drug overdose) / Psychosis - Currently being managed by psychiatry Tremors - c/w Primidone DLP - c/w Pravastatin Glaucoma - c/w Latanoprost drops DVT prophylaxis - c/w early ambulation 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 was present throughout the duration of this history and physical examination We appreciate the consultation; Please re-consult as needed Vital Signs/I&O Vital Signs Date Time Temp Pulse Resp B/P (MAP) Pulse Ox O2 Delivery O2 Flow Rate FiO2 12/21/19 15:34 98.7 74 16 130/63 (85) 12/21/19 06:33 99 Room Air Laboratory Data Labs 24H Laboratory Tests 2 12/21/19 15:42: CBC/BMP Allergies Coded Allergies: Cephalosporins (Verified Allergy, Unknown, 08/29/19) Penicillins (Verified Allergy, Unknown, UNKNOWN REACTION, 08/30/19) ceftriaxone (Verified Adverse Reaction, Unknown, INCREASED HR, 08/30/19) meperidine (Verified Adverse Reaction, Unknown, AMS, 08/30/19) Home Medications Scheduled Aspirin (Aspirin) 325 Mg Tablet, 325 MG PO DAILY, (Reported) Brinzolamide (Azopt) 1% 10ML Drops.susp, 1 DROP OU BID, (Reported) Calcium Carbonate/Vitamin D3 (Calcium 500-Vit D3 400 Tablet) 1 Each Tablet, 1 TAB PO BID, (Reported) Gluc Mcfarlane/Chondro Mcfarlane A/Vit C/Mn (Glucosamine Chondroitin Tab) 1 Each Tablet, 1 TAB PO BID, (Reported) Latanoprost/Pf (Latanoprost 0.005% Eye Drop) 7.5 Ml Drops, 1 DROP OU QHS, (Reported) Multivitamins (Thera M Plus Tablet) 1 Each Tablet, 1 TAB PO DAILY, (Reported) Pravastatin Sodium (Pravastatin Sodium) 20 Mg Tab, 20 MG PO QHS, (Reported) Primidone (Primidone) 50 Mg Tab, 100 MG QHS, (Reported) Venlafaxine HCl (Venlafaxine HCl ER) 75 Mg Cap.er.24h, 150 MG PO DAILY, (Reported) Scheduled PRN Acetaminophen (Tylenol Arthritis) 650 Mg Tablet.er, 1,300 MG PO QHS PRN for PAIN, (Reported) Docusate Sodium (Stool Softener) 100 Mg Capsule, 100 MG PO BID PRN for CONSTIPATION, (Reported) Sennosides (Senokot) 8.6 Mg Tablet, 8.6 MG PO DAILY PRN for CONSTIPATION, (Reported) SERENITY MASON MD December 21, 2019 16:06
[2019-12-21 16:09] LABS: BASO # 0.1 10^3/uL (0.0-0.2); EOS # 0.2 10^3/uL (0.0-0.5); HEMATOCRIT 41.4 % (36.0-47.0); HEMOGLOBIN 13.8 g/dl (12.0-15.5); LYMPH # 2.3 10^3/uL (1.5-5.0); LYMPH % 25.8 % (24.0-44.0); MEAN CORPUSCULAR HEMOGLOBIN 31.5 pg (27.0-33.0); MEAN CORPUSCULAR HGB CONC 33.3 g/dl (32.0-36.5); MEAN CORPUSCULAR VOLUME 94.5 fl (80.0-96.0); MONO # 0.6 10^3/uL (0.0-0.8); MONO % 6.3 % (0.0-5.0); NEUTROPHILS # 5.7 10^3/uL (1.5-8.5); NEUTROPHILS % 64.6 % (36.0-66.0); PLATELET COUNT, AUTOMATED 294 10^3/uL (150-450); RED BLOOD COUNT 4.38 10^6/uL (4.00-5.40); WHITE BLOOD COUNT 8.8 10^3/uL (4.0-10.0)
[2019-12-21 16:37] LABS: ALBUMIN 3.3 GM/DL (3.2-5.2); ALT/SGPT 34 U/L (12-78); BILIRUBIN,TOTAL 0.3 MG/DL (0.2-1.0); BLOOD UREA NITROGEN 18 MG/DL (7-18); CALCIUM LEVEL 9.3 MG/DL (8.8-10.2); CARBON DIOXIDE LEVEL 29 MEQ/L (21-32); CHLORIDE LEVEL 101 MEQ/L (98-107); CREATININE FOR GFR 0.74 MG/DL (0.55-1.30); GLOMERULAR FILTRATION RATE > 60.0 (>39); GLUCOSE, FASTING 108 MG/DL (70-100); POTASSIUM SERUM 4.1 MEQ/L (3.5-5.1); SODIUM LEVEL 136 MEQ/L (136-145); TOTAL PROTEIN 5.9 GM/DL (6.4-8.2)
[2019-12-21] MEDS: LATANOPROST 0.005% OPHTH SOLN 2.5 ML OU SCH (21:32)
[2019-12-21] MEDS: PRIMIDONE 50 MG TAB PO SCH (21:32)
[2019-12-21] MEDS: ARIPiprazole 2 MG TAB PO SCH (21:35)
[2019-12-22 06:56] VITALS: BP 156/79
[2019-12-22] MEDS ORDERED: VENLAFAXINE **XR** 75MG CAPSULE PO SCH (09:00)
--- NOTE | 2019-12-22 09:16 | MHIPNPDOC ---
[facility] Progress Note Progress Note Inpatient Progress Note Anna Best MRN: N/A Date of : N/A Date of Service: 12/22/2019 History of Present Illness The patient, a 79-year-old woman with multiple inpatient admission presents to the floor after being assessed by this provider after she had overdosed on Tylenol and a suicide attempt. The patient generally did not engage in intervene on the floor and generally returned to a state of staring off into the distance. The patient was met with today where she generally did not engage in any meaningful interview, simply focusing on trying to get to a senior care, it appears her family is entirely focused on having us hold her until she is placed in senior care or assisted living. She had reportedly tried to engage in having a true assess on the medical floor; however, when she arrived here she was completely ambulatory with no problems. The patient does not describe any changes in her depression, is unable to describe anything more than meaningful in the conversation today. Interval History The patient is met with today. She continues to engage very little mainly just stating that she is "a bad person." She generally stays in her room and will not engage, the room lock up has not been enforced and she generally stays in her room without any engagement. Despite emphatic emphasization she states she will do anything that we ask her to, but refuses to engage in groups. Review Of Systems Patient reports no significant physical symptoms. Psychotherapy None on this visit. Vital Signs Reviewed. Mental Status Examination General: poor hygiene Speech: Spontaneous and fluid Thought processes: Paucity of speech. MSK: Smooth and coordinated gait, no signs of tremors or involuntary orofacial movements Thought content: Guarded Abstract reasoning, and computation: Impaired. Description of associations: Intact Description of abnormal or psychotic thoughts: Unknown. Judgment: Limited. Insight: Limited. Orientation: Alert and orientated 3 Cognition: Grossly normal Recent and remote memory: Intact Attention span and concentration: Intact Fund of knowledge: Adequate Mood: "bad" Affect: Flat. 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 Assessment and Plan MDD with psychotic features: Reduce Effexor at the request of medicine due to concerns of dizziness and orthostasis to 187.5 mg daily. Continue to augment Abilify 2 mg. We will consider alternative options as she had been tried on Zyprexa in the past, unclear if somaticizing. 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 Disposition We will continue to monitor patient and adjust appropriately. She will be referred for long-term treatment as she is wholly unable to take care of herself. Time Spent 15 minutes Friday Vital Signs Vital Signs Date Time Temp Pulse Resp B/P (MAP) Pulse Ox O2 Delivery O2 Flow Rate FiO2 12/22/19 06:56 97.5 72 14 156/79 (104) Room Air 12/21/19 06:33 99 Laboratory Data 24H Labs Laboratory Tests 2 12/21/19 15:42: Immature Granulocyte % (Auto) 0.3, Neutrophils (%) (Auto) 64.6, Lymphocytes (%) (Auto) 25.8, Monocytes (%) (Auto) 6.3H, Eosinophils (%) (Auto) 2.0, Basophils (%) (Auto) 1.0, Neutrophils # (Auto) 5.7, Lymphocytes # (Auto) 2.3, Monocytes # (Auto) 0.6, Eosinophils # (Auto) 0.2, Basophils # (Auto) 0.1, Nucleated Red Blood Cells % (auto) 0.0, Anion Gap 6L, Glomerular Filtration Rate > 60.0, Calcium Level 9.3, Magnesium Level 2.0, Total Bilirubin 0.3, Aspartate Amino Transf (AST/SGOT) 26, Alanine Aminotransferase (ALT/SGPT) 34, Alkaline Phosphatase 71, Total Protein 5.9L, Albumin 3.3, Albumin/Globulin Ratio 1.27 CBC/BMP Laboratory Tests 12/21/19 15:42 Current Medications Current Medications Medications (Trade) Dose Ordered Sig/Joceline Route PRN Reason Start Time Stop Time Status Last Admin Dose Admin Acetaminophen (Tylenol Arthritis Er) 1,300 mg QHS PRN PO PAIN 12/11/19 12:45 12/11/19 12:43 DC Acetaminophen (Tylenol Tab) 650 mg Q6HP PRN PO HEADACHE or DISCOMFORT 12/08/19 20:00 UNV Al Hydrox/Mg Hydrox/Simethicone (Mylanta) 30 ml Q4HP PRN PO HEARTBURN/INDIGESTION 12/08/19 20:00 UNV Al Hydrox/Mg Hydrox/Simethicone (Mylanta) 30 ml Q4HP PRN PO HEARTBURN/INDIGESTION 12/09/19 13:00 Aripiprazole (AbiLIFY) 2 mg QHS PO 12/17/19 21:00 12/21/19 21:35 Aspirin (Aspirin) 325 mg DAILY PO 12/10/19 09:00 12/21/19 09:16 Brinzolamide (Azopt) 1 drop BID OU 12/09/19 21:00 12/21/19 21:32 Calcium/Vitamin D (Oscal D) 500 mg BID PO 12/11/19 21:00 12/21/19 21:43 Home Med (Med Rec Complete!) ASDIRECTED XX 12/08/19 21:00 UNV Ibuprofen (Advil) 600 mg Q6HP PRN PO MODERATE PAIN (PS 5-7) 12/11/19 05:12 12/21/19 15:06 Latanoprost (Xalatan 0.005% Op Soln) 1 drop QHS OU 12/09/19 21:00 12/21/19 21:32 Magnesium Hydroxide (Milk Of Magnesia) 30 ml DAILYPRN PRN PO CONSTIPATION 12/08/19 20:00 UNV Magnesium Hydroxide (Milk Of Magnesia) 30 ml DAILYPRN PRN PO CONSTIPATION 12/09/19 13:00 Miscellaneous (Unresolved Clarification Entry) SEE LABEL COMMENTS DAILY XX 12/16/19 09:00 12/16/19 14:06 DC Modafinil (Provigil) 50 mg QAM PO 12/10/19 09:00 12/21/19 16:00 DC 12/20/19 08:53 Multivitamins (Theragram-M) 1 tab DAILY PO 12/11/19 09:00 12/21/19 09:17 Pravastatin Sodium (Pravachol) 20 mg DAILY PO 12/12/19 09:00 12/21/19 09:17 Pravastatin Sodium (Pravachol) 20 mg QHS PO 12/11/19 21:00 12/11/19 12:43 DC Primidone (Mysoline) 100 mg QHS PO 12/09/19 21:00 12/21/19 21:32 Trazodone HCl (Desyrel) 50 mg QHSP PRN PO INSOMNIA 12/08/19 20:00 UNV Trazodone HCl (Desyrel) 50 mg QHSP PRN PO INSOMNIA 12/09/19 13:00 12/21/19 16:44 DC 12/18/19 21:48 Venlafaxine HCl (Effexor Xr) 37.5 mg DAILY PO 12/22/19 09:00 Venlafaxine HCl (Effexor Xr) 150 mg DAILY PO 12/10/19 09:00 12/12/19 17:12 DC 12/12/19 08:15 Venlafaxine HCl (Effexor Xr) 150 mg DAILY PO 12/22/19 09:00 Venlafaxine HCl (Effexor Xr) 187.5 mg DAILY PO 12/22/19 09:00 UNV Venlafaxine HCl (Effexor Xr) 225 mg DAILY PO 12/13/19 09:00 12/21/19 17:19 DC 12/21/19 09:16 Allergies Coded Allergies: Cephalosporins (Verified Allergy, Unknown, 08/29/19) Penicillins (Verified Allergy, Unknown, UNKNOWN REACTION, 08/30/19) ceftriaxone (Verified Adverse Reaction, Unknown, INCREASED HR, 08/30/19) meperidine (Verified Adverse Reaction, Unknown, AMS, 08/30/19) NANCY MARROQUIN DO December 22, 2019 09:16
[2019-12-22] MEDS: VENLAFAXINE **XR** 37.5 MG CAPSULE PO SCH (09:19)
[2019-12-22] MEDS: CALCIUM/VITAMIN D 500 MG TAB PO SCH ×2 (09:19→21:04)
[2019-12-22] MEDS: MULTIVITAMINS/MINERALS THERAP 1 TAB PO SCH (09:19)
[2019-12-22] MEDS: PRAVASTATIN 20 MG TAB PO SCH (09:19)
[2019-12-22] MEDS: BRINZOLAMIDE 1 % OPHTH SUSP (AZOPT) 10ML OU SCH ×2 (09:19→20:49)
[2019-12-22] MEDS: ASPIRIN 325 MG TAB PO SCH (09:19)
[2019-12-22] MEDS: VENLAFAXINE **XR** 75MG CAPSULE PO SCH (09:19)
[2019-12-22 15:53] VITALS: BP 144/73
[2019-12-22] MEDS: PRIMIDONE 50 MG TAB PO SCH (21:04)
[2019-12-22] MEDS: ARIPiprazole 2 MG TAB PO SCH (21:04)
[2019-12-22] MEDS: LATANOPROST 0.005% OPHTH SOLN 2.5 ML OU SCH (21:05)
[2019-12-23 06:19] VITALS: BP 145/69
[2019-12-23] MEDS: ASPIRIN 325 MG TAB PO SCH (09:17)
[2019-12-23] MEDS: MULTIVITAMINS/MINERALS THERAP 1 TAB PO SCH (09:17)
[2019-12-23] MEDS: CALCIUM/VITAMIN D 500 MG TAB PO SCH ×2 (09:17→20:40)
[2019-12-23] MEDS: PRAVASTATIN 20 MG TAB PO SCH (09:18)
[2019-12-23] MEDS: VENLAFAXINE **XR** 75MG CAPSULE PO SCH (09:18)
[2019-12-23] MEDS: VENLAFAXINE **XR** 37.5 MG CAPSULE PO SCH (09:18)
[2019-12-23] MEDS: BRINZOLAMIDE 1 % OPHTH SUSP (AZOPT) 10ML OU SCH ×2 (09:18→20:40)
--- NOTE | 2019-12-23 09:35 | MHIPNPDOC ---
[facility] Progress Note Progress Note Inpatient Progress Note Anna Best MRN: N/A Date of : N/A Date of Service: 12/23/2019 History of Present Illness The patient, a 79-year-old woman with multiple inpatient admission presents to the floor after being assessed by this provider after she had overdosed on Tylenol and a suicide attempt. The patient generally did not engage in intervene on the floor and generally returned to a state of staring off into the distance. The patient was met with today where she generally did not engage in any meaningful interview, simply focusing on trying to get to a intermediate, it appears her family is entirely focused on having us hold her until she is placed in intermediate or assisted living. She had reportedly tried to engage in having a true assess on the medical floor; however, when she arrived here she was completely ambulatory with no problems. The patient does not describe any changes in her depression, is unable to describe anything more than meaningful in the conversation today. Interval History The patient was met with today. She generally does not engage in any meaningful interview despite staff reporting that she is generally engage as much differently with them as our suspicion is with her. The patient generally states that she is "bad" but refuses to answer any other questions. She generally has been staying in her room as her room lockout has not been reinforced. Review Of Systems Doesn't answer questions directly to this provider. Psychotherapy None on this visit. Vital Signs Reviewed. Mental Status Examination General: poor hygiene Speech: Spontaneous and fluid Thought processes: Paucity of speech. MSK: Smooth and coordinated gait, no signs of tremors or involuntary orofacial movements Thought content: Guarded Abstract reasoning, and computation: Impaired. Description of associations: Intact Description of abnormal or psychotic thoughts: Unknown. Judgment: Limited. Insight: Limited. Orientation: Alert and orientated 3 Cognition: Grossly normal Recent and remote memory: Intact Attention span and concentration: Intact Fund of knowledge: Adequate Mood: "I am bad." Affect: Flat. 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 Assessment and Plan MDD with psychotic features: Continue Effexor 187.5 mg daily with augmentation of Abilify. We will determine if potential need for more complex augmentation, yimi dey her reported dizziness is likely related to her somatization and needs to be taken judiciously. 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 Disposition We will continue to monitor patient and adjust appropriately. She will be referred for long-term treatment as she is wholly unable to take care of herself. Time Spent 15 minutes Vital Signs Vital Signs Date Time Temp Pulse Resp B/P (MAP) Pulse Ox O2 Delivery O2 Flow Rate FiO2 12/23/19 06:19 97.4 76 16 145/69 (94) Room Air 12/21/19 06:33 99 Current Medications Current Medications Medications (Trade) Dose Ordered Sig/Joceline Route PRN Reason Start Time Stop Time Status Last Admin Dose Admin Acetaminophen (Tylenol Arthritis Er) 1,300 mg QHS PRN PO PAIN 12/11/19 12:45 12/11/19 12:43 DC Acetaminophen (Tylenol Tab) 650 mg Q6HP PRN PO HEADACHE or DISCOMFORT 12/08/19 20:00 UNV Al Hydrox/Mg Hydrox/Simethicone (Mylanta) 30 ml Q4HP PRN PO HEARTBURN/INDIGESTION 12/08/19 20:00 UNV Al Hydrox/Mg Hydrox/Simethicone (Mylanta) 30 ml Q4HP PRN PO HEARTBURN/INDIGESTION 12/09/19 13:00 Aripiprazole (AbiLIFY) 2 mg QHS PO 12/17/19 21:00 12/22/19 21:04 Aspirin (Aspirin) 325 mg DAILY PO 12/10/19 09:00 12/23/19 09:17 Brinzolamide (Azopt) 1 drop BID OU 12/09/19 21:00 12/23/19 09:18 Calcium/Vitamin D (Oscal D) 500 mg BID PO 12/11/19 21:00 12/23/19 09:17 Home Med (Med Rec Complete!) ASDIRECTED XX 12/08/19 21:00 UNV Ibuprofen (Advil) 600 mg Q6HP PRN PO MODERATE PAIN (PS 5-7) 12/11/19 05:12 12/21/19 15:06 Latanoprost (Xalatan 0.005% Op Soln) 1 drop QHS OU 12/09/19 21:00 12/22/19 21:05 Magnesium Hydroxide (Milk Of Magnesia) 30 ml DAILYPRN PRN PO CONSTIPATION 12/08/19 20:00 UNV Magnesium Hydroxide (Milk Of Magnesia) 30 ml DAILYPRN PRN PO CONSTIPATION 12/09/19 13:00 Miscellaneous (Unresolved Clarification Entry) SEE LABEL COMMENTS DAILY XX 12/16/19 09:00 12/16/19 14:06 DC Modafinil (Provigil) 50 mg QAM PO 12/10/19 09:00 12/21/19 16:00 DC 12/20/19 08:53 Multivitamins (Theragram-M) 1 tab DAILY PO 12/11/19 09:00 12/23/19 09:17 Pravastatin Sodium (Pravachol) 20 mg DAILY PO 12/12/19 09:00 12/23/19 09:18 Pravastatin Sodium (Pravachol) 20 mg QHS PO 12/11/19 21:00 12/11/19 12:43 DC Primidone (Mysoline) 100 mg QHS PO 12/09/19 21:00 12/22/19 21:04 Trazodone HCl (Desyrel) 50 mg QHSP PRN PO INSOMNIA 12/08/19 20:00 UNV Trazodone HCl (Desyrel) 50 mg QHSP PRN PO INSOMNIA 12/09/19 13:00 12/21/19 16:44 DC 12/18/19 21:48 Venlafaxine HCl (Effexor Xr) 37.5 mg DAILY PO 12/22/19 09:00 12/23/19 09:18 Venlafaxine HCl (Effexor Xr) 150 mg DAILY PO 12/10/19 09:00 12/12/19 17:12 DC 12/12/19 08:15 Venlafaxine HCl (Effexor Xr) 150 mg DAILY PO 12/22/19 09:00 12/23/19 09:18 Venlafaxine HCl (Effexor Xr) 187.5 mg DAILY PO 12/22/19 09:00 UNV Venlafaxine HCl (Effexor Xr) 225 mg DAILY PO 12/13/19 09:00 12/21/19 17:19 DC 12/21/19 09:16 Allergies Coded Allergies: Cephalosporins (Verified Allergy, Unknown, 08/29/19) Penicillins (Verified Allergy, Unknown, UNKNOWN REACTION, 08/30/19) ceftriaxone (Verified Adverse Reaction, Unknown, INCREASED HR, 08/30/19) meperidine (Verified Adverse Reaction, Unknown, AMS, 08/30/19) NANCY MARROQUIN DO December 23, 2019 09:35
[2019-12-23] MEDS ORDERED: TUBERCULIN PPD 5 UNITS/0.1 ML ID ONE ×2 (10:00→11:00)
[2019-12-23 12:26] LABS: ALBUMIN 3.6 GM/DL (3.2-5.2); BILIRUBIN,DIRECT 0.1 MG/DL (0.0-0.2); BILIRUBIN,TOTAL 0.4 MG/DL (0.2-1.0); TOTAL PROTEIN 6.3 GM/DL (6.4-8.2)
[2019-12-23 16:08] VITALS: BP 110/80
[2019-12-23] MEDS: PRIMIDONE 50 MG TAB PO SCH (20:40)
[2019-12-23] MEDS: ARIPiprazole 2 MG TAB PO SCH (20:40)
[2019-12-23] MEDS: LATANOPROST 0.005% OPHTH SOLN 2.5 ML OU SCH (20:44)
[2019-12-24 06:11] VITALS: BP 126/59
[2019-12-24] MEDS: CALCIUM/VITAMIN D 500 MG TAB PO SCH ×2 (09:30→20:35)
[2019-12-24] MEDS: BRINZOLAMIDE 1 % OPHTH SUSP (AZOPT) 10ML OU SCH ×2 (09:30→20:34)
[2019-12-24] MEDS: MULTIVITAMINS/MINERALS THERAP 1 TAB PO SCH (09:30)
[2019-12-24] MEDS: ASPIRIN 325 MG TAB PO SCH (09:30)
[2019-12-24] MEDS: VENLAFAXINE **XR** 75MG CAPSULE PO SCH (09:30)
[2019-12-24] MEDS: VENLAFAXINE **XR** 37.5 MG CAPSULE PO SCH (09:30)
[2019-12-24] MEDS: PRAVASTATIN 20 MG TAB PO SCH (09:30)
--- NOTE | 2019-12-24 09:58 | MHIPNPDOC ---
[facility] Progress Note Progress Note Inpatient Progress Note Anna Best MRN: N/A Date of : N/A Date of Service: 12/24/2019 History of Present Illness The patient, a 79-year-old woman with multiple inpatient admission presents to the floor after being assessed by this provider after she had overdosed on Tylenol and a suicide attempt. The patient generally did not engage in intervene on the floor and generally returned to a state of staring off into the distance. The patient was met with today where she generally did not engage in any meaningful interview, simply focusing on trying to get to a custodial, it appears her family is entirely focused on having us hold her until she is placed in custodial or assisted living. She had reportedly tried to engage in having a true assess on the medical floor; however, when she arrived here she was completely ambulatory with no problems. The patient does not describe any changes in her depression, is unable to describe anything more than meaningful in the conversation today. Interval History The patient was met with today. She continues to sit in front of the provider and literally states nothing. She states "I am bad," but refuses to cooperate. However, staff noticed that she will behave normally but then subsequently behave much differently from provider or her son. She does appear to be quite selective with her behavior. She stays in her room and refuses to engage in any treatment. Review Of Systems Refuses to answer. Psychotherapy None on this visit. Vital Signs Reviewed. Mental Status Examination General: poor hygiene Speech: Spontaneous and fluid Thought processes: Paucity of speech. MSK: Smooth and coordinated gait, no signs of tremors or involuntary orofacial movements Thought content: Guarded Abstract reasoning, and computation: Impaired. Description of associations: Intact Description of abnormal or psychotic thoughts: Unknown. Judgment: Limited. Insight: Limited. Orientation: Alert and orientated 3 Cognition: Grossly normal Recent and remote memory: Intact Attention span and concentration: Intact Fund of knowledge: Adequate Mood: "I am bad." Affect: Flat. Diagnoses Unspecified depressive disorder. Dependent personality disorder. Rule out malingering versus MDD. Assessment and Plan MDD with psychotic features: Unspecified depression: Continue Effexor 87.5 mg daily with 2 mg of Abilify at nightly for augmentation. Dependent personality disorder: Concerned for malingering secondary to attention seeking. We will ascertain potential alternatives and test appropriately. Disposition Patient will need to be further monitored and triaged to an appropriate level of care. She is still going to be triaged to long-term psychiatric care. She is having difficulty staying stable and she has multiple readmissions. Time Spent 15 minutes. Friday Vital Signs Vital Signs Date Time Temp Pulse Resp B/P (MAP) Pulse Ox O2 Delivery O2 Flow Rate FiO2 12/24/19 06:11 97.5 77 14 126/59 (81) 96 Room Air Laboratory Data 24H Labs Laboratory Tests 2 12/23/19 10:36: Total Bilirubin 0.4, Direct Bilirubin 0.1, Aspartate Amino Transf (AST/SGOT) 14, Alanine Aminotransferase (ALT/SGPT) 38, Alkaline Phosphatase 83, Total Protein 6.3L, Albumin 3.6, Albumin/Globulin Ratio 1.33 Current Medications Current Medications Medications (Trade) Dose Ordered Sig/Joceline Route PRN Reason Start Time Stop Time Status Last Admin Dose Admin Acetaminophen (Tylenol Arthritis Er) 1,300 mg QHS PRN PO PAIN 12/11/19 12:45 12/11/19 12:43 DC Acetaminophen (Tylenol Tab) 650 mg Q6HP PRN PO HEADACHE or DISCOMFORT 12/08/19 20:00 UNV Al Hydrox/Mg Hydrox/Simethicone (Mylanta) 30 ml Q4HP PRN PO HEARTBURN/INDIGESTION 12/08/19 20:00 UNV Al Hydrox/Mg Hydrox/Simethicone (Mylanta) 30 ml Q4HP PRN PO HEARTBURN/INDIGESTION 12/09/19 13:00 Aripiprazole (AbiLIFY) 2 mg QHS PO 12/17/19 21:00 12/23/19 20:40 Aspirin (Aspirin) 325 mg DAILY PO 12/10/19 09:00 12/24/19 09:30 Brinzolamide (Azopt) 1 drop BID OU 12/09/19 21:00 12/24/19 09:30 Calcium/Vitamin D (Oscal D) 500 mg BID PO 12/11/19 21:00 12/24/19 09:30 Home Med (Med Rec Complete!) ASDIRECTED XX 12/08/19 21:00 UNV Ibuprofen (Advil) 600 mg Q6HP PRN PO MODERATE PAIN (PS 5-7) 12/11/19 05:12 12/21/19 15:06 Latanoprost (Xalatan 0.005% Op Soln) 1 drop QHS OU 12/09/19 21:00 12/23/19 20:44 Magnesium Hydroxide (Milk Of Magnesia) 30 ml DAILYPRN PRN PO CONSTIPATION 12/08/19 20:00 UNV Magnesium Hydroxide (Milk Of Magnesia) 30 ml DAILYPRN PRN PO CONSTIPATION 12/09/19 13:00 Miscellaneous (Unresolved Clarification Entry) SEE LABEL COMMENTS DAILY XX 12/16/19 09:00 12/16/19 14:06 DC Modafinil (Provigil) 50 mg QAM PO 12/10/19 09:00 12/21/19 16:00 DC 12/20/19 08:53 Multivitamins (Theragram-M) 1 tab DAILY PO 12/11/19 09:00 12/24/19 09:30 Non-Formulary Medication ( See Comment Field Below ) SEE COMMENTS SECTION 1T@10 ID 12/25/19 10:00 12/23/19 10:18 DC Pravastatin Sodium (Pravachol) 20 mg DAILY PO 12/12/19 09:00 12/24/19 09:30 Pravastatin Sodium (Pravachol) 20 mg QHS PO 12/11/19 21:00 12/11/19 12:43 DC Primidone (Mysoline) 100 mg QHS PO 12/09/19 21:00 12/23/19 20:40 Trazodone HCl (Desyrel) 50 mg QHSP PRN PO INSOMNIA 12/08/19 20:00 UNV Trazodone HCl (Desyrel) 50 mg QHSP PRN PO INSOMNIA 12/09/19 13:00 12/21/19 16:44 DC 12/18/19 21:48 Venlafaxine HCl (Effexor Xr) 37.5 mg DAILY PO 12/22/19 09:00 12/24/19 09:30 Venlafaxine HCl (Effexor Xr) 150 mg DAILY PO 12/10/19 09:00 12/12/19 17:12 DC 12/12/19 08:15 Venlafaxine HCl (Effexor Xr) 150 mg DAILY PO 12/22/19 09:00 12/24/19 09:30 Venlafaxine HCl (Effexor Xr) 187.5 mg DAILY PO 12/22/19 09:00 UNV Venlafaxine HCl (Effexor Xr) 225 mg DAILY PO 12/13/19 09:00 12/21/19 17:19 DC 12/21/19 09:16 Allergies Coded Allergies: Cephalosporins (Verified Allergy, Unknown, 08/29/19) Penicillins (Verified Allergy, Unknown, UNKNOWN REACTION, 08/30/19) ceftriaxone (Verified Adverse Reaction, Unknown, INCREASED HR, 08/30/19) meperidine (Verified Adverse Reaction, Unknown, AMS, 08/30/19) NANCY MARROQUIN DO December 24, 2019 09:58
[2019-12-24] MEDS: LATANOPROST 0.005% OPHTH SOLN 2.5 ML OU SCH (20:34)
[2019-12-24] MEDS: PRIMIDONE 50 MG TAB PO SCH (20:35)
[2019-12-24] MEDS: ARIPiprazole 2 MG TAB PO SCH (20:35)
[2019-12-25 06:45] VITALS: BP 137/65
[2019-12-25] MEDS: ASPIRIN 325 MG TAB PO SCH (08:14)
[2019-12-25] MEDS: VENLAFAXINE **XR** 37.5 MG CAPSULE PO SCH (08:14)
[2019-12-25] MEDS: VENLAFAXINE **XR** 75MG CAPSULE PO SCH (08:15)
[2019-12-25] MEDS: CALCIUM/VITAMIN D 500 MG TAB PO SCH ×2 (08:15→20:19)
[2019-12-25] MEDS: MULTIVITAMINS/MINERALS THERAP 1 TAB PO SCH (08:15)
[2019-12-25] MEDS: PRAVASTATIN 20 MG TAB PO SCH (08:16)
[2019-12-25] MEDS: BRINZOLAMIDE 1 % OPHTH SUSP (AZOPT) 10ML OU SCH ×2 (08:17→20:18)
[2019-12-25] MEDS ORDERED: PPD DOCUMENTATION ENTRY MISC ID SCH (10:00)
[2019-12-25] MEDS ORDERED: PPD DOCUMENTATION ENTRY MISC XX ONE (11:00)
[2019-12-25 16:20] VITALS: BP_SYST 145; BP_SYST 158; BP_SYST 171; BP_DIAS 75; BP_DIAS 86; BP_DIAS 90
[2019-12-25] MEDS: LATANOPROST 0.005% OPHTH SOLN 2.5 ML OU SCH (20:18)
[2019-12-25] MEDS: ARIPiprazole 2 MG TAB PO SCH (20:19)
[2019-12-25] MEDS: PRIMIDONE 50 MG TAB PO SCH (20:19)
[2019-12-26 06:26] VITALS: BP 138/70
[2019-12-26] MEDS: MULTIVITAMINS/MINERALS THERAP 1 TAB PO SCH (08:33)
[2019-12-26] MEDS: VENLAFAXINE **XR** 37.5 MG CAPSULE PO SCH (08:33)
[2019-12-26] MEDS: VENLAFAXINE **XR** 75MG CAPSULE PO SCH (08:33)
[2019-12-26] MEDS: PRAVASTATIN 20 MG TAB PO SCH (08:33)
[2019-12-26] MEDS: ASPIRIN 325 MG TAB PO SCH (08:33)
[2019-12-26] MEDS: BRINZOLAMIDE 1 % OPHTH SUSP (AZOPT) 10ML OU SCH ×2 (08:33→21:15)
[2019-12-26] MEDS: CALCIUM/VITAMIN D 500 MG TAB PO SCH ×2 (08:33→21:15)
[2019-12-26] MEDS: IBUPROFEN 600 MG TAB PO PRN (09:01)
[2019-12-26 15:38] VITALS: BP_SYST 134; BP_SYST 178; BP_SYST 185; BP_DIAS 76; BP_DIAS 77; BP_DIAS 85
[2019-12-26] MEDS: PRIMIDONE 50 MG TAB PO SCH (21:15)
[2019-12-26] MEDS: LATANOPROST 0.005% OPHTH SOLN 2.5 ML OU SCH (21:15)
[2019-12-26] MEDS: ARIPiprazole 2 MG TAB PO SCH (21:15)
[2019-12-27 06:37] VITALS: BP 135/70
[2019-12-27 06:39] VITALS: BP 141/69
[2019-12-27] MEDS: PRAVASTATIN 20 MG TAB PO SCH (09:24)
[2019-12-27] MEDS: CALCIUM/VITAMIN D 500 MG TAB PO SCH ×2 (09:24→20:09)
[2019-12-27] MEDS: BRINZOLAMIDE 1 % OPHTH SUSP (AZOPT) 10ML OU SCH ×2 (09:24→20:07)
[2019-12-27] MEDS: VENLAFAXINE **XR** 37.5 MG CAPSULE PO SCH (09:24)
[2019-12-27] MEDS: VENLAFAXINE **XR** 75MG CAPSULE PO SCH (09:24)
[2019-12-27] MEDS: ASPIRIN 325 MG TAB PO SCH (09:24)
[2019-12-27] MEDS: MULTIVITAMINS/MINERALS THERAP 1 TAB PO SCH (09:24)
--- NOTE | 2019-12-27 09:53 | MHIPNPDOC ---
[facility] Progress Note Progress Note Inpatient Progress Note Anna Best MRN: N/A Date of : N/A Date of Service: 12/27/2019 History of Present Illness The patient, a 79-year-old woman with multiple inpatient admission presents to the floor after being assessed by this provider after she had overdosed on Tylenol and a suicide attempt. The patient generally did not engage in intervene on the floor and generally returned to a state of staring off into the distance. The patient was met with today where she generally did not engage in any meaningful interview, simply focusing on trying to get to a fdc, it appears her family is entirely focused on having us hold her until she is placed in fdc or assisted living. She had reportedly tried to engage in having a true assess on the medical floor; however, when she arrived here she was completely ambulatory with no problems. The patient does not describe any changes in her depression, is unable to describe anything more than meaningful in the conversation today. Interval History The patient is met with today. She reports she is doing "better." And does appear to be somewhat brighter, although she generally hasn't engaged in much of an interview today. She has been resisting her room lockout, attempting to circumvent the room lockout on multiple occasions. Review Of Systems Doesn't allude any physical complaints at this time. Psychotherapy None on this visit. Vital Signs Reviewed. Mental Status Examination General: poor hygiene Speech: Spontaneous and fluid Thought processes: Paucity of speech. MSK: Smooth and coordinated gait, no signs of tremors or involuntary orofacial movements Thought content: Guarded Abstract reasoning, and computation: Impaired. Description of associations: Intact Description of abnormal or psychotic thoughts: Unknown. Judgment: Limited. Insight: Limited. Orientation: Alert and orientated 3 Cognition: Grossly normal Recent and remote memory: Intact Attention span and concentration: Intact Fund of knowledge: Adequate Mood: "Better." Affect: Less flat. Diagnoses Unspecified depressive disorder. Dependent personality disorder. Rule out malingering versus MDD. Assessment and Plan MDD with psychotic features: Unspecified depression: Continue Effexor 187.5 mg daily with 2 mg of Abilify for augmentation. Dependent personality disorder: Concerned for malingering secondary to attention seeking. We will ascertain potential alternatives and test appropriately. Disposition Further observation and will continue to pursue long-term care. Time Spent 15 minutes. Friday Vital Signs Vital Signs Date Time Temp Pulse Resp B/P (MAP) Pulse Ox O2 Delivery O2 Flow Rate FiO2 12/27/19 06:39 98.0 12 79 141/69 (93) 95 Room Air Current Medications Current Medications Medications (Trade) Dose Ordered Sig/Joceline Route PRN Reason Start Time Stop Time Status Last Admin Dose Admin Acetaminophen (Tylenol Arthritis Er) 1,300 mg QHS PRN PO PAIN 12/11/19 12:45 12/11/19 12:43 DC Acetaminophen (Tylenol Tab) 650 mg Q6HP PRN PO HEADACHE or DISCOMFORT 12/08/19 20:00 UNV Al Hydrox/Mg Hydrox/Simethicone (Mylanta) 30 ml Q4HP PRN PO HEARTBURN/INDIGESTION 12/08/19 20:00 UNV Al Hydrox/Mg Hydrox/Simethicone (Mylanta) 30 ml Q4HP PRN PO HEARTBURN/INDIGESTION 12/09/19 13:00 Aripiprazole (AbiLIFY) 2 mg QHS PO 12/17/19 21:00 12/26/19 21:15 Aspirin (Aspirin) 325 mg DAILY PO 12/10/19 09:00 12/27/19 09:24 Brinzolamide (Azopt) 1 drop BID OU 12/09/19 21:00 12/27/19 09:24 Calcium/Vitamin D (Oscal D) 500 mg BID PO 12/11/19 21:00 12/27/19 09:24 Home Med (Med Rec Complete!) ASDIRECTED XX 12/08/19 21:00 UNV Ibuprofen (Advil) 600 mg Q6HP PRN PO MODERATE PAIN (PS 5-7) 12/11/19 05:12 12/26/19 09:01 Latanoprost (Xalatan 0.005% Op Soln) 1 drop QHS OU 12/09/19 21:00 12/26/19 21:15 Magnesium Hydroxide (Milk Of Magnesia) 30 ml DAILYPRN PRN PO CONSTIPATION 12/08/19 20:00 UNV Magnesium Hydroxide (Milk Of Magnesia) 30 ml DAILYPRN PRN PO CONSTIPATION 12/09/19 13:00 Miscellaneous (Unresolved Clarification Entry) SEE LABEL COMMENTS DAILY XX 12/16/19 09:00 12/16/19 14:06 DC Modafinil (Provigil) 50 mg QAM PO 12/10/19 09:00 12/21/19 16:00 DC 12/20/19 08:53 Multivitamins (Theragram-M) 1 tab DAILY PO 12/11/19 09:00 12/27/19 09:24 Non-Formulary Medication ( See Comment Field Below ) SEE COMMENTS SECTION 1T@10 ID 12/25/19 10:00 12/23/19 10:18 DC Pravastatin Sodium (Pravachol) 20 mg DAILY PO 12/12/19 09:00 12/27/19 09:24 Pravastatin Sodium (Pravachol) 20 mg QHS PO 12/11/19 21:00 12/11/19 12:43 DC Primidone (Mysoline) 100 mg QHS PO 12/09/19 21:00 12/26/19 21:15 Trazodone HCl (Desyrel) 50 mg QHSP PRN PO INSOMNIA 12/08/19 20:00 UNV Trazodone HCl (Desyrel) 50 mg QHSP PRN PO INSOMNIA 12/09/19 13:00 12/21/19 16:44 DC 12/18/19 21:48 Venlafaxine HCl (Effexor Xr) 37.5 mg DAILY PO 12/22/19 09:00 12/27/19 09:24 Venlafaxine HCl (Effexor Xr) 150 mg DAILY PO 12/10/19 09:00 12/12/19 17:12 DC 12/12/19 08:15 Venlafaxine HCl (Effexor Xr) 150 mg DAILY PO 12/22/19 09:00 12/27/19 09:24 Venlafaxine HCl (Effexor Xr) 187.5 mg DAILY PO 12/22/19 09:00 UNV Venlafaxine HCl (Effexor Xr) 225 mg DAILY PO 12/13/19 09:00 12/21/19 17:19 DC 12/21/19 09:16 Allergies Coded Allergies: Cephalosporins (Verified Allergy, Unknown, 08/29/19) Penicillins (Verified Allergy, Unknown, UNKNOWN REACTION, 08/30/19) ceftriaxone (Verified Adverse Reaction, Unknown, INCREASED HR, 08/30/19) meperidine (Verified Adverse Reaction, Unknown, AMS, 08/30/19) NANCY MARROQUIN DO December 27, 2019 09:53
[2019-12-27 16:47] VITALS: BP_SYST 140; BP_SYST 142; BP_DIAS 84; BP_DIAS 90
[2019-12-27] MEDS: IBUPROFEN 600 MG TAB PO PRN (19:06)
[2019-12-27] MEDS: ARIPiprazole 2 MG TAB PO SCH (20:09)
[2019-12-27] MEDS: PRIMIDONE 50 MG TAB PO SCH (20:09)
[2019-12-27] MEDS: LATANOPROST 0.005% OPHTH SOLN 2.5 ML OU SCH (20:11)
[2019-12-28 06:34] VITALS: BP_SYST 140; BP_SYST 144; BP_SYST 146; BP_DIAS 84; BP_DIAS 88; BP_DIAS 89
[2019-12-28] MEDS: MULTIVITAMINS/MINERALS THERAP 1 TAB PO SCH (08:16)
[2019-12-28] MEDS: VENLAFAXINE **XR** 37.5 MG CAPSULE PO SCH (08:17)
[2019-12-28] MEDS: PRAVASTATIN 20 MG TAB PO SCH (08:17)
[2019-12-28] MEDS: ASPIRIN 325 MG TAB PO SCH (08:17)
[2019-12-28] MEDS: VENLAFAXINE **XR** 75MG CAPSULE PO SCH (08:17)
[2019-12-28] MEDS: BRINZOLAMIDE 1 % OPHTH SUSP (AZOPT) 10ML OU SCH ×2 (08:17→20:14)
[2019-12-28] MEDS: CALCIUM/VITAMIN D 500 MG TAB PO SCH ×2 (08:17→20:15)
--- NOTE | 2019-12-28 09:25 | MHIPNPDOC ---
[facility] Progress Note Progress Note Inpatient Progress Note Anna Best MRN: N/A Date of : N/A Date of Service: 12/28/2019 History of Present Illness The patient, a 79-year-old woman with multiple inpatient admission presents to the floor after being assessed by this provider after she had overdosed on Tylenol and a suicide attempt. The patient generally did not engage in intervene on the floor and generally returned to a state of staring off into the distance. The patient was met with today where she generally did not engage in any meaningful interview, simply focusing on trying to get to a care home, it appears her family is entirely focused on having us hold her until she is placed in care home or assisted living. She had reportedly tried to engage in having a true assess on the medical floor; however, when she arrived here she was completely ambulatory with no problems. The patient does not describe any changes in her depression, is unable to describe anything more than meaningful in the conversation today. Interval History The patient is met with today. She reports she is doing "better". She generally does not describe much else and still attempts to get back into her room and to circumvent room lockout. The patient still engages and still wants to go to a care home, says little else. Review Of Systems No physical problems reported. Psychotherapy None on this visit. Vital Signs Reviewed. Mental Status Examination General: poor hygiene Speech: Spontaneous and fluid Thought processes: Paucity of speech. MSK: Smooth and coordinated gait, no signs of tremors or involuntary orofacial movements Thought content: Guarded Abstract reasoning, and computation: Impaired. Description of associations: Intact Description of abnormal or psychotic thoughts: Unknown. Judgment: Limited. Insight: Limited. Orientation: Alert and orientated 3 Cognition: Grossly normal Recent and remote memory: Intact Attention span and concentration: Intact Fund of knowledge: Adequate Mood: "Better." Affect: Less flat. Diagnoses Unspecified depressive disorder. Dependent personality disorder. Rule out malingering versus MDD. Assessment and Plan Unspecified depression: Continue Effexor and Abilify with no changes at this time. Dependent personality disorder: Concerned for malingering secondary to attention seeking. We will ascertain potential alternatives and test appropriately. Disposition We will continue to pursue placement at this time, recommendation for care home from [place], will attempt to have evaluation by PT/OT as she will not likely need that. The primary reason for her presentation and disabilities is psychiatric, Time Spent 15 minutes. Friday Vital Signs Vital Signs Date Time Temp Pulse Resp B/P (MAP) Pulse Ox O2 Delivery O2 Flow Rate FiO2 12/28/19 06:34 88 146/88 (107) 89 144/89 (107) 84 140/84 (102) 12/27/19 16:50 97.3 16 12/27/19 06:39 95 Room Air Current Medications Current Medications Medications (Trade) Dose Ordered Sig/Joceline Route PRN Reason Start Time Stop Time Status Last Admin Dose Admin Acetaminophen (Tylenol Arthritis Er) 1,300 mg QHS PRN PO PAIN 12/11/19 12:45 12/11/19 12:43 DC Acetaminophen (Tylenol Tab) 650 mg Q6HP PRN PO HEADACHE or DISCOMFORT 12/08/19 20:00 UNV Al Hydrox/Mg Hydrox/Simethicone (Mylanta) 30 ml Q4HP PRN PO HEARTBURN/INDIGESTION 12/08/19 20:00 UNV Al Hydrox/Mg Hydrox/Simethicone (Mylanta) 30 ml Q4HP PRN PO HEARTBURN/INDIGESTION 12/09/19 13:00 Aripiprazole (AbiLIFY) 2 mg QHS PO 12/17/19 21:00 12/27/19 20:09 Aspirin (Aspirin) 325 mg DAILY PO 12/10/19 09:00 12/28/19 08:17 Brinzolamide (Azopt) 1 drop BID OU 12/09/19 21:00 12/28/19 08:17 Calcium/Vitamin D (Oscal D) 500 mg BID PO 12/11/19 21:00 12/28/19 08:17 Home Med (Med Rec Complete!) ASDIRECTED XX 12/08/19 21:00 UNV Ibuprofen (Advil) 600 mg Q6HP PRN PO MODERATE PAIN (PS 5-7) 12/11/19 05:12 12/27/19 19:06 Latanoprost (Xalatan 0.005% Op Soln) 1 drop QHS OU 12/09/19 21:00 12/27/19 20:11 Magnesium Hydroxide (Milk Of Magnesia) 30 ml DAILYPRN PRN PO CONSTIPATION 12/08/19 20:00 UNV Magnesium Hydroxide (Milk Of Magnesia) 30 ml DAILYPRN PRN PO CONSTIPATION 12/09/19 13:00 Miscellaneous (Unresolved Clarification Entry) SEE LABEL COMMENTS DAILY XX 12/16/19 09:00 12/16/19 14:06 DC Modafinil (Provigil) 50 mg QAM PO 12/10/19 09:00 12/21/19 16:00 DC 12/20/19 08:53 Multivitamins (Theragram-M) 1 tab DAILY PO 12/11/19 09:00 12/28/19 08:16 Non-Formulary Medication ( See Comment Field Below ) SEE COMMENTS SECTION 1T@10 ID 12/25/19 10:00 12/23/19 10:18 DC Pravastatin Sodium (Pravachol) 20 mg DAILY PO 12/12/19 09:00 12/28/19 08:17 Pravastatin Sodium (Pravachol) 20 mg QHS PO 12/11/19 21:00 12/11/19 12:43 DC Primidone (Mysoline) 100 mg QHS PO 12/09/19 21:00 12/27/19 20:09 Trazodone HCl (Desyrel) 50 mg QHSP PRN PO INSOMNIA 12/08/19 20:00 UNV Trazodone HCl (Desyrel) 50 mg QHSP PRN PO INSOMNIA 12/09/19 13:00 12/21/19 16:44 DC 12/18/19 21:48 Venlafaxine HCl (Effexor Xr) 37.5 mg DAILY PO 12/22/19 09:00 12/28/19 08:17 Venlafaxine HCl (Effexor Xr) 150 mg DAILY PO 12/10/19 09:00 12/12/19 17:12 DC 12/12/19 08:15 Venlafaxine HCl (Effexor Xr) 150 mg DAILY PO 12/22/19 09:00 12/28/19 08:17 Venlafaxine HCl (Effexor Xr) 187.5 mg DAILY PO 12/22/19 09:00 UNV Venlafaxine HCl (Effexor Xr) 225 mg DAILY PO 12/13/19 09:00 12/21/19 17:19 DC 12/21/19 09:16 Allergies Coded Allergies: Cephalosporins (Verified Allergy, Unknown, 08/29/19) Penicillins (Verified Allergy, Unknown, UNKNOWN REACTION, 08/30/19) ceftriaxone (Verified Adverse Reaction, Unknown, INCREASED HR, 08/30/19) meperidine (Verified Adverse Reaction, Unknown, AMS, 08/30/19) NANCY MARROQUIN DO December 28, 2019 09:25
[2019-12-28 16:07] VITALS: BP_SYST 127; BP_SYST 131; BP_SYST 155; BP_DIAS 63; BP_DIAS 70; BP_DIAS 72
[2019-12-28] MEDS: PRIMIDONE 50 MG TAB PO SCH (20:15)
[2019-12-28] MEDS: ARIPiprazole 2 MG TAB PO SCH (20:15)
[2019-12-28] MEDS: LATANOPROST 0.005% OPHTH SOLN 2.5 ML OU SCH (20:18)
[2019-12-29 06:15] VITALS: BP_SYST 137; BP_SYST 170; BP_SYST 176; BP_DIAS 62; BP_DIAS 80; BP_DIAS 96
[2019-12-29 06:34] VITALS: BP 137/62
[2019-12-29 06:35] VITALS: BP_SYST 170; BP_SYST 176; BP_DIAS 80; BP_DIAS 96
[2019-12-29] MEDS: MULTIVITAMINS/MINERALS THERAP 1 TAB PO SCH (08:53)
[2019-12-29] MEDS: ASPIRIN 325 MG TAB PO SCH (08:53)
[2019-12-29] MEDS: VENLAFAXINE **XR** 75MG CAPSULE PO SCH (08:53)
[2019-12-29] MEDS: BRINZOLAMIDE 1 % OPHTH SUSP (AZOPT) 10ML OU SCH ×2 (08:53→20:46)
[2019-12-29] MEDS: VENLAFAXINE **XR** 37.5 MG CAPSULE PO SCH (08:53)
[2019-12-29] MEDS: CALCIUM/VITAMIN D 500 MG TAB PO SCH ×2 (08:53→20:50)
[2019-12-29] MEDS: PRAVASTATIN 20 MG TAB PO SCH (08:53)
--- NOTE | 2019-12-29 10:01 | MHIPNPDOC ---
[facility] Progress Note Progress Note Inpatient Progress Note Anna Best MRN: N/A Date of : N/A Date of Service: 12/29/2019 History of Present Illness The patient, a 79-year-old woman with multiple inpatient admission presents to the floor after being assessed by this provider after she had overdosed on Tylenol and a suicide attempt. The patient generally did not engage in intervene on the floor and generally returned to a state of staring off into the distance. The patient was met with today where she generally did not engage in any meaningful interview, simply focusing on trying to get to a longterm, it appears her family is entirely focused on having us hold her until she is placed in longterm or assisted living. She had reportedly tried to engage in having a true assess on the medical floor; however, when she arrived here she was completely ambulatory with no problems. The patient does not describe any changes in her depression, is unable to describe anything more than meaningful in the conversation today. Interval History The patient is met with today. She reports that she is doing "better." However, does not really engage much in interview. She generally has been attempting to demonstrate her improvement, although she is highly focused on not engaging in treatment. She generally continues to want a longterm, however, her ROGELIO has indicated that she does not meet criteria for that. She still has difficulty coming up with any treatment plan or engaging in any meaningful discussion today about the problems that have brought her in. Review Of Systems No physical problems reported. Psychotherapy None on this visit. Vital Signs Reviewed. Mental Status Examination General: poor hygiene Speech: Spontaneous and fluid Thought processes: Paucity of speech. MSK: Smooth and coordinated gait, no signs of tremors or involuntary orofacial movements Thought content: Guarded Abstract reasoning, and computation: Impaired. Description of associations: Intact Description of abnormal or psychotic thoughts: Unknown. Judgment: Limited. Insight: Limited. Orientation: Alert and orientated 3 Cognition: Grossly normal Recent and remote memory: Intact Attention span and concentration: Intact Fund of knowledge: Adequate Mood: "Better." Affect: Less flat. Diagnoses Unspecified depressive disorder. Dependent personality disorder. Rule out malingering versus MDD. Assessment and Plan Unspecified depression: Continue Effexor and Abilify, no changes were allowed to see if patient improves, still concern for malingering and factitious presentation. Dependent personality disorder: Concerned for malingering secondary to attention seeking. We will ascertain potential alternatives and test appropriately. Disposition We'll need to further determine if she can be sent to [facility] as she does not meet criteria for a longterm based on her ROGELIO. Her presentations are multitude and she is not able to keep herself safe despite any improvement, she will likely represent again if more appropriate treatment and long-term placement is not pursued. Time Spent 15 minutes. Friday Vital Signs Vital Signs Date Time Temp Pulse Resp B/P (MAP) Pulse Ox O2 Delivery O2 Flow Rate FiO2 12/29/19 06:35 98 170/96 (120) 12/29/19 06:34 97.2 14 12/27/19 06:39 95 Room Air Current Medications Current Medications Medications (Trade) Dose Ordered Sig/Joceline Route PRN Reason Start Time Stop Time Status Last Admin Dose Admin Acetaminophen (Tylenol Arthritis Er) 1,300 mg QHS PRN PO PAIN 12/11/19 12:45 12/11/19 12:43 DC Acetaminophen (Tylenol Tab) 650 mg Q6HP PRN PO HEADACHE or DISCOMFORT 12/08/19 20:00 UNV Al Hydrox/Mg Hydrox/Simethicone (Mylanta) 30 ml Q4HP PRN PO HEARTBURN/INDIGESTION 12/08/19 20:00 UNV Al Hydrox/Mg Hydrox/Simethicone (Mylanta) 30 ml Q4HP PRN PO HEARTBURN/INDIGESTION 12/09/19 13:00 Aripiprazole (AbiLIFY) 2 mg QHS PO 12/17/19 21:00 12/28/19 20:15 Aspirin (Aspirin) 325 mg DAILY PO 12/10/19 09:00 12/29/19 08:53 Brinzolamide (Azopt) 1 drop BID OU 12/09/19 21:00 12/29/19 08:53 Calcium/Vitamin D (Oscal D) 500 mg BID PO 12/11/19 21:00 12/29/19 08:53 Home Med (Med Rec Complete!) ASDIRECTED XX 12/08/19 21:00 UNV Ibuprofen (Advil) 600 mg Q6HP PRN PO MODERATE PAIN (PS 5-7) 12/11/19 05:12 12/27/19 19:06 Latanoprost (Xalatan 0.005% Op Soln) 1 drop QHS OU 12/09/19 21:00 12/28/19 20:18 Magnesium Hydroxide (Milk Of Magnesia) 30 ml DAILYPRN PRN PO CONSTIPATION 12/08/19 20:00 UNV Magnesium Hydroxide (Milk Of Magnesia) 30 ml DAILYPRN PRN PO CONSTIPATION 12/09/19 13:00 Miscellaneous (Unresolved Clarification Entry) SEE LABEL COMMENTS DAILY XX 12/16/19 09:00 12/16/19 14:06 DC Modafinil (Provigil) 50 mg QAM PO 12/10/19 09:00 12/21/19 16:00 DC 12/20/19 08:53 Multivitamins (Theragram-M) 1 tab DAILY PO 12/11/19 09:00 12/29/19 08:53 Non-Formulary Medication ( See Comment Field Below ) SEE COMMENTS SECTION 1T@10 ID 12/25/19 10:00 12/23/19 10:18 DC Pravastatin Sodium (Pravachol) 20 mg DAILY PO 12/12/19 09:00 12/29/19 08:53 Pravastatin Sodium (Pravachol) 20 mg QHS PO 12/11/19 21:00 12/11/19 12:43 DC Primidone (Mysoline) 100 mg QHS PO 12/09/19 21:00 12/28/19 20:15 Trazodone HCl (Desyrel) 50 mg QHSP PRN PO INSOMNIA 12/08/19 20:00 UNV Trazodone HCl (Desyrel) 50 mg QHSP PRN PO INSOMNIA 12/09/19 13:00 12/21/19 16:44 DC 12/18/19 21:48 Venlafaxine HCl (Effexor Xr) 37.5 mg DAILY PO 12/22/19 09:00 12/29/19 08:53 Venlafaxine HCl (Effexor Xr) 150 mg DAILY PO 12/10/19 09:00 12/12/19 17:12 DC 12/12/19 08:15 Venlafaxine HCl (Effexor Xr) 150 mg DAILY PO 12/22/19 09:00 12/29/19 08:53 Venlafaxine HCl (Effexor Xr) 187.5 mg DAILY PO 12/22/19 09:00 UNV Venlafaxine HCl (Effexor Xr) 225 mg DAILY PO 12/13/19 09:00 12/21/19 17:19 DC 12/21/19 09:16 Allergies Coded Allergies: Cephalosporins (Verified Allergy, Unknown, 08/29/19) Penicillins (Verified Allergy, Unknown, UNKNOWN REACTION, 08/30/19) ceftriaxone (Verified Adverse Reaction, Unknown, INCREASED HR, 08/30/19) meperidine (Verified Adverse Reaction, Unknown, AMS, 08/30/19) NANCY MARROQUIN DO December 29, 2019 10:01
[2019-12-29 16:07] VITALS: BP_SYST 122; BP_SYST 143; BP_SYST 155; BP_DIAS 70; BP_DIAS 75; BP_DIAS 78
[2019-12-29] MEDS: LATANOPROST 0.005% OPHTH SOLN 2.5 ML OU SCH (20:46)
[2019-12-29] MEDS: ARIPiprazole 2 MG TAB PO SCH (20:50)
[2019-12-29] MEDS: PRIMIDONE 50 MG TAB PO SCH (20:50)
[2019-12-30 06:39] VITALS: BP_SYST 138; BP_SYST 145; BP_SYST 146; BP_DIAS 84; BP_DIAS 89; BP_DIAS 90
[2019-12-30 06:41] VITALS: BP 145/88
[2019-12-30] MEDS: VENLAFAXINE **XR** 37.5 MG CAPSULE PO SCH (09:02)
[2019-12-30] MEDS: PRAVASTATIN 20 MG TAB PO SCH (09:02)
[2019-12-30] MEDS: VENLAFAXINE **XR** 75MG CAPSULE PO SCH (09:02)
[2019-12-30] MEDS: MULTIVITAMINS/MINERALS THERAP 1 TAB PO SCH (09:02)
[2019-12-30] MEDS: CALCIUM/VITAMIN D 500 MG TAB PO SCH ×2 (09:02→20:14)
[2019-12-30] MEDS: BRINZOLAMIDE 1 % OPHTH SUSP (AZOPT) 10ML OU SCH ×2 (09:02→20:14)
[2019-12-30] MEDS: ASPIRIN 325 MG TAB PO SCH (09:02)
--- NOTE | 2019-12-30 09:56 | MHIPNPDOC ---
[facility] Progress Note Progress Note Inpatient Progress Note Anna Best MRN: N/A Date of : N/A Date of Service: 12/30/2019 History of Present Illness The patient, a 79-year-old woman with multiple inpatient admission presents to the floor after being assessed by this provider after she had overdosed on Tylenol and a suicide attempt. The patient generally did not engage in intervene on the floor and generally returned to a state of staring off into the distance. The patient was met with today where she generally did not engage in any meaningful interview, simply focusing on trying to get to a custodial, it appears her family is entirely focused on having us hold her until she is placed in custodial or assisted living. She had reportedly tried to engage in having a true assess on the medical floor; however, when she arrived here she was completely ambulatory with no problems. The patient does not describe any changes in her depression, is unable to describe anything more than meaningful in the conversation today. Interval History The patient is met with today. She appears to be brighter and somewhat more engaged, but generally says very little during the interview primarily stating that she is "fine." She generally has been focusing on trying to not engage with treatment. Although, she reports that she "doesn't know why she is here" to nurses. Review Of Systems No physical problems reported. Psychotherapy None on this visit. Vital Signs Reviewed. Mental Status Examination General: Fair hygiene. Speech: Spontaneous and fluid Thought processes: More linear. MSK: Smooth and coordinated gait, no signs of tremors or involuntary orofacial movements Thought content: Guarded Abstract reasoning, and computation: Impaired. Description of associations: Intact Description of abnormal or psychotic thoughts: Does not endorse any thoughts of harm to herself or others. Judgment: Limited. Insight: Limited. Orientation: Alert and orientated 3 Cognition: Grossly normal Recent and remote memory: Intact Attention span and concentration: Intact Fund of knowledge: Adequate Mood: "Better." Affect: Less flat, more euthymic. Diagnoses Unspecified depressive disorder. Dependent personality disorder. Rule out malingering versus MDD. Assessment and Plan Unspecified depression: Continue Effexor and Abilify, no changes were allowed to see if patient improves, still concern for malingering and factitious presentation. Dependent personality disorder: Concerned for malingering secondary to attention seeking. We will ascertain potential alternatives and test appropriately. Disposition Will continue to pursue long-term treatment, potentially alternatives can be created if she continues to improve. Still concerned about malingering. Time Spent 15 minutes. Vital Signs Vital Signs Date Time Temp Pulse Resp B/P (MAP) Pulse Ox O2 Delivery O2 Flow Rate FiO2 12/30/19 06:41 99.1 88 14 145/88 (107) 12/27/19 06:39 95 Room Air Current Medications Current Medications Medications (Trade) Dose Ordered Sig/Joceline Route PRN Reason Start Time Stop Time Status Last Admin Dose Admin Acetaminophen (Tylenol Arthritis Er) 1,300 mg QHS PRN PO PAIN 12/11/19 12:45 12/11/19 12:43 DC Acetaminophen (Tylenol Tab) 650 mg Q6HP PRN PO HEADACHE or DISCOMFORT 12/08/19 20:00 UNV Al Hydrox/Mg Hydrox/Simethicone (Mylanta) 30 ml Q4HP PRN PO HEARTBURN/INDIGESTION 12/08/19 20:00 UNV Al Hydrox/Mg Hydrox/Simethicone (Mylanta) 30 ml Q4HP PRN PO HEARTBURN/INDIGESTION 12/09/19 13:00 Aripiprazole (AbiLIFY) 2 mg QHS PO 12/17/19 21:00 12/29/19 20:50 Aspirin (Aspirin) 325 mg DAILY PO 12/10/19 09:00 12/30/19 09:02 Brinzolamide (Azopt) 1 drop BID OU 12/09/19 21:00 12/30/19 09:02 Calcium/Vitamin D (Oscal D) 500 mg BID PO 12/11/19 21:00 12/30/19 09:02 Home Med (Med Rec Complete!) ASDIRECTED XX 12/08/19 21:00 UNV Ibuprofen (Advil) 600 mg Q6HP PRN PO MODERATE PAIN (PS 5-7) 12/11/19 05:12 12/27/19 19:06 Latanoprost (Xalatan 0.005% Op Soln) 1 drop QHS OU 12/09/19 21:00 12/29/19 20:46 Magnesium Hydroxide (Milk Of Magnesia) 30 ml DAILYPRN PRN PO CONSTIPATION 12/08/19 20:00 UNV Magnesium Hydroxide (Milk Of Magnesia) 30 ml DAILYPRN PRN PO CONSTIPATION 12/09/19 13:00 Miscellaneous (Unresolved Clarification Entry) SEE LABEL COMMENTS DAILY XX 12/16/19 09:00 12/16/19 14:06 DC Modafinil (Provigil) 50 mg QAM PO 12/10/19 09:00 12/21/19 16:00 DC 12/20/19 08:53 Multivitamins (Theragram-M) 1 tab DAILY PO 12/11/19 09:00 12/30/19 09:02 Non-Formulary Medication ( See Comment Field Below ) SEE COMMENTS SECTION 1T@10 ID 12/25/19 10:00 12/23/19 10:18 DC Pravastatin Sodium (Pravachol) 20 mg DAILY PO 12/12/19 09:00 12/30/19 09:02 Pravastatin Sodium (Pravachol) 20 mg QHS PO 12/11/19 21:00 12/11/19 12:43 DC Primidone (Mysoline) 100 mg QHS PO 12/09/19 21:00 12/29/19 20:50 Trazodone HCl (Desyrel) 50 mg QHSP PRN PO INSOMNIA 12/08/19 20:00 UNV Trazodone HCl (Desyrel) 50 mg QHSP PRN PO INSOMNIA 12/09/19 13:00 12/21/19 16:44 DC 12/18/19 21:48 Venlafaxine HCl (Effexor Xr) 37.5 mg DAILY PO 12/22/19 09:00 12/30/19 09:02 Venlafaxine HCl (Effexor Xr) 150 mg DAILY PO 12/10/19 09:00 12/12/19 17:12 DC 12/12/19 08:15 Venlafaxine HCl (Effexor Xr) 150 mg DAILY PO 12/22/19 09:00 12/30/19 09:02 Venlafaxine HCl (Effexor Xr) 187.5 mg DAILY PO 12/22/19 09:00 UNV Venlafaxine HCl (Effexor Xr) 225 mg DAILY PO 12/13/19 09:00 12/21/19 17:19 DC 12/21/19 09:16 Allergies Coded Allergies: Cephalosporins (Verified Allergy, Unknown, 08/29/19) Penicillins (Verified Allergy, Unknown, UNKNOWN REACTION, 08/30/19) ceftriaxone (Verified Adverse Reaction, Unknown, INCREASED HR, 08/30/19) meperidine (Verified Adverse Reaction, Unknown, AMS, 08/30/19) NANCY MARROQUIN DO December 30, 2019 09:56
[2019-12-30 16:26] VITALS: BP_SYST 120; BP_SYST 127; BP_SYST 128; BP_DIAS 65; BP_DIAS 74; BP_DIAS 81
[2019-12-30] MEDS: PRIMIDONE 50 MG TAB PO SCH (20:14)
[2019-12-30] MEDS: LATANOPROST 0.005% OPHTH SOLN 2.5 ML OU SCH (20:15)
[2019-12-30] MEDS: ARIPiprazole 2 MG TAB PO SCH (20:15)
[2019-12-31 06:36] VITALS: BP 134/70
[2019-12-31] MEDS: ASPIRIN 325 MG TAB PO SCH (09:24)
[2019-12-31] MEDS: VENLAFAXINE **XR** 37.5 MG CAPSULE PO SCH (09:24)
[2019-12-31] MEDS: BRINZOLAMIDE 1 % OPHTH SUSP (AZOPT) 10ML OU SCH ×2 (09:24→20:46)
[2019-12-31] MEDS: MULTIVITAMINS/MINERALS THERAP 1 TAB PO SCH (09:24)
[2019-12-31] MEDS: PRAVASTATIN 20 MG TAB PO SCH (09:24)
[2019-12-31] MEDS: CALCIUM/VITAMIN D 500 MG TAB PO SCH ×2 (09:24→21:03)
[2019-12-31] MEDS: VENLAFAXINE **XR** 75MG CAPSULE PO SCH (09:24)
[2019-12-31] MEDS: IBUPROFEN 600 MG TAB PO PRN (12:21)
[2019-12-31 16:07] VITALS: BP_SYST 111; BP_SYST 115; BP_SYST 90; BP_DIAS 53; BP_DIAS 56; BP_DIAS 65
[2019-12-31] MEDS: ARIPiprazole 2 MG TAB PO SCH (21:03)
[2019-12-31] MEDS: PRIMIDONE 50 MG TAB PO SCH (21:12)
[2019-12-31] MEDS: LATANOPROST 0.005% OPHTH SOLN 2.5 ML OU SCH (21:12)
[2020-01-01 06:40] VITALS: BP 128/80
[2020-01-01] MEDS: CALCIUM/VITAMIN D 500 MG TAB PO SCH ×2 (09:45→21:51)
[2020-01-01] MEDS: VENLAFAXINE **XR** 37.5 MG CAPSULE PO SCH (09:45)
[2020-01-01] MEDS: VENLAFAXINE **XR** 75MG CAPSULE PO SCH (09:45)
[2020-01-01] MEDS: PRAVASTATIN 20 MG TAB PO SCH (09:45)
[2020-01-01] MEDS: MULTIVITAMINS/MINERALS THERAP 1 TAB PO SCH (09:45)
[2020-01-01] MEDS: BRINZOLAMIDE 1 % OPHTH SUSP (AZOPT) 10ML OU SCH ×2 (09:45→21:50)
[2020-01-01] MEDS: ASPIRIN 325 MG TAB PO SCH (09:45)
[2020-01-01] MEDS: IBUPROFEN 600 MG TAB PO PRN (15:50)
[2020-01-01 16:52] VITALS: BP_SYST 110; BP_SYST 132; BP_SYST 140; BP_DIAS 60; BP_DIAS 67; BP_DIAS 68
[2020-01-01] MEDS: LATANOPROST 0.005% OPHTH SOLN 2.5 ML OU SCH (21:51)
[2020-01-01] MEDS: PRIMIDONE 50 MG TAB PO SCH (21:51)
[2020-01-01] MEDS: ARIPiprazole 2 MG TAB PO SCH (21:52)
[2020-01-02 06:36] VITALS: BP 134/74
[2020-01-02] MEDS: VENLAFAXINE **XR** 37.5 MG CAPSULE PO SCH (08:51)
[2020-01-02] MEDS: VENLAFAXINE **XR** 75MG CAPSULE PO SCH (08:51)
[2020-01-02] MEDS: BRINZOLAMIDE 1 % OPHTH SUSP (AZOPT) 10ML OU SCH ×2 (08:51→20:14)
[2020-01-02] MEDS: MULTIVITAMINS/MINERALS THERAP 1 TAB PO SCH (08:51)
[2020-01-02] MEDS: CALCIUM/VITAMIN D 500 MG TAB PO SCH ×2 (08:51→20:14)
[2020-01-02] MEDS: PRAVASTATIN 20 MG TAB PO SCH (08:51)
[2020-01-02] MEDS: ASPIRIN 325 MG TAB PO SCH (08:51)
[2020-01-02] MEDS: IBUPROFEN 600 MG TAB PO PRN (09:08)
[2020-01-02 16:12] VITALS: BP_SYST 113; BP_SYST 119; BP_SYST 92; BP_DIAS 59; BP_DIAS 63; BP_DIAS 64
[2020-01-02] MEDS: PRIMIDONE 50 MG TAB PO SCH (20:14)
[2020-01-02] MEDS: LATANOPROST 0.005% OPHTH SOLN 2.5 ML OU SCH (20:14)
[2020-01-02] MEDS: ARIPiprazole 2 MG TAB PO SCH (20:15)
[2020-01-03 06:46] VITALS: BP_SYST 124; BP_SYST 132; BP_SYST 140; BP_DIAS 64; BP_DIAS 71; BP_DIAS 74
[2020-01-03] MEDS: ASPIRIN 325 MG TAB PO SCH (08:47)
[2020-01-03] MEDS: VENLAFAXINE **XR** 37.5 MG CAPSULE PO SCH (08:47)
[2020-01-03] MEDS: PRAVASTATIN 20 MG TAB PO SCH (08:47)
[2020-01-03] MEDS: VENLAFAXINE **XR** 75MG CAPSULE PO SCH (08:47)
[2020-01-03] MEDS: BRINZOLAMIDE 1 % OPHTH SUSP (AZOPT) 10ML OU SCH ×2 (08:47→21:31)
[2020-01-03] MEDS: CALCIUM/VITAMIN D 500 MG TAB PO SCH ×2 (08:47→21:30)
[2020-01-03] MEDS: MULTIVITAMINS/MINERALS THERAP 1 TAB PO SCH (08:47)
[2020-01-03 15:20] VITALS: BP_SYST 128; BP_SYST 130; BP_SYST 142; BP_DIAS 65; BP_DIAS 68; BP_DIAS 72
[2020-01-03] MEDS: LATANOPROST 0.005% OPHTH SOLN 2.5 ML OU SCH (21:31)
[2020-01-03] MEDS: PRIMIDONE 50 MG TAB PO SCH (21:31)
[2020-01-03] MEDS: ARIPiprazole 2 MG TAB PO SCH (21:57)
[2020-01-04 06:48] VITALS: BP 156/79
[2020-01-04] MEDS: ASPIRIN 325 MG TAB PO SCH (09:56)
[2020-01-04] MEDS: BRINZOLAMIDE 1 % OPHTH SUSP (AZOPT) 10ML OU SCH ×2 (09:56→20:07)
[2020-01-04] MEDS: PRAVASTATIN 20 MG TAB PO SCH (09:56)
[2020-01-04] MEDS: CALCIUM/VITAMIN D 500 MG TAB PO SCH ×2 (09:56→20:07)
[2020-01-04] MEDS: VENLAFAXINE **XR** 37.5 MG CAPSULE PO SCH (09:56)
[2020-01-04] MEDS: MULTIVITAMINS/MINERALS THERAP 1 TAB PO SCH (09:56)
[2020-01-04] MEDS: VENLAFAXINE **XR** 75MG CAPSULE PO SCH (09:57)
[2020-01-04] MEDS: IBUPROFEN 600 MG TAB PO PRN (10:05)
[2020-01-04 16:48] VITALS: BP 136/76
[2020-01-04] MEDS: ARIPiprazole 2 MG TAB PO SCH (20:07)
[2020-01-04] MEDS: LATANOPROST 0.005% OPHTH SOLN 2.5 ML OU SCH (20:07)
[2020-01-04] MEDS: PRIMIDONE 50 MG TAB PO SCH (20:07)
[2020-01-05 06:20] VITALS: BP 143/82
[2020-01-05] MEDS: VENLAFAXINE **XR** 37.5 MG CAPSULE PO SCH (09:50)
[2020-01-05] MEDS: VENLAFAXINE **XR** 75MG CAPSULE PO SCH (09:50)
[2020-01-05] MEDS: MULTIVITAMINS/MINERALS THERAP 1 TAB PO SCH (09:50)
[2020-01-05] MEDS: PRAVASTATIN 20 MG TAB PO SCH (09:51)
[2020-01-05] MEDS: CALCIUM/VITAMIN D 500 MG TAB PO SCH ×2 (09:51→20:19)
[2020-01-05] MEDS: ASPIRIN 325 MG TAB PO SCH (09:51)
[2020-01-05] MEDS: BRINZOLAMIDE 1 % OPHTH SUSP (AZOPT) 10ML OU SCH ×2 (09:51→20:19)
[2020-01-05] MEDS: IBUPROFEN 600 MG TAB PO PRN ×2 (12:14→18:24)
[2020-01-05 18:19] VITALS: BP 144/76
[2020-01-05] MEDS: PRIMIDONE 50 MG TAB PO SCH (20:19)
[2020-01-05] MEDS: ARIPiprazole 2 MG TAB PO SCH (20:19)
[2020-01-05] MEDS: LATANOPROST 0.005% OPHTH SOLN 2.5 ML OU SCH (20:19)
[2020-01-06 06:27] VITALS: BP 139/86
--- NOTE | 2020-01-06 08:18 | MHIPNPDOC ---
[facility] Progress Note Progress Note Inpatient Progress Note Anna Best MRN: N/A Date of : N/A Date of Service: 01/06/2020 History of Present Illness The patient, a 79-year-old woman with multiple inpatient admission presents to the floor after being assessed by this provider after she had overdosed on Tylenol and a suicide attempt. The patient generally did not engage in intervene on the floor and generally returned to a state of staring off into the distance. The patient was met with today where she generally did not engage in any meaningful interview, simply focusing on trying to get to a mcc, it appears her family is entirely focused on having us hold her until she is placed in mcc or assisted living. She had reportedly tried to engage in having a true assess on the medical floor; however, when she arrived here she was completely ambulatory with no problems. The patient does not describe any changes in her depression, is unable to describe anything more than meaningful in the conversation today. Interval History The patient is met with today. She reports that she is doing better. Staff report that she is more engaged, smiling more and engaging in treatment more effectively. She stays less in her room. Although when asked about doing good, she reports that she is, but then attempts to become quite upset when she is discussed with about potential alternatives to long-term care. The patient otherwise has been doing well. Review Of Systems General: Denies fever or appetite changes Cardiovascular: Denies Chest pain or palpations GI: Denies Nausea, vomiting, or bowel changes Respiratory: Denies shortness of breath or cough Neuro: Denies dizziness, tremors Derm: Denies any rashes or pruritus : Denies any dysuria or urinary problems MSK: Denies any muscle tightness or stiffness HEENT: Denies any vision changes or headaches Psychotherapy None on this visit. Vital Signs Reviewed. Mental Status Examination General: Fair hygiene. Speech: Spontaneous and fluid Thought processes: Linear. MSK: Smooth and coordinated gait, no signs of tremors or involuntary orofacial movements Thought content: More hopeful. Abstract reasoning, and computation: Impaired. Description of associations: Intact Description of abnormal or psychotic thoughts: Denies any suicidal or homicidal ideations, denies auditory or visual hallucinations. Judgment: Improved. Insight: Mildly improved. Orientation: Alert and orientated 3 Cognition: Grossly normal Recent and remote memory: Intact Attention span and concentration: Intact Fund of knowledge: Adequate Mood: "Better." Affect: More euthymic. Diagnoses Unspecified depressive disorder. Dependent personality disorder. Rule out malingering versus MDD. Assessment and Plan Unspecified depression: Continue Effexor and Abilify. Dependent personality disorder: More stable. Disposition Will discharge tomorrow if safe plan can be made as she will be unlikely to meet criteria to be sent to long-term. She has made some progress, however, her l iving situation is a primary provoker for her presentations, however, we were unable to address it significantly today. Time Spent 15 minutes. Vital Signs Vital Signs Date Time Temp Pulse Resp B/P (MAP) Pulse Ox O2 Delivery O2 Flow Rate FiO2 01/06/20 06:27 98.2 76 18 139/86 (103) 96 Room Air Current Medications Current Medications Medications (Trade) Dose Ordered Sig/Joceline Route PRN Reason Start Time Stop Time Status Last Admin Dose Admin Acetaminophen (Tylenol Arthritis Er) 1,300 mg QHS PRN PO PAIN 12/11/19 12:45 12/11/19 12:43 DC Acetaminophen (Tylenol Tab) 650 mg Q6HP PRN PO HEADACHE or DISCOMFORT 12/08/19 20:00 UNV Al Hydrox/Mg Hydrox/Simethicone (Mylanta) 30 ml Q4HP PRN PO HEARTBURN/INDIGESTION 12/08/19 20:00 UNV Al Hydrox/Mg Hydrox/Simethicone (Mylanta) 30 ml Q4HP PRN PO HEARTBURN/INDIGESTION 12/09/19 13:00 01/05/20 12:15 Aripiprazole (AbiLIFY) 2 mg QHS PO 12/17/19 21:00 01/05/20 20:19 Aspirin (Aspirin) 325 mg DAILY PO 12/10/19 09:00 01/05/20 09:51 Brinzolamide (Azopt) 1 drop BID OU 12/09/19 21:00 01/05/20 20:19 Calcium/Vitamin D (Oscal D) 500 mg BID PO 12/11/19 21:00 01/05/20 20:19 Home Med (Med Rec Complete!) ASDIRECTED XX 12/08/19 21:00 UNV Ibuprofen (Advil) 600 mg Q6HP PRN PO MODERATE PAIN (PS 5-7) 12/11/19 05:12 01/05/20 18:24 Latanoprost (Xalatan 0.005% Op Soln) 1 drop QHS OU 12/09/19 21:00 01/05/20 20:19 Magnesium Hydroxide (Milk Of Magnesia) 30 ml DAILYPRN PRN PO CONSTIPATION 12/08/19 20:00 UNV Magnesium Hydroxide (Milk Of Magnesia) 30 ml DAILYPRN PRN PO CONSTIPATION 12/09/19 13:00 Miscellaneous (Unresolved Clarification Entry) SEE LABEL COMMENTS DAILY XX 12/16/19 09:00 12/16/19 14:06 DC Modafinil (Provigil) 50 mg QAM PO 12/10/19 09:00 12/21/19 16:00 DC 12/20/19 08:53 Multivitamins (Theragram-M) 1 tab DAILY PO 12/11/19 09:00 01/05/20 09:50 Non-Formulary Medication ( See Comment Field Below ) SEE COMMENTS SECTION 1T@10 ID 12/25/19 10:00 12/23/19 10:18 DC Pravastatin Sodium (Pravachol) 20 mg DAILY PO 12/12/19 09:00 01/05/20 09:51 Pravastatin Sodium (Pravachol) 20 mg QHS PO 12/11/19 21:00 12/11/19 12:43 DC Primidone (Mysoline) 100 mg QHS PO 12/09/19 21:00 01/05/20 20:19 Trazodone HCl (Desyrel) 50 mg QHSP PRN PO INSOMNIA 12/08/19 20:00 UNV Trazodone HCl (Desyrel) 50 mg QHSP PRN PO INSOMNIA 12/09/19 13:00 12/21/19 16:44 DC 12/18/19 21:48 Venlafaxine HCl (Effexor Xr) 37.5 mg DAILY PO 12/22/19 09:00 01/05/20 09:50 Venlafaxine HCl (Effexor Xr) 150 mg DAILY PO 12/10/19 09:00 12/12/19 17:12 DC 12/12/19 08:15 Venlafaxine HCl (Effexor Xr) 150 mg DAILY PO 12/22/19 09:00 01/05/20 09:50 Venlafaxine HCl (Effexor Xr) 187.5 mg DAILY PO 12/22/19 09:00 UNV Venlafaxine HCl (Effexor Xr) 225 mg DAILY PO 12/13/19 09:00 12/21/19 17:19 DC 12/21/19 09:16 Allergies Coded Allergies: Cephalosporins (Verified Allergy, Unknown, 08/29/19) Penicillins (Verified Allergy, Unknown, UNKNOWN REACTION, 08/30/19) ceftriaxone (Verified Adverse Reaction, Unknown, INCREASED HR, 08/30/19) meperidine (Verified Adverse Reaction, Unknown, AMS, 08/30/19) NANCY MARROQUIN DO January 06, 2020 08:18
[2020-01-06] MEDS: VENLAFAXINE **XR** 75MG CAPSULE PO SCH (09:00)
[2020-01-06] MEDS: BRINZOLAMIDE 1 % OPHTH SUSP (AZOPT) 10ML OU SCH (09:00)
[2020-01-06] MEDS: VENLAFAXINE **XR** 37.5 MG CAPSULE PO SCH (09:00)
[2020-01-06] MEDS: MULTIVITAMINS/MINERALS THERAP 1 TAB PO SCH (09:00)
[2020-01-06] MEDS: ASPIRIN 325 MG TAB PO SCH (09:00)
[2020-01-06] MEDS: CALCIUM/VITAMIN D 500 MG TAB PO SCH (09:01)
[2020-01-06] MEDS: PRAVASTATIN 20 MG TAB PO SCH (09:01)
--- NOTE | 2020-01-06 09:37 | MHDSPDOC ---
[facility] Discharge Summary Discharge Summary DATE OF ADMISSION: Dec 09, 2019 at 14:56 DATE OF DISCHARGE: 01/06/2020 Discharge Anna Best MRN: N/A Date of : N/A Date of Service: 01/06/2020 Diagnoses Unspecified depressive disorder. Dependent personality disorder. Rule out malingering versus MDD. History of Present Illness The patient, a 79-year-old woman with multiple inpatient admission presents to the floor after being assessed by this provider after she had overdosed on Tylenol and a suicide attempt. The patient generally did not engage in intervene on the floor and generally returned to a state of staring off into the distance. The patient was met with today where she generally did not engage in any meani ngful interview, simply focusing on trying to get to a skilled nursing, it appears her family is entirely focused on having us hold her until she is placed in skilled nursing or assisted living. She had reportedly tried to engage in having a true assess on the medical floor; however, when she arrived here she was completely ambulatory with no problems. The patient does not describe any c hanges in her depression, is unable to describe anything more than meaningful in the conversation today. Consultants Involved Hospitalist/PCP screening Treatment and Progress On The Unit The patient was admitted to the inpatient mental health unit, initially she was tried on augmented Effexor increased to 225 mg daily due to concerns of depression. She required room lockout as she refused to engage in any meaningful treatment during her stay when she first arrived. She had some dizziness and subsequently was lowered on the Effexor to 187.5 mg daily, augmented with 2 mg of Abilify. She was conferred to and initially triaged to go to [facility] as she had multiple inpatient admissions and had difficulty taking care of herself; however, [facility] rejected her stating that they felt she needed a skilled nursing. Evaluation for a skilled nursing revealed that she did not have any specialized skill needs, thus the patient was continued on treatment and eventually made some improvements, become less depressed, more active and demonstrating an improved mental status exam. She eventually improved well enough that she was able to be discharged. Discharge Assessment 79-year-old more likely dependent personality and depression presents likely with some depression but also secondary gain in terms of attention, she is treated with an appropriate agent for treatment resistant depression and her behaviors are monitored with judicious behavioral plans resulting in improvement in her mental status. Her long-term problems will likely go further and make it difficult for her to address this, however, she is not able to address these on this admission. Mental Status Examination General: Well dressed with good hygiene Speech: More fluid Thought processes: More linear MSK: Smooth and coordinated gait, no signs of tremors or involuntary orofacial movements Thought content: Much more future orientated Abstract reasoning, and computation: Intact Description of associations: Intact Description of abnormal or psychotic thoughts: Denies any suicidal or homicidal ideation. Denies any auditory or visual hallucinations. Does not appear to be responding to internal stimuli. Does not appear to be endorsing any bizarre or paranoid ideation. Judgment: Improved Insight: Improved Orientation: Alert and orientated 3 Cognition: Grossly normal Recent and remote memory: Intact Attention span and concentration: Intact Fund of knowledge: Adequate Mood: "okay" Affect: More euthymic Follow Up The social work team worked during the predischarge meeting in order to evaluate for further issues of lethality address them fully before discharge. They worked on safety planning with the patient's family members in order to ensure that the patient will have a safe and effective discharge. Time Spent The amount of time spent in the coordination of care for this patient was approximately 45 minutes. Vital Signs/I&Os Vital Signs Date Time Temp Pulse Resp B/P (MAP) Pulse Ox O2 Delivery O2 Flow Rate FiO2 01/06/20 06:27 98.2 76 18 139/86 (103) 96 Room Air Medications Scheduled Aripiprazole (Abilify) 2 Mg Tablet, 2 MG PO QHS for mood for 7 Days, #7 Aspirin (Aspirin) 325 Mg Tablet, 325 MG PO DAILY, (Reported) Brinzolamide (Azopt) 1% 10ML Drops.susp, 1 DROP OU BID, (Reported) Calcium Carbonate/Vitamin D3 (Calcium 500-Vit D3 400 Tablet) 1 Each Tablet, 1 TAB PO BID, (Reported) Gluc Mcfarlane/Chondro Mcfarlane A/Vit C/Mn (Glucosamine Chondroitin Tab) 1 Each Tablet, 1 TAB PO BID, (Reported) Latanoprost/Pf (Latanoprost 0.005% Eye Drop) 7.5 Ml Drops, 1 DROP OU QHS, (Reported) Multivitamins (Thera M Plus Tablet) 1 Each Tablet, 1 TAB PO DAILY, (Reported) Pravastatin Sodium (Pravastatin Sodium) 20 Mg Tab, 20 MG PO QHS, (Reported) Primidone (Primidone) 50 Mg Tab, 100 MG QHS, (Reported) Venlafaxine HCl (Venlafaxine HCl ER) 150 Mg Cap.er.24h, 1 CAP PO DAILY for mood for 7 Days, #7 Venlafaxine HCl (Venlafaxine HCl ER) 37.5 Mg Cap.er.24h, 37.5 MG PO DAILY for mood for 7 Days, #7 Scheduled PRN Acetaminophen (Tylenol Arthritis) 650 Mg Tablet.er, 1,300 MG PO QHS PRN for PAIN, (Reported) Docusate Sodium (Stool Softener) 100 Mg Capsule, 100 MG PO BID PRN for CONSTIPATION, (Reported) Sennosides (Senokot) 8.6 Mg Tablet, 8.6 MG PO DAILY PRN for CONSTIPATION for 30 Days, #30 Allergies Coded Allergies: Cephalosporins (Verified Allergy, Unknown, 08/29/19) Penicillins (Verified Allergy, Unknown, UNKNOWN REACTION, 08/30/19) ceftriaxone (Verified Adverse Reaction, Unknown, INCREASED HR, 08/30/19) meperidine (Verified Adverse Reaction, Unknown, AMS, 08/30/19) NANCY MARROQUIN DO January 06, 2020 09:37
[2020-01-06] MEDS ORDERED: VENL37.598 PO (11:40)
[2020-01-06] MEDS ORDERED: VENL150C43 PO (11:40)
[2020-01-06] MEDS ORDERED: ABIL1TAB13 PO (11:40)
[2020-01-06] MEDS ORDERED: SENO8.6T5 PO (16:39)
== END 2020-01-06 15:39 | disposition home or self-care (01) | DRG 881 ==
LOC: M PSY 12-09 14:56
PROVIDERS: ADMIT Psychiatry & Neurology Addiction Medicine; ATTEND Psychiatry & Neurology Addiction Medicine
DX: F32.9 Major depressive disorder, single episode, unspecified (principal); F60.7 Dependent personality disorder; Z76.5 Malingerer [conscious simulation]; Z79.899 Other long term (current) drug therapy; Z79.82 Long term (current) use of aspirin; Z88.0 Allergy status to penicillin; Z88.8 Allergy status to other drugs, medicaments and biological substances; E87.6 Hypokalemia; E78.5 Hyperlipidemia, unspecified; H40.9 Unspecified glaucoma; I25.10 Atherosclerotic heart disease of native coronary artery without angina pectoris; K59.00 Constipation, unspecified; G25.0 Essential tremor; R42 Dizziness and giddiness; R55 Syncope and collapse; I95.1 Orthostatic hypotension

== ENCOUNTER 2020-01-30 16:12 | Inpatient (IN) | payer MEDICARE ==
[~2020-01-30] VITALS: Ht 149.9 cm; Wt 64.2 kg
[~2020-01-30 16:12] MED LIST changes: +ABIL1TAB13 PO; +VENL150C43 PO; +VENL37.598 PO
[2020-01-30 16:50] LABS: BASO # 0.1 10^3/uL (0.0-0.2); BASO % 0.8 % (0.0-1.0); EOS # 0.1 10^3/uL (0.0-0.5); EOS % 0.8 % (0.0-3.0); HEMATOCRIT 38.6 % (36.0-47.0); HEMOGLOBIN 13.2 g/dl (12.0-15.5); LYMPH # 2.4 10^3/uL (1.5-5.0); LYMPH % 26.2 % (24.0-44.0); MEAN CORPUSCULAR HEMOGLOBIN 32.3 pg (27.0-33.0); MEAN CORPUSCULAR HGB CONC 34.2 g/dl (32.0-36.5); MEAN CORPUSCULAR VOLUME 94.4 fl (80.0-96.0); MONO # 0.6 10^3/uL (0.0-0.8); MONO % 6.3 % (0.0-5.0); NEUTROPHILS # 6.1 10^3/uL (1.5-8.5); NEUTROPHILS % 65.7 % (36.0-66.0); PLATELET COUNT, AUTOMATED 290 10^3/uL (150-450); RED BLOOD COUNT 4.09 10^6/uL (4.00-5.40); WHITE BLOOD COUNT 9.3 10^3/uL (4.0-10.0)
--- NOTE | 2020-01-30 16:54 | REP ---
CT brain: 01/30/2020. Indication: Stroke. Technique: Unenhanced axial CT images of the brain were obtained from skull base to vertex with coronal reconstructions provided. Comparison: 08/29/2019. Findings: There is no acute intracranial hemorrhage, acute cortical infarction, mass effect or hydrocephalous. Age-related volume loss is present. A few patchy areas of white matter hypoattenuation are present within the cerebral hemispheres. Impression: No acute intracranial process. Sequelae of chronic microangiopathic ischemic disease. Electronically Signed by Robson Vargas DO 01/30/2020 04:46 P
[2020-01-30] MEDS ORDERED: DULO1CAP4 PO (17:02)
[2020-01-30] MEDS ORDERED: KLON0.5T PO (17:02)
--- NOTE | 2020-01-30 17:03 | REP ---
Single view chest: 01/30/2020. Indication: Stroke. Comparison: 11/15/2019. Findings: The lungs are clear. There is no pleural effusion or pneumothorax. Cardiac silhouette is not enlarged. Impression: Clear lungs. Electronically Signed by Robson Vargas DO 01/30/2020 04:55 P
[2020-01-30 17:12] LABS: INR 1.03; PROTHROMBIN TIME 13.2 SECONDS (11.8-14.0)
[2020-01-30 17:13] LABS: PARTIAL THROMBOPLASTIN TIME 24.6 SECONDS (25.0-38.4)
[2020-01-30 17:25] LABS: ACETAMINOPHEN LEVEL 141.6 UG/ML (10.0-30.0); ALBUMIN 3.4 GM/DL (3.2-5.2); ALT/SGPT 30 U/L (12-78); BILIRUBIN,DIRECT 0.1 MG/DL (0.0-0.2); BILIRUBIN,TOTAL 0.3 MG/DL (0.2-1.0); CK-MB VALUE MASS 1.6 NG/ML (<3.6); CPK CREATINE PHOSPHOKINASE 46 U/L (26-192); ETHYL ALCOHOL (ETHANOL) < 0.003 % (0.000-0.010); MB/CK RELATIVE INDEX 3.48 (< OR =4); SALICYLATE LEVEL < 1.7 MG/DL (5.0-30.0); TROPONIN I 0.02 NG/ML (< 0.10)
[2020-01-30] MEDS ORDERED: D5W IV ONE ×2 (18:00→19:00)
[2020-01-30] MEDS ORDERED: ACETYLCYSTEINE IV ONE ×2 (18:00→19:00)
--- NOTE | 2020-01-30 19:05 | HPEPDOC ---
[facility] Medical History & Physical Date of Admission Jan 30, 2020 Date of Service: Jan 30, 2020 Primary Care Physician: BERNICE PEARL DO Attending Physician: AMANDA GARCIA MD History and Physical TIME OF SERVICE: 7:05 PM CHIEF COMPLAINT: Tylenol overdose HISTORY OF PRESENT ILLNESS: The patient is a poor historian, the majority of the history is obtained from the ER attending and records. This is a 66-year-old female who came to the hospital after overdosing on Tylenol when asked if she has been feeling depressed, she didn't provide additional history. H er serum acetaminophen was found to be 141.6 & she was started on NAC. REVIEW OF SYSTEMS: 12 point review of systems negative except as listed in HPI PAST MEDICAL/ SURGICAL HISTORY: Depression with suicide attempt Dyslipidemia Essential tremor Unspecified psychosis Appendectomy Cholecystectomy SOCIAL HISTORY: Unobtainable FAMILY HISTORY: Unobtainable ALLERGIES: Please see below HOME MEDICATIONS: Please see below PHYSICAL EXAMINATION: Vital Signs Date Time Temp Pulse Resp B/P (MAP) Pulse Ox O2 Delivery O2 Flow Rate FiO2 01/30/20 16:25 96.9 68 16 149/69 (95) 98 Room Air GEN: well-nourished / well developed INTEGUMENT: Has generalized pallor HEENT: NCAT / lips acyanotic /mucus membranes dry CVS: RRR/NMRG /radial pulses intact / no lower extremity edema LUNGS: lungs are clear to auscultation bilaterally on room air NEURO: CN 2-12 are grossly intact / speech is not dysarthric PSYCH: alert / flat affect / has psychomotor slowing LABORATORY DATA: Immature Granulocyte % (Auto) 0.2, Neutrophils (%) (Auto) 65.7, Lymphocytes (%) (Auto) 26.2, Monocytes (%) (Auto) 6.3H, Eosinophils (%) (Auto) 0.8, Basophils (%) (Auto) 0.8, Neutrophils # (Auto) 6.1, Lymphocytes # (Auto) 2.4, Monocytes # (Auto) 0.6, Eosinophils # (Auto) 0.1, Basophils # (Auto) 0.1, Nucleated Red Blood Cells % (auto) 0.0, Prothrombin Time 13.2, Prothromb Time International Ratio 1.03, Activated Partial Thromboplast Time 24.6L, POC Glucose (Misc Panel) 139H, POC Sodium (Misc Panel) 135L, POC Potassium (Misc Panel) 3.6, POC Chloride (Misc Panel) 100, POC Total CO2 (Misc Panel) 20.0L, POC Blood Urea Nitrogen (Misc Panel 23, POC Ionized Calcium (Misc Panel) 4.7, POC Creatinine (Misc Panel) 1.0, POC Hematocrit (Misc Panel) 40.0, Total Bilirubin 0.3, Direct Bilirubin 0.1, Aspartate Amino Transf (AST/SGOT) 14, Alanine Aminotransferase (ALT/SGPT) 30, Alkaline Phosphatase 62, Total Creatine Kinase 46, Creatine Kinase MB 1.6, Creatine Kinase MB Relative Index 3.48, Troponin I 0.02, Total Protein 6.0L, Albumin 3.4, Albumin/Globulin Ratio 1.3, Thyroid Stimulating Hormone (TSH) 1.060, Salicylates Level < 1.7L, Acetaminophen Level 141.6H, Ethyl Alcohol Level < 0.003 IMAGING: CT "Impression: No acute intracranial process. Sequelae of chronic microangiopathic ischemic disease." Chest x-ray " Impression: Clear lungs." ASSESSMENT: Ms. Best is a 80-year-old with a history of depression and unspecified psychosis who intentionally overdosed on Tylenol likely an attempt to commit suicide. PLAN: 1. Acetaminophen Overdose Plan: admit to PCU / f/u Acetaminophen, coags, CMP, Q4H / IVF / c/w NAC / hold pravastatin & clonazepam 2. Suspected suicide attempt Plan: 1:1 sitter / psych consult once she is medically cleared 3. Psychosis/Depression - aripiprazole, duloxetine, venlafazine 4. Obesity with BMI of 30.2, complicate his care- f/u A1c DVT PROPHYLAXIS: Heparin DISPOSITION: Likely IMHU after more than 2 midnight's stay LATE ENTRY 1000PM Per d/w the patient's RN she had runs of Bigeminy on telemetry and her HR dropped to the 30s. At the time the patient was still alert. 5. Bradycardia - move to ICU / atropine PRN for HR < 30 w symptoms / f/u serial trops, repeat Mag, K and Echo 6. Bigeminy - f/u EKG now 7. Accelerated HTN - captopril 6.25mg now + hydralazine 12.5mg PRN BP >160/100 Home Medications Scheduled Aripiprazole (Aripiprazole) 2 Mg Tablet, 2 MG PO QHS Duloxetine Hcl (Duloxetine HCl) 60 Mg Capsule.dr, 60 MG PO DAILY Gluc Mcfarlane/Chondro Mcfarlane A/Vit C/Mn (Glucosamine Chondroitin Tab) 1 Each Tablet, 1 TAB PO BID Latanoprost/Pf (Latanoprost 0.005% Eye Drop) 7.5 Ml Drops, 1 DROP OU QHS Multivitamins (Thera M Plus Tablet) 1 Each Tablet, 1 TAB PO DAILY Pravastatin Sodium (Pravastatin Sodium) 20 Mg Tab, 20 MG PO QHS Primidone (Primidone) 50 Mg Tab, 100 MG QHS Venlafaxine HCl (Venlafaxine HCl ER) 37.5 Mg Cap.er.24h, 37.5 MG PO DAILY Venlafaxine HCl (Venlafaxine HCl ER) 150 Mg Cap.er.24h, 150 MG PO DAILY Scheduled PRN Clonazepam (Clonazepam) 0.25 Mg Tab.rapdis, 0.25 MG PO QHSP PRN for ANXIETY Docusate Sodium (Stool Softener) 100 Mg Capsule, 100 MG PO BID PRN for CON STIPATION Sennosides (Senokot) 8.6 Mg Tablet, 8.6 M PO DAILYPRN PRN for CONSTIPATION Miscellaneous Medications [patient comment] UNABLE TO VERIFY WITH PATIENT. MED LIST OBTAINED THROUGH EXTERNAL MED HISTORY Allergies Coded Allergies: Cephalosporins (Verified Allergy, Unknown, 08/29/19) Penicillins (Verified Allergy, Unknown, UNKNOWN REACTION, 08/30/19) ceftriaxone (Verified Adverse Reaction, Unknown, INCREASED HR, 08/30/19) meperidine (Verified Adverse Reaction, Unknown, AMS, 08/30/19) AMANDA GARCIA MD Jan 30, 2020 19:05
[2020-01-30] MEDS ORDERED: MAALOX 30 ML SUSP *UDC PO PRN (19:15)
[2020-01-30] MEDS ORDERED: MOM 30ML SUSPENSION UDC PO PRN (19:15)
[2020-01-30] MEDS ORDERED: DULO1CAP6 PO (19:46)
[2020-01-30] MEDS ORDERED: CLON0.25 PO (19:46)
[2020-01-30] MEDS ORDERED: ARIP1TAB4 PO (19:46)
[2020-01-30] MEDS ORDERED: VENL37.52 PO (19:47)
[2020-01-30] MEDS ORDERED: SENO8.6T5 PO (19:47)
[2020-01-30] MEDS ORDERED: VENL150C43 PO (19:47)
[2020-01-30] MEDS ORDERED: patient comment (19:48)
[2020-01-30 21:40] VITALS: BP 210/80
[2020-01-30] MEDS ORDERED: ATROPINE SULF 1MG/10ML SYRINGE (J0461) IV PRN (22:15)
[2020-01-30] MEDS ORDERED: CAPTOpril 6.25 MG PER 1/2 TABLET PO ONE (22:15)
[2020-01-30 23:04] LABS: TROPONIN I 0.02 NG/ML (< 0.10)
[2020-01-30] MEDS: HEPARIN SOD (PORCINE) 5000UNITS/ML VIAL (J1644 PER 1000UNITS) SC SCH (23:10)
[2020-01-30 23:30] VITALS: BP 185/84
[2020-01-30] MEDS ORDERED: DOCUSATE SODIUM 100 MG CAP PO PRN (23:30)
[2020-01-30] MEDS ORDERED: SENOKOT S TAB PO PRN (23:30)
[2020-01-30] MEDS ORDERED: **hydrALAZINE HCL** 25 MG TAB PO PRN (23:45)
[2020-01-31] VITALS (16 sets, daily range): BP systolic 124–209; BP diastolic 58–133
[2020-01-31 00:02] LABS: INR 1.12; PROTHROMBIN TIME 14.1 SECONDS (11.8-14.0)
[2020-01-31 00:16] LABS: ACETAMINOPHEN LEVEL 32.6 UG/ML (10.0-30.0); ALBUMIN 3.2 GM/DL (3.2-5.2); ALT/SGPT 56 U/L (12-78); BILIRUBIN,TOTAL 0.2 MG/DL (0.2-1.0); BLOOD UREA NITROGEN 20 MG/DL (7-18); CALCIUM LEVEL 8.7 MG/DL (8.8-10.2); CARBON DIOXIDE LEVEL 26 MEQ/L (21-32); CHLORIDE LEVEL 100 MEQ/L (98-107); CREATININE FOR GFR 0.71 MG/DL (0.55-1.30); GLOMERULAR FILTRATION RATE > 60.0 (>39); GLUCOSE, FASTING 146 MG/DL (70-100); POTASSIUM SERUM 3.4 MEQ/L (3.5-5.1); SODIUM LEVEL 136 MEQ/L (136-145); TOTAL PROTEIN 5.7 GM/DL (6.4-8.2)
[2020-01-31] MEDS: NS 1,000 ML IV SCH ×2 (00:25→13:07)
[2020-01-31] MEDS ORDERED: PILL CUTTER 1 EACH XX PRN (00:45)
[2020-01-31 00:55] LABS: TROPONIN I 0.04 NG/ML (< 0.10)
[2020-01-31] MEDS ORDERED: ACETYLCYSTEINE IV ONE (01:00)
[2020-01-31] MEDS ORDERED: D5W IV ONE (01:00)
[2020-01-31 01:12] LABS: HEMOGLOBIN A1c 5.2 %
[2020-01-31 04:41] LABS: HEMATOCRIT 36.7 % (36.0-47.0); HEMOGLOBIN 12.6 g/dl (12.0-15.5); MEAN CORPUSCULAR HGB CONC 34.3 g/dl (32.0-36.5); MEAN CORPUSCULAR VOLUME 93.1 fl (80.0-96.0); PLATELET COUNT, AUTOMATED 267 10^3/uL (150-450); RED BLOOD COUNT 3.94 10^6/uL (4.00-5.40); WHITE BLOOD COUNT 9.5 10^3/uL (4.0-10.0)
[2020-01-31 05:05] LABS: ALT/SGPT 46 U/L (12-78); BILIRUBIN,TOTAL 0.2 MG/DL (0.2-1.0); BLOOD UREA NITROGEN 18 MG/DL (7-18); CALCIUM LEVEL 8.4 MG/DL (8.8-10.2); CARBON DIOXIDE LEVEL 23 MEQ/L (21-32); CHLORIDE LEVEL 104 MEQ/L (98-107); CREATININE FOR GFR 0.59 MG/DL (0.55-1.30); GLOMERULAR FILTRATION RATE > 60.0 (>39); GLUCOSE, FASTING 104 MG/DL (70-100); MAGNESIUM LEVEL 2.1 MG/DL (1.8-2.4); SODIUM LEVEL 139 MEQ/L (136-145); TOTAL PROTEIN 5.3 GM/DL (6.4-8.2)
[2020-01-31] MEDS: HEPARIN SOD (PORCINE) 5000UNITS/ML VIAL (J1644 PER 1000UNITS) SC SCH ×3 (05:30→21:12)
[2020-01-31] MEDS ORDERED: POTASSIUM CHLORIDE 10 MEQ SR TABLET PO ONE ×3 (08:00→16:30)
[2020-01-31 08:03] LABS: ALT/SGPT 45 U/L (12-78); BILIRUBIN,TOTAL 0.2 MG/DL (0.2-1.0); BLOOD UREA NITROGEN 14 MG/DL (7-18); CALCIUM LEVEL 8.8 MG/DL (8.8-10.2); CARBON DIOXIDE LEVEL 26 MEQ/L (21-32); CHLORIDE LEVEL 105 MEQ/L (98-107); CREATININE FOR GFR 0.67 MG/DL (0.55-1.30); GLOMERULAR FILTRATION RATE > 60.0 (>39); GLUCOSE, FASTING 111 MG/DL (70-100); POTASSIUM SERUM 3.3 MEQ/L (3.5-5.1); SODIUM LEVEL 139 MEQ/L (136-145); TOTAL PROTEIN 5.9 GM/DL (6.4-8.2)
[2020-01-31] MEDS: amLODIPine 10 MG TAB PO SCH (08:14)
[2020-01-31] MEDS: DULoxetine 30 MG CAP (CYMBALTA) PO SCH (08:14)
[2020-01-31] MEDS: VENLAFAXINE **XR** 37.5 MG CAPSULE PO SCH (09:59)
[2020-01-31] MEDS: VENLAFAXINE **XR** 75MG CAPSULE PO SCH (09:59)
[2020-01-31 12:22] LABS: TROPONIN I 0.05 NG/ML (< 0.10)
[2020-01-31 12:23] LABS: ALBUMIN 3.5 GM/DL (3.2-5.2); ALT/SGPT 47 U/L (12-78); BILIRUBIN,TOTAL 0.2 MG/DL (0.2-1.0); BLOOD UREA NITROGEN 10 MG/DL (7-18); CALCIUM LEVEL 9.2 MG/DL (8.8-10.2); CARBON DIOXIDE LEVEL 24 MEQ/L (21-32); CHLORIDE LEVEL 105 MEQ/L (98-107); CREATININE FOR GFR 0.76 MG/DL (0.55-1.30); GLOMERULAR FILTRATION RATE > 60.0 (>39); GLUCOSE, FASTING 126 MG/DL (70-100); POTASSIUM SERUM 3.5 MEQ/L (3.5-5.1); SODIUM LEVEL 137 MEQ/L (136-145); TOTAL PROTEIN 6.3 GM/DL (6.4-8.2)
[2020-01-31 12:52] LABS: MAGNESIUM LEVEL 2.2 MG/DL (1.8-2.4)
[2020-01-31] MEDS ORDERED: LABETALOL 100MG/20ML VIAL IV ONE (16:30)
[2020-01-31 16:39] LABS: INR 1.16; PROTHROMBIN TIME 14.5 SECONDS (11.8-14.0)
[2020-01-31 16:47] LABS: ALBUMIN 3.2 GM/DL (3.2-5.2); ALT/SGPT 40 U/L (12-78); BILIRUBIN,TOTAL 0.2 MG/DL (0.2-1.0); BLOOD UREA NITROGEN 13 MG/DL (7-18); CALCIUM LEVEL 8.8 MG/DL (8.8-10.2); CARBON DIOXIDE LEVEL 25 MEQ/L (21-32); CHLORIDE LEVEL 108 MEQ/L (98-107); GLOMERULAR FILTRATION RATE > 60.0 (>39); GLUCOSE, FASTING 118 MG/DL (70-100); POTASSIUM SERUM 3.9 MEQ/L (3.5-5.1); SODIUM LEVEL 141 MEQ/L (136-145); TOTAL PROTEIN 5.8 GM/DL (6.4-8.2)
[2020-01-31 16:48] LABS: ACETAMINOPHEN LEVEL 2.8 UG/ML (10.0-30.0); ALT/SGPT 39 U/L (12-78); BILIRUBIN,DIRECT < 0.1 MG/DL (0.0-0.2); BILIRUBIN,TOTAL 0.2 MG/DL (0.2-1.0); TOTAL PROTEIN 5.6 GM/DL (6.4-8.2)
--- NOTE | 2020-01-31 18:00 | IPNPDOC ---
Text Note Date of Service The patient was seen on 01/31/20. NOTE Subjective: -No complaints this AM, minimal talking, denies any pain or physical complaints at this time GEN: well-nourished, well developed, NAD INTEGUMENT: No lesions or rashes HEENT: NCAT, MMM CVS: RRR, no mrg with frequent ectopy however Tele: frequent bigeminy this AM LUNGS: CTAB NEURO: CN 2-12 are grossly intact, speech is not dysarthric PSYCH: alert, flat affect, has significant psychomotor slowing Labs: WBC 9.5 hgb 12.6 platelets 267 Na 141 K 3.9 Cr 0.7 mag 2.2 LFTs wnl IMAGING: CT "Impression: No acute intracranial process. Sequelae of chronic microangiopa thic ischemic disease." Chest x-ray " Impression: Clear lungs." ASSESSMENT: Ms. Best is a 80-year-old with a history of MDD with history of MDD with psychotic features who intentionally overdosed on Tylenol in a suicide attempt. PLAN: 1. Acetaminophen Overdose Plan: -IVF -s/p NAC protocol -continue to hold pravastatin & clonazepam -1:1 sitter for suicidal attempt -psych consult -Daily LFTs, normal at this time 2. Suicide attempt with a history of severe MDD -1:1 sitter -psych consult 3. Depression - aripiprazole, duloxetine, venlafazine 4. Hypertension - start amlodpine 10 QD - start labetalol 100 TID 4. Obesity with BMI of 30.2, complicate his care DVT PROPHYLAXIS: Heparin DISPOSITION: Likely IMHU after more than 2 midnight's stay VS,Sally, I+O VS, Sally, I+O Laboratory Tests 01/30/20 23:39 01/31/20 04:04 01/31/20 07:25 01/31/20 11:40 01/31/20 15:53 Vital Signs Date Time Temp Pulse Resp B/P (MAP) Pulse Ox O2 Delivery O2 Flow Rate FiO2 01/31/20 16:54 76 178/88 01/31/20 12:00 Room Air 01/31/20 10:00 97.5 17 100 I&O- Last 24 Hours up to 6 AM 01/31/20 05:59 Intake Total 300 ml Balance 300 ml JUANITA SCOTT MD Jan 31, 2020 18:00
[2020-01-31 20:23] LABS: ALT/SGPT 39 U/L (12-78); BILIRUBIN,TOTAL 0.1 MG/DL (0.2-1.0); BLOOD UREA NITROGEN 16 MG/DL (7-18); CALCIUM LEVEL 8.6 MG/DL (8.8-10.2); CARBON DIOXIDE LEVEL 23 MEQ/L (21-32); CHLORIDE LEVEL 110 MEQ/L (98-107); GLOMERULAR FILTRATION RATE > 60.0 (>39); GLUCOSE, FASTING 143 MG/DL (70-100); POTASSIUM SERUM 3.9 MEQ/L (3.5-5.1); SODIUM LEVEL 142 MEQ/L (136-145); TOTAL PROTEIN 5.7 GM/DL (6.4-8.2)
--- NOTE | 2020-01-31 21:09 | ECGEPIP ---
[facility] Test Date: 2020-01-30 Pat Name: RENETTA NAIK Department: Room: [place] [address] Gender: Female Reservations Agent: BARBRA : 1940 Requested By: AMANDA GARCIA Order Number: [id number] Reading MD: Luis Miguel Kramer Measurements Intervals [place] Rate: 63 P: 64 UT: 148 QRS: 39 QRSD: 109 T: 59 QT: 359 QTc: 367 Interpretive Statements Normal sinus rhythm Nonspecific T wave abnormality No significant change when compared to prior tracing of 16:54, allowing for p precordial lead placement; suspect V2-V3 lead reversal Electronically Signed on 01-31-2020 21:09:22 EDT by Luis Miguel Kramer
[2020-01-31] MEDS: LABETALOL 100 MG TAB PO SCH (21:11)
[2020-01-31] MEDS: ARIPiprazole 2 MG TAB PO SCH (21:12)
--- NOTE | 2020-01-31 21:23 | ECGEPIP ---
[facility] - ED Test Date: 2020-01-30 Pat Name: RENETTA NAIK Department: Room: - Gender: Female Toll Relief Operator: jesika : 1940 Requested By: JUANA Castro Order Number: [id number] Reading MD: Robe Scherer Measurements Intervals [place] Rate: 69 P: 58 TN: 141 QRS: -7 QRSD: 114 T: 43 QT: 406 QTc: 435 Interpretive Statements SINUS RHYTHM MODERATE INTRAVENTRICULAR CONDUCTION DELAY NONSPECIFIC T-WAVE ABNORMALITY SIMILAR TO 12/07/19 Electronically Signed on 01-31-2020 21:22:58 EDT by Robe Scherer
--- NOTE | 2020-01-31 23:44 | ECHO ---
DATE OF PROCEDURE: 01/31/2020 REFERRING PHYSICIAN: Dr. Ashlee Dahl INDICATION: Abnormal EKG. Height 150 cm, weight 68 kg. DIMENSIONS: IVS: 1.2 LV: 4.1 LVPW: 1.2 LA: 3.2 Aorta: 3.0 IVC: 1.4 Mitral E wave velocity: 73 A wave: 78 E prime septal: 5.0 E prime lateral: 6.0 FINDINGS: The study is of fair technical quality. The patient was in sinus rhythm with predominant ventricular bigeminy. Left ventricle is normal size and overall normal systolic function, I estimate ejection fraction (EF) around 60%. Mild left ventricular hypertrophy (LVH) is noted. Right ventricle appears normal. Left atrium is mildly enlarged. Right atrium appears normal. Aortic valve is mildly sclerotic, but it has three cusps and preserved mobility. Mitral valve also exhibits mild degenerative abnormalities with some subtle thickening of leaflets but mobility is preserved. Tricuspid valve appears normal. Pulmonic valve was not well seen. No pericardial effusion is noted. Inferior vena cava is of normal size and appropriately collapses with inspiration indicative of normal central venous pressure. Aortic root is normal. Aortic arch was poorly seen. Abdominal aorta appears normal. Doppler interrogation reveals no aortic stenosis and mild to moderate insufficiency. There is trace mitral and mild tricuspid insufficiency. Calculated pulmonary artery pressure is within normal limits. Mitral inflow pattern and tissue Doppler imaging of mitral annulus revealed likely grade 1 diastolic dysfunction but due to frequent ventricular ectopy, this should not be considered overly reliable. CONCLUSIONS: 1. Study is of acceptable technical quality, the patient is in a sinus rhythm with predominantly ventricular bigeminy. 2. Normal LV size with mild LVH, preserved LV systolic function and likely grade 1 diastolic dysfunction. 3. Aortic sclerosis with no stenosis and mild to moderate insufficiency. 4. Trace mitral and tricuspid insufficiency. 5. Normal central venous pressure and likely normal pulmonary artery pressure. COMMENT: Subacute bacterial endocarditis (SBE) prophylaxis is not recommended. MTDD
[2020-02-01] VITALS (7 sets, daily range): BP systolic 117–166; BP diastolic 56–74
[2020-02-01 00:27] LABS: ALBUMIN 3.1 GM/DL (3.2-5.2); ALT/SGPT 41 U/L (12-78); BILIRUBIN,TOTAL 0.3 MG/DL (0.2-1.0); BLOOD UREA NITROGEN 17 MG/DL (7-18); CALCIUM LEVEL 8.8 MG/DL (8.8-10.2); CARBON DIOXIDE LEVEL 26 MEQ/L (21-32); CHLORIDE LEVEL 110 MEQ/L (98-107); GLOMERULAR FILTRATION RATE > 60.0 (>39); GLUCOSE, FASTING 67 MG/DL (70-100); SODIUM LEVEL 141 MEQ/L (136-145); TOTAL PROTEIN 5.8 GM/DL (6.4-8.2)
[2020-02-01 02:03] LABS: AMPHETAMINES LEVEL URINE NEGATIVE (NEGATIVE); BARBITURATES URINE POSITIVE (NEGATIVE); BENZODIAZEPINES URINE NEGATIVE (NEGATIVE); CANNABINOIDS URINE NEGATIVE (NEGATIVE); COCAINE METABOLITE URINE NEGATIVE (NEGATIVE); METHADONE URINE NEGATIVE (NEGATIVE); OPIATES URINE NEGATIVE (NEGATIVE); PHENCYCLIDINE URINE NEGATIVE (NEGATIVE)
[2020-02-01] MEDS: NS 1,000 ML IV SCH (02:51)
[2020-02-01 05:30] LABS: HEMATOCRIT 34.5 % (36.0-47.0); HEMOGLOBIN 11.9 g/dl (12.0-15.5); MEAN CORPUSCULAR HEMOGLOBIN 32.6 pg (27.0-33.0); MEAN CORPUSCULAR HGB CONC 34.5 g/dl (32.0-36.5); MEAN CORPUSCULAR VOLUME 94.5 fl (80.0-96.0); PLATELET COUNT, AUTOMATED 254 10^3/uL (150-450); RED BLOOD COUNT 3.65 10^6/uL (4.00-5.40); WHITE BLOOD COUNT 7.5 10^3/uL (4.0-10.0)
[2020-02-01] MEDS: LABETALOL 100 MG TAB PO SCH ×2 (05:32→13:12)
[2020-02-01] MEDS: HEPARIN SOD (PORCINE) 5000UNITS/ML VIAL (J1644 PER 1000UNITS) SC SCH ×3 (05:33→21:14)
[2020-02-01 05:52] LABS: BLOOD UREA NITROGEN 19 MG/DL (7-18); CALCIUM LEVEL 8.3 MG/DL (8.8-10.2); CARBON DIOXIDE LEVEL 22 MEQ/L (21-32); CHLORIDE LEVEL 113 MEQ/L (98-107); CREATININE FOR GFR 0.68 MG/DL (0.55-1.30); GLOMERULAR FILTRATION RATE > 60.0 (>39); GLUCOSE, FASTING 104 MG/DL (70-100); POTASSIUM SERUM 4.3 MEQ/L (3.5-5.1); SODIUM LEVEL 142 MEQ/L (136-145)
[2020-02-01 08:35] LABS: ALBUMIN 2.9 GM/DL (3.2-5.2); ALT/SGPT 47 U/L (12-78); BILIRUBIN,DIRECT < 0.1 MG/DL (0.0-0.2); BILIRUBIN,TOTAL 0.2 MG/DL (0.2-1.0); TOTAL PROTEIN 5.4 GM/DL (6.4-8.2)
[2020-02-01 09:01] LABS: INR 1.04; PROTHROMBIN TIME 13.3 SECONDS (11.8-14.0)
[2020-02-01] MEDS: VENLAFAXINE **XR** 37.5 MG CAPSULE PO SCH (09:48)
[2020-02-01] MEDS: amLODIPine 10 MG TAB PO SCH (09:49)
[2020-02-01] MEDS: VENLAFAXINE **XR** 75MG CAPSULE PO SCH (09:51)
[2020-02-01] MEDS: DULoxetine 30 MG CAP (CYMBALTA) PO SCH (09:52)
--- NOTE | 2020-02-01 14:07 | IPNPDOC ---
Text Note Date of Service The patient was seen on 02/01/20. NOTE Subjective: Patient denied any suicidal ideation or any plan to commit suicide. She stated that she was depressed for long period of time Objective: VITAL SIGNS: Please see below. GENERAL: awake, alert, NAD HEENT: NCAT, anicteric sclera, RAUL NECK: supple, no JVD CARDIOVASCULAR EXAMINATION: NS1S2, regular rate/rhythm RESPIRATORY EXAMINATION: CTA b/l, no wheezes/rales/rhonchi ABDOMINAL EXAMINATION: positive bowel sounds x 4, NT EXTREMITIES: no cyanosis, clubbing, edema SKIN: warm, no rashes. NEUROLOGICAL EXAMINATION: AAO x 3, no motor/sensory deficits PSYCHIATRIC EXAMINATION: Flat affect Assessment and plan Patient is 80 years old female with past mental history of major depressive disorder with psychotic features who was admitted to the hospital with Tylenol overdose Acetaminophen Overdose Status post NAC protocol treatment Continue sitter Appreciate/agree with psychiatrist consult. Patient will need transfer to mental health unit Suicide attempt with a history of severe MDD See above Depression - aripiprazole, duloxetine, venlafazine Hypertension Patient still has elevated blood pressure Continue amlodpine - start lisinopril DC labetalol Obesity with BMI of 30.2, complicate his care VS,Sally, I+O VS, Sally, I+O Laboratory Tests 01/31/20 15:53 01/31/20 19:45 01/31/20 23:39 02/01/20 05:03 Vital Signs Date Time Temp Pulse Resp B/P (MAP) Pulse Ox O2 Delivery O2 Flow Rate FiO2 02/01/20 13:12 71 166/72 02/01/20 12:00 97.8 18 99 Room Air I&O- Last 24 Hours up to 6 AM 02/01/20 06:00 Intake Total 2801.4 ml Output Total 900 ml Balance 1901.4 ml SAMANTA SIGALA DO Feb 01, 2020 14:07
[2020-02-01] MEDS ORDERED: lisinopriL 20 MG TAB PO ONE (14:30)
[2020-02-01] MEDS: ARIPiprazole 2 MG TAB PO SCH (21:14)
[2020-02-02] VITALS: BP 137/60
[2020-02-02 04:00] VITALS: BP 146/66
[2020-02-02] MEDS: HEPARIN SOD (PORCINE) 5000UNITS/ML VIAL (J1644 PER 1000UNITS) SC SCH ×3 (06:19→20:44)
[2020-02-02 07:42] VITALS: BP 144/72
[2020-02-02] MEDS: VENLAFAXINE **XR** 37.5 MG CAPSULE PO SCH (08:12)
[2020-02-02] MEDS: DULoxetine 30 MG CAP (CYMBALTA) PO SCH (08:13)
[2020-02-02] MEDS: VENLAFAXINE **XR** 75MG CAPSULE PO SCH (08:13)
[2020-02-02] MEDS: lisinopriL 20 MG TAB PO SCH (08:13)
[2020-02-02 08:27] LABS: ALBUMIN 3.1 GM/DL (3.2-5.2); ALT/SGPT 47 U/L (12-78); BILIRUBIN,TOTAL 0.3 MG/DL (0.2-1.0); BLOOD UREA NITROGEN 16 MG/DL (7-18); CALCIUM LEVEL 8.9 MG/DL (8.8-10.2); CARBON DIOXIDE LEVEL 22 MEQ/L (21-32); CHLORIDE LEVEL 112 MEQ/L (98-107); CREATININE FOR GFR 0.68 MG/DL (0.55-1.30); GLOMERULAR FILTRATION RATE > 60.0 (>39); GLUCOSE, FASTING 96 MG/DL (70-100); POTASSIUM SERUM 4.6 MEQ/L (3.5-5.1); SODIUM LEVEL 140 MEQ/L (136-145); TOTAL PROTEIN 5.3 GM/DL (6.4-8.2)
--- NOTE | 2020-02-02 12:53 | IPNPDOC ---
Text Note Date of Service The patient was seen on 02/02/20. NOTE Subjective: No any acute events overnight. Patient denies fever, chills, nausea, vomiting, suicidal ideation, diarrhea or dysuria Objective: VITAL SIGNS: Please see below. GENERAL: awake, alert, NAD HEENT: NCAT, anicteric sclera, RAUL NECK: supple, no JVD CARDIOVASCULAR EXAMINATION: NS1S2, regular rate/rhythm RESPIRATORY EXAMINATION: CTA b/l, no wheezes/rales/rhonchi ABDOMINAL EXAMINATION: positive bowel sounds x 4, NT EXTREMITIES: no cyanosis, clubbing, edema SKIN: warm, no rashes. NEUROLOGICAL EXAMINATION: AAO x 3, no motor/sensory deficits PSYCHIATRIC EXAMINATION: Flat affect Assessment and plan Patient is 80 years old female with past mental history of major depressive disorder with psychotic features who was admitted to the hospital with Tylenol overdose Acetaminophen Overdose Status post NAC protocol treatment Continue sitter Appreciate/agree with psychiatrist consult. Patient will need transfer to mental health unit Liver enzymes within normal limit Suicide attempt with a history of severe MDD See above Depression - aripiprazole, duloxetine, venlafaxine Hypertension blood pressure is under control Continue amlodpine Continue lisinopril Obesity with BMI of 30.2, complicate his care VS,[place], I+O VS, [place], I+O Laboratory Tests 02/02/20 07:44 Vital Signs Date Time Temp Pulse Resp B/P (MAP) Pulse Ox O2 Delivery O2 Flow Rate FiO2 02/02/20 08:13 144/72 02/02/20 07:42 96.8 65 18 97 Room Air I&O- Last 24 Hours up to 6 AM 02/02/20 06:00 Intake Total 3030 ml Output Total 800 ml Balance 2230 ml SAMANTA SIGALA DO Feb 02, 2020 12:53
[2020-02-02 20:00] VITALS: BP 125/58
[2020-02-02] MEDS: ARIPiprazole 2 MG TAB PO SCH (20:44)
[2020-02-03] VITALS: BP 127/60
[2020-02-03 04:00] VITALS: BP 134/62
[2020-02-03] MEDS: HEPARIN SOD (PORCINE) 5000UNITS/ML VIAL (J1644 PER 1000UNITS) SC SCH ×2 (05:52→15:02)
[2020-02-03] MEDS: DULoxetine 30 MG CAP (CYMBALTA) PO SCH (08:08)
[2020-02-03] MEDS: VENLAFAXINE **XR** 75MG CAPSULE PO SCH (08:08)
[2020-02-03 08:09] VITALS: BP 134/62
[2020-02-03] MEDS: VENLAFAXINE **XR** 37.5 MG CAPSULE PO SCH (08:09)
[2020-02-03] MEDS: lisinopriL 20 MG TAB PO SCH (08:09)
[2020-02-03 08:25] VITALS: BP 144/65
--- NOTE | 2020-02-03 10:50 | MHCR ---
DATE OF CONSULTATION: 02/02/2020 A psychiatric consult conducted via telepsychiatry 02/02/2020. HISTORY OF PRESENT ILLNESS : Due to the current coronavirus crisis, this consult is conducted via telepsychiatry. This is a 80-year-old woman who was admitted to the medical service after a Tylenol overdose as a suicidal attempt. The patient's acetaminophen level was 141.6 at the time of arrival to the hospital. The patient admitted that she had been feeling very depressed. Today, the patient tells me that she was very depressed and wanted to kill herself at the time, but she tells me that she does not want to now. This patient has a longstanding history of depression and anxiety. Actually, I first saw this patient on 11/16/2019 after the patient again was admitted to the hospital for overdosing on some medications. The patient had just been discharged from the psychiatric hospital four days before that. She has diagnosis of other specified depressive disorder, other specified anxiety disorder, rule out major depressive disorder. She was on Effexor XR 150 mg daily, Remeron 15 mg at bedtime (q.h.s.), Klonopin 0.25 mg at bedtime (q.h.s.) and Zyprexa 2.5 mg three times a day. The patient had been presenting to the emergency room complaining of suicidal ideations before that the patient was admitted to [facility] from 12/08 to 01/06/2020. She was very depressed and we are looking at possibly sending her to [facility], but they turned her down because they thought she was more appropriate for inpatient correction; she did not meet the criteria for that, then it was felt that her depression got better and she was discharged. PAST PSYCHIATRIC HISTORY: She has a history of many hospitalizations. She was admitted to [facility] recently and she has made other suicidal attempts via overdosing. MEDICAL HISTORY: She is treated for essential tremor, has gastrointestinal difficulties and irritable bowel syndrome and back pain. SUBSTANCE ABUSE: There is no history of any alcohol or drug abuse. FAMILY HISTORY: She says one of her brothers committed suicide, but the details are unclear. MENTAL STATUS EXAMINATION: The patient spoke very quietly, actually the staff from the psychiatric unit that took the laptop up to the patient had to actually repeat, they admitted to being depressed. Her affect was flat. I did not hear her say anything that made me think that she was psychotic. Again, she was admitted that the overdose was a suicidal attempt; but that at this point, she wanted to live, she was not homicidal. Concentration appeared to be fair. She was able to follow my questions and answer them appropriately. But again, because it was so difficulty to hear her, I really had to keep my questions at a minimum. The patient does not seem to have any history of memory problems, but I did not test her memory formally. Insight and judgment are poor. DIAGNOSIS: 1. 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 2. History of other specified anxiety disorder. TREATMENT PLAN: At this point, the patient made a very serious suicidal attempt with acetaminophen level of 141. She continues to be depressed and has a history of prior suicidal attempts and she remains at pretty serious risk for suicide. She also gives a history of brother that committed suicide. Therefore, once the patient is stable, we will transfer the patient to the psychiatric unit. I would like to see if we could try to get her to [facility] because they are a geriatric psychiatric unit.
[2020-02-03 15:25] VITALS: BP 134/63
--- NOTE | 2020-02-03 16:49 | DS.PDOC ---
Discharge Summary General Date of Admission Jan 30, 2020 at 19:02 Date of Discharge 02/03/20 Discharge Summary PROCEDURES PERFORMED DURING STAY: [None]. ADMITTING DIAGNOSES: Acetaminophen Overdose Suicide attempt with a history of severe MDD Depression Hypertension DISCHARGE DIAGNOSES: Acetaminophen Overdose Suicide attempt with a history of severe MDD Depression Hypertension COMPLICATIONS/CHIEF COMPLAINT: Intentional Acetaminophen Overdose. HISTORY OF PRESENT ILLNESS:Patient is 80 years old female with past mental history of major depressive disorder with psychotic features who was admitted to the hospital with Tylenol overdose HOSPITAL COURSE: During hospital stay following issues addressed Acetaminophen Overdose Status post NAC protocol treatment Psychiatrist team recommended transfer to mental health unit Liver enzymes within normal limit Suicide attempt with a history of severe MDD See above Depression - aripiprazole, duloxetine, venlafaxine Hypertension blood pressure is under control Continue amlodpine Continue lisinopril DISCHARGE MEDICATIONS: Please see below. ALLERGIES: Please see below. PHYSICAL EXAMINATION ON DISCHARGE: VITAL SIGNS: Please see below. GENERAL: awake, alert, NAD HEENT: NCAT, anicteric sclera, RAUL NECK: supple, no JVD CARDIOVASCULAR EXAMINATION: NS1S2, regular rate/rhythm RESPIRATORY EXAMINATION: CTA b/l, no wheezes/rales/rhonchi ABDOMINAL EXAMINATION: positive bowel sounds x 4, NT EXTREMITIES: no cyanosis, clubbing, edema SKIN: warm, no rashes. NEUROLOGICAL EXAMINATION: AAO x 3, no motor/sensory deficits PSYCHIATRIC EXAMINATION: Flat affect LABORATORY DATA: Please see below. IMAGING: CT brain: 01/30/2020. Indication: Stroke. Technique: Unenhanced axial CT images of the brain were obtained from skull base to vertex with coronal reconstructions provided. Comparison: 08/29/2019. Findings: There is no acute intracranial hemorrhage, acute cortical infarction, mass effect or hydrocephalous. Age-related volume loss is present. A few patchy areas of white matter hypoattenuation are present within the cerebral hemispheres. Impression: No acute intracranial process. Sequelae of chronic microangiopathic ischemic disease. PROGNOSIS: Fair ACTIVITY: [As tolerated]. DIET: Cardiac DISPOSITION: Mental health unit ITEMS TO FOLLOWUP ON ON OUTPATIENT: With PCP and psychiatrist DISCHARGE CONDITION: [Stable]. TIME SPENT ON DISCHARGE: Greater than 20 minutes. Vital Signs/I&Os Vital Signs Date Time Temp Pulse Resp B/P (MAP) Pulse Ox O2 Delivery O2 Flow Rate FiO2 02/03/20 15:25 97.3 72 18 134/63 (86) 95 Room Air I&O- Last 24 Hours up to 6 AM 02/03/20 06:00 Intake Total 600 ml Output Total 0 ml Balance 600 ml Laboratory Data Labs 24H Laboratory Tests 2 02/03/20 14:07: Coronavirus (COVID-19)(PCR) NEGATIVE Discharge Medications Scheduled Aripiprazole (Aripiprazole) 2 Mg Tablet, 2 MG PO QHS, (Reported) Duloxetine Hcl (Duloxetine HCl) 60 Mg Capsule.dr, 60 MG PO DAILY, (Reported) Gluc Mcfarlane/Chondro Mcfarlane A/Vit C/Mn (Glucosamine Chondroitin Tab) 1 Each Tablet, 1 TAB PO BID, (Reported) Latanoprost/Pf (Latanoprost 0.005% Eye Drop) 7.5 Ml Drops, 1 DROP OU QHS, (Repo rted) Multivitamins (Thera M Plus Tablet) 1 Each Tablet, 1 TAB PO DAILY, (Reported) Pravastatin Sodium (Pravastatin Sodium) 20 Mg Tab, 20 MG PO QHS, (Reported) Primidone (Primidone) 50 Mg Tab, 100 MG QHS, (Reported) Venlafaxine HCl (Venlafaxine HCl ER) 37.5 Mg Cap.er.24h, 37.5 MG PO DAILY, (Reported) Venlafaxine HCl (Venlafaxine HCl ER) 150 Mg Cap.er.24h, 150 MG PO DAILY, (Reported) Scheduled PRN Clonazepam (Clonazepam) 0.25 Mg Tab.rapdis, 0.25 MG PO QHSP PRN for ANXIETY, (Reported) Docusate Sodium (Stool Softener) 100 Mg Capsule, 100 MG PO BID PRN for CONSTIPATION, (Reported) Sennosides (Senokot) 8.6 Mg Tablet, 8.6 M PO DAILYPRN PRN for CONSTIPATION, (Reported) Miscellaneous Medications [patient comment] , (Reported) UNABLE TO VERIFY WITH PATIENT. MED LIST OBTAINED THROUGH EXTERNAL MED HISTORY Allergies Coded Allergies: Cephalosporins (Verified Allergy, Unknown, 08/29/19) Penicillins (Verified Allergy, Unknown, UNKNOWN REACTION, 08/30/19) ceftriaxone (Verified Adverse Reaction, Unknown, INCREASED HR, 08/30/19) meperidine (Verified Adverse Reaction, Unknown, AMS, 08/30/19) SAMANTA SIGALA DO Feb 03, 2020 16:49
== END 2020-02-03 17:11 | DRG 918 ==
LOC: EDBD 16:12 → M ED 16:12 → M ED INP 19:02 → ENRESERV 20:41 → M PCU 21:40 → M ICU 23:23 → M PCU 01-31 09:43
PROVIDERS: ADMIT Internal Medicine; ATTEND Internal Medicine
DX: T39.1X2A Poisoning by 4-Aminophenol derivatives, intentional self-harm, initial encounter (principal); F33.9 Major depressive disorder, recurrent, unspecified; R00.1 Bradycardia, unspecified; I49.3 Ventricular premature depolarization; I10 Essential (primary) hypertension; Z79.899 Other long term (current) drug therapy; Z88.0 Allergy status to penicillin; Z88.8 Allergy status to other drugs, medicaments and biological substances; E78.5 Hyperlipidemia, unspecified; G25.0 Essential tremor; E66.9 Obesity, unspecified; Z68.30 Body mass index [BMI] 30.0-30.9, adult

== ENCOUNTER → 2020-09-12 | Outpatient (CLI) | payer SELFPAY ==
[~2020-09-12] MED LIST changes: +ACET650T61 PO; +ARIP1TAB4 PO; -ASPI-261 PO; +ASPI-559 PO; +CLON0.25 PO; +DULO1CAP4 PO; +DULO1CAP6 PO; +KLON0.5T PO; +MIRT-62 PO; -REME15TA PO; -TYLE650T35 PO; +VENL37.52 PO; +patient comment
== END ==
LOC: M LABSMTC 13:46
PROVIDERS: ATTEND Pediatrics
DX: Z20.822 Contact with and (suspected) exposure to COVID-19 (principal)

== ENCOUNTER → 2020-09-20 | Outpatient (REF) | PROVIDERS: ATTEND Internal Medicine | DX: Z20.822 Contact with and (suspected) exposure to COVID-19 (principal) ==

== ENCOUNTER → 2020-09-26 | Outpatient (REF) ==
[2020-09-26 14:43] LABS: CALCIUM LEVEL 9.5 MG/DL (8.8-10.2); CREATININE FOR GFR 1.26 MG/DL (0.55-1.30); GLOMERULAR FILTRATION RATE 43.7 (>39); POTASSIUM SERUM 4.8 MEQ/L (3.5-5.1)
[2020-09-26 15:34] LABS: HEMATOCRIT 44.1 % (36.0-47.0); HEMOGLOBIN 14.2 g/dl (12.0-15.5); MEAN CORPUSCULAR HEMOGLOBIN 31.2 pg (27.0-33.0); MEAN CORPUSCULAR HGB CONC 32.2 g/dl (32.0-36.5); MEAN CORPUSCULAR VOLUME 96.9 fl (80.0-96.0); PLATELET COUNT, AUTOMATED 298 10^3/uL (150-450); RED BLOOD COUNT 4.55 10^6/uL (4.00-5.40); WHITE BLOOD COUNT 8.5 10^3/uL (4.0-10.0)
== END ==
PROVIDERS: ATTEND Internal Medicine
DX: R42 Dizziness and giddiness (principal)

== ENCOUNTER → 2020-09-27 | Outpatient (REF) ==
[2020-09-27 09:40] LABS: HEMATOCRIT 43.9 % (36.0-47.0); HEMOGLOBIN 14.1 g/dl (12.0-15.5); MEAN CORPUSCULAR HEMOGLOBIN 30.9 pg (27.0-33.0); MEAN CORPUSCULAR HGB CONC 32.1 g/dl (32.0-36.5); MEAN CORPUSCULAR VOLUME 96.3 fl (80.0-96.0); PLATELET COUNT, AUTOMATED 290 10^3/uL (150-450); RED BLOOD COUNT 4.56 10^6/uL (4.00-5.40); WHITE BLOOD COUNT 7.6 10^3/uL (4.0-10.0)
[2020-09-27 10:20] LABS: BLOOD UREA NITROGEN 22 MG/DL (7-18); CALCIUM LEVEL 9.1 MG/DL (8.8-10.2); CARBON DIOXIDE LEVEL 27 MEQ/L (21-32); CHLORIDE LEVEL 105 MEQ/L (98-107); GLOMERULAR FILTRATION RATE > 60.0 (>39); GLUCOSE, FASTING 99 MG/DL (70-100); POTASSIUM SERUM 4.6 MEQ/L (3.5-5.1); SODIUM LEVEL 140 MEQ/L (136-145)
== END ==
PROVIDERS: ATTEND Internal Medicine
DX: Z20.822 Contact with and (suspected) exposure to COVID-19 (principal)

== ENCOUNTER → 2020-10-04 | Outpatient (REF) ==
[2020-10-04 11:30] LABS: HEMATOCRIT 39.2 % (36.0-47.0); HEMOGLOBIN 12.9 g/dl (12.0-15.5); MEAN CORPUSCULAR HEMOGLOBIN 31.6 pg (27.0-33.0); MEAN CORPUSCULAR HGB CONC 32.9 g/dl (32.0-36.5); MEAN CORPUSCULAR VOLUME 96.1 fl (80.0-96.0); PLATELET COUNT, AUTOMATED 226 10^3/uL (150-450); RED BLOOD COUNT 4.08 10^6/uL (4.00-5.40); WHITE BLOOD COUNT 8.4 10^3/uL (4.0-10.0)
[2020-10-04 11:57] LABS: BLOOD UREA NITROGEN 24 MG/DL (7-18); CALCIUM LEVEL 9.1 MG/DL (8.8-10.2); CARBON DIOXIDE LEVEL 30 MEQ/L (21-32); CHLORIDE LEVEL 105 MEQ/L (98-107); CREATININE FOR GFR 0.92 MG/DL (0.55-1.30); GLOMERULAR FILTRATION RATE > 60.0 (>39); GLUCOSE, FASTING 90 MG/DL (70-100); POTASSIUM SERUM 4.4 MEQ/L (3.5-5.1); SODIUM LEVEL 139 MEQ/L (136-145)
== END ==
PROVIDERS: ATTEND Internal Medicine
DX: F32.9 Major depressive disorder, single episode, unspecified (principal); Z20.822 Contact with and (suspected) exposure to COVID-19

== ENCOUNTER → 2020-10-11 | Outpatient (REF) | payer MEDICARE ==
[~2020-10-11] MED LIST changes: -ASPI-559 PO; +ASPI325T3 PO
== END ==
PROVIDERS: ATTEND Internal Medicine
DX: Z20.822 Contact with and (suspected) exposure to COVID-19 (principal)

== ENCOUNTER → 2020-10-18 | Outpatient (REF) | payer MEDICARE | PROVIDERS: ATTEND Internal Medicine | DX: Z20.822 Contact with and (suspected) exposure to COVID-19 (principal) ==

== ENCOUNTER → 2020-10-25 | Outpatient (REF) | payer MEDICARE | PROVIDERS: ATTEND Internal Medicine | DX: Z11.52 Encounter for screening for COVID-19 (principal) ==

== ENCOUNTER → 2020-11-01 | Outpatient (REF) | payer MEDICARE ==
[2020-11-01 10:17] LABS: HEMATOCRIT 39.6 % (36.0-47.0); HEMOGLOBIN 13.3 g/dl (12.0-15.5); MEAN CORPUSCULAR HGB CONC 33.6 g/dl (32.0-36.5); MEAN CORPUSCULAR VOLUME 95.4 fl (80.0-96.0); PLATELET COUNT, AUTOMATED 212 10^3/uL (150-450); RED BLOOD COUNT 4.15 10^6/uL (4.00-5.40); WHITE BLOOD COUNT 6.7 10^3/uL (4.0-10.0)
[2020-11-01 10:50] LABS: BLOOD UREA NITROGEN 29 MG/DL (7-18); CALCIUM LEVEL 9.3 MG/DL (8.8-10.2); CARBON DIOXIDE LEVEL 27 MEQ/L (21-32); CHLORIDE LEVEL 107 MEQ/L (98-107); CREATININE FOR GFR 0.72 MG/DL (0.55-1.30); GLOMERULAR FILTRATION RATE > 60.0 (>39); GLUCOSE, FASTING 85 MG/DL (70-100); POTASSIUM SERUM 4.2 MEQ/L (3.5-5.1); SODIUM LEVEL 140 MEQ/L (136-145)
== END ==
PROVIDERS: ATTEND Internal Medicine
DX: F32.9 Major depressive disorder, single episode, unspecified (principal)

== ENCOUNTER → 2020-11-17 | Outpatient (REF) | payer MEDICARE ==
[2020-11-17 21:39] LABS: INFLUENZA A AMPLIFICATION NEGATIVE (NEGATIVE); INFLUENZA B AMPLIFICATION NEGATIVE (NEGATIVE)
== END ==
PROVIDERS: ATTEND Internal Medicine
DX: Z11.59 Encounter for screening for other viral diseases (principal)

== ENCOUNTER → 2020-11-28 | Outpatient (REF) | payer MEDICARE ==
[~2020-11-28] MED LIST changes: +DOCU-160 PO; -STOO2CAP PO
== END ==
PROVIDERS: ATTEND Internal Medicine
DX: Z20.822 Contact with and (suspected) exposure to COVID-19 (principal)

== ENCOUNTER → 2020-12-05 | Outpatient (REF) | payer MEDICARE | PROVIDERS: ATTEND Internal Medicine | DX: Z20.822 Contact with and (suspected) exposure to COVID-19 (principal) ==

== ENCOUNTER → 2021-02-15 | Outpatient (CLI) | payer MEDICARE ==
--- NOTE | 2021-02-15 15:22 | REP ---
INDICATION: LOW BACK PAIN COMPARISON: None. TECHNIQUE: AP, lateral, bilateral oblique, and coned-down views of the lumbar spine. FINDINGS: Chronic dextroconvex scoliosis, osteopenia, and advanced multilevel degenerative changes are appreciated. Evaluation is limited. No obvious acute fracture/compression injury. IMPRESSION: Limited by osteopenia, degenerative changes, and significant chronic scoliosis. <Electronically signed by Choco Dc > 02/15/21 [id number]
== END ==
LOC: M RAD 14:50
PROVIDERS: ATTEND Physician Assistant
DX: M54.5 Low back pain (principal); M85.88 Other specified disorders of bone density and structure, other site; M51.36 Other intervertebral disc degeneration, lumbar region; M41.86 Other forms of scoliosis, lumbar region

== ENCOUNTER → 2021-02-15 | Outpatient (REF) | payer MEDICARE | PROVIDERS: ATTEND Internal Medicine | DX: M54.9 Dorsalgia, unspecified (principal); Z53.8 Procedure and treatment not carried out for other reasons ==

== ENCOUNTER → 2021-02-21 | Outpatient (REF) | payer MEDICARE ==
[2021-02-21 11:49] LABS: CHOLESTEROL RISK RATIO 2.509 (<5); THYROID STIMULATING HORMONE 0.709 uIU/ML (0.358-3.740)
== END ==
PROVIDERS: ATTEND Internal Medicine
DX: Z79.899 Other long term (current) drug therapy (principal)

== ENCOUNTER → 2021-03-21 | Outpatient (REF) | payer MEDICARE ==
[2021-03-21 10:49] LABS: HEMATOCRIT 40.3 % (36.0-47.0); HEMOGLOBIN 13.2 g/dl (12.0-15.5); MEAN CORPUSCULAR HGB CONC 32.8 g/dl (32.0-36.5); MEAN CORPUSCULAR VOLUME 97.8 fl (80.0-96.0); PLATELET COUNT, AUTOMATED 239 10^3/uL (150-450); RED BLOOD COUNT 4.12 10^6/uL (4.00-5.40)
[2021-03-21 11:11] LABS: BLOOD UREA NITROGEN 23 MG/DL (7-18); CALCIUM LEVEL 9.1 MG/DL (8.8-10.2); CARBON DIOXIDE LEVEL 26 MEQ/L (21-32); CHLORIDE LEVEL 108 MEQ/L (98-107); CREATININE FOR GFR 0.81 MG/DL (0.55-1.30); GLOMERULAR FILTRATION RATE > 60.0 (>39); GLUCOSE, FASTING 128 MG/DL (70-100); SODIUM LEVEL 142 MEQ/L (136-145)
== END ==
PROVIDERS: ATTEND Internal Medicine
DX: F32.9 Major depressive disorder, single episode, unspecified (principal)

== ENCOUNTER → 2021-05-07 | Outpatient (REF) | payer MEDICARE ==
[~2021-05-07] MED LIST changes: +ASPI-584 PO; -ASPI325T3 PO
[2021-05-07 17:56] LABS: HEMATOCRIT 43.8 % (36.0-47.0); HEMOGLOBIN 14.6 g/dl (12.0-15.5); MEAN CORPUSCULAR HEMOGLOBIN 32.4 pg (27.0-33.0); MEAN CORPUSCULAR HGB CONC 33.3 g/dl (32.0-36.5); MEAN CORPUSCULAR VOLUME 97.1 fl (80.0-96.0); PLATELET COUNT, AUTOMATED 237 10^3/uL (150-450); RED BLOOD COUNT 4.51 10^6/uL (4.00-5.40); WHITE BLOOD COUNT 10.7 10^3/uL (4.0-10.0)
[2021-05-07 18:24] LABS: CALCIUM LEVEL 9.5 MG/DL (8.8-10.2); CREATININE FOR GFR 1.06 MG/DL (0.55-1.30); GLOMERULAR FILTRATION RATE 53.2 (>39); POTASSIUM SERUM 4.2 MEQ/L (3.5-5.1)
== END ==
PROVIDERS: ATTEND Internal Medicine
DX: R19.7 Diarrhea, unspecified (principal)

== ENCOUNTER → 2021-05-16 | Outpatient (REF) | payer MEDICARE | PROVIDERS: ATTEND Internal Medicine | DX: G20 Parkinson's disease (principal) ==

== ENCOUNTER → 2021-05-28 | Outpatient (CLI) | payer MEDICARE ==
--- NOTE | 2021-05-28 12:06 | REPVR ---
PROCEDURE INFORMATION: Exam: CT Head Without Contrast Exam date and time: 05/28/2021 11:32 AM Age: 81 years old Clinical indication: Other: F01.50 dementia r25.8 abn movements i63.9 cer infr TECHNIQUE: Imaging protocol: Computed tomography of the head without contrast. Radiation optimization: All CT scans at this facility use at least one of these dose optimization techniques: automated exposure control; mA and/or kV adjustment per patient size (includes targeted exams where dose is matched to clinical indication); or iterative reconstruction. COMPARISON: CT Head without contrast 01/30/2020 4:34 PM FINDINGS: Brain: There is no acute intracranial hemorrhage, cerebral edema, or midline shift. Chronic microvascular ischemic changes are seen in the periventricular white matter. Age-related cerebral and cerebellar volume loss is present. Cerebral ventricles: No hydrocephalus. Paranasal sinuses: There is no acute sinusitis. Mastoid air cells: The mastoid air cells are clear. Orbital cavity: The included orbital structures are unremarkable. Vasculature: Atherosclerotic calcifications are seen involving the cavernous carotid arteries. Bones/joints: Hyperostosis frontalis interna is noted. Soft tissues: Unremarkable. IMPRESSION: 1. No acute intracranial abnormality. 2. Atrophy and chronic deep white matter ischemic changes. Electronically signed by: Gian Frye On 05/28/2021 12:05:26 PM
== END ==
LOC: M RAD 11:16
PROVIDERS: ATTEND Psychiatry & Neurology Neurology
DX: F01.50 Vascular dementia, unspecified severity, without behavioral disturbance, psychotic disturbance, mood disturbance, and anxiety (principal); R25.8 Other abnormal involuntary movements; I63.9 Cerebral infarction, unspecified

== ENCOUNTER → 2021-06-27 | Outpatient (REF) | payer MEDICARE ==
[~2021-06-27] MED LIST changes: -CYMB60CA3 PO; +CYMB60CA4 PO
[2021-06-27 11:28] LABS: HEMATOCRIT 39.8 % (36.0-47.0); HEMOGLOBIN 13.2 g/dl (12.0-15.5); MEAN CORPUSCULAR HEMOGLOBIN 31.7 pg (27.0-33.0); MEAN CORPUSCULAR HGB CONC 33.2 g/dl (32.0-36.5); MEAN CORPUSCULAR VOLUME 95.7 fl (80.0-96.0); PLATELET COUNT, AUTOMATED 264 10^3/uL (150-450); RED BLOOD COUNT 4.16 10^6/uL (4.00-5.40); WHITE BLOOD COUNT 10.4 10^3/uL (4.0-10.0)
[2021-06-27 11:52] LABS: ALBUMIN 2.8 GM/DL (3.2-5.2); ALT/SGPT 31 U/L (12-78); BILIRUBIN,TOTAL 0.4 MG/DL (0.2-1.0); BLOOD UREA NITROGEN 27 MG/DL (7-18); CALCIUM LEVEL 9.7 MG/DL (8.8-10.2); CARBON DIOXIDE LEVEL 27 MEQ/L (21-32); CHLORIDE LEVEL 107 MEQ/L (98-107); CHOLESTEROL LEVEL 144 MG/DL (<200); CHOLESTEROL RISK RATIO 2.769 (<5); CREATININE FOR GFR 0.69 MG/DL (0.55-1.30); GLOMERULAR FILTRATION RATE > 60.0 (>39); GLUCOSE, FASTING 109 MG/DL (70-100); HDL CHOLESTEROL 52 MG/DL (>40); LDL CHOLESTEROL 70 MG/DL (<100); NON-HDL-C 92 MG/DL; PHOSPHORUS LEVEL 2.8 MG/DL (2.5-4.9); POTASSIUM SERUM 4.2 MEQ/L (3.5-5.1); SODIUM LEVEL 140 MEQ/L (136-145); TOTAL PROTEIN 5.4 GM/DL (6.4-8.2); TRIGLYCERIDES LEVEL 110 MG/DL (<150)
[2021-06-27 12:38] LABS: PTH INTACT 22.3 PG/ML (18.5-88.0); TOTAL 25(OH) VITAMIN D 48.4 NG/ML (30.0-100.0)
== END ==
PROVIDERS: ATTEND Internal Medicine
DX: G20 Parkinson's disease (principal); Z79.899 Other long term (current) drug therapy

== ENCOUNTER → 2021-07-18 | Outpatient (REF) | payer MEDICARE ==
[2021-07-18 11:05] LABS: HEMATOCRIT 38.6 % (36.0-47.0); HEMOGLOBIN 12.9 g/dl (12.0-15.5); MEAN CORPUSCULAR HEMOGLOBIN 32.3 pg (27.0-33.0); MEAN CORPUSCULAR HGB CONC 33.4 g/dl (32.0-36.5); MEAN CORPUSCULAR VOLUME 96.5 fl (80.0-96.0); PLATELET COUNT, AUTOMATED 248 10^3/uL (150-450); WHITE BLOOD COUNT 8.4 10^3/uL (4.0-10.0)
[2021-07-18 11:40] LABS: BLOOD UREA NITROGEN 21 MG/DL (7-18); CALCIUM LEVEL 9.1 MG/DL (8.8-10.2); CARBON DIOXIDE LEVEL 25 MEQ/L (21-32); CHLORIDE LEVEL 108 MEQ/L (98-107); CREATININE FOR GFR 0.72 MG/DL (0.55-1.30); GLOMERULAR FILTRATION RATE > 60.0 (>39); GLUCOSE, FASTING 154 MG/DL (70-100); POTASSIUM SERUM 3.4 MEQ/L (3.5-5.1); SODIUM LEVEL 141 MEQ/L (136-145)
== END ==
PROVIDERS: ATTEND Internal Medicine
DX: F32.A Depression, unspecified (principal); Z79.899 Other long term (current) drug therapy

== ENCOUNTER → 2021-09-19 | Outpatient (REF) | payer MEDICARE ==
[2021-09-19 14:24] LABS: CHOLESTEROL RISK RATIO 2.434 (<5); THYROID STIMULATING HORMONE 1.27 uIU/ML (0.358-3.740)
== END ==
PROVIDERS: ATTEND Internal Medicine
DX: G20 Parkinson's disease (principal); Z79.899 Other long term (current) drug therapy

== ENCOUNTER → 2021-10-03 | Outpatient (REF) | payer MEDICARE ==
[2021-10-03 12:14] LABS: THYROID STIMULATING HORMONE 1.47 uIU/ML (0.358-3.740)
== END ==
PROVIDERS: ATTEND Internal Medicine
DX: Z79.899 Other long term (current) drug therapy (principal)

== ENCOUNTER → 2022-01-04 | Outpatient (REF) | payer MEDICARE ==
[~2022-01-04] MED LIST changes: -ACET1TAB16 PO; +ACET300T48 PO; +CALC-175 PO; -OYST500T25 PO
== END ==
PROVIDERS: ATTEND Nurse Practitioner Family
DX: R05.9 Cough, unspecified (principal)

== ENCOUNTER → 2022-04-03 | Outpatient (REF) | payer MEDICARE ==
[~2022-04-03] MED LIST changes: -GLUCTAB6 PO; +GLUCTAB7 PO
[2022-04-03 11:49] LABS: HEMATOCRIT 38.1 % (36.0-47.0); HEMOGLOBIN 12.6 g/dl (12.0-15.5); MEAN CORPUSCULAR HEMOGLOBIN 32.6 pg (27.0-33.0); MEAN CORPUSCULAR HGB CONC 33.1 g/dl (32.0-36.5); MEAN CORPUSCULAR VOLUME 98.4 fl (80.0-96.0); PLATELET COUNT, AUTOMATED 211 10^3/uL (150-450); RED BLOOD COUNT 3.87 10^6/uL (4.00-5.40)
[2022-04-03 13:01] LABS: ALBUMIN 2.9 GM/DL (3.2-5.2); ALT/SGPT 10 U/L (12-78); BILIRUBIN,TOTAL 0.3 MG/DL (0.2-1.0); BLOOD UREA NITROGEN 26 MG/DL (7-18); CARBON DIOXIDE LEVEL 28 MEQ/L (21-32); CHLORIDE LEVEL 104 MEQ/L (98-107); CHOLESTEROL LEVEL 141 MG/DL (<200); CHOLESTEROL RISK RATIO 2.311 (<5); CREATININE FOR GFR 0.74 MG/DL (0.55-1.30); GLOMERULAR FILTRATION RATE > 60.0 (>32); GLUCOSE, FASTING 110 MG/DL (70-100); HDL CHOLESTEROL 61 MG/DL (>40); LDL CHOLESTEROL 61 MG/DL (<100); NON-HDL-C 80 MG/DL; PHOSPHORUS LEVEL 2.7 MG/DL (2.5-4.9); POTASSIUM SERUM 3.8 MEQ/L (3.5-5.1); SODIUM LEVEL 136 MEQ/L (136-145); TOTAL PROTEIN 5.3 GM/DL (6.4-8.2); TRIGLYCERIDES LEVEL 93 MG/DL (<150)
[2022-04-03 13:27] LABS: PTH INTACT 38.4 PG/ML (18.5-88.0); TOTAL 25(OH) VITAMIN D 37.2 NG/ML (30.0-100.0)
== END ==
PROVIDERS: ATTEND Internal Medicine
DX: N18.9 Chronic kidney disease, unspecified (principal); Z79.899 Other long term (current) drug therapy

== ENCOUNTER → 2022-06-06 | Outpatient (REF) | payer MEDICARE ==
[~2022-06-06] MED LIST changes: -ASPI-584 PO; +ASPI325T62 PO
== END ==
PROVIDERS: ATTEND Nurse Practitioner Family
DX: R09.81 Nasal congestion (principal)

== ENCOUNTER → 2022-10-02 | Outpatient (REF) | payer MEDICARE ==
[2022-10-02 11:09] LABS: HEMATOCRIT 38.7 % (36.0-47.0); HEMOGLOBIN 12.8 g/dl (12.0-15.5); MEAN CORPUSCULAR HEMOGLOBIN 32.6 pg (27.0-33.0); MEAN CORPUSCULAR HGB CONC 33.1 g/dl (32.0-36.5); MEAN CORPUSCULAR VOLUME 98.5 fl (80.0-96.0); PLATELET COUNT, AUTOMATED 208 10^3/uL (150-450); RED BLOOD COUNT 3.93 10^6/uL (4.00-5.40); WHITE BLOOD COUNT 7.6 10^3/uL (4.0-10.0)
[2022-10-02 14:37] LABS: ALBUMIN 2.9 G/DL (3.2-5.2); ALKALINE PHOSPHATASE 73 U/L (46-116); ALT/SGPT 20 U/L (7.0-40); AST/SGOT 18 U/L (<34); BILIRUBIN,TOTAL 0.3 MG/DL (0.3-1.2); BLOOD UREA NITROGEN 22 MG/DL (9-23); CALCIUM LEVEL 8.7 MG/DL (8.3-10.6); CARBON DIOXIDE LEVEL 24 MMOL/L (20-31); CHLORIDE LEVEL 104 MMOL/L (98-107); CHOLESTEROL LEVEL 173 MG/DL (<200); CHOLESTEROL RISK RATIO 3.35 (<5); CREATININE FOR GFR 0.71 MG/DL (0.55-1.30); GLOMERULAR FILTRATION RATE > 60.0 (>32); GLUCOSE, FASTING 114 MG/DL (74-106); HDL CHOLESTEROL 51.5 MG/DL (>40); NON-HDL-C 122 MG/DL; POTASSIUM SERUM 4.2 MMOL/L (3.5-5.1); SODIUM LEVEL 138 MMOL/L (136-145)
[2022-10-02 21:44] LABS: LDL CHOLESTEROL 105.5 MG/DL (<100); TOTAL PROTEIN 5.1 G/DL (5.7-8.2); TRIGLYCERIDES LEVEL 80 MG/DL (<150)
== END ==
PROVIDERS: ATTEND Internal Medicine
DX: N18.9 Chronic kidney disease, unspecified (principal); Z79.899 Other long term (current) drug therapy

== ENCOUNTER → 2023-01-10 | Outpatient (REF) | payer MEDICARE ==
[~2023-01-10] MED LIST changes: +ARTIDRO4 OU; -POLYOPD OU
== END ==
PROVIDERS: ATTEND Nurse Practitioner Family
DX: R05.9 Cough, unspecified (principal)

== ENCOUNTER → 2023-01-31 | Outpatient (REF) | payer MEDICARE ==
[2023-02-01 05:33] LABS: BASO # 0.1 10^3/uL (0.0-0.2); BASO % 0.9 % (0.0-1.0); EOS # 0.1 10^3/uL (0.0-0.5); EOS % 1.4 % (0.0-3.0); HEMATOCRIT 35.7 % (36.0-47.0); HEMOGLOBIN 11.7 g/dl (12.0-15.5); LYMPH # 2.2 10^3/uL (1.5-5.0); LYMPH % 27.3 % (24.0-44.0); MEAN CORPUSCULAR HEMOGLOBIN 32.5 pg (27.0-33.0); MEAN CORPUSCULAR HGB CONC 32.8 g/dl (32.0-36.5); MEAN CORPUSCULAR VOLUME 99.2 fl (80.0-96.0); MONO # 0.5 10^3/uL (0.0-0.8); MONO % 6.5 % (2.0-8.0); NEUTROPHILS # 5.1 10^3/uL (1.5-8.5); NEUTROPHILS % 63.8 % (36.0-66.0); PLATELET COUNT, AUTOMATED 208 10^3/uL (150-450)
[2023-02-01 05:34] LABS: ALBUMIN 3.2 G/DL (3.2-5.2); ALKALINE PHOSPHATASE 78 U/L (46-116); ALT/SGPT 9 U/L (7.0-40); AST/SGOT < 8 U/L (<34); BILIRUBIN,TOTAL 0.2 MG/DL (0.3-1.2); BLOOD UREA NITROGEN 22 MG/DL (9-23); CALCIUM LEVEL 8.9 MG/DL (8.3-10.6); CARBON DIOXIDE LEVEL 27 MMOL/L (20-31); CHLORIDE LEVEL 107 MMOL/L (98-107); CREATININE FOR GFR 0.63 MG/DL (0.55-1.30); GLOMERULAR FILTRATION RATE > 60.0 (>32); GLUCOSE, FASTING 113 MG/DL (74-106); POTASSIUM SERUM 3.8 MMOL/L (3.5-5.1); SODIUM LEVEL 140 MMOL/L (136-145); TOTAL PROTEIN 4.9 G/DL (5.7-8.2)
[2023-02-01 05:37] LABS: THYROID STIMULATING HORMONE 0.531 uIU/ML (0.55-4.78)
== END ==
PROVIDERS: ATTEND Internal Medicine
DX: R41.82 Altered mental status, unspecified (principal); R44.3 Hallucinations, unspecified

== ENCOUNTER → 2023-02-05 | Outpatient (REF) | payer MEDICARE ==
[2023-02-05 09:59] LABS: THYROID STIMULATING HORMONE 0.532 uIU/ML (0.55-4.78); THYROXINE (T4) 8.5 UG/DL (4.5-10.9)
[2023-02-05 10:33] LABS: FREE T3 2.9 PG/ML (2.3-4.2)
== END ==
PROVIDERS: ATTEND Internal Medicine
DX: E07.9 Disorder of thyroid, unspecified (principal)

== ENCOUNTER → 2023-04-07 | Outpatient (REF) | payer MEDICARE ==
[2023-04-07 08:26] LABS: HEMATOCRIT 38.5 % (36.0-47.0); HEMOGLOBIN 12.4 g/dl (12.0-15.5); MEAN CORPUSCULAR HEMOGLOBIN 32.5 pg (27.0-33.0); MEAN CORPUSCULAR HGB CONC 32.2 g/dl (32.0-36.5); PLATELET COUNT, AUTOMATED 239 10^3/uL (150-450); RED BLOOD COUNT 3.81 10^6/uL (4.00-5.40); WHITE BLOOD COUNT 11.3 10^3/uL (4.0-10.0)
[2023-04-07 09:10] LABS: ALBUMIN 3.2 G/DL (3.2-5.2); ALKALINE PHOSPHATASE 84 U/L (46-116); ALT/SGPT 16 U/L (7.0-40); AST/SGOT 10 U/L (<34); BILIRUBIN,TOTAL 0.6 MG/DL (0.3-1.2); BLOOD UREA NITROGEN 26 MG/DL (9-23); CARBON DIOXIDE LEVEL 26 MMOL/L (20-31); CHLORIDE LEVEL 106 MMOL/L (98-107); CREATININE FOR GFR 0.75 MG/DL (0.55-1.30); GLOMERULAR FILTRATION RATE > 60.0 (>32); GLUCOSE, FASTING 95 MG/DL (74-106); POTASSIUM SERUM 3.6 MMOL/L (3.5-5.1); SODIUM LEVEL 144 MMOL/L (136-145); TOTAL PROTEIN 5.8 G/DL (5.7-8.2)
== END ==
PROVIDERS: ATTEND Internal Medicine
DX: N18.9 Chronic kidney disease, unspecified (principal)

== ENCOUNTER → 2023-07-12 | Outpatient (REF) | payer MEDICARE, MEDICAID ==
[~2023-07-12] MED LIST changes: -MIRT-62 PO; +MIRT-88 PO
[2023-07-12 12:13] LABS: BASO # 0.1 10^3/uL (0.0-0.2); BASO % 0.5 % (0.0-1.0); EOS # 0.2 10^3/uL (0.0-0.5); EOS % 0.9 % (0.0-3.0); HEMATOCRIT 38.2 % (36.0-47.0); HEMOGLOBIN 12.6 g/dl (12.0-15.5); LYMPH # 1.7 10^3/uL (1.5-5.0); LYMPH % 9.7 % (24.0-44.0); MEAN CORPUSCULAR HEMOGLOBIN 33.8 pg (27.0-33.0); MEAN CORPUSCULAR VOLUME 102.4 fl (80.0-96.0); MONO # 1.3 10^3/uL (0.0-0.8); MONO % 7.6 % (2.0-8.0); NEUTROPHILS # 13.8 10^3/uL (1.5-8.5); NEUTROPHILS % 80.8 % (36.0-66.0); PLATELET COUNT, AUTOMATED 316 10^3/uL (150-450); RED BLOOD COUNT 3.73 10^6/uL (4.00-5.40); WHITE BLOOD COUNT 17.1 10^3/uL (4.0-10.0)
[2023-07-12 12:21] LABS: ALBUMIN 3.3 G/DL (3.2-5.2); ALKALINE PHOSPHATASE 84 U/L (46-116); ALT/SGPT 22 U/L (7.0-40); AST/SGOT 15 U/L (<34); BILIRUBIN,TOTAL 0.3 MG/DL (0.3-1.2); BLOOD UREA NITROGEN 22 MG/DL (9-23); CALCIUM LEVEL 9.2 MG/DL (8.3-10.6); CARBON DIOXIDE LEVEL 27 MMOL/L (20-31); CHLORIDE LEVEL 103 MMOL/L (98-107); CREATININE FOR GFR 0.71 MG/DL (0.55-1.30); GLOMERULAR FILTRATION RATE > 60.0 (>32); GLUCOSE, FASTING 134 MG/DL (74-106); POTASSIUM SERUM 4.9 MMOL/L (3.5-5.1); SODIUM LEVEL 139 MMOL/L (136-145); TOTAL PROTEIN 6.4 G/DL (5.7-8.2)
== END ==
PROVIDERS: ATTEND Internal Medicine
DX: R05.9 Cough, unspecified (principal); Z79.899 Other long term (current) drug therapy

== ENCOUNTER → 2023-07-14 | Outpatient (REF) | payer MEDICARE, MEDICAID | PROVIDERS: ATTEND Internal Medicine | DX: R05.9 Cough, unspecified (principal) ==

== ENCOUNTER → 2023-10-08 | Outpatient (REF) | payer MEDICARE, MEDICAID ==
[~2023-10-08] MED LIST changes: -KLON0.5T PO; +KLON0.5T8 PO
[2023-10-08 10:37] LABS: HEMATOCRIT 40.2 % (36.0-47.0); HEMOGLOBIN 12.9 g/dl (12.0-15.5); MEAN CORPUSCULAR HEMOGLOBIN 32.5 pg (27.0-33.0); MEAN CORPUSCULAR HGB CONC 32.1 g/dl (32.0-36.5); MEAN CORPUSCULAR VOLUME 101.3 fl (80.0-96.0); PLATELET COUNT, AUTOMATED 263 10^3/uL (150-450); RED BLOOD COUNT 3.97 10^6/uL (4.00-5.40); WHITE BLOOD COUNT 7.8 10^3/uL (4.0-10.0)
[2023-10-08 11:15] LABS: BLOOD UREA NITROGEN 25 MG/DL (9-23); CARBON DIOXIDE LEVEL 29 MMOL/L (20-31); CHLORIDE LEVEL 102 MMOL/L (98-107); CREATININE FOR GFR 0.77 MG/DL (0.55-1.30); GLOMERULAR FILTRATION RATE > 60.0 (>32); GLUCOSE, FASTING 106 MG/DL (74-106); MAGNESIUM LEVEL 2.3 MG/DL (1.8-2.4); POTASSIUM SERUM 4.9 MMOL/L (3.5-5.1); SODIUM LEVEL 135 MMOL/L (136-145)
== END ==
PROVIDERS: ATTEND Internal Medicine
DX: N18.9 Chronic kidney disease, unspecified (principal)

== ENCOUNTER → 2023-11-19 | Outpatient (REF) | payer MEDICARE, MEDICAID | PROVIDERS: ATTEND Internal Medicine | DX: R05.9 Cough, unspecified (principal) ==

== ENCOUNTER 2024-02-07 19:04 | Inpatient (IN) | payer MEDICARE, MEDICAID ==
[~2024-02-07] VITALS: Ht 157.5 cm; Wt 70.6 kg
[~2024-02-07 19:04] MED LIST changes: -ASPI325T62 PO; +BAYE325T PO; -PRIM50TA6; +PRIM50TA6 PO
[2024-02-07] MEDS: LORazepam 2 MG/ML 1ML VIAL IM STA (19:20)
[2024-02-07] MEDS: LORazepam 2 MG/ML 1ML VIAL IV STA ×2 (19:30→20:20)
[2024-02-07 19:47] LABS: VENOUS HCO3 22.4 MMOL/L (23.0-27.0); VENOUS O2 SATURATION 75.2 % (60.0-80.0); VENOUS PARTIAL PRESSURE CO2 41.5 mmHg (38.0-50.0); VENOUS PARTIAL PRESSURE O2 40.3 mmHg (30.0-50.0); VENOUS PH 7.351 UNITS (7.330-7.430); VENOUS STANDARD HCO3 21.4 MMOL/L; VENOUS TOTAL CO2 23.7 MMOL/L (24.0-28.0)
[2024-02-07 20:09] LABS: BASO # 0.1 10^3/uL (0.0-0.2); BASO % 0.7 % (0.0-1.0); EOS % 0.1 % (0.0-3.0); HEMATOCRIT 44.3 % (36.0-47.0); HEMOGLOBIN 14.8 g/dl (12.0-15.5); LYMPH # 2.4 10^3/uL (1.5-5.0); LYMPH % 15.4 % (24.0-44.0); MEAN CORPUSCULAR HEMOGLOBIN 33.5 pg (27.0-33.0); MEAN CORPUSCULAR HGB CONC 33.4 g/dl (32.0-36.5); MEAN CORPUSCULAR VOLUME 100.2 fl (80.0-96.0); MONO # 1.1 10^3/uL (0.0-0.8); MONO % 6.8 % (2.0-8.0); NEUTROPHILS # 11.8 10^3/uL (1.5-8.5); NEUTROPHILS % 76.5 % (36.0-66.0); PLATELET COUNT, AUTOMATED 376 10^3/uL (150-450); RED BLOOD COUNT 4.42 10^6/uL (4.00-5.40); WHITE BLOOD COUNT 15.4 10^3/uL (4.0-10.0)
[2024-02-07] MEDS: NS 1,000 ML IV ONE (20:21)
[2024-02-07 20:22] LABS: CK-MB VALUE MASS 8.7 NG/ML (<3.6); ETHYL ALCOHOL (ETHANOL) 0.005 % (0.000-0.010)
[2024-02-07 20:24] LABS: ALBUMIN 3.8 G/DL (3.2-5.2); ALKALINE PHOSPHATASE 101 U/L (46-116); ALT/SGPT 19 U/L (7.0-40); AST/SGOT 20 U/L (<34); BILIRUBIN,DIRECT 0.1 MG/DL (<0.4); BILIRUBIN,TOTAL 0.5 MG/DL (0.3-1.2); BLOOD UREA NITROGEN 33 MG/DL (9-23); CALCIUM LEVEL 9.8 MG/DL (8.3-10.6); CARBON DIOXIDE LEVEL 22 MMOL/L (20-31); CHLORIDE LEVEL 111 MMOL/L (98-107); CREATININE FOR GFR 0.96 MG/DL (0.55-1.30); GLOMERULAR FILTRATION RATE 59.2 (>32); GLUCOSE, FASTING 122 MG/DL (74-106); POTASSIUM SERUM 4.8 MMOL/L (3.5-5.1); SALICYLATE LEVEL < 3.0 MG/DL (<30); SODIUM LEVEL 144 MMOL/L (136-145); TOTAL PROTEIN 6.3 G/DL (5.7-8.2)
[2024-02-07 20:26] LABS: THYROID STIMULATING HORMONE 2.135 uIU/ML (0.55-4.78)
[2024-02-07 20:30] LABS: CPK CREATINE PHOSPHOKINASE 188 U/L (34-145); MB/CK RELATIVE INDEX 4.62 (< OR =4)
[2024-02-07 22:12] LABS: AMPHETAMINES LEVEL URINE NEGATIVE (NEGATIVE)
[2024-02-07 22:13] LABS: CANNABINOIDS URINE NEGATIVE (NEGATIVE); COCAINE METABOLITE URINE NEGATIVE (NEGATIVE); METHADONE URINE NEGATIVE (NEGATIVE); OPIATES URINE NEGATIVE (NEGATIVE); PHENCYCLIDINE URINE NEGATIVE (NEGATIVE)
[2024-02-07 22:20] LABS: BARBITURATES URINE POSITIVE (NEGATIVE); BENZODIAZEPINES URINE POSITIVE (NEGATIVE)
[2024-02-07 23:07] LABS: CK-MB VALUE MASS 15.5 NG/ML (<3.6)
[2024-02-07 23:47] LABS: MB/CK RELATIVE INDEX 4.96 (< OR =4)
[2024-02-08] VITALS (10 sets, daily range): BP systolic 105–124; BP diastolic 53–71; TEMP 97.3–98.8; O2SAT 92–97
[2024-02-08] MEDS ORDERED: XALA0.007 OU (01:33)
[2024-02-08] MEDS ORDERED: POTA10TA67 PO (01:33)
[2024-02-08] MEDS ORDERED: ACET1TAB55 PO (01:33)
[2024-02-08] MEDS ORDERED: GABA-1171 PO (01:33)
[2024-02-08] MEDS ORDERED: MILK24002 PO (01:33)
[2024-02-08] MEDS ORDERED: ROPI1TAB73 PO (01:33)
[2024-02-08] MEDS ORDERED: PROP20TA PO (01:33)
[2024-02-08] MEDS ORDERED: CARB25TA9 PO (01:33)
[2024-02-08] MEDS ORDERED: MELA5CAP2 PO (01:33)
[2024-02-08] MEDS ORDERED: SENN-52 PO (01:33)
[2024-02-08] MEDS ORDERED: BUSP5TA PO (01:33)
[2024-02-08] MEDS ORDERED: BISA10SU PR (01:33)
[2024-02-08] MEDS ORDERED: VITA1CAP25 PO (01:33)
[2024-02-08] MEDS ORDERED: FLEEENE12 PR (01:33)
[2024-02-08] MEDS ORDERED: ACET650T15 PO (01:33)
[2024-02-08] MEDS: ENOXAPARIN 60MG/0.6ML SYRINGE (J1650 PER 10MG) SC ONE (01:34)
[2024-02-08] MEDS ORDERED: HOME MED LIST COMPLETE! XX SCH (01:35)
[2024-02-08] MEDS ORDERED: MOM 30ML SUSPENSION UDC PO PRN (02:00)
[2024-02-08] MEDS ORDERED: NITROGLYCERIN 0.4MG SUBL TABLET SL PRN (02:00)
[2024-02-08] MEDS: ASPIRIN 81MG CHEW TABLET PO ONE (02:00)
[2024-02-08] MEDS ORDERED: MAALOX 30 ML SUSP *UDC PO PRN (02:00)
[2024-02-08] MEDS ORDERED: ACETAMINOPHEN TAB 650MG DOSE (2X325MG) PO PRN (02:00)
[2024-02-08] MEDS: OLANZapine INTRAMUSCULAR 10MG VIAL IM PRN (02:56)
[2024-02-08] MEDS: CLOPIDOGREL 300 MG TAB (PLAVIX) PO ONE (03:52)
[2024-02-08 08:01] LABS: CK-MB VALUE MASS 17.9 NG/ML (<3.6); MB/CK RELATIVE INDEX 5.17 (< OR =4)
[2024-02-08] MEDS ORDERED: OLANZapine INTRAMUSCULAR 10MG VIAL IM SCH (09:00)
[2024-02-08] MEDS ORDERED: ASPIRIN ENTERIC 325MG TAB PO SCH (09:00)
[2024-02-08] MEDS: PANTOPRAZOLE 40MG VIAL IV SCH (09:26)
[2024-02-08] MEDS: LISINOPRIL *2.5 MG* TAB PO SCH (09:27)
[2024-02-08] MEDS: ATORVASTATIN 20 MG TAB PO SCH (09:28)
[2024-02-08] MEDS: ACETAMINOPHEN 650MG ER TAB (TYLENOL ARTHRITIS) PO SCH (09:28)
[2024-02-08] MEDS: DULoxetine 30MG CAPSULE (CYMBALTA) PO SCH (09:28)
[2024-02-08] MEDS: PROPRANOLOL 20 MG TAB PO SCH (09:29)
[2024-02-08] MEDS: DOCUSATE SODIUM 100MG CAPSULE PO SCH (09:30)
[2024-02-08] MEDS: ASPIRIN 81MG ENTERIC TABLET PO SCH (09:30)
[2024-02-08] MEDS: POTASSIUM CHLORIDE 10MEQ SR TABLET PO SCH (09:30)
[2024-02-08] MEDS: GABAPENTIN 100 MG CAP PO SCH (09:31)
[2024-02-08] MEDS ORDERED: ENOXAPARIN 100MG/1ML SYRINGE (J1650 PER 10MG) SC SCH (14:00)
[2024-02-08] MEDS: rOPINIRole 1MG TAB PO SCH (15:38)
[2024-02-08] MEDS: SINEMET 25-100 MG TAB PO SCH (15:40)
[2024-02-08] MEDS: VANCOMYCIN HCL 1,000 MG, VIAL MATE ADAPTER 1 EACH in D5W 250 ML IV ONE (15:47)
[2024-02-08 15:49] LABS: C REACTIVE PROTEIN QUANTITATIV 1.9 MG/DL (<1.0)
[2024-02-08 16:22] LABS: PROCALCITONIN 0.09 ng/ml
[2024-02-08] MEDS: busPIRone 10 MG TAB PO SCH (17:17)
[2024-02-08] MEDS: SENOKOT S TAB PO SCH (17:18)
[2024-02-08] MEDS: ENOXAPARIN 60MG/0.6ML SYRINGE (J1650 PER 10MG) SC SCH (17:18)
[2024-02-08] MEDS: NS 1,000 ML IV SCH (18:24)
[2024-02-08] MEDS: LATANOPROST 0.005% OPHTH SOLN 2.5 ML OU SCH (20:24)
[2024-02-08] MEDS: RAMELTEON 8 MG TAB (ROZEREM) PO SCH (20:26)
[2024-02-08] MEDS: PRIMIDONE 50MG TAB PO SCH (20:26)
[2024-02-08] MEDS: VANCOMYCIN HCL 1,000 MG, VIAL MATE ADAPTER 1 EACH in D5W 250 ML IV SCH (20:27)
[2024-02-09] VITALS (11 sets, daily range): BP systolic 115–137; BP diastolic 57–67; TEMP 97–98.7; O2SAT 92–97
[2024-02-09 08:28] LABS: BASO # 0.1 10^3/uL (0.0-0.2); BASO % 0.8 % (0.0-1.0); EOS # 0.5 10^3/uL (0.0-0.5); EOS % 4.8 % (0.0-3.0); HEMATOCRIT 36.6 % (36.0-47.0); LYMPH # 2.9 10^3/uL (1.5-5.0); LYMPH % 27.2 % (24.0-44.0); MEAN CORPUSCULAR HEMOGLOBIN 33.8 pg (27.0-33.0); MEAN CORPUSCULAR HGB CONC 33.1 g/dl (32.0-36.5); MEAN CORPUSCULAR VOLUME 102.2 fl (80.0-96.0); MONO # 0.7 10^3/uL (0.0-0.8); MONO % 6.7 % (2.0-8.0); NEUTROPHILS # 6.3 10^3/uL (1.5-8.5); NEUTROPHILS % 59.9 % (36.0-66.0); PLATELET COUNT, AUTOMATED 263 10^3/uL (150-450); RED BLOOD COUNT 3.58 10^6/uL (4.00-5.40); WHITE BLOOD COUNT 10.6 10^3/uL (4.0-10.0)
[2024-02-09 08:39] LABS: VANCOMYCIN LEVEL TROUGH 17.9 UG/ML (10.0-20.0)
[2024-02-09 08:40] LABS: HEMOGLOBIN 12.1 g/dl (12.0-15.5)
[2024-02-09 08:54] LABS: BLOOD UREA NITROGEN 25 MG/DL (9-23); CALCIUM LEVEL 8.3 MG/DL (8.3-10.6); CARBON DIOXIDE LEVEL 25 MMOL/L (20-31); CHLORIDE LEVEL 113 MMOL/L (98-107); CHOLESTEROL LEVEL 156 MG/DL (<200); CHOLESTEROL RISK RATIO 4.06 (<5); CREATININE FOR GFR 0.72 MG/DL (0.55-1.30); GLOMERULAR FILTRATION RATE > 60.0 (>32); GLUCOSE, FASTING 94 MG/DL (74-106); HDL CHOLESTEROL 38.4 MG/DL (>40); MAGNESIUM LEVEL 1.9 MG/DL (1.8-2.4); NON-HDL-C 117.6 MG/DL; POTASSIUM SERUM 4.2 MMOL/L (3.5-5.1); SODIUM LEVEL 142 MMOL/L (136-145); TRIGLYCERIDES LEVEL 98 MG/DL (<150)
[2024-02-09] MEDS ORDERED: CLOPIDOGREL 75 MG TAB PO SCH (09:00)
[2024-02-09] MEDS: VANCOMYCIN HCL 750 MG, VIAL MATE ADAPTER 1 EACH in D5W 250 ML IV SCH ×2 (09:38→11:18)
[2024-02-10 03:47] VITALS: BP 139/66; TEMP 97.9; O2SAT 94
[2024-02-10] MEDS: ENOXAPARIN 80MG/0.8ML SYRINGE (J1650 PER 10MG) SC SCH (08:54)
[2024-02-10] MEDS: CLOPIDOGREL 75 MG TAB PO SCH (08:55)
[2024-02-10] MEDS: HALOPERIDOL LACTATE 5MG/ML VIAL IV PRN (10:39)
[2024-02-10] MEDS: LORazepam 2 MG/ML 1ML VIAL IV PRN (11:08)
[2024-02-10 12:00] VITALS: BP 92/46; TEMP 97; O2SAT 96
[2024-02-10 13:25] LABS: BASO # 0.1 10^3/uL (0.0-0.2); BASO % 0.8 % (0.0-1.0); EOS # 0.4 10^3/uL (0.0-0.5); EOS % 4.1 % (0.0-3.0); HEMATOCRIT 41.5 % (36.0-47.0); HEMOGLOBIN 13.3 g/dl (12.0-15.5); LYMPH # 2.4 10^3/uL (1.5-5.0); LYMPH % 23.6 % (24.0-44.0); MEAN CORPUSCULAR HEMOGLOBIN 33.2 pg (27.0-33.0); MEAN CORPUSCULAR VOLUME 103.5 fl (80.0-96.0); MONO # 0.7 10^3/uL (0.0-0.8); MONO % 7.3 % (2.0-8.0); NEUTROPHILS # 6.4 10^3/uL (1.5-8.5); NEUTROPHILS % 63.6 % (36.0-66.0); PLATELET COUNT, AUTOMATED 239 10^3/uL (150-450); RED BLOOD COUNT 4.01 10^6/uL (4.00-5.40); WHITE BLOOD COUNT 10.1 10^3/uL (4.0-10.0)
[2024-02-10 13:54] LABS: BLOOD UREA NITROGEN 21 MG/DL (9-23); CALCIUM LEVEL 8.8 MG/DL (8.3-10.6); CARBON DIOXIDE LEVEL 22 MMOL/L (20-31); CHLORIDE LEVEL 111 MMOL/L (98-107); CK-MB VALUE MASS 4.4 NG/ML (<3.6); CREATININE FOR GFR 0.76 MG/DL (0.55-1.30); GLOMERULAR FILTRATION RATE > 60.0 (>32); GLUCOSE, FASTING 97 MG/DL (74-106); POTASSIUM SERUM 4.2 MMOL/L (3.5-5.1); SODIUM LEVEL 138 MMOL/L (136-145)
[2024-02-10 13:58] LABS: CPK CREATINE PHOSPHOKINASE 177 U/L (34-145); MB/CK RELATIVE INDEX 2.48 (< OR =4)
[2024-02-10 20:00] VITALS: BP 130/68; TEMP 97.1; O2SAT 96
[2024-02-10] MEDS: DOXYCYCLINE HYCLATE 100MG TABLET PO SCH (21:00)
[2024-02-11 04:00] VITALS: BP 169/87; TEMP 97.5; O2SAT 93
[2024-02-11 06:14] LABS: HEMATOCRIT 40.7 % (36.0-47.0); HEMOGLOBIN 13.4 g/dl (12.0-15.5); MEAN CORPUSCULAR HEMOGLOBIN 33.6 pg (27.0-33.0); MEAN CORPUSCULAR HGB CONC 32.9 g/dl (32.0-36.5); PLATELET COUNT, AUTOMATED 266 10^3/uL (150-450); RED BLOOD COUNT 3.99 10^6/uL (4.00-5.40); WHITE BLOOD COUNT 11.1 10^3/uL (4.0-10.0)
[2024-02-11 06:39] LABS: ALKALINE PHOSPHATASE 84 U/L (46-116); ALT/SGPT 18 U/L (7.0-40); AST/SGOT 26 U/L (<34); BILIRUBIN,TOTAL 0.4 MG/DL (0.3-1.2); BLOOD UREA NITROGEN 20 MG/DL (9-23); CARBON DIOXIDE LEVEL 25 MMOL/L (20-31); CHLORIDE LEVEL 112 MMOL/L (98-107); CREATININE FOR GFR 0.77 MG/DL (0.55-1.30); GLOMERULAR FILTRATION RATE > 60.0 (>32); GLUCOSE, FASTING 94 MG/DL (74-106); POTASSIUM SERUM 4.9 MMOL/L (3.5-5.1); SODIUM LEVEL 144 MMOL/L (136-145); TOTAL PROTEIN 5.3 G/DL (5.7-8.2)
[2024-02-11] MEDS: QUEtiapine FUMARATE 12.5 MG HALF-TAB PO SCH (09:00)
[2024-02-11] MEDS: HALOPERIDOL LACTATE 5MG/ML VIAL IV PRN (09:39)
[2024-02-11 17:05] VITALS: BP 88/53; TEMP 97.3; O2SAT 98
[2024-02-11 18:22] VITALS: BP 102/60; TEMP 97.9
[2024-02-11 22:00] VITALS: BP 144/84; TEMP 97.5
[2024-02-12 05:00] VITALS: BP 122/84; TEMP 97.5
[2024-02-12 06:16] LABS: HEMATOCRIT 39.1 % (36.0-47.0); MEAN CORPUSCULAR HEMOGLOBIN 33.5 pg (27.0-33.0); MEAN CORPUSCULAR HGB CONC 33.2 g/dl (32.0-36.5); MEAN CORPUSCULAR VOLUME 100.8 fl (80.0-96.0); PLATELET COUNT, AUTOMATED 271 10^3/uL (150-450); RED BLOOD COUNT 3.88 10^6/uL (4.00-5.40); WHITE BLOOD COUNT 10.7 10^3/uL (4.0-10.0)
[2024-02-12 06:45] LABS: ALBUMIN 2.8 G/DL (3.2-5.2); ALKALINE PHOSPHATASE 79 U/L (46-116); ALT/SGPT 12 U/L (7.0-40); AST/SGOT 48 U/L (<34); BILIRUBIN,TOTAL 0.5 MG/DL (0.3-1.2); BLOOD UREA NITROGEN 25 MG/DL (9-23); CALCIUM LEVEL 8.8 MG/DL (8.3-10.6); CARBON DIOXIDE LEVEL 24 MMOL/L (20-31); CHLORIDE LEVEL 113 MMOL/L (98-107); CREATININE FOR GFR 0.81 MG/DL (0.55-1.30); GLOMERULAR FILTRATION RATE > 60.0 (>32); GLUCOSE, FASTING 91 MG/DL (74-106); POTASSIUM SERUM 4.4 MMOL/L (3.5-5.1); SODIUM LEVEL 144 MMOL/L (136-145); TOTAL PROTEIN 5.1 G/DL (5.7-8.2)
[2024-02-12 12:22] VITALS: BP 121/55; TEMP 98.2; O2SAT 95
[2024-02-12] MEDS ORDERED: PILL CUTTER 1 EACH XX ONE (12:28)
[2024-02-12 19:50] VITALS: BP 122/54; TEMP 97; O2SAT 97
[2024-02-12] MEDS ORDERED: LISI2.5T9 PO (21:20)
[2024-02-12] MEDS ORDERED: CLOP75TA2 PO (21:20)
[2024-02-12] MEDS ORDERED: QUET1TAB17 PO (21:20)
[2024-02-12] MEDS ORDERED: ASPI81TAEC PO (21:20)
[2024-02-12] MEDS ORDERED: ATOR1TAB21 PO (21:20)
[2024-02-12] MEDS ORDERED: RAME8TAB2 PO (21:20)
[2024-02-12] MEDS ORDERED: COLA100C5 PO (21:20)
[2024-02-12] MEDS ORDERED: NITR4TASL SL (21:20)
[2024-02-13 04:20] VITALS: BP 128/77; TEMP 97; O2SAT 93
[2024-02-13 07:22] LABS: HEMATOCRIT 36.3 % (36.0-47.0); HEMOGLOBIN 11.9 g/dl (12.0-15.5); MEAN CORPUSCULAR HEMOGLOBIN 32.9 pg (27.0-33.0); MEAN CORPUSCULAR HGB CONC 32.8 g/dl (32.0-36.5); MEAN CORPUSCULAR VOLUME 100.3 fl (80.0-96.0); PLATELET COUNT, AUTOMATED 249 10^3/uL (150-450); RED BLOOD COUNT 3.62 10^6/uL (4.00-5.40); WHITE BLOOD COUNT 11.8 10^3/uL (4.0-10.0)
[2024-02-13 08:08] LABS: ALBUMIN 2.6 G/DL (3.2-5.2); ALKALINE PHOSPHATASE 75 U/L (46-116); ALT/SGPT 14 U/L (7.0-40); AST/SGOT 33 U/L (<34); BILIRUBIN,TOTAL 0.4 MG/DL (0.3-1.2); BLOOD UREA NITROGEN 26 MG/DL (9-23); CALCIUM LEVEL 8.3 MG/DL (8.3-10.6); CARBON DIOXIDE LEVEL 26 MMOL/L (20-31); CHLORIDE LEVEL 110 MMOL/L (98-107); GLOMERULAR FILTRATION RATE > 60.0 (>32); GLUCOSE, FASTING 100 MG/DL (74-106); POTASSIUM SERUM 3.8 MMOL/L (3.5-5.1); SODIUM LEVEL 142 MMOL/L (136-145); TOTAL PROTEIN 4.7 G/DL (5.7-8.2)
[2024-02-13] MEDS: ENOXAPARIN 40MG/0.4ML SYRINGE (J1650 PER 10MG) SC SCH (09:00)
[2024-02-13 09:22] VITALS: BP 124/68
[2024-02-13] MEDS: BISACODYL 10MG SUPP PR PRN (09:26)
[2024-02-13 10:48] VITALS: BP 136/65
[2024-02-13] MEDS ORDERED: GUAI600T54 PO (23:59)
[2024-02-14] MEDS ORDERED: LISI2.5T9 PO (23:59)
[2024-02-14] MEDS ORDERED: ASPI81TA26 PO (23:59)
[2024-02-14] MEDS ORDERED: CLOP75TA2 PO (23:59)
[2024-02-14] MEDS ORDERED: ATOR1TAB21 PO (23:59)
[2024-02-14] MEDS ORDERED: DOCU100C16 PO (23:59)
[2024-02-14] MEDS ORDERED: QUET1TAB17 PO (23:59)
[2024-02-14] MEDS ORDERED: ROZE8TAB16 PO (23:59)
== END 2024-02-13 11:28 | DRG 281 ==
LOC: EDBD 19:04 → M ED 19:04 → M ED INP 02-08 01:51 → M PCU 02-08 03:26 → M MSPAV 02-10 07:45
PROVIDERS: ADMIT Family Medicine; ATTEND Internal Medicine
DX: I21.4 Non-ST elevation (NSTEMI) myocardial infarction (principal); F03.918 Unspecified dementia, unspecified severity, with other behavioral disturbance; I25.10 Atherosclerotic heart disease of native coronary artery without angina pectoris; E78.5 Hyperlipidemia, unspecified; R33.9 Retention of urine, unspecified; G25.0 Essential tremor; Z88.8 Allergy status to other drugs, medicaments and biological substances; Z88.0 Allergy status to penicillin; Z79.899 Other long term (current) drug therapy; Z79.82 Long term (current) use of aspirin; H40.9 Unspecified glaucoma; J45.909 Unspecified asthma, uncomplicated; G47.33 Obstructive sleep apnea (adult) (pediatric); Z87.442 Personal history of urinary calculi; G25.81 Restless legs syndrome

== ENCOUNTER 2024-02-14 18:30 | Inpatient (IN) | payer MEDICARE ==
[~2024-02-14] VITALS: Ht 162.6 cm; Wt 71.7 kg
[~2024-02-14 18:30] MED LIST changes: +ACET1TAB55 PO; +ACET650T15 PO; +ASPI81TAEC PO; +ATOR1TAB21 PO; +BISA10SU PR; +BUSP5TA PO; +CARB25TA9 PO; +CLOP75TA2 PO; +COLA100C5 PO; +FLEEENE12 PR; +GABA-1171 PO; +GUAI600T54 PO; +LISI2.5T9 PO; +MELA5CAP2 PO; +MILK24002 PO; +NITR4TASL SL; +POTA10TA67 PO; +PROP20TA PO; +QUET1TAB17 PO; +RAME8TAB2 PO; +ROPI1TAB73 PO; +SENN-52 PO; +VITA1CAP25 PO; +XALA0.007 OU
[2024-02-14] MEDS: LIDOCAINE 2% 5ML JELLY UROJET TOP ONE (19:15)
[2024-02-14 19:25] LABS: VENOUS HCO3 25.1 MMOL/L (23.0-27.0); VENOUS O2 SATURATION 75.6 % (60.0-80.0); VENOUS PARTIAL PRESSURE CO2 47.4 mmHg (38.0-50.0); VENOUS PARTIAL PRESSURE O2 40.8 mmHg (30.0-50.0); VENOUS PH 7.342 UNITS (7.330-7.430); VENOUS STANDARD HCO3 23.1 MMOL/L; VENOUS TOTAL CO2 26.6 MMOL/L (24.0-28.0)
[2024-02-14 20:03] LABS: ETHYL ALCOHOL (ETHANOL) < 0.003 % (0.000-0.010); SALICYLATE LEVEL < 3.0 MG/DL (<30)
[2024-02-14] MEDS: NS 1,000 ML IV ONE ×2 (20:08)
[2024-02-14 20:13] LABS: AMPHETAMINES LEVEL URINE NEGATIVE (NEGATIVE); BENZODIAZEPINES URINE NEGATIVE (NEGATIVE); CANNABINOIDS URINE NEGATIVE (NEGATIVE); COCAINE METABOLITE URINE NEGATIVE (NEGATIVE); METHADONE URINE NEGATIVE (NEGATIVE); OPIATES URINE NEGATIVE (NEGATIVE); PHENCYCLIDINE URINE NEGATIVE (NEGATIVE)
[2024-02-14 20:15] LABS: BASO # 0.1 10^3/uL (0.0-0.2); BASO % 0.5 % (0.0-1.0); EOS # 0.2 10^3/uL (0.0-0.5); EOS % 1.7 % (0.0-3.0); HEMATOCRIT 36.8 % (36.0-47.0); HEMOGLOBIN 12.2 g/dl (12.0-15.5); LYMPH % 15.3 % (24.0-44.0); MEAN CORPUSCULAR HEMOGLOBIN 33.3 pg (27.0-33.0); MEAN CORPUSCULAR HGB CONC 33.2 g/dl (32.0-36.5); MEAN CORPUSCULAR VOLUME 100.5 fl (80.0-96.0); MONO # 1.1 10^3/uL (0.0-0.8); MONO % 8.4 % (2.0-8.0); NEUTROPHILS # 9.4 10^3/uL (1.5-8.5); NEUTROPHILS % 73.6 % (36.0-66.0); PLATELET COUNT, AUTOMATED 270 10^3/uL (150-450); RED BLOOD COUNT 3.66 10^6/uL (4.00-5.40); WHITE BLOOD COUNT 12.8 10^3/uL (4.0-10.0)
[2024-02-14 20:15] LABS: BARBITURATES URINE POSITIVE (NEGATIVE)
[2024-02-14 20:35] LABS: OSMOLALITY SERUM 295 MOSM/KG (280-301)
[2024-02-14 20:56] LABS: PROCALCITONIN 0.09 ng/ml
[2024-02-14 20:58] LABS: ALBUMIN 3.1 G/DL (3.2-5.2); ALKALINE PHOSPHATASE 85 U/L (46-116); ALT/SGPT 37 U/L (7.0-40); AST/SGOT 50 U/L (<34); BILIRUBIN,DIRECT < 0.1 MG/DL (<0.4); BILIRUBIN,TOTAL 0.3 MG/DL (0.3-1.2); BLOOD UREA NITROGEN 25 MG/DL (9-23); CALCIUM LEVEL 8.8 MG/DL (8.3-10.6); CARBON DIOXIDE LEVEL 26 MMOL/L (20-31); CHLORIDE LEVEL 108 MMOL/L (98-107); CK-MB VALUE MASS 5.3 NG/ML (<3.6); CPK CREATINE PHOSPHOKINASE 382 U/L (34-145); CREATININE FOR GFR 0.73 MG/DL (0.55-1.30); FREE T4 1.25 NG/DL (0.89-1.76); GLOMERULAR FILTRATION RATE > 60.0 (>32); GLUCOSE, FASTING 117 MG/DL (74-106); MB/CK RELATIVE INDEX 1.38 (< OR =4); POTASSIUM SERUM 4.7 MMOL/L (3.5-5.1); SODIUM LEVEL 139 MMOL/L (136-145); THYROID STIMULATING HORMONE 2.397 uIU/ML (0.55-4.78); TOTAL PROTEIN 5.4 G/DL (5.7-8.2)
[2024-02-14] MEDS ORDERED: MED REC IN PROGRESS XX SCH (21:20)
[2024-02-14] MEDS: NITROGLYCERIN 2% OINT 1 GM *U/D* PKT TOP ONE (21:32)
[2024-02-14] MEDS: MEROPENEM INJ 1 GM in IV 1 EA IV ONE (21:32)
[2024-02-14] MEDS ORDERED: LABETALOL 100MG/20ML VIAL IV PRN (21:55)
[2024-02-14] MEDS ORDERED: OLANZapine INTRAMUSCULAR 10MG VIAL IM PRN (21:55)
[2024-02-14 22:07] LABS: CK-MB VALUE MASS 5.3 NG/ML (<3.6)
[2024-02-14 22:08] LABS: MB/CK RELATIVE INDEX 1.38 (< OR =4)
[2024-02-14] MEDS: LR 1,000 ML IV SCH (23:22)
[2024-02-14] MEDS: DOXYCYCLINE HYCLATE 100 MG in D5W MINI-BAG PLUS 100 ML IV SCH (23:55)
[2024-02-14] MEDS ORDERED: ATOR1TAB21 PO (23:59)
[2024-02-14] MEDS ORDERED: ROZE8TAB16 PO (23:59)
[2024-02-14] MEDS ORDERED: QUET1TAB17 PO (23:59)
[2024-02-14] MEDS ORDERED: LISI2.5T9 PO (23:59)
[2024-02-14] MEDS ORDERED: DOCU100C16 PO (23:59)
[2024-02-14] MEDS ORDERED: CLOP75TA2 PO (23:59)
[2024-02-14] MEDS ORDERED: ASPI81TA26 PO (23:59)
[2024-02-15] VITALS (7 sets, daily range): BP systolic 134–162; BP diastolic 62–80; TEMP 97.3–99.7; O2SAT 93–98
[2024-02-15] MEDS ORDERED: HOME MED LIST COMPLETE! XX SCH
[2024-02-15 01:20] LABS: ABG BASE EXCESS -3.9 (-2.0-2.0); ABG HCO3 19.5 MMOL/L (22.0-26.0); ABG O2 SATURATION 97.7 % (95.0-99.0); ABG PARTIAL PRESSURE CO2 30.4 mmHg (35.0-45.0); ABG PARTIAL PRESSURE O2 100.5 mmHg (75.0-100.0); ABG STANDARD HCO3 21.2 MMOL/L. (22.0-26.0); ABG TOTAL CO2 20.4 MMOL/L (23.0-31.0); ABG pH (ARTERIAL) 7.424 UNITS (7.350-7.450)
[2024-02-15 06:08] LABS: HEMATOCRIT 34.4 % (36.0-47.0); HEMOGLOBIN 11.4 g/dl (12.0-15.5); MEAN CORPUSCULAR HEMOGLOBIN 33.5 pg (27.0-33.0); MEAN CORPUSCULAR HGB CONC 33.1 g/dl (32.0-36.5); MEAN CORPUSCULAR VOLUME 101.2 fl (80.0-96.0); PLATELET COUNT, AUTOMATED 246 10^3/uL (150-450); WHITE BLOOD COUNT 11.2 10^3/uL (4.0-10.0)
[2024-02-15 06:34] LABS: BLOOD UREA NITROGEN 19 MG/DL (9-23); CALCIUM LEVEL 8.5 MG/DL (8.3-10.6); CARBON DIOXIDE LEVEL 24 MMOL/L (20-31); CHLORIDE LEVEL 111 MMOL/L (98-107); CREATININE FOR GFR 0.66 MG/DL (0.55-1.30); GLOMERULAR FILTRATION RATE > 60.0 (>32); GLUCOSE, FASTING 103 MG/DL (74-106); MAGNESIUM LEVEL 1.8 MG/DL (1.8-2.4); SODIUM LEVEL 142 MMOL/L (136-145)
[2024-02-15 06:38] LABS: PROCALCITONIN 0.07 ng/ml
[2024-02-15] MEDS ORDERED: ACETAMINOPHEN TAB 650MG DOSE (2X325MG) PO PRN (08:00)
[2024-02-15] MEDS ORDERED: FLEET ENEMA PR PRN (08:00)
[2024-02-15] MEDS ORDERED: BISACODYL 10MG SUPP PR PRN (08:00)
[2024-02-15] MEDS: guaiFENesin ER TABLET 600 MG TAB PO SCH (08:00)
[2024-02-15] MEDS ORDERED: PILL CUTTER 1 EACH XX PRN (08:20)
[2024-02-15] MEDS: PRIMIDONE 50MG TAB PO SCH (09:00)
[2024-02-15] MEDS: busPIRone 10 MG TAB PO SCH (09:00)
[2024-02-15] MEDS: rOPINIRole 1MG TAB PO SCH (09:00)
[2024-02-15] MEDS: DULoxetine 30MG CAPSULE (CYMBALTA) PO SCH (09:00)
[2024-02-15] MEDS: PROPRANOLOL 20 MG TAB PO SCH (09:00)
[2024-02-15] MEDS: POTASSIUM CHLORIDE 10MEQ SR TABLET PO SCH (09:00)
[2024-02-15] MEDS: SENOKOT S TAB PO SCH (09:00)
[2024-02-15] MEDS: CLOPIDOGREL 75 MG TAB PO SCH (09:00)
[2024-02-15] MEDS: GABAPENTIN 100 MG CAP PO SCH (09:00)
[2024-02-15] MEDS: ASPIRIN 81MG ENTERIC TABLET PO SCH (09:00)
[2024-02-15] MEDS: LISINOPRIL *2.5 MG* TAB PO SCH (09:00)
[2024-02-15] MEDS: ENOXAPARIN 40MG/0.4ML SYRINGE (J1650 PER 10MG) SC SCH (09:00)
[2024-02-15] MEDS: DOCUSATE SODIUM 100MG CAPSULE PO SCH (09:00)
[2024-02-15] MEDS: ATORVASTATIN 20 MG TAB PO SCH (09:00)
[2024-02-15] MEDS: QUEtiapine FUMARATE 12.5 MG HALF-TAB PO SCH (09:00)
[2024-02-15] MEDS: SINEMET 25-100 MG TAB PO SCH (10:53)
[2024-02-15] MEDS: RAMELTEON 8 MG TAB (ROZEREM) PO SCH (21:04)
[2024-02-15] MEDS: LATANOPROST 0.005% OPHTH SOLN 2.5 ML OU SCH (21:06)
[2024-02-16 03:08] VITALS: BP 148/84; TEMP 97.9; O2SAT 96
[2024-02-16 07:59] VITALS: BP 136/80; TEMP 98; O2SAT 94
[2024-02-16] MEDS: NITROGLYCERIN 2% OINT 1 GM *U/D* PKT TOP ONE (08:52)
[2024-02-16 11:52] VITALS: BP 134/80; TEMP 98; O2SAT 96
[2024-02-16 16:00] VITALS: BP 150/73; TEMP 97.6; O2SAT 96
[2024-02-16] MEDS: LR 1,000 ML IV SCH (16:15)
[2024-02-16 16:23] LABS: CK-MB VALUE MASS 3.2 NG/ML (<3.6)
[2024-02-16 20:35] VITALS: BP 154/88; TEMP 97.2; O2SAT 98
[2024-02-16] MEDS: BACTRIM 160MG/800MG DS TAB PO SCH (21:00)
[2024-02-16 23:54] VITALS: BP 164/94; TEMP 97.7; O2SAT 98
[2024-02-17 04:04] VITALS: BP 129/73; TEMP 97; O2SAT 93
[2024-02-17 06:49] LABS: HEMATOCRIT 35.4 % (36.0-47.0); HEMOGLOBIN 11.9 g/dl (12.0-15.5); MEAN CORPUSCULAR HEMOGLOBIN 33.5 pg (27.0-33.0); MEAN CORPUSCULAR HGB CONC 33.6 g/dl (32.0-36.5); MEAN CORPUSCULAR VOLUME 99.7 fl (80.0-96.0); PLATELET COUNT, AUTOMATED 273 10^3/uL (150-450); RED BLOOD COUNT 3.55 10^6/uL (4.00-5.40); WHITE BLOOD COUNT 10.7 10^3/uL (4.0-10.0)
[2024-02-17 08:34] VITALS: BP 141/77; TEMP 97; O2SAT 99
[2024-02-17] MEDS: LISINOPRIL *2.5 MG* TAB PO SCH (09:00)
[2024-02-17] MEDS: CLOPIDOGREL 75 MG TAB PO SCH (09:00)
[2024-02-17] MEDS: DULoxetine 30MG CAPSULE (CYMBALTA) PO SCH (09:00)
[2024-02-17] MEDS: PROPRANOLOL 20 MG TAB PO SCH (09:00)
[2024-02-17] MEDS: PRIMIDONE 50MG TAB PO SCH (09:00)
[2024-02-17] MEDS: QUEtiapine FUMARATE 12.5 MG HALF-TAB PO SCH (09:00)
[2024-02-17] MEDS: BACTRIM 160MG/800MG DS TAB PO SCH (09:00)
[2024-02-17] MEDS: LR 1,000 ML IV SCH (09:23)
[2024-02-17] MEDS ORDERED: ONDANSETRON 4MG 2ML VIAL IV PRN (12:00)
[2024-02-17] MEDS ORDERED: AZTREONAM 1 GM in D5W MINI-BAG PLUS 50 ML IV SCH (12:00)
[2024-02-17] MEDS ORDERED: MORPHINE 2 MG/ML 1ML VIAL IV PRN (12:00)
[2024-02-17] MEDS ORDERED: SCOPOLAMINE 1MG TRANSDERMAL PATCH TOP PRN (12:00)
[2024-02-17] MEDS ORDERED: LORazepam 2 MG/ML 1ML VIAL IV PRN (12:00)
[2024-02-17] MEDS: SINEMET 25-100 MG TAB PO SCH (13:00)
[2024-02-17] MEDS ORDERED: PILL CUTTER 1 EACH XX PRN (13:55)
[2024-02-17 14:00] VITALS: BP 139/78; TEMP 97.7; O2SAT 97
[2024-02-17 20:29] VITALS: BP 157/83; TEMP 97.2; O2SAT 99
[2024-02-18 00:21] VITALS: BP 155/78; TEMP 96.8; O2SAT 96
[2024-02-18 04:12] VITALS: BP 153/83; TEMP 97.3; O2SAT 96
[2024-02-18 08:00] VITALS: BP 157/80; TEMP 97.5; O2SAT 96
[2024-02-18] MEDS: ASPIRIN 81MG ENTERIC TABLET PO SCH (10:38)
[2024-02-18 10:39] VITALS: BP 157/80
[2024-02-18] MEDS ORDERED: BACTDSTA PO (11:37)
[2024-02-18 12:00] VITALS: BP 160/78; TEMP 97.9; O2SAT 94
== END 2024-02-18 12:33 | DRG 698 ==
LOC: M ED 18:30 → EDBD 18:30 → M ED INP 21:47 → M PCU 02-15 00:05 → M MSPAV 02-16 18:13
PROVIDERS: ADMIT Preventive Medicine Undersea and Hyperbaric Medicine; ATTEND Student in an Organized Health Care Education/Training Program
DX: T83.511A Infection and inflammatory reaction due to indwelling urethral catheter, initial encounter (principal); I21.4 Non-ST elevation (NSTEMI) myocardial infarction; N39.0 Urinary tract infection, site not specified; F03.90 Unspecified dementia, unspecified severity, without behavioral disturbance, psychotic disturbance, mood disturbance, and anxiety; J45.909 Unspecified asthma, uncomplicated; R62.7 Adult failure to thrive; F32.A Depression, unspecified; F29 Unspecified psychosis not due to a substance or known physiological condition; I10 Essential (primary) hypertension; I25.10 Atherosclerotic heart disease of native coronary artery without angina pectoris; E78.5 Hyperlipidemia, unspecified; G47.33 Obstructive sleep apnea (adult) (pediatric); B96.4 Proteus (mirabilis) (morganii) as the cause of diseases classified elsewhere; H40.9 Unspecified glaucoma; Z91.148 Patient's other noncompliance with medication regimen for other reason; Z88.0 Allergy status to penicillin; Z88.8 Allergy status to other drugs, medicaments and biological substances; Z79.899 Other long term (current) drug therapy; Z79.82 Long term (current) use of aspirin; R25.1 Tremor, unspecified; K58.8 Other irritable bowel syndrome; Z87.442 Personal history of urinary calculi; Z87.891 Personal history of nicotine dependence; Z51.5 Encounter for palliative care; Y84.6 Urinary catheterization as the cause of abnormal reaction of the patient, or of later complication, without mention of misadventure at the time of the procedure

== ENCOUNTER → 2024-04-05 | Outpatient (REF) | payer MEDICARE, MEDICAID ==
[~2024-04-05] MED LIST changes: +ASPI81TA26 PO; +BACTDSTA PO; +DOCU100C16 PO; +ROZE8TAB16 PO
[2024-04-05 11:13] LABS: HEMATOCRIT 37.1 % (36.0-47.0); HEMOGLOBIN 12.1 g/dl (12.0-15.5); MEAN CORPUSCULAR HEMOGLOBIN 33.2 pg (27.0-33.0); MEAN CORPUSCULAR HGB CONC 32.6 g/dl (32.0-36.5); MEAN CORPUSCULAR VOLUME 101.9 fl (80.0-96.0); PLATELET COUNT, AUTOMATED 303 10^3/uL (150-450); RED BLOOD COUNT 3.64 10^6/uL (4.00-5.40); WHITE BLOOD COUNT 8.5 10^3/uL (4.0-10.0)
[2024-04-05 11:30] LABS: BLOOD UREA NITROGEN 22 MG/DL (9-23); CALCIUM LEVEL 9.2 MG/DL (8.3-10.6); CARBON DIOXIDE LEVEL 29 MMOL/L (20-31); CHLORIDE LEVEL 102 MMOL/L (98-107); CREATININE FOR GFR 0.73 MG/DL (0.55-1.30); GLOMERULAR FILTRATION RATE > 60.0 (>32); GLUCOSE, FASTING 100 MG/DL (74-106); MAGNESIUM LEVEL 2.1 MG/DL (1.8-2.4); POTASSIUM SERUM 4.8 MMOL/L (3.5-5.1); SODIUM LEVEL 134 MMOL/L (136-145)
== END ==
PROVIDERS: ATTEND Internal Medicine
DX: N18.9 Chronic kidney disease, unspecified (principal)

== ENCOUNTER → 2024-05-26 | Outpatient (REF) | payer MEDICARE, MEDICAID ==
[~2024-05-26] MED LIST changes: -OLAN2.5T25 PO; +OLAN2.5T53 PO
[2024-05-26 08:52] LABS: HEMATOCRIT 37.3 % (36.0-47.0); HEMOGLOBIN 12.2 g/dl (12.0-15.5); MEAN CORPUSCULAR HEMOGLOBIN 32.9 pg (27.0-33.0); MEAN CORPUSCULAR HGB CONC 32.7 g/dl (32.0-36.5); MEAN CORPUSCULAR VOLUME 100.5 fl (80.0-96.0); PLATELET COUNT, AUTOMATED 235 10^3/uL (150-450); RED BLOOD COUNT 3.71 10^6/uL (4.00-5.40); WHITE BLOOD COUNT 26.6 10^3/uL (4.0-10.0)
[2024-05-26 10:18] LABS: CREATININE FOR GFR 2.07 MG/DL (0.55-1.30); GLOMERULAR FILTRATION RATE 24.4 (>32); POTASSIUM SERUM 7.4 MMOL/L (3.5-5.1)
[2024-05-26 13:06] LABS: AMORPHOUS SEDIMENT SMALL (NEGATIVE); APPEARANCE, URINE CLOUDY (CLEAR); BACTERIA, URINE AUTO NEGATIVE (NEGATIVE); BILIRUBIN, URINE AUTO 1+ (NEGATIVE); BLOOD, URINE BLOOD NEGATIVE (NEGATIVE); COLOR, URINE AMBER (YELLOW); GLUCOSE, URINE (UA) AUTO NEGATIVE (NEGATIVE); KETONE, URINE AUTO TRACE mg/dL (NEGATIVE); LEUKOCYTE ESTERASE, URINE AUTO TRACE (NEGATIVE); NITRITE, URINE AUTO NEGATIVE (NEGATIVE); PROTEIN, URINE AUTO 2+ mg/dL (NEGATIVE); RBC, URINE AUTO 3 /HPF (0-3); SPECIFIC GRAVITY URINE AUTO 1.018 (1.002-1.035); SQUAMOUS EPITHELIAL CELL UR AU 1 /HPF (0-6); WBC, URINE AUTO 14 /HPF (0-3)
== END ==
PROVIDERS: ATTEND Internal Medicine
DX: R09.02 Hypoxemia (principal); Z79.899 Other long term (current) drug therapy

== ENCOUNTER → 2024-05-26 | Outpatient (REF) | payer MEDICARE, MEDICAID | PROVIDERS: ATTEND Internal Medicine | DX: R06.02 Shortness of breath (principal) ==

== ENCOUNTER → 2024-05-27 | Outpatient (REF) | payer MEDICARE, MEDICAID ==
[2024-05-27 14:15] LABS: HEMATOCRIT 37.1 % (36.0-47.0); MEAN CORPUSCULAR HEMOGLOBIN 32.9 pg (27.0-33.0); MEAN CORPUSCULAR HGB CONC 32.3 g/dl (32.0-36.5); MEAN CORPUSCULAR VOLUME 101.6 fl (80.0-96.0); PLATELET COUNT, AUTOMATED 224 10^3/uL (150-450); RED BLOOD COUNT 3.65 10^6/uL (4.00-5.40); WHITE BLOOD COUNT 23.3 10^3/uL (4.0-10.0)
[2024-05-27 14:46] LABS: BLOOD UREA NITROGEN 77 MG/DL (9-23); CALCIUM LEVEL 8.6 MG/DL (8.3-10.6); CARBON DIOXIDE LEVEL 19 MMOL/L (20-31); CHLORIDE LEVEL 98 MMOL/L (98-107); CREATININE FOR GFR 3.02 MG/DL (0.55-1.30); GLOMERULAR FILTRATION RATE 15.8 (>32); GLUCOSE, FASTING 55 MG/DL (74-106); SODIUM LEVEL 129 MMOL/L (136-145)
== END ==
PROVIDERS: ATTEND Internal Medicine
DX: E78.5 Hyperlipidemia, unspecified (principal)

== ENCOUNTER → 2024-05-28 | Outpatient (REF) | payer MEDICARE, MEDICAID | PROVIDERS: ATTEND Internal Medicine | DX: E86.0 Dehydration (principal) ==